=== PATIENT | male | born 1950 | race Caucasian/White ===

== ENCOUNTER 2023-03-17 11:18 | Outpatient (RCR) | payer MEDICARE, BC, SELFPAY ==
[2023-03-17] MEDS: TYLENOL 650 MG PO (12:11)
[2023-03-17 12:23] VITALS: BP 121/71
[2023-03-17 12:43] VITALS: BP 105/54
[2023-03-17 14:36] VITALS: BP 124/68
== END 2023-04-08 23:59 | disposition home or self-care (01) ==
LOC: OID 11:18
PROVIDERS: ATTENDING PHYSICIAN Internal Medicine Hematology & Oncology; FAMILY PHYSICIAN Family Medicine
DX: D64.9 Anemia, unspecified (principal); D46.9 Myelodysplastic syndrome, unspecified (principal); E83.110 Hereditary hemochromatosis
CPT/HCPCS: 36415; 36430; 86850; 86900; 86901; 86920; P9016

== ENCOUNTER → 2023-04-13 10:36 | Outpatient (REF) | payer MEDICARE, BC, SELFPAY | LOC: OIDL 10:36 | PROVIDERS: ATTENDING PHYSICIAN Internal Medicine Hematology & Oncology | DX: E83.110 Hereditary hemochromatosis (principal); D64.9 Anemia, unspecified; D46.9 Myelodysplastic syndrome, unspecified | CPT/HCPCS: 85025; 86850; 86900; 86901; 86920 ==

== ENCOUNTER 2023-04-14 09:46 | Outpatient (RCR) | payer MEDICARE, BC, SELFPAY ==
[2023-04-13 10:42] LABS: % Basophils 0.6 % (0-2); % Eosinophils 8.1 % (0-6); % Immature Granulocytes 18.3 % (0-0.5); % Lymphocytes 8.7 % (20.5-51.1); % Monocytes 7.3 % (1.7-9.3); Absolute Basophils 0.1 10^3/uL (0-0.2); Absolute Eosinophils 1.3 10^3/uL (0-0.7); Absolute Lymphocytes 1.4 10^3/uL (1.2-3.4); Absolute Monocytes 1.2 10^3/uL (0.1-0.6); Absolute Neutrophils 9.2 10^3/uL (1.4-6.5); Hematocrit 23.7 % (39.0-52.0); Hemoglobin 8.2 g/dL (13.0-18.0); Mean Corp Hgb Conc. 34.6 g/dL (33.0-37.0); Mean Corpuscular Hgb 36.9 pg (27.0-31.0); Mean Corpuscular Volume 106.8 fL (80.0-94.0); Mean Platelet Volume 9.5 fL (7.4-10.4); Nucleated Red Blood Cells % 0.4 % (-); Platelet Count 403 10^3/uL (130-400); Red Blood Cell Count 2.22 10^6/uL (4.70-6.10); Red Cell Dist. Width 23.5 % (11.5-14.5); White Blood Cell Count 16.1 10^3/uL (4.8-10.8)
[2023-04-14 09:55] VITALS: BP 134/75
[2023-04-14 10:26] VITALS: BP 134/75
[2023-04-14 10:43] VITALS: BP 102/63
[2023-04-14 12:26] VITALS: BP 135/66
== END 2023-05-07 23:59 | disposition home or self-care (01) ==
LOC: OID 09:46
PROVIDERS: ATTENDING PHYSICIAN Internal Medicine Hematology & Oncology; FAMILY PHYSICIAN Family Medicine
DX: D46.9 Myelodysplastic syndrome, unspecified (principal); D64.9 Anemia, unspecified (principal); E83.110 Hereditary hemochromatosis
CPT/HCPCS: 36430; 85025; 86850; 86900; 86901; 86920; P9016

== ENCOUNTER 2023-06-04 07:39 | Outpatient (RCR) | payer MEDICARE, BC, SELFPAY ==
[2023-05-12 11:23] LABS: Hematocrit 28.4 % (39.0-52.0); Hemoglobin 9.7 g/dL (13.0-18.0); Mean Corp Hgb Conc. 34.2 g/dL (33.0-37.0); Mean Corpuscular Hgb 37.3 pg (27.0-31.0); Mean Corpuscular Volume 109.2 fL (80.0-94.0); Mean Platelet Volume 9.1 fL (7.4-10.4); Platelet Count 358 10^3/uL (130-400); Red Cell Dist. Width 22.7 % (11.5-14.5)
[2023-05-12 11:28] LABS: % Basophils 0.3 % (0-2); % Eosinophils 8.2 % (0-6); % Immature Granulocytes 22.4 % (0-0.5); % Lymphocytes 12.4 % (20.5-51.1); % Monocytes 13.3 % (1.7-9.3); % Neutrophils 43.4 % (42.2-75.2); Absolute Basophils 0.1 10^3/uL (0-0.2); Absolute Eosinophils 1.6 10^3/uL (0-0.7); Absolute Immature Granulocytes 4.3 10^3/uL (0-0.05); Absolute Lymphocytes 2.4 10^3/uL (1.2-3.4); Absolute Monocytes 2.5 10^3/uL (0.1-0.6); Absolute Neutrophils 8.3 10^3/uL (1.4-6.5)
[2023-06-03 11:11] LABS: % Basophils 0.1 % (0-2); % Eosinophils 5.4 % (0-6); % Immature Granulocytes 2.2 % (0-0.5); % Lymphocytes 17.8 % (20.5-51.1); % Monocytes 19.7 % (1.7-9.3); % Neutrophils 54.8 % (42.2-75.2); Absolute Eosinophils 0.4 10^3/uL (0-0.7); Absolute Immature Granulocytes 0.2 10^3/uL (0-0.05); Absolute Lymphocytes 1.5 10^3/uL (1.2-3.4); Absolute Monocytes 1.6 10^3/uL (0.1-0.6); Absolute Neutrophils 4.5 10^3/uL (1.4-6.5); Hematocrit 25.1 % (39.0-52.0); Hemoglobin 8.4 g/dL (13.0-18.0); Mean Corp Hgb Conc. 33.5 g/dL (33.0-37.0); Mean Corpuscular Hgb 38.2 pg (27.0-31.0); Mean Corpuscular Volume 114.1 fL (80.0-94.0); Mean Platelet Volume 9.2 fL (7.4-10.4); Platelet Count 234 10^3/uL (130-400); Red Cell Dist. Width 20.8 % (11.5-14.5); White Blood Cell Count 8.2 10^3/uL (4.8-10.8)
[2023-06-04 07:50] VITALS: BP 120/75
[2023-06-04] MEDS: TYLENOL 650 MG PO (07:59)
[2023-06-04 08:17] VITALS: BP 120/75
[2023-06-04 08:34] VITALS: BP 124/72
[2023-06-04 10:09] VITALS: BP 122/87
== END 2023-06-05 12:12 | disposition home or self-care (01) ==
LOC: OID 07:39
PROVIDERS: ATTENDING PHYSICIAN Internal Medicine Hematology & Oncology; FAMILY PHYSICIAN Family Medicine
DX: D46.9 Myelodysplastic syndrome, unspecified (principal); E83.110 Hereditary hemochromatosis; D64.9 Anemia, unspecified
CPT/HCPCS: 36430; 85025; 86850; 86900; 86901; 86920; P9016

== ENCOUNTER 2023-06-19 10:39 | Outpatient (RCR) | payer MEDICARE, BC, SELFPAY ==
[2023-06-19 10:50] VITALS: BP 105/68
[2023-06-19 11:10] VITALS: BP 105/68
[2023-06-19 11:27] VITALS: BP 104/70
[2023-06-19 13:11] VITALS: BP 111/72
[2023-06-24 10:24] LABS: % Basophils 0.3 % (0-2); % Eosinophils 3.7 % (0-6); % Immature Granulocytes 18.3 % (0-0.5); % Lymphocytes 21.6 % (20.5-51.1); % Monocytes 15.4 % (1.7-9.3); % Neutrophils 40.7 % (42.2-75.2); Absolute Eosinophils 0.3 10^3/uL (0-0.7); Absolute Immature Granulocytes 1.3 10^3/uL (0-0.05); Absolute Lymphocytes 1.5 10^3/uL (1.2-3.4); Absolute Monocytes 1.1 10^3/uL (0.1-0.6); Absolute Neutrophils 2.8 10^3/uL (1.4-6.5); Hematocrit 28.7 % (39.0-52.0); Hemoglobin 9.5 g/dL (13.0-18.0); Mean Corp Hgb Conc. 33.1 g/dL (33.0-37.0); Mean Corpuscular Volume 111.7 fL (80.0-94.0); Mean Platelet Volume 8.7 fL (7.4-10.4); Platelet Count 483 10^3/uL (130-400); Red Blood Cell Count 2.57 10^6/uL (4.70-6.10); Red Cell Dist. Width 20.4 % (11.5-14.5); White Blood Cell Count 6.8 10^3/uL (4.8-10.8)
== END 2023-07-07 23:59 | disposition home or self-care (01) ==
LOC: OID 10:39
PROVIDERS: ATTENDING PHYSICIAN Internal Medicine Hematology & Oncology
DX: D46.9 Myelodysplastic syndrome, unspecified (principal); E83.110 Hereditary hemochromatosis; D64.9 Anemia, unspecified
CPT/HCPCS: 36415; 36430; 85025; 86850; 86900; 86901; 86920; P9016

== ENCOUNTER 2023-07-09 21:54 | Inpatient (IN) | payer MEDICARE, BC, SELFPAY ==
[2023-07-09] VITALS (8 sets, daily range): BP systolic 105–148; BP diastolic 67–82; BMI 29.5; BMI 28.6
[2023-07-09 18:07] LABS: Hematocrit 25.2 % (39.0-52.0); Hemoglobin 8.6 g/dL (13.0-18.0); Mean Corp Hgb Conc. 34.1 g/dL (33.0-37.0); Mean Corpuscular Hgb 37.7 pg (27.0-31.0); Mean Corpuscular Volume 110.5 fL (80.0-94.0); Platelet Count 554 10^3/uL (130-400); Red Blood Cell Count 2.28 10^6/uL (4.70-6.10); Red Cell Dist. Width 20.3 % (11.5-14.5); White Blood Cell Count 14.9 10^3/uL (4.8-10.8)
[2023-07-09 18:18] LABS: Lactic Acid 2.4 mmol/L (0.7-2.0)
[2023-07-09 18:23] LABS: ALT (SGPT) 21 U/L (0-50); AST (SGOT) 20 U/L (17-59); Albumin 2.8 g/dl (3.5-5.0); Alkaline Phosphatase 122 U/L (38-126); Blood Urea Nitrogen 15 mg/dl (9-20); Calcium 7.8 mg/dl (8.4-10.2); Carbon Dioxide 21 mmol/L (22-30); Chloride 98 mmol/L (98-107); Estimated Creatinine Clearance 122 ml/min; Glucose 120 mg/dl (70-99); Potassium 4.7 mmol/L (3.5-5.1); Sodium 126 mmol/L (135-145); Total Bilirubin 0.7 mg/dl (0.2-1.3); Total Protein 5.9 g/dl (6.3-8.2); eGFR > 60.00
[2023-07-09 18:30] LABS: Troponin I < 0.012 ng/ml
[2023-07-09 18:42] LABS: Urine Albumin Negative (Neg - Trace); Urine Bilirubin Negative (Negative); Urine Character Clear (Clear); Urine Color Yellow; Urine Glucose Negative (Negative); Urine Ketone Negative (Negative); Urine Leukocyte Negative (Negative); Urine Nitrite Negative (Negative); Urine Occult Blood Negative (Negative); Urine Specific Gravity 1.015 (<1.030); Urine Urobilinogen Negative (Neg - 1+)
[2023-07-09 19:00] LABS: Absolute Neutrophils -Man Diff 9.8 10^3/uL (1.4-6.5); Band Neutrophils 0 % (0-3); Lymphocytes 8 % (20-51); Pathologist Reviewed No; Segmented Neutrophils 66 % (42-75)
[2023-07-09 19:01] LABS: Eosinophils 9 % (0-6); Metamyelocytes 4 % (-); Monocytes 7 % (2-9); Myelocytes 6 % (-); Normal RBC Morphology Yes; Nucleated Red Blood Cells 1 (-); Platelets Checked Yes; Total Cells Counted 100
[2023-07-09 19:19] LABS: COVID-19 Antigen Negative (Negative)
--- NOTE | 2023-07-09 20:12 | ED.GENMED ---
History of Present Illness
General
Chief Complaint: Change Level of Consciousness
Source: patient, spouse and ambulance crew
Exam Limitations: none
Time Seen by Provider: 07/09/23 18:12
Nursing documentation reviewed up to this point in time: agreed with
Travel History
Have you had any contact with someone who has COVID-19?: No
Do you have any symptoms of coronavirus? Fever > 100 degrees, chills, cough, shortness of breath, sore throat, loss of taste or smell, muscle aches, or headache?: No
History of Present Illness
History of Present Illness:
Patient presents to ED secondary to worsening generalized weakness over the past 3 days, along with decreased appetite. Today, generalized weakness worsened with mental status change. In fact, as patient was being walked to the car to come to ED
for an evaluation, patient had brief episode of syncope. Patient is found to be febrile upon arrival, which patient and family was not aware of. Per spouse at bedside, patient has been working indoors, and has not been outside at all. Denies
coughing. Denies sore throat. Denies headache. Denies nausea, vomiting, or diarrhea. Denies sick contact. Denies recent travel. Patient does have history of MDS, for which she does receive frequent blood transfusion.
Past History
Past History
ED Past Medical History: Other (Hemochromatosis, rheumatoid arthritis, mild intermittent asthma)
ED Past Surgical History: Appendectomy
Social History
Tobacco: Non-smoker
Alcohol: None
Personal:
Living: with family
Employment: Employed ([employer])
Family History
Family History: Other (Noncontributory)
Review of Systems
Review of Systems
Allergies reviewed?: Yes
All Other Systems: ROS reviewed and negative except as documented in HPI and ROS
Constitutional: Reports no symptoms
EENT: Reports no symptoms
Respiratory: Reports no symptoms
Cardiac: Reports no symptoms
ABD/GI: Reports no symptoms
: Reports no symptoms
Musculoskeletal: Reports no symptoms
Skin: Reports no symptoms
Neurological: Reports no symptoms
Phy Exam
Physical Exam
Physical Exam:
Physical Exam
General: mild distress, not acutely ill. febrile.
Head: nc/at. eomi
Neck: supple. no meningeal signs.
Heart: s1/s2 regular rate and rhythm, no murmur. equal radial pulses.
Lungs: no acute respiratory distress. clear bilaterally
Abdomen: normal bowel sounds. not tender.
Neuro: somnolent but easily arousable. no focal neurological deficits
Skin: no rash
Psychiatric: well kept. interactive and cooperative
Extremities: no edema. no calf tenderness.
Course
Orders/Labs/Results
Orders:
Orders
07/09/23 Dinner
Regular
At Your Request: Full Participation
07/09/23 17:46
Electrocardiogram (*1) Urgent
Reason for Study: Abdominal Pain
EKG- Treatment ONCE
IV Insert/Care/Rem.- Treatment PRN
07/09/23 17:57
Complete Blood Count/With Diff Urgent
Comprehensive Metabolic Panel Urgent
Manual Differential Urgent
07/09/23 17:58
CT Head W/o Iv Contrast Urgent
Comment:
Reason For Exam: unresponsive, confusion
07/09/23 18:01
Lactic Acid Urgent
Troponin I Urgent
07/09/23 18:31
UA Reflex to Culture [Urinalysis Reflex To Culture] Urgent
Date Specimen was Collected: 07/09/23
Time Specimen was Collected: 18:29
CR Chest Single View Urgent
Reason For Exam: chest pain
07/09/23 18:47
COVID-19 Antigen Urgent
Source: Nasal Swab
Blood Culture Q30M
SAMEERA Source: Blood/Venous
Specimen Description:
Blood Culture Q30M
SAMEERA Source: Blood/Venous
Specimen Description:
Influenza A+B Rapid Molecular Urgent
SAMEERA Source: Nasal Swab
Specimen Description:
07/09/23 20:07
0.9% Sodium Chloride 1000 ml [Nss] 1,000 ml IV BOLUS
07/09/23 20:49
Piperacillin/Tazo 3.375 Gram [Zosyn] 3.375 gram in 50 ml IV NOW
07/09/23 21:19
Admit/Transfer Patient As Directed
Co-Sign Provider:
Level of Care: Inpatient admission
Assign to:: Medical/Surgical
Physician / Group: hannah
Diagnosis: SIRS/ myeldysplastic syndrome
Reason for Hospitalization: SIRS/ myeldysplastic syndrome
Expected length of stay greater than two midnights?: Yes
ELOS- Estimated Length of Stay in days: 2
I certify the patient meets the requirements for IP care: Yes
07/09/23 21:20
Code Status As Directed
Resuscitation Status: Do not resuscitate
Reached after discussion with pt or family/Healthcare POA: Yes
DNR Bracelet Application ONCE
07/09/23 21:32
ONCOLOGY CONSULT Routine
Consulting Provider: Laverne Carballo
Was physician already notified: Yes
07/09/23 22:04
Lactic Acid Urgent
07/09/23 23:09
0.9% Sodium Chloride 1000 ml [Nss] 1,000 ml IV 100 mls/hr
Acetaminophen [Tylenol] 1,000 mg PO BID PRN
Acetaminophen [Tylenol] 650 mg PO Q4HPRN PRN
07/09/23 23:09
Activity As Directed
Activity Level: As Tolerated
Vital Signs As Directed
Frequency: Per unit guidelines
DX Deep Vein Thrombosis Video Routine
07/10/23 04:00
Cefepime HCl [Maxipime] 2,000 mg IV Q8H
07/10/23 07:50
Complete Blood Count/With Diff IN AM
Comprehensive Metabolic Panel IN AM
07/10/23 08:00
Ascorbic Acid [Vitamin C] 500 mg PO DAILY
Cyanocobalamin [Vitamin B-12] 1,000 mcg PO DAILY
FOLic ACID [Folvite] 1 mg PO DAILY
Heparin 5,000 units SC Q12
Magnesium l-Lactate [Mag-Tab Sr] 84 mg PO DAILY
Thiamine HCl [Vitamin B1] 100 mg PO DAILY
Abnormal Lab Results
07/09/23 07/09/23
17:57 18:01
WBC 14.9 H 10^3/uL
(4.8-10.8)
RBC 2.28 L 10^6/uL
(4.70-6.10)
Hgb 8.6 L g/dL
(13.0-18.0)
Hct 25.2 L %
(39.0-52.0)
MCV 110.5 H fL
(80.0-94.0)
MCH 37.7 H pg
(27.0-31.0)
RDW 20.3 H %
(11.5-14.5)
Plt Count 554 H 10^3/uL
(130-400)
Abs Neuts (Manual) 9.8 H 10^3/uL
(1.4-6.5)
Lymphocytes (Manual) 8 L %
(20-51)
Eosinophils (Manual) 9 H %
(0-6)
Sodium 126 L mmol/L
(135-145)
Carbon Dioxide 21 L mmol/L
(22-30)
Creatinine 0.6 L mg/dL
(0.7-1.3)
Glucose 120 H mg/dl
(70-99)
Lactic Acid 2.4 H mmol/L
(0.7-2.0)
Calcium 7.8 L mg/dl
(8.4-10.2)
Total Protein 5.9 L g/dl
(6.3-8.2)
Albumin 2.8 L g/dl
(3.5-5.0)
07/09/23 17:57
07/09/23 17:57
Vital Signs
Initial and Last Documented VS:
Initial Vital Signs
Pulse Resp BP Pulse Ox
110 21 148/81 93
07/09/23 17:52 07/09/23 17:52 07/09/23 17:52 07/09/23 17:52
Last Documented Vital Signs
Temp Pulse Resp BP Pulse Ox
98.7 F 85 22 121/69 97
07/10/23 07:30 07/10/23 07:30 07/10/23 07:30 07/10/23 07:30 07/10/23 07:30
MDM/Problems Addressed
MDM/Problems Addressed:
CT head: no acute findings.
Pt with continual generalized weakness, without focal deficit. No focal source of infection noted. Flu/covid negative.
Blood cx pending.
Discussed with (heme/onc) - less likely related to MDS, but more infectious etiology.
Will admit for further evaluation and treatment.
*Critical Care Note
Total Time (30-74mins, 75-104mins- exclusive of procedures): Not Applicable
ED Attending Note
-
Portions of this chart may have been created with voice recognition software.� Occasional wrong word or��sound alike� substitutions may have occurred due to the inherent limitations of voice recognition software.
Discharge Plan
Departure
Patient Disposition: Admit
Date of Disposition: 07/09/23
Time of Disposition: 20:53
Admit to: Med/Surg
Presentation/result/management discussed w/ accepting MD/DO: Hospitalist
Discharge Problem:
Fever
Interventions
Interventions:
*Risk Screen - Suicide Last Done: 07/10/23 00:29
*General Assessment Last Done: 07/09/23 17:53
*Neglect/Abuse Screening Last Done: 07/09/23 17:53
ED- Fall Risk Assessment Last Done: 07/09/23 23:16
*ED COVID-19 Vaccine History Last Done: 07/09/23 17:53
*Nursing Disposition Last Done: 07/09/23 23:16
ED- Cardiac Assessment Last Done: 07/09/23 17:53
ED- Neurological Assessment Last Done: 07/09/23 18:28
ED-Psychological Assessment Last Done: 07/09/23 17:53
ED- Pulmonary Assessment Last Done: 07/09/23 17:53
Discharge Date and Time
Discharge Date/Time: 07/09/23 23:17
[2023-07-09] MEDS: NSS 1000 IV (20:18)
[2023-07-09] MEDS: ZOSYN 50 IV (21:21)
--- NOTE | 2023-07-09 21:27 | HPS.HSE ---
Family Physician
-
Family Physician: Jean Paul Sidhu
Chief Complaint
-
weakness, fever
History of Present Illness
72-year-old male past medical history of myelodysplastic syndrome on chemotherapy, anemia, hemochromatosis, BPH, chronic hyponatremia, chronic knee pain, presenting with generalized weakness for the past several weeks particularly over the past few
days with decreased appetite. Today weakness was worse associated with change in mental status. While patient was being walked to the car to come to the emergency room he had a brief episode of syncope. He was found to have fever on arrival.
Patient denies any cough, sore throat, headache, nausea vomiting or diarrhea. No sick contacts. No recent travel.
He last received chemotherapy a month ago. He last received blood transfusion 3 weeks ago.
Medical History
Past Medical History
Past Medical History: Reports Other (myelodysplastic syndrome on chemotherapy, anemia, hemochromatosis, BPH, chronic hyponatremia, chronic knee pain,)
Past Surgical History: Reports None
Social History
Tobacco: Non-smoker
Alcohol: None
Drug: None
Family History
Family History: Not pertinent
Allergies / Home Medications
Allergies reflects when Allergies were last updated in [employer].
Home Medications with original date entered in [employer]
Allergy/Medication List:
Allergies
Allergy/AdvReac Type Severity Reaction Status Date / Time
Penicillins Allergy Rash; Verified 06/19/23 11:01
tolerates
cephalosporins
Sulfa (Sulfonamide Allergy Rash Verified 06/19/23 11:01
Antibiotics)
Home Medications
ascorbic acid (vitamin C) 500 mg tablet (Vitamin C) 500 mg PO DAILY Supplement 12/31/22
cyanocobalamin (vitamin B-12) 1,000 mcg tablet 1,000 mcg PO DAILY Supplement 12/31/22
thiamine HCl (vitamin B1) 100 mg tablet 100 mg PO DAILY Supplement 12/31/22
folic acid 1 mg tablet 1 mg PO DAILY Supplement 02/11/23
Reblozyl 1 unit SC .Q23 DAYS 06/19/23
acetaminophen 500 mg tablet 1,000 mg PO BID PRN mild pain 07/09/23
magnesium 200 mg tablet 200 mg PO DAILY 07/09/23
Review of Systems
-
History Source: Patient
A 12 point ROS was completed and negative except as noted: Yes
Constitutional: Reports No Symptoms
EENT: Reports No Symptoms
Respiratory: Reports No Symptoms
Cardiac: Reports No Symptoms
Abdomen/GI: Reports No Symptoms
: Reports No Symptoms
Musculoskeletal: Reports No Symptoms
Skin: Reports No Symptoms
Neurological: Reports No Symptoms
Endocrine: Reports No Symptoms
Hematologic/Lymphatic: Reports No Symptoms
Psych: Reports No Symptoms
Physical Exam
Vital Signs
Vital Signs
Temp Pulse Resp BP Pulse Ox
101.6 F H 104 22 121/67 94
07/09/23 19:40 07/09/23 20:30 07/09/23 20:30 07/09/23 20:00 07/09/23 20:30
Physical Exam
General: Well Developed, Well Nourished and No Apparent Distress
HEENT: NormoCephalic, Moist mucous membranes and Atraumatic
Respiratory: Clear
Cardiac: S1/S2 and Regular Rhythm; No Murmur or Rub
GI: Soft, Non Tender, Non Distended and Normal Bowel Sounds; No Organomegaly
Rectal: Deferred by Provider
Musculoskeletal: No Clubbing, No Cyanosis and No Edema
Skin: No Rash
Neuro: Nonfocal/grossly intact
Laboratory Results
-
07/09/23 17:57
07/09/23 17:57
Laboratory Results
Lactic Acid 2.4 mmol/L (0.7-2.0) H 07/09/23 18:01
Total Bilirubin 0.7 mg/dl (0.2-1.3) 07/09/23 17:57
AST 20 U/L (17-59) 07/09/23 17:57
ALT 21 U/L (0-50) 07/09/23 17:57
Alkaline Phosphatase 122 U/L (38-126) 07/09/23 17:57
Troponin I < 0.012 ng/ml 07/09/23 18:01
Data Reviewed
-
Lab Data: Labs Reviewed by me
Old Records: Reviewed
Impression/Plan
-
IMPRESSION:
PLAN:
# SIRS (fever, tachycardia, leukocytosis) in the setting of myelodysplastic syndrome on chemotherapy
-No clear source
-Elevated eosinophil percentage however absolute eos not reportable
-UA negative
-Chest x-ray unremarkable
-COVID and influenza negative
-CT head no acute abnormality
-Check blood cultures
-IV fluids
-Vancomycin/cefepime
-ID consulted
Myelodysplastic syndrome
-On chemotherapy
-Oncology consulted
Transfusion dependent anemia
-Patient due for blood transfusion
-Hemoglobin 8.6 which is close to baseline
-Oncology consulted regarding need for blood transfusion
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
BPH
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
-Sodium of 126 from baseline of 127-1 30
-Monitor with IV fluids
-Fluid restriction
Chronic knee pain
DNR/DNI
DVT prophylaxis�heparin
Regular diet
[2023-07-09] MEDS: VANCOCIN 540 MG IV (22:27)
--- NOTE | 2023-07-09 22:27 | PHA.VAN.IN ---
Assessment
- Assessment
Renal Function: Appears similar to baseline
Concomitant Antimicrobials: CEFEPIME
- Previous Dosing Experience
Previous Regimen: 1500MG IV Q12H
Date of Regimen: 02/12/23
Provided Trough of: 14.2 PREDICTED
Provided AUC of: 565 PREDICTED
Patient's SCR is: Similar to previous dosing experience (02/12/23 SCR = 0.7)
Patient's weight is: Decreased compared to previous dosing experience (02/12/23 WT = 107.9 KG)
AUC Dosing Plan
- Dosing Variables
Dosing Weight (kg): 98.7
Dosing CrCl (ml/min): 100
Vd coefficient (L/kg): 0.7
- Empiric Dosing
Initial / Loading Dose: 2GM
Maintenance Regimen: 1500MG IV Q12H
Estimated AUC (mcg*h/mL): 529
Estimated Peak (mcg*h/mL): 33.4
Estimated Trough (mcg/ml): 13.3
Estimated Half Life (H): 7.9
Pharmacokinetics Vancomycin I
- -
Patient Age: 72
Patient Sex: Male
Vancomycin Day #: 1
Indication: Bacteremia
Requesting Provider: DEREJE
Pertinent Antimicrobial Allergies:
Allergies
Penicillins Allergy (Verified 06/19/23 11:01)
Rash; tolerates cephalosporins
Cephalexin (ED - Apr 2021); Cefotetan (carlos enrique-op, July 2017)
Sulfa (Sulfonamide Antibiotics) Allergy (Verified 06/19/23 11:01)
Rash
Height / Weight:
Height 6 ft
Actual Weight 98.7 kg
Pertinent Past Medical History: MYELDYPLASTIC SYNDROME W/CHEMO
- Vital Signs / Lab Results
Temp Pulse Resp BP Pulse Ox
101.6 F H 104 22 121/67 94
07/09/23 19:40 07/09/23 20:30 07/09/23 20:30 07/09/23 20:00 07/09/23 20:30
Lab Results - Hematology
07/09/23
17:57
WBC 14.9 H
Band Neutrophils 0
Lab Results - Chemistry
07/09/23
17:57
BUN 15
Creatinine 0.6 L
Estimated Creat Clear 122
Albumin 2.8 L
07/09/23 07/09/23
18:01 22:04
Lactic Acid 2.4 H 1.0
Lab Results - Urine
07/09/23
18:31
Urine Nitrite (Reflex) Negative
Leukocyte Esterase Rfl Negative
Microbiology Results
07/09/23 18:47 Influenza Types A & B (BREN) - Final
Nasal Swab Negative for Influenza A & B, NAAT
Negative results must be combined with clinical observations
and patient history.
Nucleic Acid Amplification test (NAAT)performed on the
[employer] NOW platform.
[2023-07-10] MEDS: NSS 1000 IV ×2 (00:12→13:38)
[2023-07-10] MEDS: TYLENOL 650 MG PO ×3 (00:12→13:49)
[2023-07-10] MEDS: MAGNESIUM OXIDE 500 MG PO (01:30)
[2023-07-10] MEDS: STERILE WATER FOR INJECTION 10 ML IV ×3 (03:38→20:51)
[2023-07-10] MEDS: MAXIPIME 2000 MG IV ×3 (03:38→20:50)
[2023-07-10] MEDS: VANCOCIN 300 MG IV ×2 (06:12→18:19)
[2023-07-10] MEDS: VANCOCIN 300 ML IV ×2 (06:12→18:19)
[2023-07-10 07:30] VITALS: BP 121/69
--- NOTE | 2023-07-10 08:14 | CON.ONC ---
Addendum entered and electronically signed by Laverne Carballo DO 07/10/23 18:28:
I saw and examined the patient.
The SQL APPLICATION DEVELOPER or PA's note was reviewed and I agree with the note.
Comment:
- jerel is a 72 yo M with hx of MDS on AZA, luspatercept.
- pt presented with suspected symptomatic anemia with episode of syncope. Pt states he knew his hgb was dropping because started feeling weak earlier this week. Pt states he gets weak when hgb is < 9.0 g/dl and usually get transfused for < 8.5 g/dl.
He is receiving 1 unit pRBCs at this time for hgb 7.8 g/dl.
- pt with temp of 104.1 rectally in ER. Pt denies fevers at home or focal infectious symptoms. BCx pending. CXR, UA unremarkable. WBC and neutrophil count normal.
- if BCX negative and symptoms improve after transfusion on for D/c tomorrow with hematology follow up as scheduled.
Original Note:
Impression
Impression
Myelodysplastic syndrome (Vidaza)
SIRS, fevers, leukocytosis
Hx hereditary hemochromatosis w/ iron overload
Acute on chronic macrocytic anemia
Thrombocytosis
Change in mental status
Syncope
Leg cramping, muscle pain
Generalized weakness
Chronic hyponatremia (baseline 130)
Plan
Plan
5/2 WBC 10.5 Hgb 7.8, Hct 23.4, MCV 112.5, PLT 534
Follow CBC w/ diff daily
Transfuse as needed to maintain Hgb >8.5
1unit PRBCs recommended for Hgb 7.8
Attempt to limit transfusions if possible to avoid iron accumulation
CBC w/ diff daily
Additional labs ordered and pending
Infectious workup in progress; ID consult
Supportive care, pain management
Last Vidaza received: 06/18; Reblodominicyl last received: 06/23
Patient is due for cycle#7 Vidaza on Mon 07/12 with arrangements for repeat BMbx after cycle 7.
Consultation with Dr. Rui Bauer at [facility] was recommended outpatient.
We will follow.
Patient History
History of Present Illness
Jerel Whitmore is a 72 year old male known to Dr. Torres with [facility] for history of MDS on Vidaza/Reblozyl. He has additional history of hereditary hemochromatosis. He has required blood transfusions multiple times since March 2023 for Hgb <8.5.
He formerly donated blood via [facility], however, he became less compliant over time because they refused him for low Hct. He was last seen in the office 07/06 with complaints of weakness/fatigue, leg cramping and arthralgias. He presented to the
ER last evening, 07/08, with similar complaints of generalized weakness, poor appetite with change in mental status. He experienced a brief episode of syncope while ambulating from the car to the ED. He was found to be febrile in the ER with temp of
104.1. Spouse and family accompanied patient to the ER. They deny sick contacts or recent travel. He has been admitted for further workup and evaluation.
Past-Medical/Surgical History
Myelodysplastic syndrome
Trisomy 8 myelodysplasia
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
Acute on chronic macrocytic anemia
Homozygous hereditary hemochromatosis
hx phlebotomy via [facility]
Chronic hyponatremia (baseline Na ~130)
Chronic knee pain
Appendectomy 2017
Colonoscopy 2018
BPH
Asthma
RA
Patient Medication
�Medication �Instructions �Recorded �Confirmed �Last Taken �Type
ascorbic acid (vitamin C) 500 mg 500 mg PO DAILY Supplement 12/31/22 07/09/23 06/19/23 History
tablet (Vitamin C)
cyanocobalamin (vitamin B-12) 1,000 mcg PO DAILY Supplement 12/31/22 07/09/23 06/19/23 History
1,000 mcg tablet
thiamine HCl (vitamin B1) 100 mg 100 mg PO DAILY Supplement 12/31/22 07/09/23 06/19/23 History
tablet
folic acid 1 mg tablet 1 mg PO DAILY Supplement 02/11/23 07/09/23 06/19/23 History
Reblozyl 1 unit SC .Q23 DAYS 06/19/23 07/09/23 06/12/23 History
acetaminophen 500 mg tablet 1,000 mg PO BID PRN mild pain 07/09/23 07/09/23 07/09/23 07:00 History
magnesium 200 mg tablet 200 mg PO DAILY 07/09/23 07/09/23 Unknown History
Active Medications
Generic Name Dose Route Start Last Admin
Trade Name Freq PRN Reason Stop Dose Admin
Acetaminophen 650 mg 07/09/23 23:09 07/10/23 00:12
Acetaminophen 325 Mg Tablet PO 08/06/23 23:08 650 mg
Q4HPRN PRN Administration
mild pain/DE LEON/temp> 100.4F
Ascorbic Acid 500 mg 07/10/23 08:00
Ascorbic Acid 500 Mg Tablet PO 08/07/23 07:59
DAILY JOE
Cefepime HCl 2,000 mg 07/10/23 04:00 07/10/23 03:38
Cefepime Hcl 2,000 Mg/12.5 Ml Vial IV 2,000 mg
Q8H JOE Administration
Cyanocobalamin 1,000 mcg 07/10/23 08:00
Cyanocobalamin 1,000 Mcg Tablet PO 08/07/23 07:59
DAILY JOE
Folic Acid 1 mg 07/10/23 08:00
Folic Acid 1 Mg Tablet PO 08/07/23 07:59
DAILY JOE
Heparin Sodium 5,000 units 07/10/23 08:00
Heparin 5,000 Units/Ml 1 Ml Vial SC 08/07/23 07:59
Q12 JOE
Vancomycin HCl 1,500 mg/ 300 mls @ 200 mls/hr 07/10/23 06:00 07/10/23 06:12
Sodium Chloride 20 ml/ Sodium IV 300 mls
Chloride Q12H JOE Administration
Protocol
Sodium Chloride 1,000 mls @ 100 mls/hr 07/09/23 23:09 07/10/23 00:12
Nss IV 1,000 mls
.Q10H JOE Administration
Magnesium 84 mg 07/10/23 08:00
Magnesium Lactate 84 Mg Tablet PO 08/07/23 07:59
DAILY JOE
Sodium Chloride 0 flush 07/09/23 23:00
Sodium Chloride 0.9% (Flush) Syringe IV 08/06/23 22:59
PER PROTOCOL JOE
Sterile Water 10 ml 07/10/23 04:00 07/10/23 03:38
Sterile Water For Injection 10 Ml Vial IV 08/07/23 03:59 10 ml
Q8H JOE Administration
Thiamine HCl 100 mg 07/10/23 08:00
Thiamine 100 Mg Tablet PO 08/07/23 07:59
DAILY JOE
Review of Systems
-
History Source: Patient, Coordinated Provider and Records
Constitutional: Reports Fatigue and Weakness
EENT: Reports No Symptoms
Respiratory: Reports No Symptoms
Cardiac: Reports No Symptoms
GI: Reports No Symptoms
Breast: Reports N/A
: Reports No Symptoms
Musculoskeletal: Reports Muscle Pain, Arthralgias, Myalgias and Muscle Weakness
Skin: Reports No Symptoms
Neuro: Reports No Symptoms
Endocrine: Reports No Symptoms
Hematologic/Lymphatic: Reports No Symptoms
Allergy / Immunology: Reports No Symptoms
Psych: Reports No Symptoms
Physical Exam
-
Patient complains of severe leg cramping worse with movement. He is requesting blood due to hgb.
General: Well Developed, Well Nourished, No Apparent Distress, Pain, Conversant and Appears Chronically Ill
HEENT: Other (pallor); Negative Jaundice
Cardiology: S1 and S2
Pulmonary: Other (diminished, poor effort/shallow, room air)
GI: Soft
Genito-Urinary: Deferred by me
Musculoskeletal: No Edema
Extremities: Pulses Present
Neurology: Non Focal
Skin: Warm, Dry and Other (pallor)
Psych: Calm and Anxious
Labs
Lab Results
WBC 14.9 10^3/uL (4.8-10.8) H 07/09/23 17:57
RBC 2.28 10^6/uL (4.70-6.10) L 07/09/23 17:57
Hgb 8.6 g/dL (13.0-18.0) L 07/09/23 17:57
Hct 25.2 % (39.0-52.0) L 07/09/23 17:57
MCV 110.5 fL (80.0-94.0) H 07/09/23 17:57
MCH 37.7 pg (27.0-31.0) H 07/09/23 17:57
MCHC 34.1 g/dL (33.0-37.0) 07/09/23 17:57
RDW 20.3 % (11.5-14.5) H 07/09/23 17:57
Plt Count 554 10^3/uL (130-400) H 07/09/23 17:57
MPV 9.0 fL (7.4-10.4) 07/09/23 17:57
Abs Immat Gran (auto) Not Reportable 07/09/23 17:57
Absolute Neuts (auto) Not Reportable 07/09/23 17:57
Absolute Lymphs (auto) Not Reportable 07/09/23 17:57
Absolute Monos (auto) Not Reportable 07/09/23 17:57
Absolute Eos (auto) Not Reportable 07/09/23 17:57
Absolute Basos (auto) Not Reportable 07/09/23 17:57
Immature Gran % Not Reportable 07/09/23 17:57
Neutrophils % Not Reportable 07/09/23 17:57
Lymphocytes % Not Reportable 07/09/23 17:57
Monocytes % Not Reportable 07/09/23 17:57
Eosinophils % Not Reportable 07/09/23 17:57
Basophils % Not Reportable 07/09/23 17:57
Creatinine 0.6 mg/dL (0.7-1.3) L 07/09/23 17:57
Vital Signs
Vital Signs
Temp Pulse Resp BP Pulse Ox
100.2 F 94 18 121/69 97
07/09/23 23:04 07/09/23 23:04 07/09/23 23:04 07/09/23 23:04 07/09/23 23:04
07/09/23 CXR: No acute cardiopulmonary process.
07/09/[address]: No acute intracranial abnormality noted.
[2023-07-10] MEDS: FOLVITE 1 MG PO (08:25)
[2023-07-10] MEDS: VITAMIN B1 100 MG PO (08:25)
[2023-07-10] MEDS: VITAMIN B-12 1000 MCG PO (08:25)
[2023-07-10] MEDS: MAG-TAB SR 84 MG PO (08:25)
[2023-07-10] MEDS: HEPARIN 5000 UNITS SC ×2 (08:25→20:51)
[2023-07-10 08:31] LABS: Hematocrit 23.4 % (39.0-52.0); Hemoglobin 7.8 g/dL (13.0-18.0); Mean Corp Hgb Conc. 33.3 g/dL (33.0-37.0); Mean Corpuscular Hgb 37.5 pg (27.0-31.0); Mean Corpuscular Volume 112.5 fL (80.0-94.0); Mean Platelet Volume 9.1 fL (7.4-10.4); Nucleated Red Blood Cells % 0.3 % (-); Platelet Count 534 10^3/uL (130-400); Red Blood Cell Count 2.08 10^6/uL (4.70-6.10); Red Cell Dist. Width 20.4 % (11.5-14.5); White Blood Cell Count 10.5 10^3/uL (4.8-10.8)
[2023-07-10] MEDS: VITAMIN C 500 MG PO (08:40)
[2023-07-10 08:51] LABS: Reticulocyte Count 3.2 % (0.4-2.8)
[2023-07-10 09:10] LABS: ALT (SGPT) 20 U/L (0-50); AST (SGOT) 15 U/L (17-59); Albumin 2.7 g/dl (3.5-5.0); Alkaline Phosphatase 118 U/L (38-126); Blood Urea Nitrogen 12 mg/dl (9-20); Calcium 8.2 mg/dl (8.4-10.2); Carbon Dioxide 26 mmol/L (22-30); Chloride 97 mmol/L (98-107); Estimated Creatinine Clearance 122 ml/min; Glucose 209 mg/dl (70-99); Iron 60 ug/dl (49-181); Potassium 4.8 mmol/L (3.5-5.1); Sodium 126 mmol/L (135-145); Total Bilirubin 0.4 mg/dl (0.2-1.3); Total Protein 5.7 g/dl (6.3-8.2); eGFR > 60.00
[2023-07-10 09:19] LABS: Percent Saturation 39 % (20-50); Total Iron Binding Capacity 152 ug/dl (261-462)
[2023-07-10 09:30] LABS: LDH 255 U/L (120-246)
[2023-07-10 09:41] LABS: Erythrocyte Sed Rate 121 mm/hour (0-20)
--- NOTE | 2023-07-10 09:54 | PHA.VAN.FU ---
Vancomycin Assessment / Plan
- Assessment
Renal Function: Stable
WBC's are: WNL
In the past 24 hrs, patient has been: Febrile (tmax - 07/09/23 17:53 - 104.1)
Concomitant Antimicrobials: cefepime
- Dosing Plan
Continue: vancomycin 1500 mg q12h - started 07/09 0600 after 2 gm LD
- Monitoring Plan
No level(s) ordered at this time: consider levels after Sat afny dose ( 4th maintenance)
- Follow Up
Pharmacy will continue to follow.
Vancomycin Follow UP
- -
Patient Age: 72
Patient Sex: Male
Vancomycin Day #: 2
Indication: Bacteremia
Requesting Provider: DEREJE
Pertinent Antimicrobial Allergies:
Allergies
Penicillins Allergy (Verified 06/19/23 11:01)
Rash; tolerates cephalosporins
Cephalexin (ED - Apr 2021); Cefotetan (carlos enrique-op, July 2017)
Sulfa (Sulfonamide Antibiotics) Allergy (Verified 06/19/23 11:01)
Rash
Height / Weight:
Height 6 ft
Actual Weight 95.663 kg
Pertinent Past Medical History: MYELDYPLASTIC SYNDROME W/CHEMO
- Vital Signs / Lab Results
Temp Pulse Resp BP Pulse Ox
98.7 F 85 22 121/69 97
07/10/23 07:30 07/10/23 07:30 07/10/23 07:30 07/10/23 07:30 07/10/23 07:30
Lab Results - Hematology
07/09/23 07/10/23
17:57 07:50
WBC 14.9 H 10.5
Band Neutrophils 0
Lab Results - Chemistry
07/09/23 07/10/23
17:57 07:50
BUN 15 12
Creatinine 0.6 L 0.6 L
Estimated Creat Clear 122 122
Albumin 2.8 L 2.7 L
07/09/23 07/09/23
18:01 22:04
Lactic Acid 2.4 H 1.0
Lab Results - Urine
07/09/23
18:31
Urine Nitrite (Reflex) Negative
Leukocyte Esterase Rfl Negative
Microbiology Results
07/09/23 18:47 Influenza Types A & B (BREN) - Final
Nasal Swab Negative for Influenza A & B, NAAT
Negative results must be combined with clinical observations
and patient history.
Nucleic Acid Amplification test (NAAT)performed on the
[employer] platform.
[2023-07-10 10:04] LABS: Absolute Neutrophils -Man Diff 4.8 10^3/uL (1.4-6.5); Band Neutrophils 0 % (0-3); Eosinophils 13 % (0-6); Lymphocytes 14 % (20-51); Metamyelocytes 6 % (-); Monocytes 7 % (2-9); Myelocytes 13 % (-); Segmented Neutrophils 46 % (42-75)
[2023-07-10 10:05] LABS: Normal RBC Morphology No; Platelets Checked YES
[2023-07-10 10:06] LABS: Polychromasia FEW; Target Cells FEW
[2023-07-10 10:08] LABS: Total Cells Counted 100
[2023-07-10 10:34] LABS: Folate 12.9 ng/ml (2.76-20); Vitamin B12 955 pg/ml (239-931)
--- NOTE | 2023-07-10 12:52 | CON.ID ---
Consultation
-
Date/Time Consultation Requested: 07/09/2023 2214
Date/Time Consultation Performed: 07/10/2023 1230
Requesting Provider: Dr. Schneider
Performing Provider: Dr. Gonzalez
Reason for Consultation: Fever; SIRS
Chief Complaint / Past History
History of Present Illness
Alberto Whitmore is a 72-year-old man with a significant past medical history of myelodysplastic syndrome (on chemotherapy), along with a history of hemochromatosis being evaluated at the request of Dr. Schneider in regards to fever and weakness.
History is obtained from chart review, along with patient interview.
The patient reports that he has had general weakness times several weeks, but it is increased over the past several days. He reports that yesterday he was going to the car with the assistance of his when he became presyncopal. He reports he
has had intermittent low-grade rigors over the past several days. He also reports intermittent throbbing pain in his bilateral legs which lasts only for several seconds at a time. He denies any headache. He denies any cough or congestion. He
denies any abdominal pain, nausea or vomiting. He admits to occasional shortness of breath. He denies any abdominal discomfort, nausea, vomiting or diarrhea. He notes no history of dysuria.
Past History
Additional Past Medical History:
Myelodysplastic syndrome (on chemotherapy)
Hemochromatosis
Rheumatoid arthritis
Asthma
BPH
Hx hyponatremia
Additional Past Surgical History:
Appendectomy
Allergy History:
Penicillins Allergy (Verified 06/19/23 11:01)
Rash; tolerates cephalosporins
Sulfa (Sulfonamide Antibiotics) Allergy (Verified 06/19/23 11:01)
Rash
Medications Reviewed: Yes
Current Antibiotics:
Vancomycin (dosed per pharmacy)
Cefepime
Social History
Tobacco: Non-Smoker
Alcohol: None
Drug: None
Personal:
Living: With Family
Employment: Employed
Family History
Family History: Not Pertinent
Review of Systems
Vital Signs
Temp Pulse Resp BP Pulse Ox
98.7 F 85 22 121/69 97
07/10/23 07:30 07/10/23 07:30 07/10/23 07:30 07/10/23 07:30 07/10/23 07:30
Physical Exam
Physical Exam
Constitutional: No Acute Distress, Comfortable and Non-toxic
Eyes: Pupils Equal, Pupils Round, No Conjunctival Hemorrhage and Sclera Anicteric
Oral: No Thrush and No Ulcers
Cardiovascular: Regular Rate and S1/S2; Negative S3/S4 or Murmur
Pulmonary: Clear; Negative Wheezes, Rales or Rhonchi
Gastrointestinal: Soft, Non Tender, Non Distended, Normal Bowel Sounds, No Rebound and No Guarding
Genito-Urinary: Negative [place] or CVA Tenderness
Extremities: Negative Edema, Cyanosis, Erythema, Splinter Hemorrhage or [place]ay Lesions
Musculoskeletal: Negative Joint Swelling or Joint Effusion
Skin: Warm and Dry; Negative Rash or Jaundice
Neurological: Awake, Alert and Oriented
Psychological: Calm
.
Lab / Diagnostic Study Results
07/10/23 07:50
07/10/23 07:50
Abs Immat Gran (auto) Not Reportable 07/10/23 07:50
Absolute Neuts (auto) Not Reportable 07/10/23 07:50
Absolute Lymphs (auto) Not Reportable 07/10/23 07:50
Absolute Monos (auto) Not Reportable 07/10/23 07:50
Absolute Basos (auto) Not Reportable 07/10/23 07:50
Total Counted 100 07/10/23 07:50
Immature Gran % Not Reportable 07/10/23 07:50
Neutrophils % Not Reportable 07/10/23 07:50
Lymphocytes % Not Reportable 07/10/23 07:50
Monocytes % Not Reportable 07/10/23 07:50
Eosinophils % Not Reportable 07/10/23 07:50
Basophils % Not Reportable 07/10/23 07:50
Abs Neuts (Manual) 4.8 10^3/uL (1.4-6.5) 07/10/23 07:50
Segmented Neutrophils 46 % (42-75) 07/10/23 07:50
Band Neutrophils 0 % (0-3) 07/10/23 07:50
Lymphocytes (Manual) 14 % (20-51) L 07/10/23 07:50
Eosinophils (Manual) 13 % (0-6) H 07/10/23 07:50
Basophils (Manual) 1 % 07/10/23 07:50
ESR Cancelled 07/10/23 08:26
Lactic Acid 1.0 mmol/L (0.7-2.0) 07/09/23 22:04
Microbiology Results
Micro:
07/09/23 18:47 Blood Culture - Preliminary
Blood/Venous Positive culture in progress
Gram Stain - Preliminary
07/09/23 18:47 Influenza Types A & B (BREN) - Final
Nasal Swab Negative for Influenza A & B, NAAT
Negative results must be combined with clinical observations
and patient history.
Nucleic Acid Amplification test (NAAT)performed on the
[employer] platform.
07/09/23 18:47 Blood Culture - Pending
Blood/Venous
Imaging:
07/09/2023 CXR (single view: Heart is top normal in size. No vascular congestion. No evidence for pneumonia or pneumothorax. Please see full dictation for additional detail.
Assessment / Plan
Generalized weakness
Fever
Myelodysplastic syndrome (on chemotherapy)
Hemochromatosis
Rheumatoid arthritis
Asthma
BPH
Hx hyponatremia
Recommendations:
Continue with empiric antibiotics.
Follow pending blood cultures.
Follow white count and temperature curve.
Further recommendations as additional data is returned.
--- NOTE | 2023-07-10 13:02 | W.PN.HOSP.TC ---
Today's Communication/Plan
-
transfuse 1 unit now
Assessment / Plan
Assessment / Plan
# SIRS (fever, tachycardia, leukocytosis) in the setting of myelodysplastic syndrome on chemotherapy
-No clear source
-Elevated eosinophil percentage
-UA negative
-Chest x-ray unremarkable, repeat CXR in AM
-COVID and influenza negative
-CT head no acute abnormality
-Check blood cultures
-IV fluids
-Vancomycin/cefepime
-ID consulted
ESR 121
Blood Cx + with Gm Pos Cocci in clusters
concern for bacteremia, await cx results
Myelodysplastic syndrome
-On chemotherapy
-Oncology consulted
Transfusion dependent anemia
-Patient due for blood transfusion
-Hemoglobin 8.6-->7.8 discussed with onc, will transfuse
-Oncology consulted
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
BPH
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
-Sodium of 126 from baseline of 127-1 30
-Monitor with IV fluids
-Fluid restriction
Chronic knee pain
DNR/DNI
DVT prophylaxis�heparin
Regular diet
Anticipated Discharge: > 48 hours
Subjective/Interval History
-
Date of Service: July 10, 2023
Generally feels weak
Objective Data
-
Labs:
Laboratory Results
07/10/23
07:50
WBC 10.5
Hgb 7.8 L
Hct 23.4 L
Plt Count 534 H
Sodium 126 L
Potassium 4.8
Chloride 97 L
Carbon Dioxide 26
BUN 12
Creatinine 0.6 L
Glucose 209 H
Calcium 8.2 L
Total Bilirubin 0.4
AST 15 L
ALT 20
Alkaline Phosphatase 118
Vital Signs:
Vital Signs
Temp Pulse Resp BP Pulse Ox
98.7 F 85 22 121/69 97
07/10/23 07:30 07/10/23 07:30 07/10/23 07:30 07/10/23 07:30 07/10/23 07:30
I&O
07/09/23 07/10/23 07/11/23
06:59 06:59 06:59
Intake Total 480 / 480
Output Total 1000 / 1000
Balance -520 / -520
Review of Systems
-
History Source: Patient and Coordinated Provider
Constitutional: Reports Fever (104.1)
EENT: Reports No Symptoms Reported
Respiratory: Reports No Symptoms
Cardiac: Reports No Symptoms
Abdomen/GI: Reports No Symptoms
Physical Exam
-
General: Well Developed, Well Nourished and No Apparent Distress
HEENT: Normocephalic, Atraumatic and Moist Mucous Membranes
Respiratory: Rales (interstitial rales rt mid lung)
Cardiac: Regular Rhythm and S1/S2
GI: Soft, Nontender and Nondistended
Musculoskeletal: No Clubbing, No Cyanosis and No Edema
Psych: Calm and Intact Judgement/Insight
[2023-07-10 15:20] VITALS: BP 107/68
[2023-07-10 15:40] VITALS: BP 116/71
[2023-07-10 15:56] VITALS: BP 114/74
--- NOTE | 2023-07-10 16:08 | CM ---
Patient seen bedside.
IA completed.
Patient lives with spouse in a 2 story home.
Patient stays on 1st floor, has bedroom and 1/2 bath.
Ambulates with a RW in the house and wheelchair for long distances.
Patient no no longer drives.
Patient has not had VN or skilled rehab in the past.
PCP: Dr Sidhu
Pharmacy: [facility]
Plan: home no needs anticipated
Patient would like to find out if a mobility chair with large wheels is covered under insurance.
CM will try and research.
[2023-07-10 18:01] VITALS: BP 123/82
[2023-07-10 22:38] VITALS: BP 118/76
[2023-07-11] MEDS: MAXIPIME 2000 MG IV ×3 (03:45→20:20)
[2023-07-11] MEDS: NSS 1000 IV (03:46)
[2023-07-11] MEDS: STERILE WATER FOR INJECTION 10 ML IV ×3 (03:46→20:20)
[2023-07-11] MEDS: VANCOCIN 300 ML IV ×2 (05:45→17:04)
[2023-07-11] MEDS: VANCOCIN 300 MG IV ×2 (05:45→17:04)
[2023-07-11 07:00] VITALS: BP 134/75
[2023-07-11 07:40] LABS: Hematocrit 23.9 % (39.0-52.0); Hemoglobin 8.1 g/dL (13.0-18.0); Mean Corp Hgb Conc. 33.9 g/dL (33.0-37.0); Mean Corpuscular Hgb 36.2 pg (27.0-31.0); Mean Corpuscular Volume 106.7 fL (80.0-94.0); Mean Platelet Volume 9.1 fL (7.4-10.4); Platelet Count 527 10^3/uL (130-400); Red Blood Cell Count 2.24 10^6/uL (4.70-6.10); Red Cell Dist. Width 22.8 % (11.5-14.5)
[2023-07-11 08:17] LABS: Blood Urea Nitrogen 12 mg/dl (9-20); Carbon Dioxide 24 mmol/L (22-30); Chloride 97 mmol/L (98-107); Estimated Creatinine Clearance 122 ml/min; Glucose 111 mg/dl (70-99); Sodium 125 mmol/L (135-145); eGFR > 60.00
[2023-07-11 08:24] LABS: Potassium 4.9 mmol/L (3.5-5.1)
[2023-07-11] MEDS: VITAMIN C 500 MG PO (08:33)
[2023-07-11] MEDS: VITAMIN B-12 1000 MCG PO (08:33)
[2023-07-11] MEDS: MAG-TAB SR 84 MG PO (08:33)
[2023-07-11] MEDS: TYLENOL 650 MG PO (08:33)
[2023-07-11] MEDS: FOLVITE 1 MG PO (08:33)
[2023-07-11] MEDS: HEPARIN 5000 UNITS SC ×2 (08:33→20:19)
[2023-07-11] MEDS: VITAMIN B1 100 MG PO (08:33)
[2023-07-11 08:40] LABS: Segmented Neutrophils 36 % (42-75)
[2023-07-11 08:41] LABS: Absolute Neutrophils -Man Diff 4.6 10^3/uL (1.4-6.5); Band Neutrophils 6 % (0-3); Eosinophils 15 % (0-6); Lymphocytes 17 % (20-51); Metamyelocytes 12 % (-); Monocytes 7 % (2-9); Myelocytes 7 % (-)
[2023-07-11 08:42] LABS: Anisocytosis 1+; Basophilic Stippling 1+; Hypochromasia 1+; Normal RBC Morphology No; Platelets Checked Yes; Polychromasia 1+
[2023-07-11 08:43] LABS: Total Cells Counted 100
--- NOTE | 2023-07-11 11:43 | PHA.VAN.FU ---
Vancomycin Assessment / Plan
- Assessment
Renal Function: Stable
WBC's are: Stable
In the past 24 hrs, patient has been: Afebrile
Concomitant Antimicrobials: cefepime
- Dosing Plan
Continue: vancomycin 1500 mg q12h
- Monitoring Plan
Peak Level: 07/11/23 2100 - after 4th maintenance dose
Trough Level: 07/12/23 0530
- Follow Up
Pharmacy will continue to follow.
Vancomycin Follow UP
- -
Patient Age: 72
Patient Sex: Male
Vancomycin Day #: 3
Indication: Bacteremia
Requesting Provider: DEREJE
Pertinent Antimicrobial Allergies:
Allergies
Penicillins Allergy (Verified 06/19/23 11:01)
Rash; tolerates cephalosporins
Cephalexin (ED - Apr 2021); Cefotetan (carlos enrique-op, July 2017)
Sulfa (Sulfonamide Antibiotics) Allergy (Verified 06/19/23 11:01)
Rash
Height / Weight:
Height 6 ft
Actual Weight 95.663 kg
Pertinent Past Medical History: MYELDYPLASTIC SYNDROME W/CHEMO
- Vital Signs / Lab Results
Temp Pulse Resp BP Pulse Ox
99.1 F 81 18 134/75 98
07/11/23 07:00 07/11/23 07:00 07/11/23 07:00 07/11/23 07:00 07/11/23 07:00
Lab Results - Hematology
07/09/23 07/10/23 07/11/23
17:57 07:50 06:18
WBC 14.9 H 10.5 11.0 H
Band Neutrophils 0 0 6 H D
Lab Results - Chemistry
07/09/23 07/10/23 07/11/23
17:57 07:50 06:18
BUN 15 12 12
Creatinine 0.6 L 0.6 L 0.6 L
Estimated Creat Clear 122 122 122
Albumin 2.8 L 2.7 L
07/09/23 07/09/23
18:01 22:04
Lactic Acid 2.4 H 1.0
Microbiology Results
07/09/23 18:47 Blood Culture - Preliminary
Blood/Venous Coagulase neg. staphylococcus
Additional testing on request
Gram Stain - Preliminary
07/09/23 18:47 Blood Culture - Preliminary
Blood/Venous No Growth in 24 hours- Final report to follow
07/09/23 18:47 Influenza Types A & B (BREN) - Final
Nasal Swab Negative for Influenza A & B, NAAT
Negative results must be combined with clinical observations
and patient history.
Nucleic Acid Amplification test (NAAT)performed on the
[employer] platform.
[2023-07-11 15:00] VITALS: BP 109/66
--- NOTE | 2023-07-11 15:17 | W.PN.HOSP.TC ---
Today's Communication/Plan
-
follow temp
dc IVF
Assessment / Plan
Assessment / Plan
# SIRS (fever, tachycardia, leukocytosis) in the setting of myelodysplastic syndrome on chemotherapy
-No clear source. Blood Cx were + with Coag neg staph
-Elevated eosinophil percentage
-UA negative
-Chest x-ray unremarkable, repeat CXR 07/10 remains negative
-COVID and influenza negative
-CT head no acute abnormality
-dc IV fluids
-Vancomycin/cefepime
-ID consulted
ESR 121
Blood Cx + with Gm Pos Cocci in clusters
Coag neg Staph. Discussed with ID, blood cx repeated
Myelodysplastic syndrome
-On chemotherapy
-Oncology consulted
Transfusion dependent anemia
-Patient due for blood transfusion
-Hemoglobin 8.6-->7.8 transfused 1 unit-->8.1
-Oncology consulted
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
BPH
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
-Fluid restriction
Chronic knee pain
DNR/DNI
DVT prophylaxis�heparin
Regular diet
Anticipated Discharge: 24 - 48 hours
Subjective/Interval History
-
Date of Service: July 11, 2023
Awake, alert, generally feels better
Objective Data
-
Labs:
Laboratory Results
07/11/23
06:18
WBC 11.0 H
Hgb 8.1 L
Hct 23.9 L
Plt Count 527 H
Sodium 125 L
Potassium 4.9
Chloride 97 L
Carbon Dioxide 24
BUN 12
Creatinine 0.6 L
Glucose 111 H
Calcium 8.0 L
Vital Signs:
Vital Signs
Temp Pulse Resp BP Pulse Ox
99.1 F 81 18 134/75 98
07/11/23 07:00 07/11/23 07:00 07/11/23 07:00 07/11/23 07:00 07/11/23 08:35
I&O
07/10/23 07/11/23 07/12/23
06:59 06:59 06:59
Intake Total 480 / 480 3650 / 3650
Output Total 1000 / 1000 2775 / 2775
Balance -520 / -520 875 / 875
Review of Systems
-
History Source: Patient and Coordinated Provider
Constitutional: Reports Fever (104.1 on admission, afebrile >24 hrs)
EENT: Reports No Symptoms Reported
Respiratory: Reports No Symptoms
Cardiac: Reports No Symptoms
Abdomen/GI: Reports No Symptoms
Physical Exam
-
General: Well Developed, Well Nourished and No Apparent Distress
HEENT: Normocephalic, Atraumatic and Moist Mucous Membranes
Respiratory: Rales (interstitial rales rt mid lung)
Cardiac: Regular Rhythm and S1/S2
GI: Soft, Nontender and Nondistended
Musculoskeletal: No Clubbing, No Cyanosis and No Edema
Psych: Calm and Intact Judgement/Insight
[2023-07-11] MEDS: NSS IV ×2 (16:00)
[2023-07-11 21:40] LABS: Vancomycin Peak 20.7 ug/ml (18-26)
[2023-07-11 22:53] VITALS: BP 129/74
[2023-07-12] MEDS: MAXIPIME 2000 MG IV (03:30)
[2023-07-12] MEDS: STERILE WATER FOR INJECTION 10 ML IV (03:30)
[2023-07-12 07:00] LABS: Hematocrit 25.1 % (39.0-52.0); Hemoglobin 8.7 g/dL (13.0-18.0); Mean Corp Hgb Conc. 34.7 g/dL (33.0-37.0); Mean Corpuscular Hgb 36.1 pg (27.0-31.0); Mean Corpuscular Volume 104.1 fL (80.0-94.0); Mean Platelet Volume 8.9 fL (7.4-10.4); Platelet Count 597 10^3/uL (130-400); Red Blood Cell Count 2.41 10^6/uL (4.70-6.10); Red Cell Dist. Width 22.2 % (11.5-14.5); White Blood Cell Count 11.7 10^3/uL (4.8-10.8)
[2023-07-12 07:13] LABS: Vancomycin Trough 11.6 ug/ml (5-20)
[2023-07-12 07:49] LABS: Blood Urea Nitrogen 11 mg/dl (9-20); Calcium 8.3 mg/dl (8.4-10.2); Carbon Dioxide 27 mmol/L (22-30); Chloride 92 mmol/L (98-107); Estimated Creatinine Clearance 122 ml/min; Glucose 121 mg/dl (70-99); Potassium 4.9 mmol/L (3.5-5.1); Sodium 123 mmol/L (135-145); eGFR > 60.00
[2023-07-12 07:58] VITALS: BP 122/80
--- NOTE | 2023-07-12 08:24 | W.PN.UPDATE ---
Update Note
Progress Note Update
tiger text from hospitalist requesting dc recs; dr willis felt patint was stable yesterday per our conversation then
I have recommended 5 more days of levaquin and follow up with hematology
[2023-07-12] MEDS: VITAMIN B-12 1000 MCG PO (08:31)
[2023-07-12] MEDS: VITAMIN B1 100 MG PO (08:31)
[2023-07-12] MEDS: FOLVITE 1 MG PO (08:31)
[2023-07-12] MEDS: VITAMIN C 500 MG PO (08:31)
[2023-07-12] MEDS: MAG-TAB SR 84 MG PO (08:31)
[2023-07-12] MEDS: HEPARIN 5000 UNITS SC (08:31)
--- NOTE | 2023-07-12 08:52 | W.PN.HOSP.TC ---
Today's Communication/Plan
-
dc to home
Assessment / Plan
Assessment / Plan
# SIRS (fever, tachycardia, leukocytosis) in the setting of myelodysplastic syndrome on chemotherapy
-No clear source. Blood Cx were + with Coag neg staph, most likely contaminant
-Elevated eosinophil percentage
-UA negative
-Chest x-ray unremarkable, repeat CXR 07/10 remains negative
-COVID and influenza negative
-CT head no acute abnormality
-dc IV fluids
-Vancomycin/cefepime, will be stopped
-ID consulted and discussed
ESR 121
Blood Cx + with Gm Pos Cocci in clusters
Coag neg Staph. Discussed with ID, blood cx repeated
Myelodysplastic syndrome
-On chemotherapy
-Oncology consulted
Transfusion dependent anemia
-Patient due for blood transfusion
-Hemoglobin 8.6-->7.8 transfused 1 unit-->8.1-->8.7
-Oncology consulted
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
BPH
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
-Fluid restriction
Chronic knee pain
DNR/DNI
DVT prophylaxis�heparin
Regular diet
dc now reviewed with in room
see dictated note
More than 30 minutes spent in discharge including
Final examination of the patient
Summarizing hospital stay
Instructions for continuing care to all relevant caregivers
Preparation of discharge records, prescriptions, and referral forms
Total time spent (in minutes): 45
Anticipated Discharge: Today
Subjective/Interval History
-
Date of Service: July 12, 2023
Feels better, would like to go home, in room and is agreeable for discharge. Text sent to Dr. Kline, also agreeable with short term Levaquin
Objective Data
-
Labs:
Laboratory Results
07/12/23
06:36
WBC 11.7 H
Hgb 8.7 L
Hct 25.1 L
Plt Count 597 H
Sodium 123 L
Potassium 4.9
Chloride 92 L
Carbon Dioxide 27
BUN 11
Creatinine 0.6 L
Glucose 121 H
Calcium 8.3 L
Vital Signs:
Vital Signs
Temp Pulse Resp BP Pulse Ox
97.6 F 83 16 122/80 93
07/12/23 07:58 07/12/23 07:58 07/12/23 07:58 07/12/23 07:58 07/12/23 07:58
I&O
07/11/23 07/12/23 07/13/23
06:59 06:59 06:59
Intake Total 3650 / 3650 1560 / 1560
Output Total 2775 / 2775 3385 / 3385
Balance 875 / 875 -1825 / -1825
Review of Systems
-
History Source: Patient and Coordinated Provider
Constitutional: Reports Fever (104.1 on admission, remains afebrile )
EENT: Reports No Symptoms Reported
Respiratory: Reports No Symptoms
Cardiac: Reports No Symptoms
Abdomen/GI: Reports No Symptoms
Physical Exam
-
General: Well Developed, Well Nourished and No Apparent Distress
HEENT: Normocephalic, Atraumatic and Moist Mucous Membranes
Respiratory: Rales (resolved, pt taking deeper breaths)
Cardiac: Regular Rhythm and S1/S2
GI: Soft, Nontender and Nondistended
Musculoskeletal: No Clubbing, No Cyanosis and No Edema
Psych: Calm and Intact Judgement/Insight
[2023-07-12] MEDS: VANCOCIN IV ×2 (08:55)
[2023-07-12] MEDS: LEVAQUIN 750 MG PO (08:59)
--- NOTE | 2023-07-12 09:32 | W.DS.TRANS ---
DC Summary - Tool Trouble Shooter
-
Discharge Instructions:
Discharge Diagnosis/Procedures Fever, Myelodysplastic Syndrome
Diet Regular
Activity As tolerated
Driving Restrictions No driving
Bathing Restrictions None
Blood Work regular scheduled
Instructions:
Stand-Alone Forms:
Changes to Home Medications: Yes
Discharge Medications:
DC Medications w/original date entered in [email or web address]
ascorbic acid (vitamin C) 500 mg tablet (Vitamin C) 500 mg PO DAILY Supplement 12/31/22
cyanocobalamin (vitamin B-12) 1,000 mcg tablet 1,000 mcg PO DAILY Supplement 12/31/22
thiamine HCl (vitamin B1) 100 mg tablet 100 mg PO DAILY Supplement 12/31/22
folic acid 1 mg tablet 1 mg PO DAILY Supplement 02/11/23
Reblozyl 1 unit SC .Q23 DAYS anemia 06/19/23
acetaminophen 500 mg tablet 1,000 mg PO BID PRN mild pain 07/09/23
magnesium 200 mg tablet 200 mg PO DAILY Supplement 07/09/23
levofloxacin 750 mg tablet 750 mg PO DAILY #5 tabs 07/12/23
Home Medication Changes
Levaquin added for 5 days
Pending Results: No
[2023-07-12 09:40] LABS: Absolute Neutrophils -Man Diff 5.2 10^3/uL (1.4-6.5); Band Neutrophils 9 % (0-3); Eosinophils 13 % (0-6); Lymphocytes 15 % (20-51); Metamyelocytes 13 % (-); Monocytes 8 % (2-9); Myelocytes 6 % (-); Platelets Checked Yes; Segmented Neutrophils 36 % (42-75)
[2023-07-12 09:41] LABS: Anisocytosis 1+; Hypochromasia 1+; Normal RBC Morphology No; Polychromasia 1+; Total Cells Counted 100
--- NOTE | 2023-07-12 09:47 | CM ---
CM reviewed chart, patient discharge home no needs.
Plan; home no needs.
[2023-07-12 13:47] LABS: Haptoglobin 435 mg/dL (30-200)
== END 2023-07-12 09:22 | disposition home or self-care (01) | DRG 206 ==
LOC: 4 WEST ACU 21:54
PROVIDERS: Nurse Practitioner Family; Student in an Organized Health Care Education/Training Program; ADMITTING PHYSICIAN Hospitalist; ATTENDING PHYSICIAN Internal Medicine; CONSULT PHYSICIAN Internal Medicine Hematology & Oncology; EMERGENCY PHYSICIAN Emergency Medicine; FAMILY PHYSICIAN Family Medicine; OTHER PHYSICIAN Internal Medicine Infectious Disease
PROC: 30233N1 Transfusion of Nonautologous Red Blood Cells into Peripheral Vein, Percutaneous Approach (ICD-10-PCS; 2023-07-10)
DX: J98.11 Atelectasis (principal); R65.10 Systemic inflammatory response syndrome (SIRS) of non-infectious origin without acute organ dysfunction; C91.10 Chronic lymphocytic leukemia of B-cell type not having achieved remission; E22.2 Syndrome of inappropriate secretion of antidiuretic hormone; R41.82 Altered mental status, unspecified; M06.9 Rheumatoid arthritis, unspecified; J45.20 Mild intermittent asthma, uncomplicated; D53.9 Nutritional anemia, unspecified; N40.0 Benign prostatic hyperplasia without lower urinary tract symptoms; D75.839 Thrombocytosis, unspecified; E83.110 Hereditary hemochromatosis; E83.111 Hemochromatosis due to repeated red blood cell transfusions; G89.29 Other chronic pain; R55 Syncope and collapse; Z66 Do not resuscitate; Z92.21 Personal history of antineoplastic chemotherapy; Z11.52 Encounter for screening for COVID-19; Z88.0 Allergy status to penicillin; Z88.2 Allergy status to sulfonamides; Q92.8 Other specified trisomies and partial trisomies of autosomes
CPT/HCPCS: 70450; 71045; 71046; 80048; 80053; 80202; 81003; 82607; 82728; 82746; 83010; 83540; 83550; 83605; 83615; 84484; 85025; 85045; 85652; 86850; 86900; 86901; 86920; 87040; 87149; 87205; 87502; 87811; 93005; 96360; 99285; P9016

== ENCOUNTER 2023-07-22 08:57 | Outpatient (RCR) | payer MEDICARE, BC, SELFPAY ==
[2023-07-22 09:16] VITALS: BP 112/72
[2023-07-22 09:34] VITALS: BP 112/72
[2023-07-22 09:53] VITALS: BP 89/63
[2023-07-22 11:36] VITALS: BP 124/71
--- NOTE | 2023-07-28 13:04 | OIDSOC ---
Tried calling pt in response to a referral from [facility]. VM full. Will try again. Flip
[2023-08-05 11:19] LABS: % Basophils 0.3 % (0-2); % Eosinophils 7.1 % (0-6); % Immature Granulocytes 22.1 % (0-0.5); % Lymphocytes 13.8 % (20.5-51.1); % Monocytes 12.2 % (1.7-9.3); % Neutrophils 44.5 % (42.2-75.2); Absolute Eosinophils 0.7 10^3/uL (0-0.7); Absolute Immature Granulocytes 2.2 10^3/uL (0-0.05); Absolute Lymphocytes 1.3 10^3/uL (1.2-3.4); Absolute Monocytes 1.2 10^3/uL (0.1-0.6); Absolute Neutrophils 4.3 10^3/uL (1.4-6.5); Hematocrit 28.8 % (39.0-52.0); Hemoglobin 9.4 g/dL (13.0-18.0); Mean Corp Hgb Conc. 32.6 g/dL (33.0-37.0); Mean Corpuscular Hgb 35.1 pg (27.0-31.0); Mean Corpuscular Volume 107.5 fL (80.0-94.0); Mean Platelet Volume 8.9 fL (7.4-10.4); Platelet Count 571 10^3/uL (130-400); Red Blood Cell Count 2.68 10^6/uL (4.70-6.10); Red Cell Dist. Width 25.8 % (11.5-14.5); White Blood Cell Count 9.7 10^3/uL (4.8-10.8)
[2023-08-05 11:56] LABS: ALT (SGPT) 52 U/L (0-50); AST (SGOT) 27 U/L (17-59); Albumin 3.3 g/dl (3.5-5.0); Alkaline Phosphatase 124 U/L (38-126); Blood Urea Nitrogen 17 mg/dl (9-20); Calcium 8.6 mg/dl (8.4-10.2); Carbon Dioxide 28 mmol/L (22-30); Chloride 92 mmol/L (98-107); Glucose 146 mg/dl (70-99); Iron 78 ug/dl (49-181); Magnesium 2.2 mg/dl (1.6-2.3); Potassium 5.5 mmol/L (3.5-5.1); Sodium 128 mmol/L (135-145); Total Bilirubin 0.5 mg/dl (0.2-1.3); Total Protein 6.8 g/dl (6.3-8.2); eGFR > 60.00
[2023-08-05 12:05] LABS: Percent Saturation 44 % (20-50); Total Iron Binding Capacity 174 ug/dl (261-462)
== END 2023-08-07 23:59 | disposition home or self-care (01) ==
LOC: OID 08:57
PROVIDERS: ATTENDING PHYSICIAN Internal Medicine Hematology & Oncology; FAMILY PHYSICIAN Family Medicine
DX: D46.9 Myelodysplastic syndrome, unspecified (principal); E83.110 Hereditary hemochromatosis; D64.9 Anemia, unspecified
CPT/HCPCS: 36415; 36430; 80053; 82728; 83540; 83550; 83735; 85025; 86850; 86900; 86901; 86920; P9016

== ENCOUNTER → 2023-08-14 09:07 | Outpatient (REF) | payer MEDICARE, BC, SELFPAY ==
[2023-08-14 09:30] LABS: Hematocrit 28.1 % (39.0-52.0); Hemoglobin 9.4 g/dL (13.0-18.0); Mean Corp Hgb Conc. 33.5 g/dL (33.0-37.0); Mean Corpuscular Hgb 35.6 pg (27.0-31.0); Mean Corpuscular Volume 106.4 fL (80.0-94.0); Mean Platelet Volume 8.7 fL (7.4-10.4); Nucleated Red Blood Cells % 0.5 % (-); Platelet Count 690 10^3/uL (130-400); Red Blood Cell Count 2.64 10^6/uL (4.70-6.10); Red Cell Dist. Width 25.7 % (11.5-14.5); White Blood Cell Count 6.2 10^3/uL (4.8-10.8)
[2023-08-14 09:45] VITALS: BP 107/68; BP_SYST 67
[2023-08-14 09:50] LABS: INR 1.21; PT 15.1 Sec (11.4-14.6)
[2023-08-14] MEDS: ATIVAN 0.5 MG IV (10:25)
[2023-08-14] MEDS: NSS (PRESERVATIVE FREE) 0.25 ML IV (10:25)
[2023-08-14 10:29] LABS: Absolute Neutrophils -Man Diff 3.3 10^3/uL (1.4-6.5); Anisocytosis 1+; Band Neutrophils 10 % (0-3); Eosinophils 11 % (0-6); Hypochromasia 1+; Lymphocytes 22 % (20-51); Metamyelocytes 3 % (-); Monocytes 6 % (2-9); Myelocytes 4 % (-); Normal RBC Morphology No; Platelets Checked Yes; Polychromasia Slight; Segmented Neutrophils 44 % (42-75); Total Cells Counted 100
[2023-08-14 11:05] VITALS: BP 92/66
[2023-08-14 11:10] VITALS: BP 87/56
[2023-08-14 11:15] VITALS: BP 97/66
== END ==
LOC: RADI 09:07
PROVIDERS: ATTENDING PHYSICIAN Internal Medicine Hematology & Oncology; FAMILY PHYSICIAN Family Medicine
DX: D46.9 Myelodysplastic syndrome, unspecified (principal)
CPT/HCPCS: 88305; 88311; 88312; 36415; 38222; 77012; 85025; 85610; 88313

== ENCOUNTER → 2023-08-24 15:13 | Outpatient (REF) | payer MEDICARE, BC, SELFPAY ==
[2023-08-24 16:20] LABS: Hematocrit 23.9 % (39.0-52.0); Hemoglobin 7.9 g/dL (13.0-18.0); Mean Corp Hgb Conc. 33.1 g/dL (33.0-37.0); Mean Corpuscular Hgb 35.6 pg (27.0-31.0); Mean Corpuscular Volume 107.7 fL (80.0-94.0); Platelet Count 366 10^3/uL (130-400); Red Blood Cell Count 2.22 10^6/uL (4.70-6.10); Red Cell Dist. Width 25.2 % (11.5-14.5); White Blood Cell Count 7.3 10^3/uL (4.8-10.8)
[2023-08-24 17:20] LABS: Absolute Neutrophils -Man Diff 2.5 10^3/uL (1.4-6.5); Band Neutrophils 1 % (0-3); Eosinophils 9 % (0-6); Lymphocytes 33 % (20-51); Metamyelocytes 3 % (-); Monocytes 20 % (2-9); Platelets Checked Yes; Segmented Neutrophils 34 % (42-75)
[2023-08-24 17:21] LABS: Anisocytosis 1+; Hypochromasia 1+
[2023-08-24 17:22] LABS: Poikilocytosis 1+; Polychromasia 1+; Total Cells Counted 100
[2023-08-24 17:23] LABS: Normal RBC Morphology No
== END ==
LOC: REG 15:13
PROVIDERS: ATTENDING PHYSICIAN Internal Medicine Hematology & Oncology; FAMILY PHYSICIAN Family Medicine
DX: E83.110 Hereditary hemochromatosis (principal); D64.9 Anemia, unspecified; D46.9 Myelodysplastic syndrome, unspecified
CPT/HCPCS: 36415; 85025

== ENCOUNTER 2023-08-28 10:27 | Inpatient (IN) | payer MEDICARE, BC, SELFPAY ==
[2023-08-28] VITALS (8 sets, daily range): BP systolic 97–136; BP diastolic 59–75; BMI 28.7
--- NOTE | 2023-08-28 08:13 | ED.GENMED ---
History of Present Illness
General
Chief Complaint: Fatigue
Source: patient and records
Exam Limitations: none
Time Seen by Provider: 08/28/23 08:10
Nursing documentation reviewed up to this point in time: agreed with
History of Present Illness
History of Present Illness:
72-year-old male presents emergency room complaining of feeling fatigued, difficulty standing. He notes a fever of 101 at 1 AM. He took 650 of Tylenol at 1 AM. He received a blood transfusion on Thursday for MDS. His 4-month-old grandson had a
fever and cough recently.
Past History
Past History
ED Past Medical History: Cancer (MDS) and Other (Hemochromatosis, rheumatoid arthritis, mild intermittent asthma)
ED Past Surgical History: Appendectomy
Social History
Tobacco: Non-smoker
Alcohol: None
Personal:
Living: with family
Employment: Employed ([employer])
Family History
Family History: Other (Noncontributory)
Review of Systems
Review of Systems
Allergies reviewed?: Yes
All Other Systems: Not applicable
Constitutional: Reports fever and fatigue
EENT: Reports no symptoms
Respiratory: Reports cough
Cardiac: Reports no symptoms
ABD/GI: Reports no symptoms
: Reports no symptoms
Musculoskeletal: Reports muscle pain
Skin: Reports no symptoms
Neurological: Reports weakness
Endocrine: Reports no symptoms
Hematologic/Lymphatic: Reports no symptoms
Psychiatric: Reports no symptoms
Phy Exam
Physical Exam
Physical Exam:
Physical Exam
General: Afebrile
Neck: supple. no meningeal signs. normal posterior pharynx
Heart: s1/s2 tachycardia, no murmur. equal radial
pulses.
HEENT: Pupils equal round reactive to light, EOMI
Lungs: no acute respiratory distress. clear bilaterally, cough
Abdomen: normal bowel sounds. not tender. no CVAT
Neuro: alert and oriented. no focal neurological deficits cranial nerves II through XII intact
Skin: no rash
Psychiatric: well kept. interactive and cooperative
Extremities: no edema. no calf tenderness. negative homans. good distal pulses
Course
Orders/Labs/Results
Orders:
Orders
08/28/23 08:11
Cardiac Monitoring- Treatment ONCE
IV Insert/Care/Rem.- Treatment PRN
08/28/23 08:23
CR Chest Portable - 1 View Urgent
Comment:
Reason For Exam: fever, cough, fatigue
Reason Study Needs to be Portable: Unable to Transport
08/28/23 08:48
Type+Screen Urgent
COVID-19 Antigen Urgent
Source: Nasal Swab
Complete Blood Count/With Diff Urgent
Lactic Acid Q4H
Comment: CANCEL 2nd LACTIC ACID IF 1st LACTIC ACID IS LESS THAN 2
Blood Culture Q30M
SAMEERA Source: Blood/Venous
Specimen Description:
Blood Culture Q30M
SAMEERA Source: Blood/Venous
Specimen Description:
Influenza A+B Rapid Molecular Urgent
SAMEERA Source: Nasal Swab
Specimen Description:
08/28/23 08:49
Comprehensive Metabolic Panel Urgent
PTT Urgent
Prothrombin Time Urgent
08/28/23 08:54
Acetaminophen [Tylenol] 650 mg PO NOW STA
08/28/23 09:22
0.9% Sodium Chloride 1000 ml [Nss] 1,000 ml IV BOLUS
08/28/23 09:36
Urinalysis Reflex To Culture Urgent
Date Specimen was Collected: 08/28/23
Time Specimen was Collected: 09:36
Urine Microscopic Reflex Cult Urgent
08/28/23 Lunch
Regular
At Your Request: Full Participation
08/28/23 10:08
Admit/Transfer Patient As Directed
Co-Sign Provider:
Level of Care: Inpatient admission
Assign to:: Telemetry
Physician / Group: robin clifton
Diagnosis: Sever sepsis
Reason for Telemetry: Other
Other Reason for Telemetry: sepsis
Date to Stop Telemetry: 08/30/23
Time to Stop Telemetry: 11:00
Reason for Hospitalization: Sever Sepsis
Expected length of stay greater than two midnights?: Yes
ELOS- Estimated Length of Stay in days: 2
I certify the patient meets the requirements for IP care: Yes
08/28/23 10:12
Code Status As Directed
Resuscitation Status: Full Code
08/28/23 10:14
CT Chest W/o Iv Contrast Routine
Comment:
Reason For Exam: r/O pneumonia
08/28/23 10:17
DNR Bracelet Application ONCE
08/28/23 10:17
Code Status As Directed
Resuscitation Status: Do not resuscitate
Reached after discussion with pt or family/Healthcare POA: Yes
08/28/23 10:20
INFECTIOUS DISEASE CONSULT Routine
Consulting Provider: Odesas Kline
Was physician already notified: Yes
Reason for consult: Sepsis, history of MDs
08/28/23 10:21
ONCOLOGY CONSULT Routine
Consulting Provider: Jaskaran Freed
Was physician already notified: Yes
Reason for consult: History of MDs, here with sepsis
08/28/23 11:49
0.9% Sodium Chloride 1000 ml [Nss] 1,000 ml IV 80 mls/hr
Bisacodyl [Dulcolax] 10 mg RECTAL [id number] PRN
Docusate W/Senna [Senokot-S] 1 tablet PO BIDPRN PRN
Ipratropium/Albuterol Sulfate [Duoneb] 3 ml INH R Q4HPRN PRN
Ondansetron Injectable [Zofran] 4 mg IV Q6HPRN PRN
Polyethylene Glycol Powder [Miralax] 17 grams PO DAILYPRN PRN
08/28/23 11:49
Activity As Directed
Activity Level: With Assistance
Vital Signs As Directed
Frequency: Per unit guidelines
O2 Therapy [RESP] Routine
Titrate/Wean O2 to maintain O2 sat greater than (%): 92
Pt Eval And Treat Routine
Activity Level: With Assistance
DX Deep Vein Thrombosis Video Routine
08/28/23 12:06
Acetaminophen [Tylenol] 650 mg PO Q6HPRN PRN
08/28/23 12:19
Lactic Acid Q4H
Comment: CANCEL 2nd LACTIC ACID IF 1st LACTIC ACID IS LESS THAN 2
08/28/23 14:00
Cefepime HCl [Maxipime] 2,000 mg IV Q8H
08/28/23 18:00
Enoxaparin Sodium [Lovenox] 40 mg SC QPM
08/28/23 22:00
Calcium Polycarbophil [Fibercon] 625 mg PO HS
Cyanocobalamin [Vitamin B-12] 1,000 mcg PO HS
FOLic ACID [Folvite] 1 mg PO HS
Gabapentin [Neurontin] 300 mg PO HS
Magnesium 1 tablet PO HS
Vitamin D3 1 tablet PO HS
08/29/23 06:00
Basic Metabolic Panel IN AM
Complete Blood Count/With Diff IN AM
Magnesium IN AM
08/30/23 11:00
DC Protocol for Telemetry ONCE
Abnormal Lab Results
08/28/23 08/28/23 08/28/23
08:48 08:49 09:36
WBC 13.5 H 10^3/uL
(4.8-10.8)
RBC 2.78 L 10^6/uL
(4.70-6.10)
Hgb 9.6 L D g/dL
(13.0-18.0)
Hct 30.0 L %
(39.0-52.0)
MCV 107.9 H fL
(80.0-94.0)
MCH 34.5 H pg
(27.0-31.0)
MCHC 32.0 L g/dL
(33.0-37.0)
RDW 25.8 H %
(11.5-14.5)
Abs Immat Gran (auto) 0.7 H 10^3/uL
(0-0.05)
Absolute Neuts (auto) 10.3 H 10^3/uL
(1.4-6.5)
Absolute Lymphs (auto) 0.7 L 10^3/uL
(1.2-3.4)
Absolute Monos (auto) 1.1 H 10^3/uL
(0.1-0.6)
Immature Gran % 5.4 H %
(0-0.5)
Neutrophils % 76.4 H %
(42.2-75.2)
Lymphocytes % 5.2 L %
(20.5-51.1)
PT 15.4 H Sec
(11.4-14.6)
APTT 41.0 H Sec
(23.4-35.0)
Sodium 131 L mmol/L
(135-145)
Chloride 95 L mmol/L
(98-107)
Glucose 224 H mg/dl
(70-99)
Lactic Acid 3.3 H mmol/L
(0.7-2.0)
Albumin 3.4 L g/dl
(3.5-5.0)
Ur Occult Blood Reflex Trace A
(Negative)
Urine RBC 3-6 A /HPF
(0-2)
08/28/23 08:48
08/28/23 08:49
Vital Signs
Initial and Last Documented VS:
Initial Vital Signs
Temp Pulse Resp BP Pulse Ox
98.5 F 118 18 109/75 96
08/28/23 08:06 08/28/23 08:06 08/28/23 08:06 08/28/23 08:06 08/28/23 08:06
Last Documented Vital Signs
Temp Pulse Resp BP Pulse Ox
99.2 F 90 18 97/59 96
08/28/23 11:00 08/28/23 11:00 08/28/23 11:00 08/28/23 11:00 08/28/23 11:00
MDM/Problems Addressed
Differential Diagnosis Includes:
Pneumonia, sepsis
MDM/Problems Addressed:
72-year-old male with fever, lactic acidosis, MDS. Admit to hospitalist for further evaluation.
Chronic conditions affecting care: Cancer (MDS)
Acute Exacerbation and/or Progression of Chronic Illness: Cancer (MDS)
*Radiology
Radiology exam reviewed: radiology read reviewed (Chest x-ray nad)
*Pulse Oximetry
Patient hypoxic: no
*EKG
Interpreted by ED Provider?: NA
*Pipe Straightener Interpretation
Rate: Pipe Straightener- N/A
*Critical Care Note
Total Time (30-74mins, 75-104mins- exclusive of procedures): Not Applicable
Data Reviewed
Review of Other/Old Records Reveals: Labs (Prior hemoglobin 7.9 on 08/24/2023)
Source: records
Patient Management
Social determinants of health affecting care: Living situation
Discussion with other providers: Hospitalist
Escalation/DeEscalation of care consider admission/obs:
Admit indicated
ED Attending Note
-
Portions of this chart may have been created with voice recognition software.� Occasional wrong word or��sound alike� substitutions may have occurred due to the inherent limitations of voice recognition software.
Discharge Plan
Departure
Patient Disposition: Admit
Date of Disposition: 08/28/23
Time of Disposition: 09:37
Admit to: Telemetry
Presentation/result/management discussed w/ accepting MD/DO: Hospitalist
Patient with high blood pressure during this ER visit?: Yes
Condition: Fair
Discharge Problem:
Fever, Hyponatremia, Acidosis, lactic
Interventions
Interventions:
*Risk Screen - Suicide Last Done: 08/28/23 08:45
*General Assessment Last Done: 08/28/23 08:06
*Neglect/Abuse Screening Last Done: 08/28/23 08:45
ED- Fall Risk Assessment Last Done: 08/28/23 08:45
*ED COVID-19 Vaccine History Last Done: 08/28/23 08:06
*Nursing Disposition Last Done: 08/28/23 11:08
Discharge Date and Time
Discharge Date/Time: 08/28/23 11:08
[2023-08-28] MEDS: TYLENOL 650 MG PO ×2 (08:56→20:18)
[2023-08-28 09:03] LABS: % Basophils 0.5 % (0-2); % Eosinophils 4.4 % (0-6); % Immature Granulocytes 5.4 % (0-0.5); % Lymphocytes 5.2 % (20.5-51.1); % Monocytes 8.1 % (1.7-9.3); % Neutrophils 76.4 % (42.2-75.2); Absolute Basophils 0.1 10^3/uL (0-0.2); Absolute Eosinophils 0.6 10^3/uL (0-0.7); Absolute Immature Granulocytes 0.7 10^3/uL (0-0.05); Absolute Lymphocytes 0.7 10^3/uL (1.2-3.4); Absolute Monocytes 1.1 10^3/uL (0.1-0.6); Absolute Neutrophils 10.3 10^3/uL (1.4-6.5); Mean Corpuscular Hgb 34.5 pg (27.0-31.0); Mean Corpuscular Volume 107.9 fL (80.0-94.0); Mean Platelet Volume 9.4 fL (7.4-10.4); Nucleated Red Blood Cells % 0.2 % (-); Platelet Count 324 10^3/uL (130-400); Red Blood Cell Count 2.78 10^6/uL (4.70-6.10); Red Cell Dist. Width 25.8 % (11.5-14.5); White Blood Cell Count 13.5 10^3/uL (4.8-10.8)
[2023-08-28 09:13] LABS: INR 1.24; PT 15.4 Sec (11.4-14.6)
[2023-08-28 09:17] LABS: Hemoglobin 9.6 g/dL (13.0-18.0); Lactic Acid 3.3 mmol/L (0.7-2.0)
[2023-08-28 09:19] LABS: ALT (SGPT) 32 U/L (0-50); AST (SGOT) 25 U/L (17-59); Albumin 3.4 g/dl (3.5-5.0); Alkaline Phosphatase 125 U/L (38-126); Blood Urea Nitrogen 18 mg/dl (9-20); Calcium 8.6 mg/dl (8.4-10.2); Carbon Dioxide 25 mmol/L (22-30); Chloride 95 mmol/L (98-107); Estimated Creatinine Clearance 108 ml/min; Glucose 224 mg/dl (70-99); Potassium 4.9 mmol/L (3.5-5.1); Sodium 131 mmol/L (135-145); Total Bilirubin 1.1 mg/dl (0.2-1.3); Total Protein 6.8 g/dl (6.3-8.2); eGFR > 60.00
[2023-08-28] MEDS: NSS 1000 IV ×2 (09:35→12:47)
[2023-08-28 09:44] LABS: COVID-19 Antigen Negative (Negative)
[2023-08-28 09:53] LABS: Urine Albumin Trace (Neg - Trace); Urine Bilirubin Negative (Negative); Urine Character Clear (Clear); Urine Color Yellow; Urine Glucose Negative (Negative); Urine Ketone Negative (Negative); Urine Leukocyte Negative (Negative); Urine Nitrite Negative (Negative); Urine Occult Blood Trace (Negative); Urine Urobilinogen Negative (Neg - 1+)
--- NOTE | 2023-08-28 10:24 | HPS.HSE ---
Family Physician
-
Family Physician: Michael Desir
Chief Complaint
-
Generalized weakness, fever, cough
History of Present Illness
Patient is a pleasant 72 years old with history of MDS, rheumatoid arthritis, came to the ER with generalized weakness, fever, coughing, at bedside stated that their grandson was sick with fever and coughing 4 days ago and has direct known
contact with the patient.
Patient seen and examined at bedside, denies any chest pain currently, still with coughing and shortness of breath, nausea but no vomiting, no abdominal pain, patient admitted having diarrhea.
Discussed CODE STATUS with the patient, he is DNI/DNR.
Chest x-ray done in the ER shows no acute finding.
Patient will be admitted under hospital service, will order CT chest and oncology/infectious disease consult.
Medical History
Past Medical History
Past Medical History: Reports Other (myelodysplastic syndrome on chemotherapy, anemia, hemochromatosis, BPH, chronic hyponatremia, chronic knee pain,)
Past Surgical History: Reports None
Social History
Tobacco: Non-smoker
Alcohol: None
Drug: None
Family History
Family History: Not pertinent
Allergies / Home Medications
Allergies reflects when Allergies were last updated in [employer]
Home Medications with original date entered in [employer]
Allergy/Medication List:
Allergies
Allergy/AdvReac Type Severity Reaction Status Date / Time
Penicillins Allergy Rash; Verified 06/19/23 11:01
tolerates
cephalosporins
Sulfa (Sulfonamide Allergy Rash Verified 06/19/23 11:01
Antibiotics)
Home Medications
ascorbic acid (vitamin C) 500 mg tablet (Vitamin C) 500 mg PO DAILY Supplement 12/31/22
cyanocobalamin (vitamin B-12) 1,000 mcg tablet 1,000 mcg PO DAILY Supplement 12/31/22
thiamine HCl (vitamin B1) 100 mg tablet 100 mg PO DAILY Supplement 12/31/22
folic acid 1 mg tablet 1 mg PO DAILY Supplement 02/11/23
Reblozyl 1 unit SC .Q23 DAYS 06/19/23
acetaminophen 500 mg tablet 1,000 mg PO BID PRN mild pain 07/09/23
magnesium 200 mg tablet 200 mg PO DAILY 07/09/23
Review of Systems
-
A 12 point ROS was completed and negative except as noted: Yes
Constitutional: Reports Fever and Fatigue; Denies Weight Gain, Weight Loss or Sleep Disturbance
EENT: Denies Tearing, Sore Throat, Mouth Pain, Mouth Swelling or Runny Nose
Respiratory: Reports Cough and Trouble Breathing; Denies Hemoptysis
Cardiac: Denies Chest Pain, Diaphoresis, Palpitations or Syncope
Abdomen/GI: Denies Abdominal Pain, Nausea, Vomiting, Diarrhea, Constipated, Bloody Stools or Black Stools
: Denies Dysuria, Frequency, Flank Pain, Incontinence, Difficulty Voiding, Urgency, Bleeding or Dark Urine
Musculoskeletal: Reports Edema; Denies Joint Pain, Joint Swelling, Muscle Pain or Muscle Stiffness
Skin: Denies Itching or Rash
Neurological: Denies Dizzy, Headache, Weakness or Numbness
Endocrine: Denies Polyuria, Polydipsia or Temp Intolerance
Hematologic/Lymphatic: Denies Bleeding, Swollen Glands or Bruising
Psych: Reports Calm; Denies Depression, Anxiety or Panic Disorder
Physical Exam
Vital Signs
Vital Signs
Temp Pulse Resp BP Pulse Ox
102.0 F H 104 23 114/69 95
08/28/23 08:52 08/28/23 10:00 08/28/23 10:00 08/28/23 10:00 08/28/23 10:00
Physical Exam
General: Well Developed, Well Nourished, No Apparent Distress, Comfortable and Good Appetite; No Pain, Chills or Sweats
HEENT: NormoCephalic, Moist mucous membranes, Atraumatic, Good Dentition, PERRLA, Nose Appears Normal and Ears Appear Normal
Respiratory: Rales, Rhonchi and Crackles
Cardiac: S1/S2, Regular Rhythm, Tachycardia and Peripheral Edema
Breast: Deferred by me
GI: Soft, Non Tender, Non Distended and Normal Bowel Sounds
Genito-urinary: Deferred by me
Musculoskeletal: No Clubbing, No Cyanosis and No Edema
Skin: Warm; No Rash, Jaundice, Ulcers, Lesions or Decubitus Ulcers
Neuro: Awake, Alert, Oriented, AO x 3, No Motor Deficits, Nonfocal/grossly intact and Cranial Nerves Intact
Hematologic/Lymphatic: No Lymphadenopathy
Psych: Calm
Laboratory Results
-
08/28/23 08:48
08/28/23 08:49
Laboratory Results
PT 15.4 Sec (11.4-14.6) H 08/28/23 08:49
INR 1.24 08/28/23 08:49
APTT 41.0 Sec (23.4-35.0) H 08/28/23 08:49
Lactic Acid 3.3 mmol/L (0.7-2.0) H 08/28/23 08:48
Total Bilirubin 1.1 mg/dl (0.2-1.3) 08/28/23 08:49
AST 25 U/L (17-59) 08/28/23 08:49
ALT 32 U/L (0-50) 08/28/23 08:49
Alkaline Phosphatase 125 U/L (38-126) 08/28/23 08:49
Data Reviewed
-
Diagnostic Radiology: Report Reviewed by me
CT Scan: Report Reviewed by me
Medical Tests (Nuc Med, Echo, EKG etc): Report Reviewed by me
Lab Data: Labs Reviewed by me
Old Records: Reviewed
Impression/Plan
-
IMPRESSION:
72 years old male with history of MDS who came to the ER with sepsis secondary to respiratory infection, x-ray came back negative, ordered CT chest and started cefepime/vancomycin
PLAN:
Severe sepsis with acute organ dysfunction
Patient meets sepsis criteria on admission
Patient is immunocompromised secondary to MDS
Heart rate max 112
WBCs 13.5
Respiratory rate max 28
Temperature max 102
Source of infection is respiratory with recent exposure to grandson with respiratory illness
Despite negative chest x-ray will start antibiotic in form of vancomycin and cefepime
Ordered CT chest without IV contrast
IV fluid
Blood culture pending
Influenza A&B negative
Consult infectious disease
MDs
Patient received Vidaza for 5 days every 28 days---> last was August 13
Oncology consult.
Macrocytic anemia
-Follows oncology for blood transfusion
-Hemoglobin 9.6, was 7.9 on August 23
-Oncology consulted
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
- monitor BMP
CODE STATUS: DNI/DNR
DVT prophylaxis: Lovenox
Diet: Regular diet
--- NOTE | 2023-08-28 10:45 | CON.ONC ---
Impression
Impression
MDS
sepsis secondary to respiratory infection
Macrocytic anemia
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
DNR/DNI
Plan
Plan
Await blood cultures.
Broad spectrum antibiotics. Agree w vancomycin and cefepime
Influenza A&B negative
Patient received Vidaza for 5 days every 28 days, last cycle ended 08/13. Gets REBLOZYL� (luspatercept-aamt) Q 3 weeks
HgB adequate = 9.6. Monitor CBC and transfuse PRN HgB < 8.5 based on his outpatient parameters.
CODE STATUS: DNI/DNR
Patient History
History of Present Illness
CC: fever, sepsis, MDS
HPI: 72 year old male known to Dr. Torres with [facility] for history of MDS on Vidaza/Reblozyl. He has additional history of hereditary hemochromatosis. He has required blood transfusions multiple times since March 2023 for Hgb <8.5. He formerly
donated blood via [facility], however, he became less compliant over time because they refused him for low Hct.
Patient presents with generalized weakness, poor appetite, fever, cough. Some SOB with cough. Some nausea but no vomiting, no abdominal pain, patient admitted having diarrhea. Grandson sick w fever and cough as well. He experienced a brief episode
of syncope while ambulating from the car to the ED. He was found to be febrile in the ER with temp of 104.1. Being admitted for Abx therapy. Consulted for MDS and sepsis.
Past-Medical/Surgical History
Past-Medical/Surgical History:
Myelodysplastic syndrome
Trisomy 8 myelodysplasia
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
Acute on chronic macrocytic anemia
Homozygous hereditary hemochromatosis
hx phlebotomy via [facility]
Chronic hyponatremia (baseline Na ~130)
Chronic knee pain
Appendectomy 2017
Colonoscopy 2017
BPH
Asthma
RA
Patient Medication
�Medication �Instructions �Recorded �Confirmed �Last Taken �Type
folic acid 1 mg tablet 1 mg PO HS Supplement 02/11/23 08/28/23 08/27/23 History
acetaminophen 500 mg tablet 1,000 mg PO DAILYPRN PRN fever 07/09/23 08/28/23 08/27/23 History
calcium polycarbophil 625 mg 625 mg PO HS Gastrointestinal Issue 08/13/23 08/28/23 08/27/23 History
tablet (FiberCon)
Magnesium 1 tab PO HS Supplement 08/28/23 08/28/23 08/27/23 History
Vitamin D3 1 tab PO HS Supplement 08/28/23 08/28/23 08/27/23 History
azacitidine 100 mg solution for 69.4 mg IV UD 08/28/23 08/28/23 08/14/23 History
injection (Vidaza)
cyanocobalamin (vitamin B-12) 1 tab PO HS Supplement 08/28/23 08/28/23 08/27/23 History
gabapentin 100 mg capsule 300 mg PO HS Pain 08/28/23 08/28/23 08/27/23 History
potassium 99 mg tablet 99 mg PO HS Supplement 08/28/23 08/28/23 08/27/23 History
Active Medications
Generic Name Dose Route Start Last Admin
Trade Name Freq PRN Reason Stop Dose Admin
Cefepime HCl 2,000 mg 08/28/23 12:00
Cefepime Hcl 1,000 Mg/11.3 Ml Vial IV
Q8H JOE
Vancomycin HCl 1 each/ Device 0 mls @ 0 mls/hr 08/28/23 12:00
IV
PER PROTOCOL JOE
As Directed
Physical Exam
-
General: No Apparent Distress and Comfortable; Negative Respiratory Distress
HEENT: Negative Jaundice
Cardiology: S1 and S2
Pulmonary: Rales and Rhonchi
GI: Soft
Extremities: No C/C/E
Labs
Lab Results
WBC 13.5 10^3/uL (4.8-10.8) H 08/28/23 08:48
RBC 2.78 10^6/uL (4.70-6.10) L 08/28/23 08:48
Hgb 9.6 g/dL (13.0-18.0) L D 08/28/23 08:48
Hct 30.0 % (39.0-52.0) L 08/28/23 08:48
MCV 107.9 fL (80.0-94.0) H 08/28/23 08:48
MCH 34.5 pg (27.0-31.0) H 08/28/23 08:48
MCHC 32.0 g/dL (33.0-37.0) L 08/28/23 08:48
RDW 25.8 % (11.5-14.5) H 08/28/23 08:48
Plt Count 324 10^3/uL (130-400) 08/28/23 08:48
MPV 9.4 fL (7.4-10.4) 08/28/23 08:48
Abs Immat Gran (auto) 0.7 10^3/uL (0-0.05) H 08/28/23 08:48
Absolute Neuts (auto) 10.3 10^3/uL (1.4-6.5) H 08/28/23 08:48
Absolute Lymphs (auto) 0.7 10^3/uL (1.2-3.4) L 08/28/23 08:48
Absolute Monos (auto) 1.1 10^3/uL (0.1-0.6) H 08/28/23 08:48
Absolute Eos (auto) 0.6 10^3/uL (0-0.7) 08/28/23 08:48
Absolute Basos (auto) 0.1 10^3/uL (0-0.2) 08/28/23 08:48
Immature Gran % 5.4 % (0-0.5) H 08/28/23 08:48
Neutrophils % 76.4 % (42.2-75.2) H 08/28/23 08:48
Lymphocytes % 5.2 % (20.5-51.1) L 08/28/23 08:48
Monocytes % 8.1 % (1.7-9.3) 08/28/23 08:48
Eosinophils % 4.4 % (0-6) 08/28/23 08:48
Basophils % 0.5 % (0-2) 08/28/23 08:48
Creatinine 0.7 mg/dL (0.7-1.3) 08/28/23 08:49
Vital Signs
Vital Signs
Temp Pulse Resp BP Pulse Ox
99.0 F 98 25 114/69 96
08/28/23 10:40 08/28/23 10:30 08/28/23 10:30 08/28/23 10:00 08/28/23 10:30
--- NOTE | 2023-08-28 10:56 | PHA.VAN.IN ---
Assessment
- Assessment
Renal Function: Appears similar to baseline
Maximum Temperature: 102.5 F - 08/28/23 - ORAL
Concomitant Antimicrobials: cefepime
- Previous Dosing Experience
Previous Regimen: Vanc 1500mg Q12H
Date of Regimen: July 2023
Provided Trough of: 11.6
Provided AUC of: 432
Patient's SCR is: Similar to previous dosing experience
Patient's weight is: Similar to previous dosing experience
Regimen provided the following additional patient-specific PK:
Extrapolated Cmax = 24.3 mcg/ml (peak drawn appropriately, ~2.6H after end of prior infusion)
Extrapolated Cmin = 12.7 (drawn appropriately before next dose)
Vd = 113 (~1.15 L/kg)
Vanc Cl = 116 ml/min
levels were drawn after 4th maintenance dose
AUC Dosing Plan
- Empiric Dosing
Initial / Loading Dose: 2000mg - administration pending
Maintenance Regimen: Vanc 1500mg Q12H based on prior experience above
- Monitoring
No levels ordered at this time: consider levels in next few days
MRSA Screen: Ordered per protocol
Pharmacokinetics Vancomycin I
- -
Patient Age: 72
Patient Sex: Male
Vancomycin Day #: 1
Indication: Pulmonary/Respiratory
Requesting Provider: Dr. Jara
Pertinent Antimicrobial Allergies:
penicillins - rash; tolerates cephalosporins
sulfonamide antibiotics - rash
Height / Weight:
Height 6 ft 1 in
Actual Weight 98.8 kg
Pertinent Past Medical History: MDS
- Vital Signs / Lab Results
Temp Pulse Resp BP Pulse Ox
99.0 F 98 25 114/69 96
08/28/23 10:40 08/28/23 10:30 08/28/23 10:30 08/28/23 10:00 08/28/23 10:30
Lab Results - Hematology
08/28/23
08:48
WBC 13.5 H
Lab Results - Chemistry
08/28/23
08:49
BUN 18
Creatinine 0.7
Estimated Creat Clear 108
Albumin 3.4 L
08/28/23
08:48
Lactic Acid 3.3 H
Lab Results - Urine
08/28/23
09:36
Urine Nitrite (Reflex) Negative
Leukocyte Esterase Rfl Negative
Urine WBC (Reflex) 3-5
Ur Squamous Epith Cells 3-5
Microbiology Results
08/28/23 08:48 Influenza Types A & B (BREN) - Final
Nasal Swab Negative for Influenza A & B, NAAT
Negative results must be combined with clinical observations
and patient history.
Nucleic Acid Amplification test (NAAT)performed on the
[employer] platform.
[2023-08-28 12:56] LABS: Lactic Acid 1.7 mmol/L (0.7-2.0)
[2023-08-28] MEDS: VANCOCIN 540 MG IV (13:12)
[2023-08-28] MEDS: MAXIPIME 2000 MG IV ×2 (13:13→21:51)
[2023-08-28] MEDS: STERILE WATER FOR INJECTION 10 ML IV ×2 (13:13→21:51)
--- NOTE | 2023-08-28 14:55 | CON.ID ---
Consultation
-
Date/Time Consultation Requested: 08/28/23 10:20
Date/Time Consultation Performed: 08/28/23 14:55
Requesting Provider: Dr Jara
Performing Provider: Dr Kline
Reason for Consultation: MDS - pneumonia?
Chief Complaint / Past History
Chief Complaint
Generalized weakness, fever, cough
History of Present Illness
Mr Soni is a 72 year old with history of MDS on vidaza and luspatercept, RA, hereditary hemochromatosis who presented here for fever, weakness, cough, diarrhea. Of note patient with contact sick contact (grandson) 4 days ago. Denies vomiting,
abdominal pain. + Nausea. Had brief syncope while ambulating from car to ER.
Since arrival here tmax 102.0 orally, bp overall stable, saturating 96% on room air, mild hypotension x1 noted this afternoon, wbc 13.5, hgb 9.6, plt 324, there is a L shfit, eos are present, cr 0.7, lactic acid initially 3.3 now 1.7, na 131, t bili
1.1, ast 25, alt 32, alk phos 125, ua no pyuria, covid ag neg, CT chest: possible multifocal pneumonia vs scarring, CXR: no infiltrates, he is currently on vancomycin and cefepime, has not produced a sputum thus far, influenza pcr neg, blood
cultures x2 no growth to date, covid ag neg, ekg 438, currently on vancomycin and cefepime
Past History
Additional Past Medical History:
Myelodysplastic syndrome
Trisomy 8 myelodysplasia
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
Acute on chronic macrocytic anemia
Homozygous hereditary hemochromatosis
hx phlebotomy via [facility]
Chronic hyponatremia (baseline Na ~130)
Chronic knee pain
BPH
Asthma
RA
Additional Past Surgical History:
Appendectomy 2018
Colonoscopy 2018
Allergy History:
Penicillins Allergy (Verified 08/28/23 08:09)
Rash; tolerates cephalosporins
Sulfa (Sulfonamide Antibiotics) Allergy (Verified 08/28/23 08:09)
Rash
Medications Reviewed: Yes
Social History
Tobacco: Non-Smoker
Alcohol: None
Drug: None
Family History
Family History: Not Pertinent
Review of Systems
Review of Systems
General: Fever and Chills
All systems: All other systems were reviewed and were negative
Vital Signs
Temp Pulse Resp BP Pulse Ox
99.2 F 90 18 97/59 96
08/28/23 11:00 08/28/23 11:00 08/28/23 11:00 08/28/23 11:00 08/28/23 11:00
Physical Exam
Physical Exam
Constitutional: No Acute Distress and Chronically Ill
Cardiovascular: Regular Rate and S1/S2; Negative Murmur or Rub
Pulmonary: Clear and Symmetric; Negative Wheezes, Rales or Rhonchi
Gastrointestinal: Soft, Non Tender, Non Distended and Normal Bowel Sounds
Skin: Warm and Dry; Negative Rash or Jaundice
Lab / Diagnostic Study Results
08/28/23 08:48
08/28/23 08:49
Abs Immat Gran (auto) 0.7 10^3/uL (0-0.05) H 08/28/23 08:48
Absolute Neuts (auto) 10.3 10^3/uL (1.4-6.5) H 08/28/23 08:48
Absolute Lymphs (auto) 0.7 10^3/uL (1.2-3.4) L 08/28/23 08:48
Absolute Monos (auto) 1.1 10^3/uL (0.1-0.6) H 08/28/23 08:48
Absolute Basos (auto) 0.1 10^3/uL (0-0.2) 08/28/23 08:48
Immature Gran % 5.4 % (0-0.5) H 08/28/23 08:48
Neutrophils % 76.4 % (42.2-75.2) H 08/28/23 08:48
Lymphocytes % 5.2 % (20.5-51.1) L 08/28/23 08:48
Monocytes % 8.1 % (1.7-9.3) 08/28/23 08:48
Eosinophils % 4.4 % (0-6) 08/28/23 08:48
Basophils % 0.5 % (0-2) 08/28/23 08:48
PT 15.4 Sec (11.4-14.6) H 08/28/23 08:49
INR 1.24 08/28/23 08:49
Lactic Acid 1.7 mmol/L (0.7-2.0) 08/28/23 12:19
Ur Squamous Epith Cells 3-5 /LPF (Few) 08/28/23 09:36
Microbiology Results
Micro:
08/28/23 08:48 Influenza Types A & B (BREN) - Final
Nasal Swab Negative for Influenza A & B, NAAT
Negative results must be combined with clinical observations
and patient history.
Nucleic Acid Amplification test (NAAT)performed on the
[employer] platform.
08/28/23 08:48 Blood Culture - Pending
Blood/Venous
08/28/23 08:48 Blood Culture - Pending
Blood/Venous
Assessment / Plan
Sepsis
Possible Pneumonia
MDS
Immunosuppression
- blood cultures x2
- sputum culture if able to produce
- covid and influenza testing negative
- mild inflammatory changes RUL, RLL and LLB - possible pneumonia vs chronic scarring
- MRSA PCR on nose ordered - if negative can stop vancomycin
- qtc acceptable
- continue cefepime for now
- add levofloxacin
- follow clinically
[2023-08-28] MEDS: LEVAQUIN 750 MG PO (17:56)
[2023-08-28] MEDS: LOVENOX 40 MG SC (17:56)
[2023-08-28] MEDS: LIORESAL 5 MG PO (18:47)
[2023-08-28] MEDS: FOLVITE 1 MG PO (21:50)
[2023-08-28] MEDS: FIBERCON 625 MG PO (21:50)
[2023-08-28] MEDS: NEURONTIN 300 MG PO (21:50)
[2023-08-28] MEDS: VITAMIN B-12 1000 MCG PO (21:50)
[2023-08-28] MEDS: MELATONIN 5 MG PO (23:21)
[2023-08-29] VITALS (9 sets, daily range): BP systolic 113–129; BP diastolic 63–81
[2023-08-29] MEDS: VANCOCIN 300 MG IV (05:11)
[2023-08-29] MEDS: VANCOCIN 300 ML IV (05:11)
[2023-08-29] MEDS: NSS 1000 IV (05:12)
--- NOTE | 2023-08-29 05:28 | PTCARENOTE ---
Patient has been refusing to assist in turning/repositioning throughout the night. Patient also making multiple requests for RN and PCT to 'move my pillow,' 'fix my legs,' and 'can you scratch my back, I would have my do it if she were here.'
Assist of two person required to turn and reposition as patient not assisting at all during the process. This morning, patient requesting to get OOB and walk either to bathroom or Bedside commode as he felt he may need to have a BM. Explained to
patient that we would not be attempting to stand and walk if he is unable to assist in bed turns. Currently patient is unable to move his arms/legs unassisted as well while in bed. Attempted use of bedpan without success. Patient has been attempting
to use urinal, still mostly incontinent in attends. Patient stating 'I will just have my and son come in to get me there.' Will follow up with PT/OT and inform oncoming dayshift RN of requests made by patient. Call deal within reach, will
continue to monitor.
[2023-08-29] MEDS: MAXIPIME 2000 MG IV ×2 (05:42→13:16)
[2023-08-29] MEDS: STERILE WATER FOR INJECTION 10 ML IV ×2 (05:42→13:16)
[2023-08-29 06:46] LABS: % Basophils 0.9 % (0-2); % Eosinophils 12.4 % (0-6); % Immature Granulocytes 7.4 % (0-0.5); % Lymphocytes 11.4 % (20.5-51.1); % Monocytes 19.5 % (1.7-9.3); % Neutrophils 48.4 % (42.2-75.2); Absolute Basophils 0.1 10^3/uL (0-0.2); Absolute Eosinophils 0.9 10^3/uL (0-0.7); Absolute Immature Granulocytes 0.6 10^3/uL (0-0.05); Absolute Lymphocytes 0.9 10^3/uL (1.2-3.4); Absolute Monocytes 1.5 10^3/uL (0.1-0.6); Absolute Neutrophils 3.6 10^3/uL (1.4-6.5); Hematocrit 24.8 % (39.0-52.0); Hemoglobin 8.3 g/dL (13.0-18.0); Mean Corp Hgb Conc. 33.5 g/dL (33.0-37.0); Mean Corpuscular Hgb 34.9 pg (27.0-31.0); Mean Corpuscular Volume 104.2 fL (80.0-94.0); Mean Platelet Volume 9.2 fL (7.4-10.4); Nucleated Red Blood Cells % 0.3 % (-); Platelet Count 251 10^3/uL (130-400); Red Blood Cell Count 2.38 10^6/uL (4.70-6.10); Red Cell Dist. Width 25.4 % (11.5-14.5); White Blood Cell Count 7.4 10^3/uL (4.8-10.8)
[2023-08-29 07:12] LABS: Blood Urea Nitrogen 19 mg/dl (9-20); Carbon Dioxide 23 mmol/L (22-30); Chloride 101 mmol/L (98-107); Estimated Creatinine Clearance > 125 ml/min; Glucose 123 mg/dl (70-99); Magnesium 1.8 mg/dl (1.6-2.3); Potassium 4.7 mmol/L (3.5-5.1); Sodium 130 mmol/L (135-145); eGFR > 60.00
[2023-08-29] MEDS: LEVAQUIN 750 MG PO (08:51)
--- NOTE | 2023-08-29 10:14 | PHA.VAN.FU ---
Vancomycin Assessment / Plan
- Assessment
Renal Function: Stable
WBC's are: Trending Down
In the past 24 hrs, patient has been: Febrile (Tmax = 101.2)
Concomitant Antimicrobials: Cefepime
- Dosing Plan
Continue: Vanc 1500mg IV q12H
- Monitoring Plan
No level(s) ordered at this time: Consider levels after 08/30 1800 dose (6th dose)
- Follow Up
Pharmacy will continue to follow.
Vancomycin Follow UP
- -
Patient Age: 72
Patient Sex: Male
Vancomycin Day #: 2
Indication: Pulmonary/Respiratory
Requesting Provider: Dr. Jara
Pertinent Antimicrobial Allergies:
penicillins - rash; tolerates cephalosporins
sulfonamide antibiotics - rash
Height / Weight:
Height 6 ft 1 in
Actual Weight 98.8 kg
Pertinent Past Medical History: MDS
- Vital Signs / Lab Results
Temp Pulse Resp BP Pulse Ox
98.9 F 81 18 128/76 98
08/29/23 07:16 08/29/23 07:16 08/29/23 07:16 08/29/23 07:16 08/29/23 07:16
Lab Results - Hematology
08/28/23 08/29/23
08:48 06:38
WBC 13.5 H 7.4
Lab Results - Chemistry
08/28/23 08/29/23
08:49 06:38
BUN 18 19
Creatinine 0.7 0.6 L
Estimated Creat Clear 108 > 125
Albumin 3.4 L
08/28/23 08/28/23
08:48 12:19
Lactic Acid 3.3 H 1.7
Lab Results - Urine
08/28/23
09:36
Ur Squamous Epith Cells 3-5
Microbiology Results
08/28/23 08:48 Blood Culture - Preliminary
Blood/Venous No Growth in 24 hours- Final report to follow
08/28/23 08:48 Blood Culture - Preliminary
Blood/Venous No Growth in 24 hours- Final report to follow
08/28/23 19:00 Gram Stain - Preliminary
Sputum
08/28/23 16:05 Nasal Screen MRSA (PCR) - Final
Nose Staph aureus MRSA
08/28/23 08:48 Influenza Types A & B (BREN) - Final
Nasal Swab Negative for Influenza A & B, NAAT
Negative results must be combined with clinical observations
and patient history.
Nucleic Acid Amplification test (NAAT)performed on the
[employer] platform.
[2023-08-29 11:13] LABS: Hemoglobin 8.1 g/dL (13.0-18.0)
--- NOTE | 2023-08-29 12:04 | W.PN.HOSP.TC ---
Today's Communication/Plan
-
Monitor vital signs see plan
awaiting hematology response for type of blood that needs to be ordered
1 unit PRBC
cw abx
sputum cx
Assessment / Plan
Assessment / Plan
General: Well Developed, Well Nourished, No Apparent Distress, Comfortable and Good Appetite; No Pain, Chills or Sweats
HEENT: NormoCephalic, Moist mucous membranes, Atraumatic, Good Dentition, PERRLA, Nose Appears Normal and Ears Appear Normal
Respiratory: Rales, Rhonchi and Crackles
Cardiac: S1/S2, Regular Rhythm, Tachycardia and Peripheral Edema
GI: Soft, Non Tender, Non Distended and Normal Bowel Sounds
Musculoskeletal: No Edema
Neuro: Awake, Alert, Oriented, AO x 3, No Motor Deficits, Nonfocal/grossly intact and Cranial Nerves Intact
Hematologic/Lymphatic: No Lymphadenopathy
Psych: Calm
Sepsis suspect 2/2 pneumonia
Patient is immunocompromised secondary to MDS
Respiratory rate max 28
Temperature max 102
Source of infection is respiratory with recent exposure to grandson with respiratory illness
cw abx per ID
CT chest with possible multifocal pneumonia or chronic inflammatory scarring
Blood culture NGTD; sputum cx pending
Influenza A&B negative
MDS
Patient received Vidaza for 5 days every 28 days---> last was August 13
Oncology following
Macrocytic anemia
-Follows oncology for blood transfusion
goal hgb>8.5 per oncology
hgb 8.3; recheck and if below 8.5 then transfuse; oncology to comment on if ok to give leuko red prbc
-Hemoglobin 9.6, was 7.9 on August 23
-Oncology following
blood consented
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
- monitor BMP
CODE STATUS: DNI/DNR
DVT prophylaxis: Lovenox
Anticipated Discharge: 24 - 48 hours
Subjective/Interval History
-
Date of Service: August 29, 2023
Denies pain
Objective Data
-
Labs:
Laboratory Results
08/29/23 08/29/23
06:38 11:00
WBC 7.4
Hgb 8.3 L 8.1 L
Hct 24.8 L 24.0 L
Plt Count 251 D
Sodium 130 L
Potassium 4.7
Chloride 101
Carbon Dioxide 23
BUN 19
Creatinine 0.6 L
Glucose 123 H
Calcium 8.0 L
Vital Signs:
Vital Signs
Temp Pulse Resp BP Pulse Ox
98.5 F 78 17 114/71 96
08/29/23 11:21 08/29/23 11:21 08/29/23 11:21 08/29/23 11:21 08/29/23 11:21
I&O
08/28/23 08/29/23 08/30/23
06:59 06:59 06:59
Intake Total 2310 / 2310
Output Total 300 / 300
Balance 2009
[2023-08-29] MEDS: LIORESAL 5 MG PO (13:16)
--- NOTE | 2023-08-29 15:18 | W.PN.ID1 ---
Date of Service
Date of Service: August 29, 2023
Today's Communication
- sputum culture usual resp bereket
- covid and influenza testing negative
- procalcitonin negative
- stopped antibiotics - likely a viral infection
- follow up with PCP
Assessment / Plan
Sepsis
Possible Pneumonia
MDS
Immunosuppression
- blood cultures x2
- sputum culture usual resp bereket
- covid and influenza testing negative
- procalcitonin negative
- stopped antibiotics - likely a viral infection
- follow up with PCP
Chief Complaint
-: Pneumonia
Subjective / Review of Systems
afebrile
bp stable
procalcitonin negative
sputum culture usual resp bereket
blood cultures no growth to date
Vital Signs / Physical Exam
Vital Signs
Vital Signs
Temp Pulse Resp BP Pulse Ox
98.5 F 78 17 114/71 96
08/29/23 11:21 08/29/23 11:21 08/29/23 11:21 08/29/23 11:21 08/29/23 11:21
Physical Exam
Constitutional: No Acute Distress
Cardiovascular: Regular Rate and S1/S2; Negative Murmur or Rub
Pulmonary: Clear and Symmetric; Negative Wheezes or Rales
Gastrointestinal: Soft, Non Tender, Non Distended and Normal Bowel Sounds
Skin: Warm and Dry; Negative Rash or Jaundice
Objective Data
Lab Data
Lab Results
08/29/23 11:00
08/29/23 06:38
PT 15.4 Sec (11.4-14.6) H 08/28/23 08:49
INR 1.24 08/28/23 08:49
APTT 41.0 Sec (23.4-35.0) H 08/28/23 08:49
Estimated Creat Clear > 125 ml/min 08/29/23 06:38
Lactic Acid 1.7 mmol/L (0.7-2.0) 08/28/23 12:19
Total Bilirubin 1.1 mg/dl (0.2-1.3) 08/28/23 08:49
AST 25 U/L (17-59) 08/28/23 08:49
ALT 32 U/L (0-50) 08/28/23 08:49
Alkaline Phosphatase 125 U/L (38-126) 08/28/23 08:49
Most recent labs reviewed.
Micro Results:
08/28/23 19:00 Respiratory Culture - Preliminary
Sputum Usual Respiratory Bereket
Gram Stain - Preliminary
08/28/23 08:48 Blood Culture - Preliminary
Blood/Venous No Growth in 24 hours- Final report to follow
08/28/23 08:48 Blood Culture - Preliminary
Blood/Venous No Growth in 24 hours- Final report to follow
08/28/23 16:05 Nasal Screen MRSA (PCR) - Final
Nose Staph aureus MRSA
08/28/23 08:48 Influenza Types A & B (BREN) - Final
Nasal Swab Negative for Influenza A & B, NAAT
Negative results must be combined with clinical observations
and patient history.
Nucleic Acid Amplification test (NAAT)performed on the
[employer] platform.
[2023-08-29] MEDS: LOVENOX 40 MG SC (17:51)
[2023-08-29] MEDS: NSS IV (20:23)
[2023-08-29] MEDS: NEURONTIN 300 MG PO (21:51)
[2023-08-29] MEDS: FOLVITE 1 MG PO (21:51)
[2023-08-29] MEDS: VITAMIN B-12 1000 MCG PO (21:51)
[2023-08-29] MEDS: FIBERCON 625 MG PO (21:51)
[2023-08-29] MEDS: BACTROBAN 2% OINTMENT 1 APPLIC NASAL (21:51)
[2023-08-29] MEDS: STERILE WATER FOR INJECTION IV (21:52)
[2023-08-30 03:06] VITALS: BP 131/77
[2023-08-30 07:00] VITALS: BP 124/76
[2023-08-30 07:06] LABS: Blood Urea Nitrogen 15 mg/dl (9-20); Calcium 8.4 mg/dl (8.4-10.2); Carbon Dioxide 22 mmol/L (22-30); Chloride 99 mmol/L (98-107); Estimated Creatinine Clearance > 125 ml/min; Glucose 127 mg/dl (70-99); Potassium 4.5 mmol/L (3.5-5.1); Sodium 128 mmol/L (135-145); eGFR > 60.00
[2023-08-30 07:19] LABS: Hematocrit 26.8 % (39.0-52.0); Hemoglobin 9.4 g/dL (13.0-18.0); Mean Corp Hgb Conc. 35.1 g/dL (33.0-37.0); Mean Corpuscular Hgb 34.9 pg (27.0-31.0); Mean Corpuscular Volume 99.6 fL (80.0-94.0); Mean Platelet Volume 9.1 fL (7.4-10.4); Nucleated Red Blood Cells % 0.3 % (-); Platelet Count 282 10^3/uL (130-400); Red Blood Cell Count 2.69 10^6/uL (4.70-6.10); Red Cell Dist. Width 25.6 % (11.5-14.5); White Blood Cell Count 6.1 10^3/uL (4.8-10.8)
[2023-08-30] MEDS: BACTROBAN 2% OINTMENT 1 APPLIC NASAL (09:50)
[2023-08-30 09:52] LABS: Anisocytosis 1+; Band Neutrophils 2 % (0-3); Eosinophils 15 % (0-6); Lymphocytes 15 % (20-51); Microcytosis 1+; Monocytes 20 % (2-9); Normal RBC Morphology No; Platelets Checked Yes; Segmented Neutrophils 48 % (42-75)
[2023-08-30 09:53] LABS: Total Cells Counted 100
--- NOTE | 2023-08-30 10:45 | CM ---
Addendum entered by Radha Sarah 08/30/23 12:01:
Patient stable for discharge today per Attending
PT recommended home health PT services; discussed recommendation with patient; he declined
Plan: discharge to home; no services
Original Note:
Met with patient at bedside; initial assessment completed
History of MDS, rheumatoid arthritis
Pharmacy verified: [facility], [facility]
Patient and live [place] [employer]; 1 step to enter; lives on the first floor of the home; bathes at his son's home (has a walk-in shower w/ bench)
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
SNF/Home Health utilization services: none; does not want home health services if recommended
Transportation: will transport home
Plan: discharge to home when medically stable; no needs
--- NOTE | 2023-08-30 10:49 | W.PN.HOSP.TC ---
Addendum entered and electronically signed by Sha Hutson MD 08/30/23 10:55:
Patient not interested in working with PT
Original Note:
Today's Communication/Plan
-
Monitor vital signs and see plan
DC off antibiotics
Monitor sodium
Time of discharge 37-minutes
Assessment / Plan
Assessment / Plan
General: Well Developed, Well Nourished, No Apparent Distress, Comfortable and Good Appetite; No Pain, Chills or Sweats
HEENT: NormoCephalic, Moist mucous membranes, Atraumatic, Good Dentition, PERRLA, Nose Appears Normal and Ears Appear Normal
Respiratory: Rales, Rhonchi and Crackles
Cardiac: S1/S2, Regular Rhythm, Tachycardia and Peripheral Edema
GI: Soft, Non Tender, Non Distended and Normal Bowel Sounds
Musculoskeletal: No Edema
Neuro: Awake, Alert, Oriented, AO x 3, No Motor Deficits, Nonfocal/grossly intact and Cranial Nerves Intact
Hematologic/Lymphatic: No Lymphadenopathy
Psych: Calm
Sepsis suspect 2/2 pneumonia
Patient is immunocompromised secondary to MDS
Respiratory rate max 28
No further fever, appears viral in nature. Pro-Pablo negative. Spoke with infectious disease and they are okay with patient being discharged off antibiotics.
Source of infection is respiratory with recent exposure to grandson with respiratory illness
CT chest with possible multifocal pneumonia or chronic inflammatory scarring
Blood culture NGTD; sputum cx usual respiratory bereket
Influenza A&B negative
MDS
Patient received Vidaza for 5 days every 28 days---> last was August 13
Oncology following
Macrocytic anemia
-Follows oncology for blood transfusion
goal hgb>8.5 per oncology
hgb 8.3; status post 1 unit PRBC 08/28. Hemoglobin now 9.4
-Hemoglobin 9.6, was 7.9 on August 23
-Oncology following
blood consented
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
- monitor BMP
CODE STATUS: DNI/DNR
DVT prophylaxis: Lovenox
Anticipated Discharge: Today
Subjective/Interval History
-
Date of Service: August 30, 2023
denies pain
Objective Data
-
Labs:
Laboratory Results
08/30/23
06:38
WBC 6.1
Hgb 9.4 L
Hct 26.8 L
Plt Count 282
Sodium 128 L
Potassium 4.5
Chloride 99
Carbon Dioxide 22
BUN 15
Creatinine 0.5 L
Glucose 127 H
Calcium 8.4
Vital Signs:
Vital Signs
Temp Pulse Resp BP Pulse Ox
98.8 F 73 18 124/76 97
08/30/23 07:00 08/30/23 07:59 08/30/23 07:59 08/30/23 07:00 08/30/23 07:59
I&O
08/29/23 08/30/23 08/31/23
06:59 06:59 06:59
Intake Total 2310 / 2310 1330 / 1330
Output Total 300 / 300 1690 / 1690
Balance 2009 -360 / -360
--- NOTE | 2023-08-30 10:55 | W.DCSUMMARY ---
Discharge Summary
Discharge Data
Date of Admission: 08/28/23
Date of Discharge: 08/30/23
-
Pending Results: No
Hospital Course
72-year-old male with past medical history of myelodysplastic syndrome, macrocytic anemia, chronic hyponatremia came to the hospital with sepsis which is likely thought was secondary to pneumonia. Patient initially was started on antibiotics
however patient procalcitonin came back negative for infectious disease recommended to monitor patient off antibiotics. CT chest was done which showed possible multifocal pneumonia or chronic inflammatory scarring. It appears that patient symptoms
could likely be secondary to viral pneumonia. For his anemia, per hematology recommendation he was transfused 1 unit of blood for hemoglobin of 8.3 since his goal is to keep hemoglobin greater than 8.5. Once patient symptoms continue to improve,
he was then discharged home with instructions to follow-up with all his physicians outpatient.
Discharge Plan
-
Patient Disposition: Home (Routine Discharge)
Discharge Diagnosis/Procedures: Sepsis suspect secondary to viral pneumonia
Myelodysplastic syndrome with microcytic anemia
Diet: As tolerated
Activity: As tolerated
Driving Restrictions: As prior to admission
Bathing Restrictions: None
Blood Work: CBC and BMP next week with primary care provider
Referrals:
Reggie Torres, [Active] -
Michael Desir DO [Family Provider] - in less than 1 week
Prescriptions:
New
mupirocin 2 % Ointment
1 applic intranasal BID Qty: 22 0RF
Continued
folic acid 1 mg tablet
1 mg PO HS
acetaminophen 500 mg Tablet
1,000 mg PO DAILYPRN PRN (Reason: fever)
calcium polycarbophil [FiberCon] 625 mg Tablet
625 mg PO HS
potassium 99 mg Tablet
99 mg PO HS
gabapentin 100 mg Capsule
300 mg PO HS
Magnesium tablet
1 tab PO HS
Vitamin D3 tablet
1 tab PO HS
cyanocobalamin (vitamin B-12) tablet
1 tab PO HS
azacitidine [Vidaza] 100 mg Recon Soln
69.4 mg IV UD
Patient Comments:
08/28/23: contacted [facility], last dose was taken on 08/14/23, next dose is scheduled to be taken 09/07/23-09/11/23.
Rx Instructions:
take once a day 5 days in a row every 28 days
Discharge Orders:
Discharge Patient (As Directed); Ordered 08/30/23
Ordered By: Sha Hutson
Discharge Date and Time
Discharge Date/Time: 08/30/23 13:14
Print Language: POLISH
[2023-08-30 11:00] VITALS: BP 122/71
[2023-08-30 11:31] VITALS: BP 112/73; BP 113/75; BP 120/72; PULSE 84; PULSE 98
== END 2023-08-30 13:14 | disposition home or self-care (01) | DRG 871 ==
LOC: 3 WEST ACU 10:27
PROVIDERS: ADMITTING PHYSICIAN General Practice; ATTENDING PHYSICIAN Internal Medicine; CONSULT PHYSICIAN Internal Medicine Hematology & Oncology; CONSULT PHYSICIAN Student in an Organized Health Care Education/Training Program; EMERGENCY PHYSICIAN Emergency Medicine; FAMILY PHYSICIAN Family Medicine
PROC: 30233N1 Transfusion of Nonautologous Red Blood Cells into Peripheral Vein, Percutaneous Approach (ICD-10-PCS; 2023-08-29)
DX: A41.9 Sepsis, unspecified organism (principal); J18.9 Pneumonia, unspecified organism; E87.1 Hypo-osmolality and hyponatremia; R53.1 Weakness; D53.9 Nutritional anemia, unspecified; D46.9 Myelodysplastic syndrome, unspecified; D50.9 Iron deficiency anemia, unspecified; Z11.52 Encounter for screening for COVID-19
CPT/HCPCS: 36415; 36430; 71045; 71250; 80048; 80053; 81003; 81015; 83605; 83735; 84145; 85014; 85018; 85025; 85610; 85730; 86850; 86900; 86901; 86920; 87040; 87070; 87205; 87502; 87641; 87811; 96360; 96361; 97116; 97162; 99284; P9016

== ENCOUNTER 2023-09-05 07:15 | Emergency (ER) | payer MEDICARE, BC, SELFPAY ==
[2023-09-05 07:17] VITALS: BP 100/62
--- NOTE | 2023-09-05 07:50 | ED.GENMED ---
History of Present Illness
General
Chief Complaint: Weakness
Source: patient
Exam Limitations: none
Time Seen by Provider: 09/05/23 07:35
History of Present Illness
History of Present Illness:
See MDM
Past History
Past History
ED Past Medical History: Cancer (MDS) and Other (Hemochromatosis, rheumatoid arthritis, mild intermittent asthma)
ED Past Surgical History: Appendectomy
Social History
Tobacco: Non-smoker
Alcohol: None
Personal:
Living: with family
Employment: Employed ([employer])
Family History
Family History: Other (Noncontributory)
Phy Exam
Physical Exam
Physical Exam:
See MDM
Course
Orders/Labs/Results
Orders:
Orders
09/05/23 07:49
Gabapentin [Neurontin] 100 mg PO NOW STA
09/05/23 08:05
Complete Blood Count/With Diff Urgent
Manual Differential Urgent
09/05/23 09:59
Type+Screen Urgent
BBK Wristband Number:
Comprehensive Metabolic Panel Urgent
Abnormal Lab Results
09/05/23 09/05/23
08:05 09:59
WBC 16.3 H 10^3/uL
(4.8-10.8)
RBC 2.98 L 10^6/uL
(4.70-6.10)
Hgb 10.5 L g/dL
(13.0-18.0)
Hct 29.9 L %
(39.0-52.0)
MCV 100.3 H fL
(80.0-94.0)
MCH 35.2 H pg
(27.0-31.0)
RDW 24.8 H %
(11.5-14.5)
Plt Count 678 H D 10^3/uL
(130-400)
Abs Neuts (Manual) 9.9 H 10^3/uL
(1.4-6.5)
Band Neutrophils 5 H %
(0-3)
Lymphocytes (Manual) 11 L %
(20-51)
Eosinophils (Manual) 8 H %
(0-6)
Sodium 127 L mmol/L
(135-145)
Creatinine 0.5 L mg/dL
(0.7-1.3)
Glucose 118 H mg/dl
(70-99)
Calcium 7.5 L mg/dl
(8.4-10.2)
Alkaline Phosphatase 146 H U/L
(38-126)
Total Protein 5.5 L g/dl
(6.3-8.2)
Albumin 2.7 L g/dl
(3.5-5.0)
09/05/23 08:05
09/05/23 09:59
Vital Signs
Initial and Last Documented VS:
Initial Vital Signs
Temp Pulse Resp BP Pulse Ox
100.3 F 115 16 100/62 97
09/05/23 07:17 09/05/23 07:17 09/05/23 07:17 09/05/23 07:17 09/05/23 07:17
Last Documented Vital Signs
Temp Pulse Resp BP Pulse Ox
100.3 F 95 16 113/75 98
09/05/23 07:17 09/05/23 09:45 09/05/23 07:17 09/05/23 09:00 09/05/23 09:45
MDM/Problems Addressed
Differential Diagnosis Includes:
HPI and MDM Narrative:
72-year-old male presenting with generalized weakness. Patient has a history of MDS and believes that he needs another blood transfusion. He also complains of intermittent leg pain. Patient was recently admitted for sepsis secondary to pneumonia
which seem to be viral in origin. He was recently discharged. Patient states he wants to be discharged back home and believes he just needs a blood transfusion. In regards to his legs, he states he received a medicine during his hospital stay
that helped with his leg spasm. He believes it was gabapentin.
Will give gabapentin and check his hemoglobin
Patient had a temperature of 100.3. I questioned whether or not he has a fever. Patient states it is normal for his temperature to go up and down. When I rechecked the temperature at bedside, it is 98.5
I discussed with patient that I am happy to have physical therapy and case management involved if he is concerned about fall risk and weakness. Patient acknowledges my concerns but states he has plenty of help at home and does not want to be
readmitted or go to rehab
Physical exam
General: Well appearing and non-toxic
HEENT: protecting airway. Mild dry mucous membranes
Neck: appears supple
CV: No evidence of cyanosis
Resp: No accessory muscle use
Abd: Non-distended
Extremities: No deformities. Patellar reflexes intact
Neuro: alert
Psych: Normal affect
Skin: Pale
Problems Addressed including Acute and Chronic Conditions affecting care:
1. Generalized weakness
Acuity: acute
Prognosis: stable
Details: Likely in setting of symptomatic anemia. Will obtain hemoglobin
2. Neuropathic pain
Acuity: acute
Prognosis: stable
Details: Will start gabapentin
Updates
Hemoglobin stable. He does not require transfusion. I discussed other lab abnormalities. I offered repletion of calcium but patient declined. He states he will take his calcium pills at home. He states he is feeling much better in regards to
his leg pain. Will prescribe gabapentin. I again offered admission therapy evaluation but patient declined
Differential Diagnosis (but not limited to): Symptomatic anemia, neuropathic pain, dehydration
Testing considered: Chest x-ray
Drug therapy (if applicable): OTC meds, please see d/c instruction regarding Rx drugs
Amount and/or Complexity of Data Reviewed
Clinical info obtained from: Patient
External data reviewed: Recent admission for sepsis secondary to pneumonia. Patient currently denying any shortness of breath or fevers
Labs I independently reviewed (but not limited to): Hyponatremia at baseline, hypocalcemia, anemia
Radiology: N/A
Pulse Ox: not hypoxic
EKG independently reviewed: N/A
Plastic Process Technician: N/A
Critical Care: N/A
Risk of Complication:
Social Determinants of health: Good social support
Discussed with other providers: N/A
Escalation of Care includes Admit/Obs: After being observed in the Emergency Department, pt stable for discharge.
Occasional wrong word or 'sound a like' substitutions may have occurred due to the inherent limitations of voice recognition software. Read the chart carefully and recognize, using context, where substitutions have occurred.
*Critical Care Note
Total Time (30-74mins, 75-104mins- exclusive of procedures): Not Applicable
ED Attending Note
-
Portions of this chart may have been created with voice recognition software.� Occasional wrong word or��sound alike� substitutions may have occurred due to the inherent limitations of voice recognition software.
Discharge Plan
Departure
Patient Disposition: Home (Routine Discharge)
Date of Disposition: 09/05/23
Time of Disposition: 10:50
Patient with high blood pressure during this ER visit?: No
Discharge Problem:
Weakness
Prescriptions:
New
gabapentin 100 mg capsule
100 mg PO BID PRN (Reason: Leg pain) Qty: 30 0RF
No Action
folic acid 1 mg tablet
1 mg PO HS
acetaminophen 500 mg Tablet
1,000 mg PO DAILYPRN PRN (Reason: fever)
calcium polycarbophil [FiberCon] 625 mg Tablet
625 mg PO HS
potassium 99 mg Tablet
99 mg PO HS
gabapentin 100 mg Capsule
300 mg PO HS
Magnesium tablet
1 tab PO HS
Vitamin D3 tablet
1 tab PO HS
cyanocobalamin (vitamin B-12) tablet
1 tab PO HS
azacitidine [Vidaza] 100 mg Recon Soln
69.4 mg IV UD
Patient Comments:
08/28/23: contacted [place], last dose was taken on 08/14/23, next dose is scheduled to be taken 09/07/23-09/11/23.
Rx Instructions:
take once a day 5 days in a row every 28 days
mupirocin 2 % Ointment
1 applic intranasal BID Qty: 22 0RF
Referrals:
Michael Desir DO [Family Provider] -
Activity Restrictions/Additional Instructions:
Please return for any worsening symptoms.
You may return at any time if you have further concerns.
Please follow up with your doctor at the first available appointment, preferably this week.
Thank you for choosing [facility].
Interventions
Interventions:
*Risk Screen - Suicide Last Done: 09/05/23 07:17
*General Assessment Last Done: 09/05/23 07:17
*Neglect/Abuse Screening Last Done: 09/05/23 07:17
ED- Fall Risk Assessment Last Done: 09/05/23 08:42
*ED COVID-19 Vaccine History Last Done: 09/05/23 08:40
ED- Cardiac Assessment Last Done: 09/05/23 08:42
ED- Neurological Assessment Last Done: 09/05/23 08:42
ED- Pulmonary Assessment Last Done: 09/05/23 08:42
Discharge Date and Time
Print Language: GREEK
[2023-09-05 07:55] VITALS: BP 122/73
[2023-09-05 08:00] VITALS: BP 119/72
[2023-09-05 08:12] LABS: Hematocrit 29.9 % (39.0-52.0); Hemoglobin 10.5 g/dL (13.0-18.0); Mean Corp Hgb Conc. 35.1 g/dL (33.0-37.0); Mean Corpuscular Hgb 35.2 pg (27.0-31.0); Mean Corpuscular Volume 100.3 fL (80.0-94.0); Nucleated Red Blood Cells % 0.3 % (-); Red Blood Cell Count 2.98 10^6/uL (4.70-6.10); Red Cell Dist. Width 24.8 % (11.5-14.5); White Blood Cell Count 16.3 10^3/uL (4.8-10.8)
[2023-09-05] MEDS: NEURONTIN 100 MG PO (08:26)
[2023-09-05 08:34] VITALS: BMI 28.4
[2023-09-05 09:00] VITALS: BP 113/75
[2023-09-05 09:20] LABS: Platelet Count 678 10^3/uL (130-400)
[2023-09-05 09:21] LABS: Absolute Neutrophils -Man Diff 9.9 10^3/uL (1.4-6.5); Band Neutrophils 5 % (0-3); Mean Platelet Volume 8.8 fL (7.4-10.4); Segmented Neutrophils 56 % (42-75)
[2023-09-05 09:22] LABS: Eosinophils 8 % (0-6); Lymphocytes 11 % (20-51); Metamyelocytes 5 % (-); Monocytes 5 % (2-9); Myelocytes 10 % (-)
[2023-09-05 09:23] LABS: Normal RBC Morphology No; Nucleated Red Blood Cells 1 (-); Platelets Checked YES
[2023-09-05 09:24] LABS: Polychromasia Slight
[2023-09-05 09:27] LABS: Total Cells Counted 100
[2023-09-05 10:25] LABS: ALT (SGPT) 31 U/L (0-50); AST (SGOT) 24 U/L (17-59); Albumin 2.7 g/dl (3.5-5.0); Alkaline Phosphatase 146 U/L (38-126); Blood Urea Nitrogen 13 mg/dl (9-20); Calcium 7.5 mg/dl (8.4-10.2); Carbon Dioxide 24 mmol/L (22-30); Chloride 98 mmol/L (98-107); Estimated Creatinine Clearance 122 ml/min; Glucose 118 mg/dl (70-99); Potassium 4.7 mmol/L (3.5-5.1); Sodium 127 mmol/L (135-145); Total Bilirubin 0.7 mg/dl (0.2-1.3); Total Protein 5.5 g/dl (6.3-8.2); eGFR > 60.00
[2023-09-05 11:00] VITALS: BP 106/70
[2023-09-05 12:00] VITALS: BP 109/70
== END 2023-09-05 12:01 | disposition home or self-care (01) ==
LOC: EMR 07:15
PROVIDERS: EMERGENCY PHYSICIAN Student in an Organized Health Care Education/Training Program; FAMILY PHYSICIAN Family Medicine
DX: R53.1 Weakness (principal); D46.9 Myelodysplastic syndrome, unspecified; E83.119 Hemochromatosis, unspecified; M06.9 Rheumatoid arthritis, unspecified; J45.909 Unspecified asthma, uncomplicated
CPT/HCPCS: 99283; 80053; 85025; 86850; 86900; 86901

== ENCOUNTER 2023-09-14 12:30 | Inpatient (IN) | payer MEDICARE, BC, SELFPAY ==
[2023-09-14] VITALS (22 sets, daily range): BP systolic 99–121; BP diastolic 62–80
[2023-09-14 07:43] LABS: Hematocrit 29.9 % (39.0-52.0); Hemoglobin 10.1 g/dL (13.0-18.0); Mean Corp Hgb Conc. 33.8 g/dL (33.0-37.0); Mean Corpuscular Hgb 34.8 pg (27.0-31.0); Mean Corpuscular Volume 103.1 fL (80.0-94.0); Mean Platelet Volume 8.7 fL (7.4-10.4); Platelet Count 602 10^3/uL (130-400); Red Cell Dist. Width 23.6 % (11.5-14.5)
[2023-09-14 07:52] LABS: Lactic Acid 2.2 mmol/L (0.7-2.0)
[2023-09-14 07:53] LABS: ALT (SGPT) 23 U/L (0-50); AST (SGOT) 23 U/L (17-59); Albumin 3.1 g/dl (3.5-5.0); Alkaline Phosphatase 126 U/L (38-126); Blood Urea Nitrogen 16 mg/dl (9-20); Calcium 8.3 mg/dl (8.4-10.2); Carbon Dioxide 25 mmol/L (22-30); Chloride 93 mmol/L (98-107); Glucose 175 mg/dl (70-99); Potassium 4.7 mmol/L (3.5-5.1); Sodium 126 mmol/L (135-145); Total Bilirubin 0.9 mg/dl (0.2-1.3); Total Protein 6.2 g/dl (6.3-8.2); eGFR > 60.00
--- NOTE | 2023-09-14 08:05 | ED.GENMED ---
History of Present Illness
General
Chief Complaint: Fainting Sensation
Source: patient and records
Time Seen by Provider: 09/14/23 07:52
History of Present Illness
History of Present Illness:
This patient is a 72-year-old male with a history of MDS, hemochromatosis, etc. who presents emergency department with complaints of feeling 'miserable' described as generalized weakness beginning during the day yesterday but particularly worse last
night the point that he could 'hardly stand' this morning secondary to weakness. Medics were called. Patient was noted to be hypotensive although his blood pressure has improved with IV fluid administration. Patient states that he feels cold and
is requesting a blanket. He denies fever sweats at home, and has intermittent nausea which he attributes to the gabapentin that he is taking for leg cramps. He states that up until today has been eating and drinking as usual, with normal BMs
without blood or black stool, normal urination without dysuria urgency frequency or hematuria. He denies headache, photophobia, rash, neck stiffness, back pain. When asked about chest pain he says he gets 'slight pressure' unpredictably from time
to time for the last few weeks, none present now. He states that he gets 'stomachaches' only just prior to needing to have a bowel movement, no abdominal pain recently or at this time. Patient denies other complaints with the exception of global
weakness. He is certain that he is increasingly anemic today and needs a blood transfusion.
Past History
Past History
ED Past Medical History: Cancer (MDS) and Other (Hemochromatosis, rheumatoid arthritis, mild intermittent asthma)
ED Past Surgical History: Appendectomy
Social History
Tobacco: Non-smoker
Alcohol: None
Drug: None
Personal:
Living: with family
Employment: Employed ([employer])
Family History
Family History: Other (Noncontributory)
Phy Exam
Physical Exam
Physical Exam:
GENERAL: Alert but tired appearing, in no apparent distress
EYE: pupils equal and reactive, conjunctive slightly pale, no photophobia
NECK: Supple, no significant adenopathy.
ENT: o/p clr, mm dry, no trismus, no drool, voice clear
CARDIAC: Regular rate and rhythm .
LUNGS: Clear breath sounds bilaterally, no acute respiratory distress, no wheezes/rales/rhonchi
ABDOMEN: Soft, without focal tenderness, no r/g
NEURO: leg weakness bilat (baseline), oriented, cranial nerves intact, grossly nonfocal except baseline le weakness
SKIN: Warm and dry, skin intact.
MUSCULOSKELETAL: No edema, well perfused.
PSYCH: Normal and appropriate interaction.
BACK: pt defers exam at this time
Course
Orders/Labs/Results
Orders:
Orders
09/14/23 07:13
Electrocardiogram (*1) Urgent
Reason for Study: Syncope
09/14/23 07:14
EKG- Treatment ONCE
09/14/23 07:28
Type+Screen Urgent
Complete Blood Count/With Diff Urgent
Comprehensive Metabolic Panel Urgent
Lactate Level [Lactic Acid] Urgent
Manual Differential Urgent
09/14/23 08:03
Cardiac Monitoring- Treatment ONCE
09/14/23 08:05
CR Chest - 2 Views Urgent
Comment:
Reason For Exam: near syncope
09/14/23 08:07
0.9% Sodium Chloride 1000 ml [Nss] 2,900 ml IV NOW STA
09/14/23 08:18
COVID-19 Antigen Stat
Source: Nasal Swab
Troponin I Urgent
Blood Culture Urgent
SAMEERA Source: Blood/Venous
Specimen Description:
Influenza A+B Rapid Molecular Urgent
SAMEERA Source: Nasal Swab
Specimen Description:
09/14/23 08:20
Piperacillin/Tazo 4.5 Gram [Zosyn] 4.5 gram in 100 ml IV NOW
09/14/23 08:42
Vancomycin [Vancocin] 2,000 mg 0.9% Sodium Chloride 500 ml [Nss] 500 ml IV NOW
09/14/23 09:04
Urinalysis Reflex To Culture Urgent
Date Specimen was Collected: 09/14/23
Time Specimen was Collected: 08:54
Urine Microscopic Reflex Cult Urgent
Blood Culture Routine
SAMEERA Source: Blood/Venous
Specimen Description:
Urine Culture Urgent
SAMEERA Source: U
Specimen Description:
Date Specimen was Collected: 09/14/23
Time Specimen was Collected: 08:54
09/14/23 Lunch
Regular
At Your Request: Limited Participation
09/14/23 10:13
Gabapentin [Neurontin] 100 mg PO NOW STA
09/14/23 10:27
Procalcitonin Routine
PCT Algorithmm Indication: Sepsis
09/14/23 11:19
Lactate Level [Lactic Acid] Urgent
09/14/23 12:01
CBC/With Diff [Complete Blood Count/With Diff] Routine
Manual Differential Routine
09/14/23 12:12
Oxygen Therapy [O2 Therapy] [RESP] Routine
Titrate/Wean O2 to maintain O2 sat greater than (%): 92
09/14/23 12:13
Admit/Transfer Patient As Directed
Co-Sign Provider:
Level of Care: Inpatient admission
Assign to:: Telemetry
Physician / Group: Hardik Valente
Diagnosis: Suspected severe sepsis vs progression MDS
Reason for Telemetry: Arrhythmia
Date to Stop Telemetry: 09/17/23
Time to Stop Telemetry: 11:00
Reason for Hospitalization: Suspected severe sepsis vs progression MDS
Expected length of stay greater than two midnights?: Yes
ELOS- Estimated Length of Stay in days: 2
I certify the patient meets the requirements for IP care: Yes
09/14/23 12:16
Code Status As Directed
Resuscitation Status: Do not resuscitate
Reached after discussion with pt or family/Healthcare POA: Yes
DNR Bracelet Application ONCE
09/14/23 12:30
INFECTIOUS DISEASE CONSULT Routine
Consulting Provider: Charlotte Romero
Was physician already notified: Yes
Reason for consult: possible severe sepsis unclear etiology
09/14/23 14:06
Ibuprofen [Motrin] 200 mg PO DAILYPRN PRN
09/14/23 14:06
CT Lumbar Spine W/o Iv Contras Routine
Comment:
Reason For Exam: Lower ext leg cramps shooting pain R>L
Activity As Directed
Activity Level: With Assistance
Intake/ Output As Directed
Frequency: Per unit guidelines
Vital Signs As Directed
Frequency: Per unit guidelines
DX Deep Vein Thrombosis Video Routine
09/14/23 16:00
Cefepime HCl [Maxipime] 2,000 mg IV Q8H
09/14/23 18:00
Enoxaparin Sodium [Lovenox] 40 mg SC QPM
09/14/23 20:00
Gabapentin [Neurontin] 100 mg PO BID
09/14/23 22:00
Calcium Polycarbophil [Fibercon] 625 mg PO HS
Cyanocobalamin [Vitamin B-12] 1,000 mcg PO HS
FOLic ACID [Folvite] 1 mg PO HS
Magnesium 1 tablet PO HS
Vitamin D3 1 tablet PO HS
09/15/23 06:00
Complete Blood Count/With Diff IN AM
09/15/23 08:00
Pantoprazole [Protonix] 40 mg PO DAILY
09/16/23 06:00
Complete Blood Count/With Diff IN AM
09/17/23 06:00
Complete Blood Count/With Diff IN AM
09/17/23 11:00
DC Protocol for Telemetry ONCE
09/18/23 06:00
Complete Blood Count/With Diff IN AM
09/19/23 06:00
Complete Blood Count/With Diff IN AM
09/20/23 06:00
Complete Blood Count/With Diff IN AM
09/21/23 06:00
Complete Blood Count/With Diff IN AM
Abnormal Lab Results
09/14/23 09/14/23 09/14/23
07: 09:04 12:01
WBC 19.0 H 10^3/uL 16.6 H 10^3/uL
(4.8-10.8) (4.8-10.8)
RBC 2.90 L 10^6/uL 2.28 L 10^6/uL
(4.70-6.10) (4.70-6.10)
Hgb 10.1 L g/dL 7.9 L D g/dL
(13.0-18.0) (13.0-18.0)
Hct 29.9 L % 23.8 L %
(39.0-52.0) (39.0-52.0)
MCV 103.1 H fL 104.4 H fL
(80.0-94.0) (80.0-94.0)
MCH 34.8 H pg 34.6 H pg
(27.0-31.0) (27.0-31.0)
RDW 23.6 H % 23.6 H %
(11.5-14.5) (11.5-14.5)
Plt Count 602 H 10^3/uL 509 H 10^3/uL
(130-400) (130-400)
Abs Neuts (Manual) 10.8 H 10^3/uL 11.6 H 10^3/uL
(1.4-6.5) (1.4-6.5)
Band Neutrophils 6 H %
(0-3)
Lymphocytes (Manual) 14 L % 19 L %
(20-51) (20-51)
Monocytes (Manual) 10 H %
(2-9)
Sodium 126 L mmol/L
(135-145)
Chloride 93 L mmol/L
(98-107)
Glucose 175 H mg/dl
(70-99)
Lactic Acid 2.2 H mmol/L
(0.7-2.0)
Calcium 8.3 L mg/dl
(8.4-10.2)
Total Protein 6.2 L g/dl
(6.3-8.2)
Albumin 3.1 L g/dl
(3.5-5.0)
Ur Occult Blood Reflex 1+ A
(Negative)
Urine Urobilinogen 2+ A
(Neg - 1+)
Leukocyte Esterase Rfl Trace A
(Negative)
Urine WBC (Reflex) 30-40 A /HPF
(0-5)
Urine Bacteria (Reflex) Many A
(Negative)
09/14/23 12:01
09/14/23 07:28
Vital Signs
Initial and Last Documented VS:
Initial Vital Signs
Temp Pulse Resp BP Pulse Ox
97.9 F 108 20 104/64 94
09/14/23 07:03 09/14/23 07:03 09/14/23 07:03 09/14/23 07:03 09/14/23 07:03
Last Documented Vital Signs
Temp Pulse Resp BP Pulse Ox
99 F 86 21 101/68 98
09/14/23 15:12 09/14/23 15:12 09/14/23 15:12 09/14/23 15:12 09/14/23 15:12
*Critical Care Note
Total Time (30-74mins, 75-104mins- exclusive of procedures): 30
Update Note
Update Note:
Patient presents to the Emergency Department with ___weakness
Number and Complexity of Problems Addressed at the Encounter
� Chronic conditions affecting care:
� Acute Exacerbation and/or Progression of Chronic Illness:
� Differential Diagnosis includes: But not limited to anemia, dehydration, sepsis, electrolyte disturbance, etc.
Amount and/or Complexity of Data to be Reviewed and Analyzed
� I performed an independent evaluation of and my interpretation is:
EKG:sinus tachycardia, no acute ishcemia
CT:
Xrays:nad compared to prior
Laboratory Studies:hgb baseline 10.1, leukocytosis more pronounced compared to earlier August, thrombocytosis noted. Lactic acid elevation.baseline hypoNa. HypoCa remains.
Other:
� Review of other/old records reveals: Patient was recently admitted for sepsis, noted to have pneumonia at that time. Then recently seen in the emergency department with weakness.
� Clinical information was obtained by an independent historian:
� Prescriptions/Medications Considered but not given:
� Further testing considered but not performed:
Risk of Complications and/or Morbidity or Mortality of Patient Management
� Social determinants of health affecting care:
� Discussion with other providers (PCP, Hospitalists, Consultants, etc):
� Escalation of care including admission/observation vs risk of discharge considered:bp remains stable here, rescuc started with IVf, will continue to monitor re:need for pressors. Pt awake and lucid but tired apperaing, overall
suspect sepsis, unclear source at this time, urine pending. Back exam unremkarable, no decub, no midline ttp spine, no cvat. Abx begun, will tt hospitalist for admission.
ED Attending Note
-
Portions of this chart may have been created with voice recognition software.� Occasional wrong word or��sound alike� substitutions may have occurred due to the inherent limitations of voice recognition software.
Discharge Plan
Departure
Patient Disposition: Admit
Date of Disposition: 09/14/23
Time of Disposition: 08:56
Presentation/result/management discussed w/ accepting MD/DO: Hospitalist
Condition: Fair
Discharge Problem:
Sepsis
Interventions
Interventions:
*Risk Screen - Suicide Last Done: 09/14/23 14:12
*General Assessment Last Done: 09/14/23 07:37
*Neglect/Abuse Screening Last Done: 09/14/23 07:37
ED- Fall Risk Assessment Last Done: 09/14/23 07:37
*ED COVID-19 Vaccine History Last Done: 09/14/23 14:12
*Nursing Disposition Last Done: 09/14/23 13:59
ED- Cardiac Assessment Last Done: 09/14/23 07:37
ED- Neurological Assessment Last Done: 09/14/23 07:37
Discharge Date and Time
Discharge Date/Time: 09/14/23 14:00
[2023-09-14] MEDS: NSS 2900 ML IV (08:20)
--- NOTE | 2023-09-14 08:29 | PHANOTE ---
med rec owen(09/14/23)-Patient did not know medications, attempted to call spouse to obtain home med list information at 0830. Call went unanswered, will wait until spouse arrives around 0900 to confirm with her.
[2023-09-14 08:31] LABS: Absolute Neutrophils -Man Diff 10.8 10^3/uL (1.4-6.5); Band Neutrophils 6 % (0-3); Lymphocytes 14 % (20-51); Metamyelocytes 16 % (-); Monocytes 10 % (2-9); Myelocytes 3 % (-); Normal RBC Morphology No; Nucleated Red Blood Cells 1 (-); Platelets Checked Yes; Segmented Neutrophils 51 % (42-75)
[2023-09-14 08:32] LABS: Anisocytosis 1+; Hypochromasia 1+; Polychromasia 1+; Total Cells Counted 100
[2023-09-14 08:57] LABS: Troponin I < 0.012 ng/ml
--- NOTE | 2023-09-14 09:00 | HPS.HSE ---
Family Physician
-
Family Physician: Jean Paul Sidhu
Chief Complaint
-
Weakness
History of Present Illness
72M MDS, hemochromatosis, Neuropathy p/w generalized malaise/weakness progressive last 24h to the point where patient could no longer stand, ambulates with walker at baseline. Patient was noted to be hypotensive systolic 40s by EMS services (not
noted here) bp improved since IV fluid administration. Received 30 cc/kg bolus in ED, systolic pressure consistently low 100s during ED evaluation. Patient reports chills denies fever (though patient's at bedside noted fever 101 at home day
prior to presentation (afebrile here). Reports intermittent nausea which he attributes to the gabapentin that he is taking for leg cramps. Denies dysuria cough sneezing constipation. Reports diarrhea few days ago since resolved. ED eval notable
for elevated white count 19, initially tachycardic low 100s since resolved with IVF bolus. Stable respiratory status on 2L. saturating high 90s (baseline room air). Mild lactic acidosis 2.2 repeat post-bolus resolved. Procalcitonin wnl. CXR no
acute abn's
Medical History
Past Medical History
Past Medical History: Reports Other (as above)
Past Surgical History: Reports Other (as above)
Social History
Tobacco: Non-smoker
Alcohol: None
Drug: None
Personal:
Living: With Family
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
Family History
Family History: Not pertinent (reviewed)
Allergies / Home Medications
Allergies reflects when Allergies were last updated in [facility].
Home Medications with original date entered in [facility]
Allergy/Medication List:
Allergies
Allergy/AdvReac Type Severity Reaction Status Date / Time
Penicillins Allergy Rash; Verified 09/14/23 07:13
tolerates
cephalosporins
Sulfa (Sulfonamide Allergy Rash Verified 09/14/23 07:13
Antibiotics)
Home Medications
folic acid 1 mg tablet 1 mg PO HS Supplement 02/11/23
acetaminophen 500 mg tablet 500 mg PO DAILYPRN PRN fever 07/09/23
calcium polycarbophil 625 mg tablet (FiberCon) 625 mg PO HS Gastrointestinal Issue 08/13/23
Magnesium 1 tab PO HS Supplement 08/28/23
Vitamin D3 1 tab PO HS Supplement 08/28/23
cyanocobalamin (vitamin B-12) 1 tab PO HS Supplement 08/28/23
gabapentin 100 mg capsule 100 mg PO BID Leg pain 09/14/23
ibuprofen 200 mg tablet 200 mg PO DAILYPRN PRN mild pain 09/14/23
Review of Systems
-
A 12 point ROS was completed and negative except as noted: Yes
Constitutional: Reports Other (as below)
Physical Exam
Vital Signs
Vital Signs
Temp Pulse Resp BP Pulse Ox
97.9 F 102 20 111/65 94
09/14/23 07:03 09/14/23 08:00 09/14/23 08:00 09/14/23 08:00 09/14/23 08:03
Physical Exam
General: Other (as below)
Laboratory Results
-
09/14/23 07:28
09/14/23 07:28
Laboratory Results
Lactic Acid 2.2 mmol/L (0.7-2.0) H 09/14/23 07:28
Total Bilirubin 0.9 mg/dl (0.2-1.3) 09/14/23 07:28
AST 23 U/L (17-59) 09/14/23 07:28
ALT 23 U/L (0-50) 09/14/23 07:28
Alkaline Phosphatase 126 U/L (38-126) 09/14/23 07:28
Troponin I < 0.012 ng/ml 09/14/23 08:18
Impression/Plan
-
ROS
General: Reports chills previous fever since resolved weight loss over the last year unintentional
Neuro: Denies seizure shaking loss of consciousness dizziness vertigo
Psych: denies depression hallucinations confusion manic episodes
Endocrine: Denies polyuria polydipsia polyphagia heat/cold intolerance
HEENT: Denies blindness visual disturbances epistaxis
Pulmonary: denies coughing hemoptysis sneezing sob dyspnea on exertion
Cardiovascular: denies chest pain palpitations leg swelling
Hematology: denies signs symptoms of anemia easy bruising/bleeding
Gastrointestinal: denies nausea vomiting diarrhea constipation hematemesis hematochezia melena
Genito-Urinary: denies retention incontinence dysuria
Musculoskeletal: Reports lower extremity leg cramps
Dermatology: denies rash laceration bruising
Physical Exam
General: Mild pallor no cyanosis or jaundice.
HEENT: Throat clear. PERRLA Normocephalic atraumatic
NECK: Supple. No JVD Carotid Bruits
RESPIRATORY: Lungs clear to auscultation. No crackles wheezes stridor on nasal cannula 2 L nonlabored respiration
CVS: S1, S2 normal. RRR. No murmur, rub or gallop.
ABDOMEN: Soft, non-tender. No distension. BS+/normal.
EXTREMITIES: Restricted range of motion right lower extremity due to pain able to wiggle toes bilateral without issues. Lower extremity weakness restricted range of motion right greater than left
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
IMPRESSION:
72M MDS, hemochromatosis p/w generalized malaise/weakness progressive last 24h to the point where patient could no longer stand, ambulates with walker at baseline. Patient was noted to be hypotensive systolic 40s by EMS services (not noted here) bp
improved since IV fluid administration. Received 30 cc/kg bolus in ED, systolic pressure consistently low 100s during ED evaluation. Patient reports chills denies fever (though patient's at bedside noted fever 101 at home day prior to
presentation (afebrile here). Reports intermittent nausea which he attributes to the gabapentin that he is taking for leg cramps. Denies dysuria cough sneezing constipation. Reports diarrhea few days ago since resolved. ED eval notable for
elevated white count 19, initially tachycardic low 100s since resolved with IVF bolus. Stable respiratory status on 2L. saturating high 90s (baseline room air). Mild lactic acidosis 2.2 repeat post-bolus resolved. Procalcitonin wnl. CXR no acute
abn's
PLAN:
#Possible Severe Sepsis Unclear Source (Leukocytosis Tachycardia)
#Possible UTI, no dysuria but pyuria present
#Recent Hospitalization Sepsis Viral PNA, possible Hospital acquired PNA
No acute abn's note on CXR
Procalcitonin wnl
severe hypotension noted in EMS documentation resolved at this time
mild lactic acidosis resolved post bolus
will continue Empiric Vanc Zosyn for now
follow cx's
ID eval requested
Stable respiratory status on 2L
wean off as tolerated
#Hx MDS question possible progressive to leukemia
#Hx Anemia typically receives transfusion for hgb <8.5 outpt
trend wbc
follow up repeat CBC post IVF bolus
Hematology eval requested
#Lower ext leg cramps
#restricted range of motion d/t pain weakness RLE > LLE
ambulates with walker at baseline
cont home gabapentin
check CT Lumbar spine
PT/OT
dvt ppx Lovenox
gi ppx Protonix
DNR/DNI per patient and POA
I spent a total of 80 minutes with the patient or on the floor. More than 50% of this time involved counseling and coordination of care.
[2023-09-14 09:05] LABS: COVID-19 Antigen Negative (Negative)
[2023-09-14] MEDS: ZOSYN 100 IV (09:05)
[2023-09-14] MEDS: VANCOCIN 540 MG IV (09:41)
[2023-09-14 10:04] LABS: Urine Albumin Negative (Neg - Trace); Urine Bilirubin Negative (Negative); Urine Character Very Cloudy (Clear); Urine Color Yellow; Urine Glucose Negative (Negative); Urine Ketone Negative (Negative); Urine Leukocyte Trace (Negative); Urine Nitrite Negative (Negative); Urine Occult Blood 1+ (Negative); Urine Specific Gravity 1.015 (<1.030); Urine Urobilinogen 2+ (Neg - 1+); Urine pH 6.5 (5.0-9.0)
[2023-09-14] MEDS: NEURONTIN 100 MG PO ×2 (10:23→19:42)
[2023-09-14 10:58] LABS: Urine Mucus Few
[2023-09-14 11:02] LABS: Urine Red Blood Cell 0-2 /HPF (0-2)
[2023-09-14 11:03] LABS: Urine Bacteria Many (Negative); Urine White Cell 30-40 /HPF (0-5)
[2023-09-14 11:17] LABS: Procalcitonin 0.21 ng/ml (0.0-0.25)
[2023-09-14 11:51] LABS: Lactic Acid 1.5 mmol/L (0.7-2.0)
[2023-09-14 12:18] LABS: Hematocrit 23.8 % (39.0-52.0); Mean Corp Hgb Conc. 33.2 g/dL (33.0-37.0); Mean Corpuscular Hgb 34.6 pg (27.0-31.0); Mean Corpuscular Volume 104.4 fL (80.0-94.0); Mean Platelet Volume 8.8 fL (7.4-10.4); Platelet Count 509 10^3/uL (130-400); Red Blood Cell Count 2.28 10^6/uL (4.70-6.10); Red Cell Dist. Width 23.6 % (11.5-14.5); White Blood Cell Count 16.6 10^3/uL (4.8-10.8)
[2023-09-14 12:25] LABS: Hemoglobin 7.9 g/dL (13.0-18.0)
--- NOTE | 2023-09-14 12:39 | CON.ID ---
Consultation
-
Date/Time Consultation Requested: September 14, 2023 1235
Date/Time Consultation Performed: September 14, 2023 1240
Requesting Provider: Dr. Hardik Valente
Performing Provider: Dr. Charlotte Romero
Reason for Consultation: Concern for possible hopsital-acquired infection
Chief Complaint / Past History
Chief Complaint
Weakness
History of Present Illness
History obtained from the patient, his and from review of medical records. Mr Whitmore is a 72 year old with history of MDS, transfusion dependent anemia was on vidaza/luspatercept discontinued 3 weeks ago due to no response, RA, hereditary
hemochromatosis who presented to the ER today for profound weakness. This is his third hospitalization in 3 months for fever and weakness. Previous infectious disease workup negative. He was last hospitalized in August 27 to August 29 with fever.
Chest x-ray negative. CAT scan chest showed mild PNA versus chronic inflammatory opacities. His procalcitonin was negative. Antibiotics were discontinued. He presented to ER on September 04 complaining of weakness. H&H was stable and therefore no
transfusion necessary. White count was 16.3. He c/o leg spasm and he was discharged with Rx for gabapentin. While at home, patient continues to have progressive weakness. Per he had fever up to 101 two days ago. He had chills. He has
been staying indoors due to the hot weather outside. His tried to get him to drink more fluids. However he remained dehydrated. This morning he was too weak to get up from bed. His blood pressure was low upon standing, improved when he
laid flat. The ambulance brought him to the ER. No fever. White count of 16.6. Hemoglobin 7.9. He received vancomycin and Zosyn in the ER. He is currently on vancomycin and cefepime. Patient denies headache, rhinorrhea, sinus congestion, or
sore throat. No cough or shortness of breath. No nausea or vomiting, abdominal pain or diarrhea. No dysuria or flank pain. He always has weak urinary stream from BPH. + joint pains. No rash. 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 + chickens, cows, goats on the property but his (not him) manages the animals. No known tick exposure that he is aware of. He does not use insect repellent. No travel out of state or country. No ill contacts. He is currently
off MDS therapy. He has to cancel today's appt with [facility] due to current admission.
Past History
Additional Past Medical History:
Myelodysplastic syndrome failed Vidaza/luspatercept
Trisomy 8 myelodysplasia
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
Acute on chronic macrocytic anemia
Homozygous hereditary hemochromatosis
hx phlebotomy via [facility]
Chronic hyponatremia (baseline Na ~130)
Chronic knee pain
BPH
Asthma
RA
MRSA screen positive
Additional Past Surgical History:
Appendectomy 2018
Colonoscopy 2018
Allergy History:
Penicillins Allergy (Verified 09/14/23 07:13)
Rash; tolerates cephalosporins
Sulfa (Sulfonamide Antibiotics) Allergy (Verified 09/14/23 07:13)
Rash
Medications Reviewed: Yes
Current Antibiotics:
Vancomycin
cefepime
Social History
Tobacco: Non-Smoker
Alcohol: None
Drug: None
Personal:
Living: With Family
Family History
Family History: Not Pertinent
Review of Systems
Review of Systems
General: Chills and Change in Appetite
HEENT: Negative Stiff Neck, Sinus Problems, Headache or Pharyngitis
Cardiovascular: Negative Chest Pain
Respiratory: Negative Dyspnea or Cough
Gasteroenterology: Other (no diarrhea); Negative Nausea
Genital / Urological: Negative Dysuria or Flank Pain
Endocrine: Weakness and Fatigue
Musculoskeletal: Arthralgias
Skin / Hair / Nails: Negative Rash
Neurological: Dizziness
All systems: All other systems were reviewed and were negative
Vital Signs
Temp Pulse Resp BP Pulse Ox
97.9 F 87 18 102/69 97
09/14/23 07:03 09/14/23 12:24 09/14/23 12:00 09/14/23 12:00 09/14/23 11:15
Physical Exam
Physical Exam
Constitutional: No Acute Distress
Head: Other (No frontal or maxillary sinus tenderness)
Eyes: No Conjunctival Hemorrhage and Sclera Anicteric
Cardiovascular: Regular Rate and S1/S2
Pulmonary: Clear
Gastrointestinal: Soft, Non Tender, Non Distended and Normal Bowel Sounds
Genito-Urinary: Negative CVA Tenderness
Extremities: Negative Edema
Musculoskeletal: Negative Joint Swelling or Joint Effusion
Neurological: AO x 3; Negative Meningeal Signs
Lab / Diagnostic Study Results
09/14/23 12:01
09/14/23 07:28
Total Counted 100 09/14/23 07:28
Abs Neuts (Manual) 10.8 10^3/uL (1.4-6.5) H 09/14/23 07:28
Segmented Neutrophils 51 % (42-75) 09/14/23 07:28
Band Neutrophils 6 % (0-3) H 09/14/23 07:28
Lymphocytes (Manual) 14 % (20-51) L 09/14/23 07:28
Lactic Acid 1.5 mmol/L (0.7-2.0) 09/14/23 11:19
Procalcitonin 0.21 ng/ml (0.0-0.25) 09/14/23 10:27
Microbiology Results
Micro:
09/14/23 09:04 Urine Culture - Pending
Urine
09/14/23 09:04 Blood Culture - Pending
Blood/Venous
09/14/23 08:18 Influenza Types A & B (BREN) - Final
Nasal Swab Negative for Influenza A & B, NAAT
Negative results must be combined with clinical observations
and patient history.
Nucleic Acid Amplification test (NAAT)performed on the
[employer] platform.
09/14/23 08:18 Blood Culture - Pending
Blood/Venous
09/14/23 CXR: There is no parenchymal opacification or vascular congestion.
Assessment / Plan
# Profound weakness
# Leukocytosis
# Reported fever at home
# MDS, transfusion-dependent anemia without response to Vidaza/luspatercept, recently discontinued
- Suspect underlying MDS, refractory anemia and dehydration contributing to weakness.
-CXR neg. Procalcitonin 0.21 (normal).
-Follow blood cx's
- check babesia smear, Lyme/Anaplasma/Ehrlichia serologies (pt owns a farm)
- DC Vancomycin
- Continue empiric cefepime pending cx data.
- Follow wbc, temps.
[2023-09-14 13:18] LABS: Absolute Neutrophils -Man Diff 11.6 10^3/uL (1.4-6.5); Anisocytosis 1+; Band Neutrophils 0 % (0-3); Eosinophils 1 % (0-6); Lymphocytes 19 % (20-51); Metamyelocytes 3 % (-); Monocytes 3 % (2-9); Myelocytes 4 % (-); Normal RBC Morphology No; Platelets Checked Yes; Polychromasia Slight; Segmented Neutrophils 70 % (42-75); Total Cells Counted 100
[2023-09-14] MEDS: STERILE WATER FOR INJECTION 10 ML IV ×2 (15:50→23:07)
[2023-09-14] MEDS: MAXIPIME 2000 MG IV ×2 (15:50→23:07)
[2023-09-14] MEDS: LOVENOX 40 MG SC (17:08)
[2023-09-14] MEDS: DESENEX/MITRAZOL/ZEASORB 1 APPLIC TOPICAL (19:42)
[2023-09-14] MEDS: VITAMIN B-12 1000 MCG PO (21:43)
[2023-09-14] MEDS: FOLVITE 1 MG PO (21:43)
[2023-09-14] MEDS: FIBERCON 625 MG PO (21:43)
[2023-09-14 22:20] LABS: Hematocrit 24.4 % (39.0-52.0); Hemoglobin 8.5 g/dL (13.0-18.0)
[2023-09-14] MEDS: MOTRIN 200 MG PO (23:24)
[2023-09-15 03:33] VITALS: BP 121/72
[2023-09-15 07:31] VITALS: BP 136/78
--- NOTE | 2023-09-15 07:34 | W.PN.HOSP.TC ---
Today's Communication/Plan
-
cont abx as per ID
monitor H&H
neursx eval requested
pain control
Assessment / Plan
Assessment / Plan
Physical Exam
General: Mild pallor no cyanosis or jaundice.
HEENT: Throat clear. PERRLA Normocephalic atraumatic
NECK: Supple. No JVD Carotid Bruits
RESPIRATORY: Lungs clear to auscultation. No crackles wheezes stridor. Stable respiratory status on room air.
CVS: S1, S2 normal. RRR. No murmur, rub or gallop.
ABDOMEN: Soft, non-tender. No distension. BS+/normal.
EXTREMITIES: Restricted range of motion right lower extremity due to pain able to wiggle toes bilateral without issues. Lower extremity weakness restricted range of motion right greater than left
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
IMPRESSION:
72M MDS, hemochromatosis p/w generalized malaise/weakness progressive last 24h to the point where patient could no longer stand, ambulates with walker at baseline. Patient was noted to be hypotensive systolic 40s by EMS services (not noted here) bp
improved since IV fluid administration. Received 30 cc/kg bolus in ED, systolic pressure consistently low 100s during ED evaluation. Patient reports chills denies fever (though patient's at bedside noted fever 101 at home day prior to
presentation (afebrile here). Reports intermittent nausea which he attributes to the gabapentin that he is taking for leg cramps. Denies dysuria cough sneezing constipation. Reports diarrhea few days ago since resolved. ED eval notable for
elevated white count 19, initially tachycardic low 100s since resolved with IVF bolus. Stable respiratory status on 2L. saturating high 90s (baseline room air). Mild lactic acidosis 2.2 repeat post-bolus resolved. Procalcitonin wnl. CXR no acute
abn's
PLAN:
#Possible Severe Sepsis Unclear Source (Leukocytosis Tachycardia)
#Possible UTI, no dysuria but pyuria present
#Recent Hospitalization Sepsis Viral PNA, possible Hospital acquired PNA
No acute abn's note on CXR
Procalcitonin wnl
severe hypotension noted in EMS documentation resolved at this time
mild lactic acidosis resolved post bolus
ID eval appreciated cont cefipime
urine cx pos for gram neg bacili identity and sensitivity pending
Stable respiratory status on 2L
weaned off
#Hx MDS question possible progressive to leukemia
#Hx Anemia typically receives transfusion for hgb <8.5 outpt
trend wbc
follow up repeat CBC post IVF bolus noted Hgb <8.5 (likely dilutional effect from bolus vs hemoconcentrated dehydrated on initial CBC) received 1PRBC w/ subsequent improvement
Hematology eval appreciated
#Lumbar Spinal Stenosis
#Lower ext leg cramps
#restricted range of motion d/t pain weakness RLE > LLE
ambulates with walker at baseline
cont home gabapentin
CT Lumbar spine appreciated mod to severe Lumbar Spinal Canal Stenosis
Neurosx eval requested
PT/OT
dvt ppx Lovenox
gi ppx Protonix
DNR/DNI
I spent a total of 55 minutes with the patient or on the floor. More than 50% of this time involved counseling and coordination of care.
Anticipated Discharge: 24 - 48 hours
Subjective/Interval History
-
Date of Service: September 15, 2023
Seen and examined at bedside in no acute distress sitting up comfortably in bed. Reports significant improvement in overall symptoms. Overall reports feeling well.
Objective Data
-
Labs:
Laboratory Results
09/14/23 09/15/23
22:08 06:00
WBC Pending
Hgb 8.5 L Pending
Hct 24.4 L Pending
Plt Count Pending
Sodium Pending
Potassium Pending
Chloride Pending
Carbon Dioxide Pending
BUN Pending
Creatinine Pending
Glucose Pending
Calcium Pending
Vital Signs:
Vital Signs
Temp Pulse Resp BP Pulse Ox
98.6 F 78 21 136/78 99
09/15/23 07:31 09/15/23 07:31 09/15/23 07:31 09/15/23 07:31 09/15/23 07:31
I&O
09/14/23 09/15/23 09/16/23
06:59 06:59 06:59
Intake Total 250 / 250
Output Total 400 / 400
Balance -150 / -150
[2023-09-15] MEDS: NEURONTIN 100 MG PO ×2 (07:40→19:33)
[2023-09-15] MEDS: PROTONIX 40 MG PO (07:40)
[2023-09-15] MEDS: STERILE WATER FOR INJECTION 10 ML IV ×3 (07:40→23:44)
[2023-09-15] MEDS: MAXIPIME 2000 MG IV ×3 (07:40→23:44)
[2023-09-15] MEDS: DESENEX/MITRAZOL/ZEASORB 1 APPLIC TOPICAL ×2 (07:40→20:47)
[2023-09-15 09:24] LABS: Hematocrit 31.1 % (39.0-52.0); Mean Corp Hgb Conc. 34.1 g/dL (33.0-37.0); Mean Corpuscular Hgb 35.1 pg (27.0-31.0); Mean Platelet Volume 8.8 fL (7.4-10.4); Nucleated Red Blood Cells % 0.1 % (-); Platelet Count 537 10^3/uL (130-400); Red Blood Cell Count 3.02 10^6/uL (4.70-6.10); Red Cell Dist. Width 24.9 % (11.5-14.5); White Blood Cell Count 15.5 10^3/uL (4.8-10.8)
[2023-09-15 09:32] LABS: Hemoglobin 10.6 g/dL (13.0-18.0)
[2023-09-15 10:01] LABS: Absolute Neutrophils -Man Diff 8.8 10^3/uL (1.4-6.5); Anisocytosis 1+; Band Neutrophils 7 % (0-3); Eosinophils 3 % (0-6); Hypochromasia 1+; Lymphocytes 20 % (20-51); Metamyelocytes 4 % (-); Monocytes 10 % (2-9); Myelocytes 6 % (-); Normal RBC Morphology No; Platelets Checked Yes; Polychromasia 1+; Segmented Neutrophils 50 % (42-75); Total Cells Counted 100
[2023-09-15] MEDS: MOTRIN 200 MG PO ×2 (10:16→19:32)
[2023-09-15 10:29] LABS: Blood Urea Nitrogen 13 mg/dl (9-20); Calcium 8.5 mg/dl (8.4-10.2); Carbon Dioxide 22 mmol/L (22-30); Chloride 98 mmol/L (98-107); Estimated Creatinine Clearance 122 ml/min; Glucose 138 mg/dl (70-99); Magnesium 1.9 mg/dl (1.6-2.3); Potassium 4.7 mmol/L (3.5-5.1); Sodium 130 mmol/L (135-145); eGFR > 60.00
--- NOTE | 2023-09-15 10:59 | CM ---
Patient seen bedside.
IA completed.
Patient lives with spouse in 2 story home with 1 step to enter.
Patient with 1st floor set up, goes to [facility] home to shower (1st floor)
patient ambulates with RW and has a WC for distances.
Patient independent prior to admission.
[place]
PCP: Chad
Pharmacy: [address]
Plan: home no needs anticipated.
[2023-09-15 11:26] VITALS: BP 123/72
--- NOTE | 2023-09-15 13:42 | W.PN.ID1 ---
Date of Service
Date of Service: September 15, 2023
Today's Communication
Continue cefepime then transition to po abx when final Ucx available.
Assessment / Plan
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
# Leukocytosis with bandemia
# Reported fever at home
# Probable GNR UTI
- no urinary sxs. However with leukocytosis/bandemia, will treat.
- Continue cefepime then transition to po abx when final cx available.
- Follow wbc
# Profound weakness
- Suspect underlying MDS, refractory anemia and dehydration contributing to weakness.
- Babesia smear negative
- Weakness improved after pRBC transfusion
#Additional Past Medical History:
Myelodysplastic syndrome failed Vidaza/luspatercept
Trisomy 8 myelodysplasia
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
Acute on chronic macrocytic anemia
Homozygous hereditary hemochromatosis
hx phlebotomy via [facility]
Chronic hyponatremia (baseline Na ~130)
Chronic knee pain
BPH
Asthma
RA
MRSA screen positive
Additional Past Surgical History:
Appendectomy 2018
Colonoscopy 2018
Chief Complaint
-: Other (Weakness)
Subjective / Review of Systems
Feels much improved after pRBC transfusion.
Vital Signs / Physical Exam
Vital Signs
Vital Signs
Temp Pulse Resp BP Pulse Ox
98.7 F 86 20 123/72 98
09/15/23 11:26 09/15/23 11:26 09/15/23 11:26 09/15/23 11:26 09/15/23 11:26
Physical Exam
Constitutional: No Acute Distress
Eyes: No Conjunctival Hemorrhage and Sclera Anicteric
Cardiovascular: Regular Rate
Pulmonary: Clear
Gastrointestinal: Soft, Non Tender, Non Distended and Normal Bowel Sounds
Genito-Urinary: Negative CVA Tenderness
Extremities: Negative Edema
Neurological: AO x 3
Objective Data
Lab Data
Lab Results
09/15/23 08:36
09/15/23 08:36
Estimated Creat Clear 122 ml/min 09/15/23 08:36
Lactic Acid 1.5 mmol/L (0.7-2.0) 09/14/23 11:19
Total Bilirubin 0.9 mg/dl (0.2-1.3) 09/14/23 07:28
AST 23 U/L (17-59) 09/14/23 07:28
ALT 23 U/L (0-50) 09/14/23 07:28
Alkaline Phosphatase 126 U/L (38-126) 09/14/23 07:28
Most recent labs reviewed.
Micro Results:
09/14/23 09:04 Blood Culture - Preliminary
Blood/Venous No Growth in 24 hours- Final report to follow
09/14/23 09:04 Urine Culture - Preliminary
Urine Gram negative bacilli
09/14/23 08:18 Blood Culture - Preliminary
Blood/Venous No Growth in 24 hours- Final report to follow
09/14/23 14:20 Blood Parasites Smear - Final
Blood/Venous No blood parasites seen.
09/14/23 08:18 Influenza Types A & B (BREN) - Final
Nasal Swab Negative for Influenza A & B, NAAT
Negative results must be combined with clinical observations
and patient history.
Nucleic Acid Amplification test (NAAT)performed on the
[employer] platform.
09/14/23 CXR: There is no parenchymal opacification or vascular congestion.
--- NOTE | 2023-09-15 15:08 | CON.ONC ---
Impression
Impression
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
Hereditary hemochromatosis
Weakness and hypotension
Urinary tract infection
Plan
Plan
Antibiotics as per infectious disease and primary services. His current hemoglobin seems acceptable, he seems quite fixated on it being as high as possible. Will await tomorrow's results. No other hematologic intervention necessary at this time.
We will continue to follow.
Patient History
History of Present Illness
Consult from Dr. Valente regarding myelodysplasia
This 72-year-old man was admitted with weakness and hypotension. He says he was feeling in his usual state of health until Thursday morning when he collapsed and was unable to get up. According to him, his blood pressure in the squad was 40/20, but
I cannot find any documentation of this. He has been admitted here and undergone hydration as well as having been transfused with 1 unit of packed cells. He does have an apparent urinary infection which is being treated, identification and
sensitivities are pending. He is feeling much better. His hemoglobin today is 10.3.
He is well-known to us with myelodysplasia and has failed hypomethylating therapy. He was due to be seen at the [facility] on Thursday regarding a second opinion.
Past-Medical/Surgical History
As per problem list below.
Social history: He does not smoke. He is retired.
Family history is noncontributory.
Patient Medication
�Medication �Instructions �Recorded �Confirmed �Last Taken �Type
folic acid 1 mg tablet 1 mg PO HS Supplement 02/11/23 09/14/23 09/12/23 History
acetaminophen 500 mg tablet 500 mg PO DAILYPRN PRN fever 07/09/23 09/14/23 09/13/23 History
calcium polycarbophil 625 mg 625 mg PO HS Gastrointestinal Issue 08/13/23 09/14/23 09/12/23 History
tablet (FiberCon)
Magnesium 1 tab PO HS Supplement 08/28/23 09/14/23 09/12/23 History
Vitamin D3 1 tab PO HS Supplement 08/28/23 09/14/23 09/12/23 History
cyanocobalamin (vitamin B-12) 1 tab PO HS Supplement 08/28/23 09/14/23 09/12/23 History
gabapentin 100 mg capsule 100 mg PO BID Leg pain 09/14/23 09/14/23 09/14/23 History
ibuprofen 200 mg tablet 200 mg PO DAILYPRN PRN mild pain 09/14/23 09/14/23 09/11/23 History
Active Medications
Generic Name Dose Route Start Last Admin
Trade Name Freq PRN Reason Stop Dose Admin
Calcium Polycarbophil 625 mg 09/14/23 22:00 09/14/23 21:43
Calcium Polycarbophil 625 Mg Tablet PO 10/12/23 21:59 625 mg
HS JOE Administration
Cefepime HCl 2,000 mg 09/14/23 16:00 09/15/23 07:40
Cefepime Hcl 2,000 Mg/12.5 Ml Vial IV 2,000 mg
Q8H JOE Administration
Cholecalciferol 50 mcg 09/15/23 22:00
Cholecalciferol (Vitamin D3) 50 Mcg Tablet (2,000 Units) PO 10/13/23 21:59
HS JOE
Cyanocobalamin 1,000 mcg 09/14/23 22:00 09/14/23 21:43
Cyanocobalamin 1,000 Mcg Tablet PO 10/12/23 21:59 1,000 mcg
HS JOE Administration
Enoxaparin Sodium 40 mg 09/14/23 18:00 09/14/23 17:08
Enoxaparin Sodium 40 Mg/0.4 Ml Syringe SC 10/12/23 17:59 40 mg
QPM JOE Administration
Folic Acid 1 mg 09/14/23 22:00 09/14/23 21:43
Folic Acid 1 Mg Tablet PO 10/12/23 21:59 1 mg
HS JOE Administration
Gabapentin 100 mg 09/14/23 20:00 09/15/23 07:40
Gabapentin 100 Mg Capsule PO 10/12/23 19:59 100 mg
BID JOE Administration
Ibuprofen 200 mg 09/15/23 10:03 09/15/23 10:16
Ibuprofen 200 Mg Tablet PO 10/13/23 10:01 200 mg
Q4HPRN PRN Administration
moderate severe pain
Magnesium 84 mg 09/15/23 22:00
Magnesium Lactate 84 Mg Tablet PO 10/13/23 21:59
HS JOE
Miconazole Nitrate 0 applic 09/14/23 20:00 09/15/23 07:40
Miconazole Powder Bottle TOPICAL 10/12/23 19:59 1 applic
BID JOE Administration
Oxycodone HCl 2.5 mg 09/15/23 10:05
Oxycodone 5 Mg Regular Release Tablet PO 09/29/23 10:04
Q4HPRN PRN
severe breakthrough pain
Pantoprazole Sodium 40 mg 09/15/23 08:00 09/15/23 07:40
Pantoprazole 40 Mg Delayed Release Tablet PO 10/13/23 07:59 40 mg
DAILY JOE Administration
Sterile Water 10 ml 09/14/23 16:00 09/15/23 07:40
Sterile Water For Injection 10 Ml Vial IV 10/12/23 15:59 10 ml
Q8H JOE Administration
Review of Systems
-
All Other Systems: Reviewed and Negative
Physical Exam
-
Physical examination shows the patient to be in no acute distress.
HEENT exam is unremarkable.
There are no palpable nodes.
Chest is clear.
The heart is regular with no murmur or gallop.
The abdomen is soft and nontender with no organomegaly or masses.
Extremities are unremarkable.
Neurologic is grossly intact.
Labs
Lab Results
WBC 15.5 10^3/uL (4.8-10.8) H 09/15/23 08:36
RBC 3.02 10^6/uL (4.70-6.10) L 09/15/23 08:36
Hgb 10.6 g/dL (13.0-18.0) L D 09/15/23 08:36
Hct 31.1 % (39.0-52.0) L 09/15/23 08:36
MCV 103.0 fL (80.0-94.0) H 09/15/23 08:36
MCH 35.1 pg (27.0-31.0) H 09/15/23 08:36
MCHC 34.1 g/dL (33.0-37.0) 09/15/23 08:36
RDW 24.9 % (11.5-14.5) H 09/15/23 08:36
Plt Count 537 10^3/uL (130-400) H 09/15/23 08:36
MPV 8.8 fL (7.4-10.4) 09/15/23 08:36
Creatinine 0.5 mg/dL (0.7-1.3) L 09/15/23 08:36
Vital Signs
Vital Signs
Temp Pulse Resp BP Pulse Ox
98.7 F 86 20 123/72 98
09/15/23 11:26 09/15/23 11:26 09/15/23 11:26 09/15/23 11:26 09/15/23 11:26
[2023-09-15 15:43] VITALS: BP 97/68
[2023-09-15] MEDS: LOVENOX 40 MG SC (17:26)
[2023-09-15 19:14] VITALS: BP 139/76
[2023-09-15] MEDS: VITAMIN D3 (cholecalciferol) 50 MCG PO (20:47)
[2023-09-15] MEDS: FLOMAX 0.4 MG PO (20:47)
[2023-09-15] MEDS: VITAMIN B-12 1000 MCG PO (20:47)
[2023-09-15] MEDS: FIBERCON 625 MG PO (20:47)
[2023-09-15] MEDS: FOLVITE 1 MG PO (20:48)
[2023-09-15] MEDS: MAG-TAB SR 84 MG PO (20:48)
[2023-09-15] MEDS: TYLENOL 650 MG PO (22:22)
[2023-09-15 22:46] VITALS: BP 95/61
[2023-09-16] VITALS (8 sets, daily range): BP systolic 84–129; BP diastolic 58–83; PULSE 97; O2SAT 98
[2023-09-16] MEDS: MOTRIN 200 MG PO (03:32)
[2023-09-16] MEDS: ROXICODONE 2.5 MG PO ×3 (04:21→19:57)
--- NOTE | 2023-09-16 07:18 | W.PN.HOSP.TC ---
Today's Communication/Plan
-
abx as per ID
pain control
PT/OT
Monitor for signs worsening infection
Assessment / Plan
Assessment / Plan
Physical Exam
General: Mild pallor no cyanosis or jaundice.
HEENT: Throat clear. PERRLA Normocephalic atraumatic
NECK: Supple. No JVD Carotid Bruits
RESPIRATORY: Lungs clear to auscultation. No crackles wheezes stridor. Stable respiratory status on room air.
CVS: S1, S2 normal. RRR. No murmur, rub or gallop.
ABDOMEN: Soft, non-tender. No distension. BS+/normal.
EXTREMITIES: Restricted range of motion right lower extremity due to pain able to wiggle toes bilateral without issues. Lower extremity weakness restricted range of motion right greater than left
FIXED [employer]TE [employer]ATOR: AOx3
IMPRESSION:
72M MDS, hemochromatosis p/w generalized malaise/weakness progressive last 24h to the point where patient could no longer stand, ambulates with walker at baseline. Patient was noted to be hypotensive systolic 40s by EMS services (not noted here) bp
improved since IV fluid administration. Received 30 cc/kg bolus in ED, systolic pressure consistently low 100s during ED evaluation. Patient reports chills denies fever (though patient's at bedside noted fever 101 at home day prior to
presentation (afebrile here). Reports intermittent nausea which he attributes to the gabapentin that he is taking for leg cramps. Denies dysuria cough sneezing constipation. Reports diarrhea few days ago since resolved. ED eval notable for
elevated white count 19, initially tachycardic low 100s since resolved with IVF bolus. Stable respiratory status on 2L. saturating high 90s (baseline room air). Mild lactic acidosis 2.2 repeat post-bolus resolved. Procalcitonin wnl. CXR no acute
abn's
PLAN:
#Possible Severe Sepsis Unclear Source (Leukocytosis Tachycardia)
#Possible UTI, no dysuria but pyuria present
#Recent Hospitalization Sepsis Viral PNA, possible Hospital acquired PNA
No acute abn's note on CXR
Procalcitonin wnl
severe hypotension noted in EMS documentation resolved at this time
mild lactic acidosis resolved post bolus
urine cx pos for Klebsiella sensitivities appreciated
ID eval appreciated cefipime transitioned to cipro, repeat EKG in AM 09/16 to monitor for QT prolongation
#Hx MDS question possible progressive to leukemia
#Hx Anemia typically receives transfusion for hgb <8.5 outpt
trend wbc
follow up repeat CBC post IVF bolus noted Hgb <8.5 (likely dilutional effect from bolus vs hemoconcentrated dehydrated on initial CBC) received 1PRBC w/ subsequent improvement
Hematology eval appreciated
#Lumbar Spinal Stenosis
#Lower ext leg cramps
#restricted range of motion d/t pain weakness RLE > LLE
ambulates with walker at baseline
cont home gabapentin
CT Lumbar spine appreciated mod to severe Lumbar Spinal Canal Stenosis
Neurosx eval appreciated no intervention necessary at this time, current pain unlikely to be related to current stenosis.
PT/OT appreciated home health patient however declining
dvt ppx Lovenox
gi ppx Protonix
DNR/DNI
I spent a total of 55 minutes with the patient or on the floor. More than 50% of this time involved counseling and coordination of care.
Anticipated Discharge: 24 - 48 hours
Subjective/Interval History
-
Date of Service: September 16, 2023
Objective Data
-
Labs:
Laboratory Results
09/16/23
07:06
WBC Pending
Hgb Pending
Hct Pending
Plt Count Pending
Sodium Pending
Potassium Pending
Chloride Pending
Carbon Dioxide Pending
BUN Pending
Creatinine Pending
Glucose Pending
Calcium Pending
Vital Signs:
Vital Signs
Temp Pulse Resp BP Pulse Ox
98.2 F 77 18 112/71 99
09/16/23 03:12 09/16/23 03:12 09/16/23 03:12 09/16/23 03:12 09/16/23 03:12
I&O
09/15/23 09/16/23 09/17/23
06:59 06:59 06:59
Intake Total 250 / 250 720 / 720
Output Total 400 / 400 1350 / 1350
Balance -150 / -150 -630 / -630
[2023-09-16 07:54] LABS: Hematocrit 26.1 % (39.0-52.0); Mean Corp Hgb Conc. 34.5 g/dL (33.0-37.0); Mean Corpuscular Volume 101.6 fL (80.0-94.0); Mean Platelet Volume 8.8 fL (7.4-10.4); Platelet Count 498 10^3/uL (130-400); Red Blood Cell Count 2.57 10^6/uL (4.70-6.10); Red Cell Dist. Width 24.2 % (11.5-14.5); White Blood Cell Count 16.3 10^3/uL (4.8-10.8)
[2023-09-16] MEDS: NEURONTIN 100 MG PO ×2 (07:58→19:57)
[2023-09-16] MEDS: PROTONIX 40 MG PO (07:58)
[2023-09-16] MEDS: STERILE WATER FOR INJECTION 10 ML IV (07:59)
[2023-09-16] MEDS: MAXIPIME 2000 MG IV (07:59)
[2023-09-16] MEDS: DESENEX/MITRAZOL/ZEASORB 1 APPLIC TOPICAL ×2 (08:00→19:54)
[2023-09-16 09:11] LABS: Absolute Neutrophils -Man Diff 12.3 10^3/uL (1.4-6.5); Band Neutrophils 10 % (0-3); Eosinophils 2 % (0-6); Lymphocytes 5 % (20-51); Metamyelocytes 9 % (-); Monocytes 7 % (2-9); Myelocytes 1 % (-); Platelets Checked Yes; Segmented Neutrophils 66 % (42-75)
[2023-09-16 09:12] LABS: Anisocytosis 1+; Hypochromasia 1+; Normal RBC Morphology No; Polychromasia 1+; Total Cells Counted 100
[2023-09-16 09:39] LABS: Blood Urea Nitrogen 15 mg/dl (9-20); Calcium 8.2 mg/dl (8.4-10.2); Carbon Dioxide 22 mmol/L (22-30); Chloride 97 mmol/L (98-107); Estimated Creatinine Clearance 122 ml/min; Glucose 116 mg/dl (70-99); Magnesium 1.8 mg/dl (1.6-2.3); Phosphorus 3.2 mg/dl (2.5-4.5); Potassium 4.5 mmol/L (3.5-5.1); Sodium 125 mmol/L (135-145); eGFR > 60.00
--- NOTE | 2023-09-16 10:05 | CON.NS ---
Chief Complaint
-
knee and leg pain
History of Present Illness
72 year old male with PMH MDS, hemochromatosis, BPH, UTI, hyponatremia, presented to after a fall/syncopal event at home. He states his hgb is chronically low and he often feels dizzy. He was getting up after going to the bathroom when he started
to fall and was lowered into a chair. He denies any back pain. He has right greater than left knee pain that radiates into the upper thighs. The pain is worse with rest and feels muscular. The pain is improved when he walks. He ambulates with a
walker due to dizziness with his anemia. He denies any claudicatory symptoms. He denies any numbness or tingling. A CT lumbar spine was completed and we have been consulted.
Review of Systems
-
10 point review of systems was completed and negative unless otherwise documented in HPI.
Medication and Allergies
Home Medications
Home Medications
�Medication �Instructions �Recorded
folic acid 1 mg tablet 1 mg PO HS Supplement 02/11/23
acetaminophen 500 mg tablet 500 mg PO DAILYPRN PRN fever 07/09/23
calcium polycarbophil 625 mg 625 mg PO HS Gastrointestinal Issue 08/13/23
tablet (FiberCon)
Magnesium 1 tab PO HS Supplement 08/28/23
Vitamin D3 1 tab PO HS Supplement 08/28/23
cyanocobalamin (vitamin B-12) 1 tab PO HS Supplement 08/28/23
gabapentin 100 mg capsule 100 mg PO BID Leg pain 09/14/23
ibuprofen 200 mg tablet 200 mg PO DAILYPRN PRN mild pain 09/14/23
Allergies
Allergies
Allergy/AdvReac Type Severity Reaction Status Date / Time
Penicillins Allergy Rash; Verified 09/14/23 07:13
tolerates
cephalosporins
Sulfa (Sulfonamide Allergy Rash Verified 09/14/23 07:13
Antibiotics)
Physical Exam
-
Exam:
AAOx3
speech clear and conversant
hearing GI
motor 5/5 throughout
sensation intact to LT throughout
no clonus
breathing nonlabored
lumbar CT:
Findings:
No acute fracture. There is good alignment of the vertebral segments. Mild multilevel degenerative disc and facet disease. Congenitally narrowed spinal canal due to short pedicles.
L1-L2: Mild disc desiccation and bulge; mild facet arthropathy; mild spinal canal stenosis.
L2-L3: Disc desiccation with mild bulge; mild facet arthropathy; moderate spinal canal stenosis
L3-L4: Disc desiccation with circumferential bulge; moderate facet arthropathy; moderate to severe spinal canal and [id number] bilateral neural foraminal stenosis
L4-L5: Diffuse disc bulge with superimposed left central extrusion likely abutting the traversing left L5 nerve root in the lateral recess; mild to moderate facet arthropathy; moderate to severe spinal canal stenosis; mild left and moderate
right-sided neural foraminal stenosis
L5-S1: Disc desiccation with diffuse bulge abutting the exiting right L5 nerve root; mild facet arthropathy; moderate bilateral neural foraminal stenosis
The visualized sacrum appears intact. 6 mm nonobstructing mid pole right renal calculus. No hydronephrosis. There is no retroperitoneal adenopathy observed.
IMPRESSION: Multilevel degenerative changes of the lumbar spine as detailed, worst at L3-4 and L4-5 where disc and facet disease in conjunction with congenitally narrowed spinal canal contribute to moderate to severe spinal canal and moderate
neural foraminal stenosis at these levels.
Assessment / Plan
-
right greater than left knee pain and thigh pain
-CT lumbar reviewed, does not explain his symptoms
-no neurosurgical interventions indicated
-would recommend further metabolic workup for cause of his muscle spasms
-physiatry at discharge to evaluate his knee pain
-discussed case with Dr. Huddleston
-will sign off
--- NOTE | 2023-09-16 10:59 | W.PN.ONC2 ---
Addendum entered and electronically signed by Pamela Guaman MD 09/16/23 12:06:
agree w/ A&P as outlined below
Will reschedule missed Reblozyl dose (09/15) after discharge
Original Note:
Today's Communication / Plan
-
follow CBC
Impression
Impression
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
Hereditary hemochromatosis
Weakness and hypotension
Urinary tract infection
Plan
Plan
Abx per ID
transfuse Hgb <7 or as needed for sxs anemia
Apt at [facility] Thursday for second opinion
Subjective/Objective
Chief Complaint
no new complaints
Subjective
feeling better
Vital Signs:
Vital Signs
Temp Pulse Resp BP Pulse Ox
98.6 F 89 20 92/58 94
09/16/23 07:28 09/16/23 07:28 09/16/23 07:28 09/16/23 07:28 09/16/23 08:00
Lab Results:
Laboratory Data
WBC 16.3 10^3/uL (4.8-10.8) H 09/16/23 07:06
Hgb 9.0 g/dL (13.0-18.0) L 09/16/23 07:06
Plt Count 498 10^3/uL (130-400) H 09/16/23 07:06
eGFR > 60.00 09/16/23 07:06
Physical Exam
Gen no acute distress.
HEENT exam is unremarkable.
There are no palpable nodes.
Chest is clear.
The heart is regular
The abdomen is soft and nontender with no organomegaly or masses.
Extremities no edema
Neurologic is grossly intact.
Review of Systems
Review of Systems
review of systems is notable for subjective otherwise negative
--- NOTE | 2023-09-16 13:43 | W.PN.ID1 ---
Date of Service
Date of Service: September 16, 2023
Today's Communication
- switch to ciprofloxacin x 2 weeks total 09/13-09/26
- Follow up with oncology
Assessment / Plan
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
# Fever
# Leukocytosis with bandemia
# UTI due to K pneumoniae
- no urinary sxs. However with fever/leukocytosis/bandemia, will treat.
- recheck qtc in the AM
- switch to ciprofloxacin x 2 weeks total 09/13-09/26
- Follow up with oncology
# Profound weakness
- Suspect underlying MDS, refractory anemia and dehydration contributing to weakness.
- Babesia smear negative
- Weakness improved after pRBC transfusion
#Additional Past Medical History:
Myelodysplastic syndrome failed Vidaza/luspatercept
Trisomy 8 myelodysplasia
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
Acute on chronic macrocytic anemia
Homozygous hereditary hemochromatosis
hx phlebotomy via [facility]
Chronic hyponatremia (baseline Na ~130)
Chronic knee pain
BPH
Asthma
RA
MRSA screen positive
Additional Past Surgical History:
Appendectomy 2018
Colonoscopy 2018
Chief Complaint
-: UTI and Other (Weakness)
Subjective / Review of Systems
fever improving
bp stable
wbc 16, mild increase
hgb 9
plt 498
urine culture 100 K Kleb pneuo
Vital Signs / Physical Exam
Vital Signs
Vital Signs
Temp Pulse Resp BP Pulse Ox
99.3 F 103 20 129/83 96
09/16/23 11:39 09/16/23 11:39 09/16/23 11:39 09/16/23 11:39 09/16/23 11:39
Physical Exam
Constitutional: No Acute Distress and Chronically Ill
Cardiovascular: Regular Rate and S1/S2; Negative Murmur or Rub
Pulmonary: Clear and Symmetric; Negative Wheezes or Rales
Gastrointestinal: Soft, Non Tender, Non Distended and Normal Bowel Sounds
Genito-Urinary: Negative Suprapubic Tenderness
Skin: Warm and Dry; Negative Rash or Jaundice
Objective Data
Lab Data
Lab Results
09/16/23 07:06
09/16/23 07:06
Estimated Creat Clear 122 ml/min 09/16/23 07:06
Lactic Acid 1.5 mmol/L (0.7-2.0) 09/14/23 11:19
Total Bilirubin 0.9 mg/dl (0.2-1.3) 09/14/23 07:28
AST 23 U/L (17-59) 09/14/23 07:28
ALT 23 U/L (0-50) 09/14/23 07:28
Alkaline Phosphatase 126 U/L (38-126) 09/14/23 07:28
Most recent labs reviewed.
Micro Results:
09/14/23 09:04 Blood Culture - Preliminary
Blood/Venous No Growth in 48 hours- Final report to follow
09/14/23 08:18 Blood Culture - Preliminary
Blood/Venous No Growth in 48 hours- Final report to follow
09/14/23 09:04 Urine Culture - Final
Urine Klebsiella pneumoniae
09/14/23 14:20 Blood Parasites Smear - Final
Blood/Venous No blood parasites seen.
09/14/23 08:18 Influenza Types A & B (BREN) - Final
Nasal Swab Negative for Influenza A & B, NAAT
Negative results must be combined with clinical observations
and patient history.
Nucleic Acid Amplification test (NAAT)performed on the
[employer] platform.
Urine Culture Final 09/16/23-812
CC: Greater than 100,000 CFU/ML Klebsiella pneumoniae
Organism 1 Klebsiella pneumoniae
1. Klebsiella pneumoniae
M.I.C. RX
--------- ---
Amoxicillin/Potas. Clavulanate <=8/4 S
Ampicillin >16 R
Ampicillin/Sulbactam >16/8 R
Cefazolin 8 R
Cefepime <=2 S
Ceftazidime <=1 S
Ceftriaxone <=1 S
Ertapenem <=0.5 S
Ciprofloxacin <=0.25 S
Gentamicin <=4 S
Levofloxacin <=0.5 S
Meropenem <=1 S
Nitrofurantoin-Urine Only 64 I
Piperacillin/Tazobactam <=16 S
Tobramycin <=4 S
Trimethoprim/Sulfamethoxazole <=2/38 S
09/14/23 CXR: There is no parenchymal opacification or vascular congestion.
--- NOTE | 2023-09-16 15:39 | CM ---
Patient seen bedside.
Patient more tired today, sleepy.
PT/OT recommending home care.
patient declined home care, stated family would assist at home.
Plan: home no needs anticipated.
[2023-09-16] MEDS: TYLENOL 650 MG PO ×2 (15:43→23:12)
[2023-09-16] MEDS: LOVENOX 40 MG SC (17:03)
[2023-09-16] MEDS: CIPRO 500 MG PO (20:00)
[2023-09-16] MEDS: FIBERCON 625 MG PO (21:29)
[2023-09-16] MEDS: VITAMIN D3 (cholecalciferol) 50 MCG PO (21:29)
[2023-09-16] MEDS: MAG-TAB SR 84 MG PO (21:29)
[2023-09-16] MEDS: FLOMAX 0.4 MG PO (21:30)
[2023-09-16] MEDS: FOLVITE 1 MG PO (21:30)
[2023-09-16] MEDS: VITAMIN B-12 1000 MCG PO (21:30)
[2023-09-17] MEDS: ROXICODONE 2.5 MG PO ×2 (02:24→09:21)
[2023-09-17 03:00] VITALS: BP 110/70
--- NOTE | 2023-09-17 06:50 | W.PN.HOSP.TC ---
Addendum entered and electronically signed by Hardik Valente MD 09/17/23 16:28:
Patient reporting symptoms of urinary retention
-flomax started, tolerating well
Addendum entered and electronically signed by Hardik Valente MD 09/17/23 16:24:
Hyponatremia improving
cont fluid restriction
Original Note:
Today's Communication/Plan
-
discharge
Assessment / Plan
Assessment / Plan
Physical Exam
General: Mild pallor no cyanosis or jaundice.
HEENT: Throat clear. PERRLA Normocephalic atraumatic
NECK: Supple. No JVD Carotid Bruits
RESPIRATORY: Lungs clear to auscultation. No crackles wheezes stridor. Stable respiratory status on room air.
CVS: S1, S2 normal. RRR. No murmur, rub or gallop.
ABDOMEN: Soft, non-tender. No distension. BS+/normal.
EXTREMITIES: Restricted range of motion lower extremities due to pain/weakness able to wiggle toes bilateral without issues (RLE worse than L). Pain/weakness since improved though not resolved
[employer]: AOx3
IMPRESSION:
72M MDS, hemochromatosis p/w generalized malaise/weakness progressive last 24h to the point where patient could no longer stand, ambulates with walker at baseline. Patient was noted to be hypotensive systolic 40s by EMS services (not noted here) bp
improved since IV fluid administration. Received 30 cc/kg bolus in ED, systolic pressure consistently low 100s during ED evaluation. Patient reports chills denies fever (though patient's at bedside noted fever 101 at home day prior to
presentation (afebrile here). Reports intermittent nausea which he attributes to the gabapentin that he is taking for leg cramps. Denies dysuria cough sneezing constipation. Reports diarrhea few days ago since resolved. ED eval notable for
elevated white count 19, initially tachycardic low 100s since resolved with IVF bolus. Stable respiratory status on 2L. saturating high 90s (baseline room air). Mild lactic acidosis 2.2 repeat post-bolus resolved. Procalcitonin wnl. CXR no acute
abn's
PLAN:
#Possible Severe Sepsis Unclear Source (Leukocytosis Tachycardia)
#Possible UTI, no dysuria but pyuria present
#Recent Hospitalization Sepsis Viral PNA, possible Hospital acquired PNA
No acute abn's note on CXR
Procalcitonin wnl
severe hypotension noted in EMS documentation resolved at this time
mild lactic acidosis resolved post bolus
urine cx pos for Klebsiella sensitivities appreciated
ID eval appreciated cefipime transitioned to cipro, repeat EKG in AM 09/16 notes no significant QT prolongation. Tolerating medication well. Planned for total 2 wks tx 09/13-09/26
#Hx MDS question possible progressive to leukemia
#Hx Anemia typically receives transfusion for hgb <8.5 outpt
trend wbc
follow up repeat CBC post IVF bolus noted Hgb <8.5 (likely dilutional effect from bolus vs hemoconcentrated dehydrated on initial CBC) received 1PRBC w/ subsequent improvement
Hematology eval appreciated
#Lumbar Spinal Stenosis
#Lower ext leg cramps
#restricted range of motion d/t pain weakness RLE > LLE
ambulates with walker at baseline
cont home gabapentin
CT Lumbar spine appreciated mod to severe Lumbar Spinal Canal Stenosis
Neurosx eval appreciated no intervention necessary at this time, current pain unlikely to be related to current stenosis.
PT/OT appreciated home health patient however declining
dvt ppx Lovenox
gi ppx Protonix
DNR/DNI
Medically stable for discharge home with outpatient follow up recommendations.
Total Time Preparing Discharge ___50____ minutes including examination of the patient, summary of the hospital stay, instructions for continuing care to all relevant caregivers; and preparation of discharge records, prescriptions, and referral
forms if necessary.
Anticipated Discharge: Today
Subjective/Interval History
-
Date of Service: September 17, 2023
Seen and examined at bedside in no acute distress resting comfortably in bed. Denies knee pain. Reports chronic periodic shooting muscle cramps manageable with home gabapentin. Denies new acute issues. Eager to go home.
Objective Data
-
Labs:
Laboratory Results
09/17/23
06:00
WBC Pending
Hgb Pending
Hct Pending
Plt Count Pending
Sodium Pending
Potassium Pending
Chloride Pending
Carbon Dioxide Pending
BUN Pending
Creatinine Pending
Glucose Pending
Calcium Pending
Vital Signs:
Vital Signs
Temp Pulse Resp BP Pulse Ox
98.5 F 93 20 110/70 94
09/17/23 03:00 09/17/23 03:00 09/17/23 03:00 09/17/23 03:00 09/17/23 03:00
I&O
09/15/23 09/16/23 09/17/23
06:59 06:59 06:59
Intake Total 250 / 250 720 / 720 1560 / 1560
Output Total 400 / 400 1350 / 1350 1275 / 1275
Balance -150 / -150 -630 / -630 285 / 285
[2023-09-17 07:30] VITALS: BP 98/55
[2023-09-17] MEDS: CIPRO 500 MG PO (08:01)
[2023-09-17] MEDS: DESENEX/MITRAZOL/ZEASORB 1 APPLIC TOPICAL (08:02)
[2023-09-17] MEDS: PROTONIX 40 MG PO (08:02)
[2023-09-17] MEDS: NEURONTIN 100 MG PO (08:02)
[2023-09-17 09:13] LABS: Hematocrit 27.6 % (39.0-52.0); Hemoglobin 9.2 g/dL (13.0-18.0); Mean Corp Hgb Conc. 33.3 g/dL (33.0-37.0); Mean Corpuscular Hgb 33.9 pg (27.0-31.0); Mean Corpuscular Volume 101.8 fL (80.0-94.0); Mean Platelet Volume 8.6 fL (7.4-10.4); Nucleated Red Blood Cells % 0.3 % (-); Platelet Count 499 10^3/uL (130-400); Red Blood Cell Count 2.71 10^6/uL (4.70-6.10); Red Cell Dist. Width 24.6 % (11.5-14.5); White Blood Cell Count 16.3 10^3/uL (4.8-10.8)
[2023-09-17 10:04] LABS: Absolute Neutrophils -Man Diff 9.1 10^3/uL (1.4-6.5); Anisocytosis 1+; Band Neutrophils 11 % (0-3); Eosinophils 5 % (0-6); Hypochromasia 1+; Lymphocytes 18 % (20-51); Metamyelocytes 3 % (-); Monocytes 11 % (2-9); Myelocytes 7 % (-); Normal RBC Morphology No; Platelets Checked Yes; Polychromasia 1+; Segmented Neutrophils 45 % (42-75); Total Cells Counted 100
[2023-09-17 10:29] LABS: Blood Urea Nitrogen 14 mg/dl (9-20); Calcium 8.2 mg/dl (8.4-10.2); Carbon Dioxide 27 mmol/L (22-30); Chloride 93 mmol/L (98-107); Estimated Creatinine Clearance 122 ml/min; Glucose 125 mg/dl (70-99); Phosphorus 3.6 mg/dl (2.5-4.5); Sodium 128 mmol/L (135-145); eGFR > 60.00
[2023-09-17 11:00] VITALS: BP 100/62
--- NOTE | 2023-09-17 11:57 | W.PN.ID1 ---
Addendum entered and electronically signed by Odessa Kline MD 09/17/23 13:36:
Ehrlichia serologies results
IgM negative, IgG 1:256
he has had leukocytosis, elevated platelets, normal transaminases
[place], reports numerous courses of doxycycline over the years - 'I see the doctor for a course of it whenever I get a tick bite,' innumerable tick bites over the years, no known cases of ehrlichia he can recall
clinically has responded to treatment for the klebsiella
discussed with patient, if relapse of symptoms he will notify our office for further treatment; most likely this serology reflects a remote, resolved infection
lab will additional get sensitivities to tetracycline for the klebsiella - turn around 2 days
stable for dc from ID perspective
Original Note:
Date of Service
Date of Service: September 17, 2023
Today's Communication
- switch to ciprofloxacin x 2 weeks total 09/13-09/26
- Follow up with oncology
Assessment / Plan
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
Has a clonal B cell population
# Fever
# Leukocytosis with bandemia
# UTI due to K pneumoniae
- no urinary sxs. However with fever/leukocytosis/bandemia, will treat.
- QTc remains normal
- switch to ciprofloxacin x 2 weeks total 09/13-09/26
- Follow up with oncology
# Profound weakness
- Suspect underlying MDS, refractory anemia and dehydration contributing to weakness.
- Babesia smear negative
- Weakness improved after pRBC transfusion
#Additional Past Medical History:
Myelodysplastic syndrome failed Vidaza/luspatercept
Trisomy 8 myelodysplasia
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
Acute on chronic macrocytic anemia
Homozygous hereditary hemochromatosis
hx phlebotomy via [facility]
Chronic hyponatremia (baseline Na ~130)
Chronic knee pain
BPH
Asthma
RA
MRSA screen positive
Additional Past Surgical History:
Appendectomy 2018
Colonoscopy 2018
Chief Complaint
-: Fever, UTI and Other (Weakness)
Subjective / Review of Systems
fevers ongoing
bp stable
leukocytosis improved from arrival, does not have chronic leukocytosis
cr 0.6
lyme ehrlichia, anaplasma were sent 09/13 - in progress
discussed immune status with Dr Carballo - expect him to be able to mount effective immune response
'I feel a lot better'
Vital Signs / Physical Exam
Vital Signs
Vital Signs
Temp Pulse Resp BP Pulse Ox
97.6 F 92 16 100/62 97
09/17/23 11:00 09/17/23 11:00 09/17/23 11:00 09/17/23 11:00 09/17/23 11:00
Physical Exam
Constitutional: No Acute Distress
Cardiovascular: Regular Rate and S1/S2; Negative Murmur or Rub
Pulmonary: Clear and Symmetric; Negative Wheezes or Rales
Gastrointestinal: Soft, Non Tender, Non Distended and Normal Bowel Sounds
Skin: Warm and Dry; Negative Rash or Jaundice
Objective Data
Lab Data
Lab Results
09/17/23 08:12
09/17/23 08:13
Estimated Creat Clear 122 ml/min 09/17/23 08:13
Lactic Acid 1.5 mmol/L (0.7-2.0) 09/14/23 11:19
Total Bilirubin 0.9 mg/dl (0.2-1.3) 09/14/23 07:28
AST 23 U/L (17-59) 09/14/23 07:28
ALT 23 U/L (0-50) 09/14/23 07:28
Alkaline Phosphatase 126 U/L (38-126) 09/14/23 07:28
Most recent labs reviewed.
Micro Results:
09/14/23 09:04 Blood Culture - Preliminary
Blood/Venous No Growth in 72 hours- Final report to follow
09/14/23 08:18 Blood Culture - Preliminary
Blood/Venous No Growth in 72 hours- Final report to follow
09/14/23 09:04 Urine Culture - Final
Urine Klebsiella pneumoniae
09/14/23 14:20 Blood Parasites Smear - Final
Blood/Venous No blood parasites seen.
09/14/23 08:18 Influenza Types A & B (BREN) - Final
Nasal Swab Negative for Influenza A & B, NAAT
Negative results must be combined with clinical observations
and patient history.
Nucleic Acid Amplification test (NAAT)performed on the
[employer] NOW platform.
09/14/23 CXR: There is no parenchymal opacification or vascular congestion.
Care Review
Plan reviewed with: Physician (Dr Carballo - immune response; Dr Valente - dispo)
--- NOTE | 2023-09-17 12:07 | W.PN.ONC2 ---
Today's Communication / Plan
-
follow CBC and fever curve
Impression
Impression
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
Hereditary hemochromatosis
Weakness and hypotension
Kleb -Urinary tract infection
Plan
Plan
Abx per ID, follow cultures
transfuse Hgb <7 or as needed for sxs anemia
Apt at [facility] Thursday for second opinion
Subjective/Objective
Chief Complaint
continues with fevers to 102.9F overnight
Subjective
denies cough, sinus congestion, sob, dysuria, or diarrhea
Vital Signs:
Vital Signs
Temp Pulse Resp BP Pulse Ox
97.6 F 92 16 100/62 97
09/17/23 11:00 09/17/23 11:00 09/17/23 11:00 09/17/23 11:00 09/17/23 11:00
Lab Results:
Laboratory Data
WBC 16.3 10^3/uL (4.8-10.8) H 09/17/23 08:12
Hgb 9.2 g/dL (13.0-18.0) L 09/17/23 08:12
Plt Count 499 10^3/uL (130-400) H 09/17/23 08:12
eGFR > 60.00 09/17/23 08:13
Physical Exam
HEENT: Moist Mucous Membranes; No Jaundice
Cardiology: Normal Sinus Rhythm
Pulmonary: Clear
GI: Soft
Extremities: No Edema
Neuro: Non Focal
Review of Systems
Review of Systems
notable for subjective, otherwise negative
[2023-09-17] MEDS: MOTRIN 200 MG PO (12:33)
[2023-09-17 13:03] LABS: Ehrlichia chaffeensis IgM Ab < 1:16 (< 1:16)
[2023-09-17 15:00] VITALS: BP 104/59
[2023-09-17 15:58] LABS: Lyme Antibody Screen, EIA Negative (Negative)
--- NOTE | 2023-09-17 16:40 | W.DCSUMMARY ---
Discharge Summary
Discharge Data
Date of Admission: 09/14/23
Date of Discharge: 09/17/23
-
Pending Results: Yes
Additional Pending Results:
official culture results serologies
Discharge Plan
-
Patient Disposition: Home (Routine Discharge)
Discharge Diagnosis/Procedures: Possible Sepsis secondary to urinary tract infection
Dehydration resolved
Hyponatremia
Symptomatic Anemia
Moderate Severe Lumbar Spinal Canal Stenosis
Ambulatory Dysfunction
Neuropathy/Muscle Spasm/pain lower extremities
MDS
Hereditary Hemochromatosis
Urinary Retention
Condition: Fair
Diet: Regular and Restrict fluids to 64 oz
Activity: As tolerated and With Walker
Driving Restrictions: Not until seen by your Dr
Bathing Restrictions: None
Blood Work: Please repeat CBC and BMP with primary care provider or other healthcare provider involved in your care.
Activity Restrictions/Additional Instructions:
Please follow up with primary care provider in 1 week of discharge and cont with your Hematology appointments.
Ciprofloxacin has been prescribed to treat urinary tract infection. 09/27/23 is last day of antibiotics as per Infectious disease recommendations.
Flomax has been prescribed for urinary retention. Urinary retention increases your risk for developing urinary tract infections.
Home ibuprofen has been changed to as needed every 6 hours for pain (original home medication was daily as needed)
Oxycodone has also been prescribed as needed for moderate severe pain, 5 day supply.
Please take medications as prescribed/recommended and follow up with primary care provider and/or other healthcare provider involved in your care for refills and/or further adjustment to your medication regimen as necessary.
Referrals:
Jean Paul Sidhu MD [Family Provider] - in one week
Prescriptions:
New
tamsulosin 0.4 mg Capsule
0.4 mg PO HS 30 Days Qty: 30 0RF
ciprofloxacin HCl 500 mg Tablet
500 mg PO BID Qty: 21 0RF
Rx Instructions:
Last day of antibiotics 09/26 then stop
oxycodone 5 mg Tablet
2.5 mg PO BIDPRN PRN (Reason: severe breakthrough pain) Qty: 5 0RF
Continued
folic acid 1 mg tablet
1 mg PO HS
acetaminophen 500 mg Tablet
500 mg PO DAILYPRN PRN (Reason: fever)
calcium polycarbophil [FiberCon] 625 mg Tablet
625 mg PO HS
Magnesium tablet
1 tab PO HS
Vitamin D3 tablet
1 tab PO HS
cyanocobalamin (vitamin B-12) tablet
1 tab PO HS
gabapentin 100 mg capsule
100 mg PO BID
Changed
ibuprofen 200 mg Tablet
200 mg PO Q6HPRN PRN (Reason: mild pain) Qty: 0 0RF
Discharge Orders:
Discharge Patient (As Directed); Ordered 09/17/23
Ordered By: Hardik Valente
Discharge Date and Time
Print Language: SENEGALESE
[2023-09-17] MEDS: LOVENOX SC (17:08)
[2023-09-18 12:21] LABS: Anaplasma phagocytophilum IgG <1:80 (<1:80); Anaplasma phagocytophilum IgM < 1:16 (< 1:16)
== END 2023-09-17 17:34 | disposition home or self-care (01) | DRG 872 ==
LOC: 4 WEST ACU 12:30
PROVIDERS: Emergency Medicine; ADMITTING PHYSICIAN Internal Medicine; CONSULT PHYSICIAN Internal Medicine Infectious Disease; EMERGENCY PHYSICIAN Emergency Medicine; FAMILY PHYSICIAN Family Medicine; OTHER PHYSICIAN Internal Medicine Hematology & Oncology; OTHER PHYSICIAN Nurse Practitioner Family
PROC: 30233N1 Transfusion of Nonautologous Red Blood Cells into Peripheral Vein, Percutaneous Approach (ICD-10-PCS; 2023-09-14)
DX: A41.9 Sepsis, unspecified organism (principal); N39.0 Urinary tract infection, site not specified; E87.20 Acidosis, unspecified; E87.1 Hypo-osmolality and hyponatremia; D64.9 Anemia, unspecified; D46.9 Myelodysplastic syndrome, unspecified; M48.061 Spinal stenosis, lumbar region without neurogenic claudication; Z11.52 Encounter for screening for COVID-19
CPT/HCPCS: 71046; 72131; 80048; 80053; 81003; 81015; 83605; 83735; 84100; 84145; 84484; 85014; 85018; 85025; 86618; 86666; 86850; 86900; 86901; 86920; 87015; 87040; 87077; 87086; 87186; 87207; 87502; 87811; 93005; 96365; 96366; 96375; 97163; 97166; 99291; P9016

== ENCOUNTER 2023-09-20 15:56 | Inpatient (IN) | payer MEDICARE, BC, SELFPAY ==
[2023-09-20] VITALS (12 sets, daily range): BP systolic 84–122; BP diastolic 58–87; BMI 28.2
--- NOTE | 2023-09-20 11:16 | ED.GENMED ---
History of Present Illness
<Manfred Ibarra PA-C - Last Filed: 09/20/23 13:20>
General
Chief Complaint: Weakness
Source: patient
Time Seen by Provider: 09/20/23 10:40
History of Present Illness
History of Present Illness:
72-year-old male with past medical history of suspected myelodysplastic disorder, hemochromatosis, chronic anemia presenting to the emergency department for evaluation of generalized weakness and near syncope for which she has been in this hospital
3 previous times over the last month or so. Patient was supposed to be at [facility] last Thursday for further evaluation and treatment of this however due to being admitted here he was unable to make that appointment. He notes that
he has gotten a transfusion almost weekly due to his hemoglobin dropping patient states he feels similar today as to when he has needed transfusions in the past. He is currently being treated for urinary tract infection as well with ciprofloxacin
and is scheduled to be taking this until 26 September. He denies any fevers, chills, rigors, nausea, vomiting, bowel changes or any other concerns.
Past History
<Manfred Ibarra PA-C - Last Filed: 09/20/23 13:20>
Past History
ED Past Medical History: Cancer (MDS) and Other (Hemochromatosis, rheumatoid arthritis, mild intermittent asthma)
ED Past Surgical History: Appendectomy
Social History
Tobacco: Non-smoker
Alcohol: None
Drug: None
Personal:
Living: with family
Employment: Employed ([employer])
Family History
Family History: Other (Noncontributory)
Review of Systems
<Manfred Ibarra PA-C - Last Filed: 09/20/23 13:20>
Review of Systems
All Other Systems: ROS reviewed and negative except as documented in HPI and ROS
Phy Exam
<Manfred Ibarra PA-C - Last Filed: 09/20/23 13:20>
Physical Exam
Physical Exam:
GENERAL: Alert , in no apparent distress, appears fatigued
Head: Normocephalic atraumatic
EYE: conjunctiva clear
NECK: Supple
ENT: o/p clr, mmm.
CARDIAC: Regular rate and rhythm, on court monitor patient will have an occasional PAC and go into a sinus bradycardia
LUNGS: Clear breath sounds bilaterally, no acute respiratory distress, no wheezes/rales/rhonchi
Abdomen: Soft, nontender, nondistended
NEUROLOGICAL: Alert and oriented
SKIN: Warm and dry, pale, skin intact.
MUSCULOSKELETAL: well perfused.
PSYCH: Normal and appropriate interaction.
Scores
<Manfred Ibarra PA-C - Last Filed: 09/20/23 13:20>
Heart Failure Risk
Heart Failure Risk Score: Not Applicable
Heart Score for Chest Pain Patients
STEMI patient?: Not applicable
Withdrawal Assessment of Alcohol
Withdrawal Assessment Completed?: Not applicable
Course
<Manfred Ibarra PA-C - Last Filed: 09/20/23 13:20>
Orders/Labs/Results
Orders:
Orders
09/20/23 Lunch
Regular
At Your Request: Limited Participation
Does patient need a safe tray?: No
Oral Supplement (If unsure of flavor order apple or vanilla): Ensure Enlive Chocolate
Supplement Frequency: Daily
09/20/23 10:54
0.9% Sodium Chloride 1000 ml [Nss] 1,000 ml IV BOLUS
09/20/23 10:55
Electrocardiogram (*1) Urgent
Reason for Study: Shortness of Breath
EKG- Treatment ONCE
09/20/23 11:14
Type+Screen Urgent
Complete Blood Count/With Diff Urgent
Comprehensive Metabolic Panel Urgent
Lactic Acid Q4H
Comment: CANCEL 2nd LACTIC ACID IF 1st LACTIC ACID IS LESS THAN 2
Magnesium Urgent
Manual Differential Urgent
NT-proBNP Urgent
Comment: ADDON
09/20/23 11:54
Vital Signs- Treatment ONCE
Frequency: Once
09/20/23 14:40
Add On- LAB Routine
Tests Added?: BNP
09/20/23 14:51
Lactic Acid Q4H
Comment: CANCEL 2nd LACTIC ACID IF 1st LACTIC ACID IS LESS THAN 2
Urinalysis Reflex To Culture Urgent
Date Specimen was Collected: 09/20/23
Time Specimen was Collected: 12:49
09/20/23 15:00
Admit/Transfer Patient As Directed
Co-Sign Provider:
Level of Care: Inpatient admission
Assign to:: Telemetry
Physician / Group: Hardik Valente
Diagnosis: Possible symptomatic Hyponatremia vs syncope arrythmia
Reason for Telemetry: Arrhythmia
Date to Stop Telemetry: 09/23/23
Time to Stop Telemetry: 11:00
Reason for Hospitalization: Possible symptomatic Hyponatremia vs syncope arrythmia
Expected length of stay greater than two midnights?: Yes
ELOS- Estimated Length of Stay in days: 2
I certify the patient meets the requirements for IP care: Yes
09/20/23 15:03
Code Status As Directed
Resuscitation Status: Do not resuscitate
Reached after discussion with pt or family/Healthcare POA: Yes
09/20/23 15:04
DNR Bracelet Application ONCE
09/20/23 15:28
Oxycodone [Roxicodone] 5 mg PO NOW STA
09/20/23 15:45
NEPHROLOGY CONSULT Routine
Consulting Provider: Leonard Hannah
Was physician already notified: Yes
Reason for consult: possible symptomatic hyponatremia
09/20/23 16:20
Basic Metabolic Panel Routine
Complete Blood Count/No Diff Routine
09/20/23 17:20
Bisacodyl [Dulcolax] 10 mg RECTAL [id number] PRN
Docusate W/Senna [Senokot-S] 1 tablet PO BIDPRN PRN
Gabapentin [Neurontin] 100 mg PO BIDPRN PRN
Polyethylene Glycol Powder [Miralax] 17 grams PO DAILYPRN PRN
09/20/23 17:20
Echo 2D MMode Color/Doppler Routine
Reason for Study: near syncope
Activity As Directed
Activity Level: With Assistance
Intake/ Output As Directed
Frequency: Per unit guidelines
Orthostatic Vital Signs As Directed
Orthostatic VS Frequency: Daily
Precautions As Directed
Type of Precautions: Other
Comment: fall precautions
Vital Signs As Directed
Frequency: Per unit guidelines
Weight As Directed
Frequency: Daily
Ot Eval And Treat Routine
Pt Eval And Treat Routine
Activity Level: With Assistance
DX Deep Vein Thrombosis Video Routine
09/20/23 17:32
Lactic Acid Routine
09/20/23 18:00
Enoxaparin Sodium [Lovenox] 40 mg SC QPM
09/20/23 20:00
Ciprofloxacin HCl [Cipro] 500 mg PO BID
09/20/23 22:00
Acetaminophen [Tylenol] 500 mg PO HS
Calcium Polycarbophil [Fibercon] 625 mg PO HS
FOLic ACID [Folvite] 1 mg PO HS
Tamsulosin [Flomax] 0.4 mg PO HS
09/21/23 06:00
EKG [Electrocardiogram (*1)] IN AM
Reason for Study: QTc Monitoring
Basic Metabolic Panel IN AM
Complete Blood Count/No Diff IN AM
Lactic Acid IN AM
09/21/23 08:00
Cholecalciferol (Vitamin D3) [VITAMIN D3 (cholecalciferol)] 25 mcg PO DAILY
Cyanocobalamin [Vitamin B-12] 1,000 mcg PO DAILY
Magnesium Oxide 500 mg PO DAILY
09/22/23 06:00
Basic Metabolic Panel IN AM
Complete Blood Count/No Diff IN AM
09/23/23 06:00
Basic Metabolic Panel IN AM
Complete Blood Count/No Diff IN AM
09/23/23 11:00
DC Protocol for Telemetry ONCE
09/24/23 06:00
Basic Metabolic Panel IN AM
Complete Blood Count/No Diff IN AM
09/25/23 06:00
Basic Metabolic Panel IN AM
Complete Blood Count/No Diff IN AM
09/26/23 06:00
Basic Metabolic Panel IN AM
Complete Blood Count/No Diff IN AM
09/27/23 06:00
Basic Metabolic Panel IN AM
Complete Blood Count/No Diff IN AM
Abnormal Lab Results
09/20/23 09/20/23
11:14 14:51
WBC 11.3 H 10^3/uL
(4.8-10.8)
RBC 2.69 L 10^6/uL
(4.70-6.10)
Hgb 9.1 L g/dL
(13.0-18.0)
Hct 27.0 L %
(39.0-52.0)
MCV 100.4 H fL
(80.0-94.0)
MCH 33.8 H pg
(27.0-31.0)
RDW 23.7 H %
(11.5-14.5)
Plt Count 458 H 10^3/uL
(130-400)
Band Neutrophils 12 H %
(0-3)
Lymphocytes (Manual) 11 L %
(20-51)
Monocytes (Manual) 17 H %
(2-9)
Eosinophils (Manual) 8 H %
(0-6)
Sodium 127 L mmol/L
(135-145)
Chloride 94 L mmol/L
(98-107)
Creatinine 0.5 L mg/dL
(0.7-1.3)
Glucose 213 H mg/dl
(70-99)
Lactic Acid 2.6 H mmol/L 3.1 H mmol/L
(0.7-2.0) (0.7-2.0)
Total Protein 6.0 L g/dl
(6.3-8.2)
Albumin 2.9 L g/dl
(3.5-5.0)
09/20/23 11:14
09/20/23 11:14
Vital Signs
Initial and Last Documented VS:
Initial Vital Signs
Pulse Ox
97
09/20/23 10:02
Last Documented Vital Signs
Temp Pulse Resp BP Pulse Ox
97 F 82 16 120/78 97
09/20/23 17:44 09/20/23 17:44 09/20/23 17:44 09/20/23 17:44 09/20/23 17:44
<Fracisco Orlando, DO - Last Filed: 09/20/23 18:00>
Orders/Labs/Results
Orders:
Orders
09/20/23 Lunch
Regular
At Your Request: Limited Participation
Does patient need a safe tray?: No
Oral Supplement (If unsure of flavor order apple or vanilla): Ensure Enlive Chocolate
Supplement Frequency: Daily
09/20/23 10:54
0.9% Sodium Chloride 1000 ml [Nss] 1,000 ml IV BOLUS
09/20/23 10:55
Electrocardiogram (*1) Urgent
Reason for Study: Shortness of Breath
EKG- Treatment ONCE
09/20/23 11:14
Type+Screen Urgent
Complete Blood Count/With Diff Urgent
Comprehensive Metabolic Panel Urgent
Lactic Acid Q4H
Comment: CANCEL 2nd LACTIC ACID IF 1st LACTIC ACID IS LESS THAN 2
Magnesium Urgent
Manual Differential Urgent
NT-proBNP Urgent
Comment: ADDON
09/20/23 11:54
Vital Signs- Treatment ONCE
Frequency: Once
09/20/23 14:40
Add On- LAB Routine
Tests Added?: BNP
09/20/23 14:51
Lactic Acid Q4H
Comment: CANCEL 2nd LACTIC ACID IF 1st LACTIC ACID IS LESS THAN 2
Urinalysis Reflex To Culture Urgent
Date Specimen was Collected: 09/20/23
Time Specimen was Collected: 12:49
09/20/23 15:00
Admit/Transfer Patient As Directed
Co-Sign Provider:
Level of Care: Inpatient admission
Assign to:: Telemetry
Physician / Group: Hardik Valente
Diagnosis: Possible symptomatic Hyponatremia vs syncope arrythmia
Reason for Telemetry: Arrhythmia
Date to Stop Telemetry: 09/23/23
Time to Stop Telemetry: 11:00
Reason for Hospitalization: Possible symptomatic Hyponatremia vs syncope arrythmia
Expected length of stay greater than two midnights?: Yes
ELOS- Estimated Length of Stay in days: 2
I certify the patient meets the requirements for IP care: Yes
09/20/23 15:03
Code Status As Directed
Resuscitation Status: Do not resuscitate
Reached after discussion with pt or family/Healthcare POA: Yes
09/20/23 15:04
DNR Bracelet Application ONCE
09/20/23 15:28
Oxycodone [Roxicodone] 5 mg PO NOW STA
09/20/23 15:45
NEPHROLOGY CONSULT Routine
Consulting Provider: Leonard Hannah
Was physician already notified: Yes
Reason for consult: possible symptomatic hyponatremia
09/20/23 16:20
Basic Metabolic Panel Routine
Complete Blood Count/No Diff Routine
09/20/23 17:20
Bisacodyl [Dulcolax] 10 mg RECTAL [id number] PRN
Docusate W/Senna [Senokot-S] 1 tablet PO BIDPRN PRN
Gabapentin [Neurontin] 100 mg PO BIDPRN PRN
Polyethylene Glycol Powder [Miralax] 17 grams PO DAILYPRN PRN
09/20/23 17:20
Echo 2D MMode Color/Doppler Routine
Reason for Study: near syncope
Activity As Directed
Activity Level: With Assistance
Intake/ Output As Directed
Frequency: Per unit guidelines
Orthostatic Vital Signs As Directed
Orthostatic VS Frequency: Daily
Precautions As Directed
Type of Precautions: Other
Comment: fall precautions
Vital Signs As Directed
Frequency: Per unit guidelines
Weight As Directed
Frequency: Daily
Ot Eval And Treat Routine
Pt Eval And Treat Routine
Activity Level: With Assistance
DX Deep Vein Thrombosis Video Routine
09/20/23 17:32
Lactic Acid Routine
09/20/23 18:00
Enoxaparin Sodium [Lovenox] 40 mg SC QPM
09/20/23 20:00
Ciprofloxacin HCl [Cipro] 500 mg PO BID
09/20/23 22:00
Acetaminophen [Tylenol] 500 mg PO HS
Calcium Polycarbophil [Fibercon] 625 mg PO HS
FOLic ACID [Folvite] 1 mg PO HS
Tamsulosin [Flomax] 0.4 mg PO HS
09/21/23 06:00
EKG [Electrocardiogram (*1)] IN AM
Reason for Study: QTc Monitoring
Basic Metabolic Panel IN AM
Complete Blood Count/No Diff IN AM
Lactic Acid IN AM
09/21/23 08:00
Cholecalciferol (Vitamin D3) [VITAMIN D3 (cholecalciferol)] 25 mcg PO DAILY
Cyanocobalamin [Vitamin B-12] 1,000 mcg PO DAILY
Magnesium Oxide 500 mg PO DAILY
09/22/23 06:00
Basic Metabolic Panel IN AM
Complete Blood Count/No Diff IN AM
09/23/23 06:00
Basic Metabolic Panel IN AM
Complete Blood Count/No Diff IN AM
09/23/23 11:00
DC Protocol for Telemetry ONCE
09/24/23 06:00
Basic Metabolic Panel IN AM
Complete Blood Count/No Diff IN AM
09/25/23 06:00
Basic Metabolic Panel IN AM
Complete Blood Count/No Diff IN AM
09/26/23 06:00
Basic Metabolic Panel IN AM
Complete Blood Count/No Diff IN AM
09/27/23 06:00
Basic Metabolic Panel IN AM
Complete Blood Count/No Diff IN AM
Abnormal Lab Results
09/20/23 09/20/23
11:14 14:51
WBC 11.3 H 10^3/uL
(4.8-10.8)
RBC 2.69 L 10^6/uL
(4.70-6.10)
Hgb 9.1 L g/dL
(13.0-18.0)
Hct 27.0 L %
(39.0-52.0)
MCV 100.4 H fL
(80.0-94.0)
MCH 33.8 H pg
(27.0-31.0)
RDW 23.7 H %
(11.5-14.5)
Plt Count 458 H 10^3/uL
(130-400)
Band Neutrophils 12 H %
(0-3)
Lymphocytes (Manual) 11 L %
(20-51)
Monocytes (Manual) 17 H %
(2-9)
Eosinophils (Manual) 8 H %
(0-6)
Sodium 127 L mmol/L
(135-145)
Chloride 94 L mmol/L
(98-107)
Creatinine 0.5 L mg/dL
(0.7-1.3)
Glucose 213 H mg/dl
(70-99)
Lactic Acid 2.6 H mmol/L 3.1 H mmol/L
(0.7-2.0) (0.7-2.0)
Total Protein 6.0 L g/dl
(6.3-8.2)
Albumin 2.9 L g/dl
(3.5-5.0)
09/20/23 11:14
09/20/23 11:14
Vital Signs
Initial and Last Documented VS:
Initial Vital Signs
Pulse Ox
97
09/20/23 10:02
Last Documented Vital Signs
Temp Pulse Resp BP Pulse Ox
97 F 82 16 120/78 97
09/20/23 17:44 09/20/23 17:44 09/20/23 17:44 09/20/23 17:44 09/20/23 17:44
<Manfred Ibarra PA-C - Last Filed: 09/20/23 13:20>
MDM/Problems Addressed
Differential Diagnosis Includes:
Anemia, thrombocytopenia, electrolyte disturbance, less concern for infectious etiology although UTI bacteremia is considered
MDM/Problems Addressed:
72-year-old male presenting emergency department for evaluation of generalized fatigue and near syncope. Admitted here over the last few weeks for similar. Patient was noted to be quite hypotensive on arrival and I repeated this during my exam and
it was 99/67. I do suspect there is a large component of patient's myelodysplastic syndrome causing his current symptoms however cannot fully rule out infectious causes he is currently being treated for UTI. There is also possible there could be a
monitor cardiac dysrhythmia given patient is having episodes of sinus bradycardia with PACs. Anticipate readmission
<Manfred Ibarra PA-C - Last Filed: 09/20/23 13:20>
*Pulse Oximetry
Patient hypoxic: no
*EKG
Interpreted by ED Provider?: Yes
Comparison EKG: no changes
Heart Rate: 89
Rate: normal
Rhythm: sinus
Tracy: left axis deviation
Interval: long QT
Ischemia: no ischemia
*Online Communications Manager Interpretation
Rate: normal
Rhythm: sinus
*Critical Care Note
Total Time (30-74mins, 75-104mins- exclusive of procedures): Not Applicable
Data Reviewed
Review of Other/Old Records Reveals: Labs, Records and Discharge Summary
Source: patient, records and spouse
<Manfred Ibarra PA-C - Last Filed: 09/20/23 13:20>
Patient Management
Discussion with other providers: Hospitalist
Escalation/DeEscalation of care consider admission/obs:
Patients hemoglobin reassuring at 9.1. Platelets >450. He does have a bandemia and lactic acid >2.6 so certainly possible infectious etiology contributing. Patient remains hypotensive at 103/73. He will likely need ID and hematology consult.
Hospitalist team notified and accepts for continued evaluation and treatment. Decision to obtain blood cultures left to hospitalist team.
ED Attending Note
<Manfred Ibarra PA-C - Last Filed: 09/20/23 13:20>
-
Portions of this chart may have been created with voice recognition software.� Occasional wrong word or��sound alike� substitutions may have occurred due to the inherent limitations of voice recognition software.
<Fracisco Orlando DO - Last Filed: 09/20/23 18:00>
ED Attending Note
I performed the substantive portion of visit, reviewed & personally made and approve the management plan that is documented in note by myself or CECY.: Yes
Discharge Plan
Departure
Patient Disposition: Admit
Date of Disposition: 09/20/23
Time of Disposition: 11:47
Presentation/result/management discussed w/ accepting MD/DO: Hospitalist
Discharge Problem:
Generalized weakness, Hypotension
Interventions
Interventions:
*Risk Screen - Suicide Last Done: 09/20/23 10:02
*General Assessment Last Done: 09/20/23 10:02
*Neglect/Abuse Screening Last Done: 09/20/23 10:02
ED- Fall Risk Assessment Last Done: 09/20/23 10:02
*ED COVID-19 Vaccine History Last Done: 09/20/23 10:02
ED- Cardiac Assessment Last Done: 09/20/23 10:02
ED- Neurological Assessment Last Done: 09/20/23 10:02
ED- Pulmonary Assessment Last Done: 09/20/23 10:02
Discharge Date and Time
Discharge Date/Time: 09/20/23 17:26
[2023-09-20 11:24] LABS: Hemoglobin 9.1 g/dL (13.0-18.0); Mean Corp Hgb Conc. 33.7 g/dL (33.0-37.0); Mean Corpuscular Hgb 33.8 pg (27.0-31.0); Mean Corpuscular Volume 100.4 fL (80.0-94.0); Mean Platelet Volume 8.5 fL (7.4-10.4); Platelet Count 458 10^3/uL (130-400); Red Blood Cell Count 2.69 10^6/uL (4.70-6.10); Red Cell Dist. Width 23.7 % (11.5-14.5); White Blood Cell Count 11.3 10^3/uL (4.8-10.8)
[2023-09-20] MEDS: NSS 1000 IV (11:37)
[2023-09-20 11:40] LABS: Lactic Acid 2.6 mmol/L (0.7-2.0)
[2023-09-20 11:42] LABS: ALT (SGPT) 16 U/L (0-50); AST (SGOT) 17 U/L (17-59); Albumin 2.9 g/dl (3.5-5.0); Alkaline Phosphatase 89 U/L (38-126); Blood Urea Nitrogen 14 mg/dl (9-20); Calcium 8.6 mg/dl (8.4-10.2); Carbon Dioxide 24 mmol/L (22-30); Chloride 94 mmol/L (98-107); Glucose 213 mg/dl (70-99); Magnesium 2.1 mg/dl (1.6-2.3); Potassium 5.1 mmol/L (3.5-5.1); Sodium 127 mmol/L (135-145); Total Bilirubin 0.6 mg/dl (0.2-1.3); eGFR > 60.00
--- NOTE | 2023-09-20 11:59 | HPS.HSE ---
Addendum entered and electronically signed by Hardik Valente MD 09/20/23 15:41:
Klebsiella UTI
Mild QT prolongation
-continue prior prescribed cipro as per ID planned to continue through 09/26
-monitor on telemetry and follow up AM EKG (hold cipro if QT increases >500 and consult ID)
-Avoid other QT prolonging agents as possible
Original Note:
Family Physician
-
Family Physician: Jean Paul Sihdu
Chief Complaint
-
weakness
History of Present Illness
72M MDS, hemochromatosis, lumbar spine stenosis, neuropathy, chronic anemia, chronic hyponatremia p/w weakness near syncope. Multiple hospitalizations past few months. Patient was recently hospitalized for sepsis UTI symptomatic anemia improved
with abx and transfusion. Since discharge, patient reports feeling well but progressively feeling weak day by day w/ associate exercise intolerance exertional dyspnea. By the 3rd day if felt like he was going to pass out, having difficulty just
ambulating to bathroom. Ambulates with walker at baseline, patient was noted to be hypotensive high 80s since resolved with 1L IVF bolus. Mild lactic acidosis 2.6 was noted, post-bolus repeat pending. Hgb 9.1 similar to prior value on discharge.
WBC trending down on Cipro through September 26 as per infectious disease for Klebsiella UTI. Na 127, patient reports feeling better after 1L bolus.
Medical History
Past Medical History
Past Medical History: Reports Other
Past Surgical History: Reports Other (as above)
Social History
Tobacco: Non-smoker
Alcohol: None
Drug: None
Personal:
Living: With Family
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
Family History
Family History: Not pertinent
Allergies / Home Medications
Allergies reflects when Allergies were last updated in [facility]
Home Medications with original date entered in [employer]
Allergy/Medication List:
Allergies
Allergy/AdvReac Type Severity Reaction Status Date / Time
Penicillins Allergy Rash; Verified 09/20/23 10:02
tolerates
cephalosporins
Sulfa (Sulfonamide Allergy Rash Verified 09/20/23 10:02
Antibiotics)
Home Medications
folic acid 1 mg tablet 1 mg PO HS Supplement 02/11/23
acetaminophen 500 mg tablet 500 mg PO HS 07/09/23
calcium polycarbophil 625 mg tablet (FiberCon) 625 mg PO HS Gastrointestinal Issue 08/13/23
cholecalciferol (vitamin D3) 25 mcg (1,000 unit) tablet (Vitamin D3) 25 mcg PO DAILY Supplement ##0 08/28/23
cyanocobalamin (vitamin B-12) 1,000 mcg tablet 1,000 mcg PO DAILY Supplement ##0 08/28/23
magnesium oxide 400 mg PO DAILY Supplement ##0 08/28/23
gabapentin 100 mg capsule 100 mg PO BIDPRN PRN nerve pains 09/14/23
ciprofloxacin HCl 500 mg tablet 500 mg PO BID #21 tabs 09/17/23
tamsulosin 0.4 mg capsule 0.4 mg PO HS 30 days #30 caps 09/17/23
ibuprofen 200 mg tablet 200 mg PO DAILY 09/20/23
oxycodone 5 mg tablet 5 mg PO HSPRN PRN severe breakthrough pain 09/20/23
Review of Systems
-
A 12 point ROS was completed and negative except as noted: Yes
Constitutional: Reports Other (as below)
Physical Exam
Vital Signs
Vital Signs
Temp Pulse Resp BP Pulse Ox
98.1 F 103 18 88/58 97
09/20/23 10:04 09/20/23 10:04 09/20/23 10:04 09/20/23 10:04 09/20/23 10:04
Physical Exam
General: Other (as below)
Laboratory Results
-
09/20/23 11:14
09/20/23 11:14
Laboratory Results
Lactic Acid 2.6 mmol/L (0.7-2.0) H 09/20/23 11:14
Total Bilirubin 0.6 mg/dl (0.2-1.3) 09/20/23 11:14
AST 17 U/L (17-59) 09/20/23 11:14
ALT 16 U/L (0-50) 09/20/23 11:14
Alkaline Phosphatase 89 U/L (38-126) 09/20/23 11:14
Impression/Plan
-
ROS
General: Reports Generalized weakness
Neuro: Denies seizure shaking loss of consciousness dizziness vertigo
Psych: denies depression hallucinations confusion manic episodes
Endocrine: Denies polyuria polydipsia polyphagia heat/cold intolerance
HEENT: Denies blindness visual disturbances epistaxis
Pulmonary: denies coughing hemoptysis sneezing sob dyspnea on exertion
Cardiovascular: denies chest pain palpitations leg swelling
Hematology: denies signs symptoms of anemia easy bruising/bleeding
Gastrointestinal: denies nausea vomiting diarrhea constipation hematemesis hematochezia melena
Genito-Urinary: denies retention incontinence dysuria
Musculoskeletal: denies joint pain weakness
Dermatology: denies rash laceration bruising
Physical Exam
General: No pallor, cyanosis, or jaundice.
HEENT: Throat clear. PERRLA Normocephalic atraumatic
NECK: Supple. No JVD Carotid Bruits
RESPIRATORY: Lungs clear to auscultation. No crackles wheezes stridor, stable respiratory status on room air
CVS: S1, S2 normal. RRR. No murmur, rub or gallop.
ABDOMEN: Soft, non-tender. No distension. BS+/normal.
EXTREMITIES: No peripheral cyanosis or edema.
[employer] PULP: AOx3
IMPRESSION:
72M MDS, hemochromatosis, lumbar spine stenosis, neuropathy, bph, chronic anemia, chronic hyponatremia p/w weakness near syncope. Multiple hospitalizations past few months. Patient was recently hospitalized for sepsis UTI symptomatic anemia
improved with abx and transfusion. Since discharge, patient reports feeling well but progressively feeling weak day by day w/ associate exercise intolerance exertional dyspnea. By the 3rd day if felt like he was going to pass out, having
difficulty just ambulating to bathroom. Ambulates with walker at baseline, patient was noted to be hypotensive high 80s since resolved with 1L IVF bolus. Mild lactic acidosis 2.6 was noted, post-bolus repeat pending. Hgb 9.1 similar to prior
value on discharge. WBC trending down on Cipro through September 26 as per infectious disease for Klebsiella UTI. Na 127, patient reports feeling better after 1L bolus.
PLAN:
#Generalized weakness near Syncope
#Possible Symptomatic Hyponatremia vs Dehydration
Tele admit
Check ECHO
monitor orthostatic vitals
PT/OT
fall precautions
Nephro Eval
follow up repeat BMP post IVF bolus
#Persistent Lactic acidosis
possibly due to dehydration low volume
no significant fever or SIRs criteria
initial 2.6 trended up to 3.1 despite 1 L bolus
cont IVF NS 100 cc/h, monitor for signs fluid overload
#Hx MDS periodically requiring transfusion goal hgb >8.5 outpt
#hx hemochromatosis
Initial appears stable in lower 9 range similar to values prior to discharge
follow up repeat cbc post-bolus
transfuse for goal hgb >8.5
#Lumbar spine stenosis
#neuropathy/lower ext muscle cramps
Declines muscle relaxant
cont home prn gabapentin, ibuprofen, oxycodone, tylenol
DVT ppx Lovenox
DNR per discussion with patient, patient's Carlyn present and in agreement with patient's decision
I spent a total of 80 minutes with the patient or on the floor. More than 50% of this time involved counseling and coordination of care.
[2023-09-20 12:22] LABS: Absolute Neutrophils -Man Diff 6.2 10^3/uL (1.4-6.5); Atypical Lymphocytes 1 %; Band Neutrophils 12 % (0-3); Eosinophils 8 % (0-6); Lymphocytes 11 % (20-51); Metamyelocytes 4 % (-); Monocytes 17 % (2-9); Myelocytes 3 % (-); Normal RBC Morphology No; Nucleated Red Blood Cells 2 (-); Segmented Neutrophils 43 % (42-75)
[2023-09-20 12:23] LABS: Anisocytosis Slight; Platelets Checked Yes
[2023-09-20 12:24] LABS: Basophilic Stippling Slight; Hypochromasia Slight; Macrocytosis 2+; Polychromasia Slight; Total Cells Counted 100
[2023-09-20 15:27] LABS: Lactic Acid 3.1 mmol/L (0.7-2.0)
[2023-09-20] MEDS: ROXICODONE 5 MG PO ×2 (15:42→21:51)
[2023-09-20 15:51] LABS: Urine Albumin Negative (Neg - Trace); Urine Bilirubin Negative (Negative); Urine Character Clear (Clear); Urine Color Yellow; Urine Glucose Negative (Negative); Urine Ketone Negative (Negative); Urine Leukocyte Negative (Negative); Urine Nitrite Negative (Negative); Urine Occult Blood Negative (Negative); Urine Urobilinogen Negative (Neg - 1+)
[2023-09-20 16:12] LABS: NT-proBNP 839 pg/ml
--- NOTE | 2023-09-20 16:18 | W.CON.NEPH ---
Consultation
-
Date/Time Consultation Requested: September 20, 2023 4 PM
Date/Time Consultation Performed: September 20, 2023 4 PM
Requesting Provider: Dr. Valente
Performing Provider: Dr. Hannah
Reason for Consultation: Hyponatremia
Medical History
-
Chief Complaint: Weakness
History of Present Illness:
This is a 72-year-old gentleman who has hemochromatosis and MDS now with significant anemia treated by hematology as outpatient. They said his regimen has changed recently from his usual treatments because of inefficacy. Unfortunately since change
of treatment his Joey has worsened. He states that recently he has begun feeling far weaker than usual with dyspnea and now with orthostasis. Because of this he came to the emergency room was noted to be hypotensive. This did improve somewhat
with IV fluid bolus. However several laboratory abnormalities were noted including lactic acidosis as well as a sodium of 127. He has had prior hospitalizations recently as well which have also shown hyponatremia. These were date back as far as
fall 2022. He is not do anything specific for these levels. He also has neuropathic pain affecting his knees bilaterally for which he takes ibuprofen and Tylenol as well as gabapentin.
Past Medical History
Hemochromatosis, lumbar spinal stenosis, neuropathy, anemia, hyponatremia, BPH
Appendectomy, trisomy 8 myelodysplasia, MDS
Social History
Tobacco: Non-Smoker
Alcohol: None
Family History
Family History: Not Pertinent
Allergies / Home Medications
Allergy/AdvReac Type Severity Reaction Status Date / Time
Penicillins Allergy Rash; Verified 09/20/23 10:02
tolerates
cephalosporins
Sulfa (Sulfonamide Allergy Rash Verified 09/20/23 10:02
Antibiotics)
�Medication �Instructions �Recorded �Confirmed �Type
folic acid 1 mg tablet 1 mg PO HS Supplement 02/11/23 09/20/23 History
acetaminophen 500 mg tablet 500 mg PO HS 07/09/23 09/20/23 History
calcium polycarbophil 625 mg 625 mg PO HS Gastrointestinal Issue 08/13/23 09/20/23 History
tablet (FiberCon)
cholecalciferol (vitamin D3) 25 25 mcg PO DAILY Supplement ##0 08/28/23 09/20/23 History
mcg (1,000 unit) tablet (Vitamin
D3)
cyanocobalamin (vitamin B-12) 1,000 mcg PO DAILY Supplement ##0 08/28/23 09/20/23 History
1,000 mcg tablet
magnesium oxide 400 mg PO DAILY Supplement ##0 08/28/23 09/20/23 History
gabapentin 100 mg capsule 100 mg PO BIDPRN PRN nerve pains 09/14/23 09/20/23 History
ciprofloxacin HCl 500 mg tablet 500 mg PO BID #21 tabs 09/17/23 09/20/23 Rx
tamsulosin 0.4 mg capsule 0.4 mg PO HS 30 days #30 caps 09/17/23 09/20/23 Rx
ibuprofen 200 mg tablet 200 mg PO DAILY 09/20/23 09/20/23 History
oxycodone 5 mg tablet 5 mg PO HSPRN PRN severe 09/20/23 09/20/23 History
breakthrough pain
Review of Systems
-
Shortness of breath, fatigue, orthostasis, decreased appetite
He drinks approximately 36 ounces or less of fluid per day
All other systems: Negative unless noted
Physical Exam
Vital Signs
Vital Signs
Temp Pulse Resp BP Pulse Ox
98.1 F 64 19 114/87 97
09/20/23 10:04 09/20/23 14:45 09/20/23 14:45 09/20/23 14:00 09/20/23 12:00
Lab Results
eGFR > 60.00 09/20/23 11:14
Cki-B-Vsefuaeawni Pept 839 pg/ml 09/20/23 11:14
Albumin 2.9 g/dl (3.5-5.0) L 09/20/23 11:14
Physical Exam
Patient is awake alert oriented and in no distress. Mood and affect were pleasant, insight and judgment were good. Pupils are equal round and reactive to light, extraocular movements are intact, sclera were anicteric. Hearing was normal, ears and
nose are intact. Oropharynx was clear. Neck was supple with trachea midline and no thyromegaly. Heart was regular rate and rhythm without rubs. Lower extremities without edema. Lungs were clear to auscultation bilaterally and with normal
excursion. Abdomen was soft, nontender, with normal active bowel sounds, and no hepatosplenomegaly. Skin was without rash and with normal turgor.
Data Reviewed
-
Radiology: Image Personally Visualized and interpreted (Chest x-ray on September 24, 2023 by my reading shows no acute disease)
Medical Tests (Nuc Med, Echo etc): Image Personally Visualized and interpreted (EKG on September 20, 2023 by read shows normal sinus rhythm left axis deviation prolonged QT)
Labs: Labs Reviewed by me (Sodium 127, potassium 5.1, creatinine 0.5, albumin 2.9, AST 17, ALT 16, hemoglobin 9.1)
Old Records: Reviewed (On September 17, 2023 sodium 128, potassium 4.0, creatinine 0.6)
Assessment/Plan
-
Assessment
Orthostasis
Lactic acidosis
Hyponatremia acute on chronic
Hemochromatosis
MDS
Lumbar spinal stenosis
Plan
Check urine studies
hypertonic saline
Serial BMP
May likely benefit from salt tablets +/- Lasix
Follow lactate level, he has no obvious metabolic acidosis, and with a normal bicarbonate level question of a mixed disorder is possible
[2023-09-20 16:43] LABS: Hemoglobin 8.9 g/dL (13.0-18.0); Mean Corpuscular Hgb 34.5 pg (27.0-31.0); Mean Corpuscular Volume 104.7 fL (80.0-94.0); Platelet Count 442 10^3/uL (130-400); Red Blood Cell Count 2.58 10^6/uL (4.70-6.10); Red Cell Dist. Width 23.6 % (11.5-14.5); White Blood Cell Count 10.9 10^3/uL (4.8-10.8)
[2023-09-20 16:57] LABS: Blood Urea Nitrogen 12 mg/dl (9-20); Calcium 8.2 mg/dl (8.4-10.2); Carbon Dioxide 24 mmol/L (22-30); Chloride 96 mmol/L (98-107); Glucose 150 mg/dl (70-99); Sodium 128 mmol/L (135-145); eGFR > 60.00
--- NOTE | 2023-09-20 17:15 | PTCARENOTE ---
09/19- Patient transferred and oriented to unit without issue. Pt is AAOX3; Teley #37, currently NSR with PQT. Skin is pale with +1 pitting pedal edema. Multiple scattered fully granulated scabs on BL LE, and on R-forearm. 97% on RA. Patient
currently denies any needs or requests.
[2023-09-20] MEDS: LOVENOX SC (17:40)
[2023-09-20 17:51] LABS: Lactic Acid 1.7 mmol/L (0.7-2.0)
[2023-09-20] MEDS: SODIUM CHLORIDE 3% 250 IV (18:02)
[2023-09-20 18:04] LABS: Blood Urea Nitrogen 12 mg/dl (9-20); Calcium 8.4 mg/dl (8.4-10.2); Carbon Dioxide 28 mmol/L (22-30); Chloride 95 mmol/L (98-107); Estimated Creatinine Clearance 122 ml/min; Glucose 135 mg/dl (70-99); Sodium 128 mmol/L (135-145); eGFR > 60.00
[2023-09-20] MEDS: NEURONTIN 100 MG PO (20:03)
[2023-09-20] MEDS: CIPRO 500 MG PO (20:03)
[2023-09-20] MEDS: MOTRIN 200 MG PO (20:06)
[2023-09-20] MEDS: FLOMAX 0.4 MG PO (21:51)
[2023-09-20] MEDS: TYLENOL 500 MG PO (21:51)
[2023-09-20] MEDS: FOLVITE 1 MG PO (21:51)
[2023-09-20] MEDS: FIBERCON 625 MG PO (22:05)
[2023-09-20 22:17] LABS: Blood Urea Nitrogen 12 mg/dl (9-20); Calcium 8.2 mg/dl (8.4-10.2); Carbon Dioxide 26 mmol/L (22-30); Chloride 96 mmol/L (98-107); Estimated Creatinine Clearance 122 ml/min; Glucose 124 mg/dl (70-99); Potassium 4.9 mmol/L (3.5-5.1); Sodium 127 mmol/L (135-145); eGFR > 60.00
[2023-09-21 03:29] VITALS: BP 95/63
[2023-09-21] MEDS: DESENEX/MITRAZOL/ZEASORB 1 APPLIC TOPICAL ×3 (04:23→21:08)
[2023-09-21] MEDS: MAGNESIUM OXIDE 500 MG PO (07:34)
[2023-09-21] MEDS: CIPRO 500 MG PO ×2 (07:34→21:06)
[2023-09-21] MEDS: VITAMIN D3 (cholecalciferol) 25 MCG PO (07:35)
[2023-09-21] MEDS: VITAMIN B-12 1000 MCG PO (07:35)
[2023-09-21 07:40] VITALS: BP 99/81
--- NOTE | 2023-09-21 10:00 | WOUNDNOTE ---
SANTINO RN NOTE: Spoke to nurse Santiago regarding patient's wound, states looks like and excoriation on L buttock not a pressure injury, can cancel consult.
[2023-09-21 10:20] LABS: Blood Urea Nitrogen 11 mg/dl (9-20); Calcium 8.2 mg/dl (8.4-10.2); Carbon Dioxide 27 mmol/L (22-30); Chloride 94 mmol/L (98-107); Estimated Creatinine Clearance 122 ml/min; Glucose 196 mg/dl (70-99); Magnesium 1.9 mg/dl (1.6-2.3); Potassium 4.6 mmol/L (3.5-5.1); Sodium 127 mmol/L (135-145); eGFR > 60.00
[2023-09-21 10:34] VITALS: BP 99/63
[2023-09-21 10:45] VITALS: PULSE 90
[2023-09-21] MEDS: ROXICODONE 5 MG PO ×2 (11:49→23:58)
[2023-09-21] MEDS: NEURONTIN 100 MG PO ×2 (11:49→23:58)
[2023-09-21 12:29] LABS: Hematocrit 26.3 % (39.0-52.0); Hemoglobin 8.6 g/dL (13.0-18.0); Mean Corp Hgb Conc. 32.7 g/dL (33.0-37.0); Mean Corpuscular Hgb 33.9 pg (27.0-31.0); Mean Corpuscular Volume 103.5 fL (80.0-94.0); Platelet Count 469 10^3/uL (130-400); Red Blood Cell Count 2.54 10^6/uL (4.70-6.10); Red Cell Dist. Width 23.9 % (11.5-14.5); White Blood Cell Count 10.9 10^3/uL (4.8-10.8)
--- NOTE | 2023-09-21 12:39 | W.PN.NEPH.PH ---
Today's Communication / Plan
-
- hold HTS
Assessment/Plan
-
Assessment
Orthostasis
Lactic acidosis
Hyponatremia acute on chronic
Hemochromatosis
MDS
Lumbar spinal stenosis
Plan
urine studies still not completed and now likely wont be accurate after HTS
Sodium has been low since 2022 -- this is chronic and likely not contributing to the patient's current sxs
Will monitor sodium off fluids at this time
Serial BMP
lactate elevated to 3.1 yesterday, now now normalized after fluids
-
-
Date of Service: September 21, 2023
CC / HPI / ROS
-
Chief Complaint:
hyponatremia
History of Present Illness:
Na 127 (appears to be close to baseline sodium)
given fluids yesterday with some improvement in sxs
Review of Systems:
feeling okay this morning
no complaints
Labs
-
Labs:
WBC 10.9 10^3/uL (4.8-10.8) H 09/21/23 08:46
RBC 2.54 10^6/uL (4.70-6.10) L 09/21/23 08:46
Hgb 8.6 g/dL (13.0-18.0) L 09/21/23 08:46
Hct 26.3 % (39.0-52.0) L 09/21/23 08:46
Plt Count 469 10^3/uL (130-400) H 09/21/23 08:46
Sodium 127 mmol/L (135-145) L 09/21/23 08:46
Potassium 4.6 mmol/L (3.5-5.1) 09/21/23 08:46
Chloride 94 mmol/L (98-107) L 09/21/23 08:46
Carbon Dioxide 27 mmol/L (22-30) 09/21/23 08:46
BUN 11 mg/dl (9-20) 09/21/23 08:46
Creatinine 0.6 mg/dL (0.7-1.3) L 09/21/23 08:46
eGFR > 60.00 09/21/23 08:46
Glucose 196 mg/dl (70-99) H 09/21/23 08:46
Calcium 8.2 mg/dl (8.4-10.2) L 09/21/23 08:46
Any-O-Sgcicllcxde Pept 839 pg/ml 09/20/23 11:14
Albumin 2.9 g/dl (3.5-5.0) L 09/20/23 11:14
Physical Exam
-
Vital Signs:
Vital Signs
Temp Pulse Resp BP Pulse Ox
98.8 F 98 19 99/63 97
09/21/23 10:34 09/21/23 10:34 09/21/23 10:34 09/21/23 10:34 09/21/23 10:34
Cardiovascular:: Regular rate and rhythm
Respiratory:: Bilateral: CTA
Lung Excursion:: Normal
Abdomen:: Nontender and Soft
Bowel Sounds:: Normal
Extremity Edema:: +1: Bilateral:
Aldridge Catheter: No
--- NOTE | 2023-09-21 13:11 | CM ---
Addendum entered by Erika Oconnor 09/21/23 15:57:
Patient continues to decline home care or skilled rehab.
Patient aware of CM availability should needs arise.
Original Note:
Patient seen bedside.
S/p d/c from [facility] 09/17/23, now with incr weakness.
IA completed.
Patient lives with spouse in 2 story home with 1 step to enter.
Patient with 1st floor set up, goes to [facility] to shower (1st floor)
patient ambulates with RW and has a WC for distances.
Patient independent prior to admission.
[place]
Patient declined VN last admission, await PT/OT evals.
PCP: Dr Sidhu
Pharmacy: [address]
Plan: skilled vs VN
--- NOTE | 2023-09-21 13:37 | W.PN.HOSP.TC ---
Today's Communication/Plan
-
trend bmp
monitor off ivf
nephro recs
pt/ot
Assessment / Plan
Assessment / Plan
Physical Exam
General: No pallor, cyanosis, or jaundice.
HEENT: Throat clear. Normocephalic atraumatic
NECK: Supple. No JVD Carotid Bruits
RESPIRATORY: Lungs clear to auscultation. No crackles wheezes stridor, stable respiratory status on room air
CVS: S1, S2 normal. RRR. No murmur, rub or gallop.
ABDOMEN: Soft, non-tender. No distension. BS+/normal.
EXTREMITIES: No peripheral cyanosis or edema.
CASE INVESTIGATOR: AOx3
IMPRESSION:
72M MDS, hemochromatosis, lumbar spine stenosis, neuropathy, bph, chronic anemia, chronic hyponatremia p/w weakness near syncope. Multiple hospitalizations past few months. Patient was recently hospitalized for sepsis UTI symptomatic anemia
improved with abx and transfusion. Since discharge, patient reports feeling well but progressively feeling weak day by day w/ associate exercise intolerance exertional dyspnea. By the 3rd day if felt like he was going to pass out, having
difficulty just ambulating to bathroom. Ambulates with walker at baseline, patient was noted to be hypotensive high 80s since resolved with 1L IVF bolus. Mild lactic acidosis 2.6 was noted, post-bolus repeat pending. Hgb 9.1 similar to prior
value on discharge. WBC trending down on Cipro through September 26 as per infectious disease for Klebsiella UTI. Na 127, patient reports feeling better after 1L bolus.
PLAN:
#Generalized weakness near Syncope likely 2/2 dehydration
#Mild acute on chronic hyponatremia
Check ECHO
monitor orthostatic vitals
PT/OT
fall precautions
s/p hypertonic saline
Na improved but still low at 127
#Persistent Lactic acidosis
possibly due to dehydration low volume
no significant fever or SIRs criteria
initial 2.6 trended up to 3.1 despite 1 L bolus
Lactate downtrended to 1.7 and wnl. no need to further trend.
#Hx MDS periodically requiring transfusion intermittently.
#hx hemochromatosis
Initial appears stable in lower 9 range similar to values prior to discharge
follow up repeat cbc post-bolus
Hgb at 8.6.
#Lumbar spine stenosis
#neuropathy/lower ext muscle cramps
Declines muscle relaxant
cont home prn gabapentin, ibuprofen, oxycodone, tylenol
DVT ppx Lovenox
DNR
pt/ot
Anticipated Discharge: Within 24 hours
Subjective/Interval History
-
Date of Service: September 21, 2023
states feeling alot better now
Objective Data
-
Labs:
Laboratory Results
09/21/23
08:46
WBC 10.9 H
Hgb 8.6 L
Hct 26.3 L
Plt Count 469 H
Sodium 127 L
Potassium 4.6
Chloride 94 L
Carbon Dioxide 27
BUN 11
Creatinine 0.6 L
Glucose 196 H
Calcium 8.2 L
Vital Signs:
Vital Signs
Temp Pulse Resp BP Pulse Ox
98.8 F 98 19 99/63 97
09/21/23 10:34 09/21/23 10:34 09/21/23 10:34 09/21/23 10:34 09/21/23 10:34
I&O
09/20/23 09/21/23 09/22/23
06:59 06:59 06:59
Intake Total 2099 / 2099
Output Total 1090 / 1090
Balance 1010 / 1010
--- NOTE | 2023-09-21 14:30 | CARDSERVLU ---
Echocardiogram with Lumason completed after protocol screening completed. Allergies verified.
Patent IV site: _R hand____
IV site flushed with 0.9% NaCl pre and post administration.
Diluted bolus method utilized to enhance visualization of ventricular clayton.
Total volume given: __2.5__ mL
Patient tolerated all procedures well without complications.
[2023-09-21] MEDS: FLEXERIL 5 MG PO (16:45)
[2023-09-21] MEDS: HYDROCORTISONE 1% CREAM 1 APPLIC TOPICAL ×2 (16:46→21:08)
[2023-09-21] MEDS: LOVENOX 40 MG SC (16:46)
[2023-09-21 19:15] VITALS: BP 104/65
[2023-09-21] MEDS: FOLVITE 1 MG PO (21:06)
[2023-09-21] MEDS: FLOMAX 0.4 MG PO (21:06)
[2023-09-21] MEDS: FIBERCON 625 MG PO (21:06)
[2023-09-21] MEDS: TYLENOL 500 MG PO (21:06)
[2023-09-21 23:04] VITALS: BP 96/64
[2023-09-22] VITALS (8 sets, daily range): BP systolic 88–138; BP diastolic 52–80; BMI 28.1
[2023-09-22] MEDS: CIPRO 500 MG PO ×2 (08:05→20:00)
[2023-09-22] MEDS: MAGNESIUM OXIDE 500 MG PO (08:05)
[2023-09-22] MEDS: VITAMIN B-12 1000 MCG PO (08:06)
[2023-09-22] MEDS: MOTRIN 200 MG PO (08:06)
[2023-09-22] MEDS: VITAMIN D3 (cholecalciferol) 25 MCG PO (08:07)
[2023-09-22] MEDS: HYDROCORTISONE 1% CREAM 1 APPLIC TOPICAL ×2 (08:08→20:01)
[2023-09-22] MEDS: DESENEX/MITRAZOL/ZEASORB 1 APPLIC TOPICAL ×2 (08:09→20:00)
[2023-09-22 08:54] LABS: Blood Urea Nitrogen 14 mg/dl (9-20); Calcium 8.3 mg/dl (8.4-10.2); Carbon Dioxide 28 mmol/L (22-30); Chloride 94 mmol/L (98-107); Estimated Creatinine Clearance 122 ml/min; Glucose 118 mg/dl (70-99); Potassium 4.8 mmol/L (3.5-5.1); Sodium 127 mmol/L (135-145); eGFR > 60.00
--- NOTE | 2023-09-22 10:43 | W.PN.HOSP.TC ---
Addendum entered and electronically signed by Mike Bravo MD 09/22/23 13:38:
Repeat blood pressure improved. Patient asymptomatic. Agree for discharge home. Discussed with nephrology Dr. Pena no further workup required as patient at his baseline hyponatremia and no further intervention will be performed.
More than 30 minutes spent in discharge including
Final examination of the patient
Summarizing hospital stay
Instructions for continuing care to all relevant caregivers
Preparation of discharge records, prescriptions, and referral forms
Total time spent (in minutes): 52
Original Note:
Today's Communication/Plan
-
start midodrine
monitor BP
Na remains low
Nephro recs
Assessment / Plan
Assessment / Plan
Physical Exam
General: No pallor, cyanosis, or jaundice.
HEENT: Throat clear. Normocephalic atraumatic
NECK: Supple. No JVD Carotid Bruits
RESPIRATORY: Lungs clear to auscultation. No crackles wheezes stridor, stable respiratory status on room air
CVS: S1, S2 normal. RRR. No murmur, rub or gallop.
ABDOMEN: Soft, non-tender. No distension. BS+/normal.
EXTREMITIES: No peripheral cyanosis or edema.
DIRECTOR OF CAMPUS RECREATION: AOx3
IMPRESSION:
72M MDS, hemochromatosis, lumbar spine stenosis, neuropathy, bph, chronic anemia, chronic hyponatremia p/w weakness near syncope. Multiple hospitalizations past few months. Patient was recently hospitalized for sepsis UTI symptomatic anemia
improved with abx and transfusion. Since discharge, patient reports feeling well but progressively feeling weak day by day w/ associate exercise intolerance exertional dyspnea. By the 3rd day if felt like he was going to pass out, having
difficulty just ambulating to bathroom. Ambulates with walker at baseline, patient was noted to be hypotensive high 80s since resolved with 1L IVF bolus. Mild lactic acidosis 2.6 was noted, post-bolus repeat pending. Hgb 9.1 similar to prior
value on discharge. WBC trending down on Cipro through September 26 as per infectious disease for Klebsiella UTI. Na 127, patient reports feeling better after 1L bolus.
PLAN:
#Generalized weakness near Syncope likely 2/2 dehydration
#Mild acute on chronic hyponatremia
monitor orthostatic vitals
PT/OT
fall precautions
s/p hypertonic saline
Na improved but still low at 127
await nephro recs
#Persistent Lactic acidosis
possibly due to dehydration low volume
no significant fever or SIRs criteria
initial 2.6 trended up to 3.1 despite 1 L bolus
Lactate downtrended to 1.7 and wnl. no need to further trend.
Mild hypotension this am 90/60-start midodrine
#Hx MDS periodically requiring transfusion intermittently.
#hx hemochromatosis
Initial appears stable in lower 9 range similar to values prior to discharge
follow up repeat cbc post-bolus
Hgb at 8.6.
#Lumbar spine stenosis
#neuropathy/lower ext muscle cramps
Declines muscle relaxant
cont home prn gabapentin, ibuprofen, oxycodone, tylenol
DVT ppx Lovenox
DNR
pt/[id number] rehab.
Anticipated Discharge: > 48 hours
Subjective/Interval History
-
Date of Service: September 22, 2023
tolerating diet
no LE spasms now
Objective Data
-
Labs:
Laboratory Results
09/22/23
07:03
Sodium 127 L
Potassium 4.8
Chloride 94 L
Carbon Dioxide 28
BUN 14
Creatinine 0.6 L
Glucose 118 H
Calcium 8.3 L
Vital Signs:
Vital Signs
Temp Pulse Resp BP Pulse Ox
98.0 F 66 18 88/57 92
09/22/23 07:40 09/22/23 07:40 09/22/23 07:40 09/22/23 07:40 09/22/23 07:40
I&O
09/21/23 09/22/23 09/23/23
06:59 06:59 06:59
Intake Total 2099 / 2099 480 / 480
Output Total 1090 / 1090 1700 / 1700
Balance 1010 / 1010 -1220 / -1220
[2023-09-22] MEDS: ROXICODONE 5 MG PO (10:56)
[2023-09-22] MEDS: NEURONTIN 100 MG PO ×2 (10:56→22:28)
--- NOTE | 2023-09-22 11:31 | CM ---
Patient seen by Bridge Game Director today.
Discussed services post discharge with home health or rehab.
Patient declined home health and rehab.
Plan: To return home with family support.
[2023-09-22] MEDS: ProAmatine 10 MG PO (11:45)
--- NOTE | 2023-09-22 11:53 | W.PN.NEPH.PH ---
Today's Communication / Plan
-
- sign off and likely discharge later today
Assessment/Plan
-
Assessment
Orthostasis
Lactic acidosis
Hyponatremia acute on chronic
Hemochromatosis
MDS
Lumbar spinal stenosis
Plan
urine studies still not completed and now likely wont be accurate after HTS
Sodium has been low since 2022 -- this is chronic and likely not contributing to the patient's current sxs
sodium stayed stable off of fluids
lactate now normalized
some hypotension noted today, placed on midodrine
nephrology will sign off. please have the patient complete labs in a week to ensure stability of sodium to be followed by primary.
-
-
Date of Service: September 22, 2023
CC / HPI / ROS
-
Chief Complaint:
hyponatremia
History of Present Illness:
Na 127 (appears to be close to baseline sodium)
given fluids yesterday with some improvement in sxs
Review of Systems:
feeling okay this morning
no complaints
Labs
-
Labs:
WBC 10.9 10^3/uL (4.8-10.8) H 09/21/23 08:46
RBC 2.54 10^6/uL (4.70-6.10) L 09/21/23 08:46
Hgb 8.6 g/dL (13.0-18.0) L 09/21/23 08:46
Hct 26.3 % (39.0-52.0) L 09/21/23 08:46
Plt Count 469 10^3/uL (130-400) H 09/21/23 08:46
Sodium 127 mmol/L (135-145) L 09/22/23 07:03
Potassium 4.8 mmol/L (3.5-5.1) 09/22/23 07:03
Chloride 94 mmol/L (98-107) L 09/22/23 07:03
Carbon Dioxide 28 mmol/L (22-30) 09/22/23 07:03
BUN 14 mg/dl (9-20) 09/22/23 07:03
Creatinine 0.6 mg/dL (0.7-1.3) L 09/22/23 07:03
eGFR > 60.00 09/22/23 07:03
Glucose 118 mg/dl (70-99) H 09/22/23 07:03
Calcium 8.3 mg/dl (8.4-10.2) L 09/22/23 07:03
Rlx-Q-Fyokgxoberx Pept 839 pg/ml 09/20/23 11:14
Albumin 2.9 g/dl (3.5-5.0) L 09/20/23 11:14
Physical Exam
-
Vital Signs:
Vital Signs
Temp Pulse Resp BP Pulse Ox
97.8 F 78 18 90/60 96
09/22/23 10:51 09/22/23 11:45 09/22/23 10:51 09/22/23 11:45 09/22/23 10:51
Cardiovascular:: Regular rate and rhythm
Respiratory:: Bilateral: CTA
Lung Excursion:: Normal
Abdomen:: Nontender and Soft
Bowel Sounds:: Normal
Extremity Edema:: None: Bilateral:
Aldridge Catheter: No
--- NOTE | 2023-09-22 14:10 | CM ---
Patient's spouse called and expressed concerns regarding plan of care for patient and medical diagnosis and future goals of care. manager garden contacted patient's physician to make him aware that patient's spouse would like update.
--- NOTE | 2023-09-22 14:52 | CM ---
Addendum entered by Zelda Shipley 09/22/23 15:56:
Physician cancelled discharge.
Per Odalis [facility] after speaking with she does not feel comfortable taking him home.
web operations manager discussed options with patient regarding possibility of skilled rehab.
Patient declined rehab and states would like to go home.
Original Note:
web operations manager spoke with Carlyn & options given for visiting nurse.
Odalis from [facility] notified.
web operations manager revisited patient and IMM signed/dated.
Explained visiting nurse to see him at home.
PCP: Jean Paul Sidhu
Pharmacy: [facility]
Plan: Discharge today at home with [facility]
--- NOTE | 2023-09-22 15:06 | VNURNOTE ---
Received request for [facility] referral. Met with patient at bedside. Attempted to explain [facility] services. Patient lethargic, yellow pallor. He requested I speak to his . Called patient's Carlyn. She is very concerned about his weakness and
states not comfortable caring for him at home because feels he's so weak. Communicated these updates to attending and leather case finisher. Per Dr Rollins DC to be cancelled. Care Port Referral placed in saved mode
[2023-09-22] MEDS: LOVENOX 40 MG SC (17:13)
[2023-09-22] MEDS: ProAmatine 5 MG PO (17:14)
[2023-09-22] MEDS: FLOMAX 0.4 MG PO (21:41)
[2023-09-22] MEDS: FIBERCON 625 MG PO (21:41)
[2023-09-22] MEDS: FOLVITE 1 MG PO (21:41)
[2023-09-22] MEDS: TYLENOL 500 MG PO (21:41)
[2023-09-23] MEDS: ROXICODONE 5 MG PO (02:38)
[2023-09-23 03:03] VITALS: BP 101/62
--- NOTE | 2023-09-23 03:19 | DOWNTIME ---
There was a [employer] Client Pilot Supervisor Downtime on 09/23/2023 from 0100 to 09/23/2023 at 0255. Downtime documentation of patient's care, including medication administrations, has been reconciled in the electronic record per guidelines. Refer to the
patient's paper chart under the miscellaneous tab to see printed paper medication records and downtime forms.
[2023-09-23] MEDS: MOTRIN 200 MG PO (04:33)
[2023-09-23 06:00] VITALS: BMI 26.5
[2023-09-23 07:04] VITALS: BP 95/57
[2023-09-23] MEDS: HYDROCORTISONE 1% CREAM 1 APPLIC TOPICAL (07:37)
[2023-09-23] MEDS: MAGNESIUM OXIDE 500 MG PO (07:38)
[2023-09-23] MEDS: ProAmatine 5 MG PO ×2 (07:39→13:08)
[2023-09-23] MEDS: CIPRO 500 MG PO (07:41)
[2023-09-23] MEDS: VITAMIN B-12 1000 MCG PO (07:41)
[2023-09-23] MEDS: VITAMIN D3 (cholecalciferol) 25 MCG PO (07:41)
[2023-09-23] MEDS: DESENEX/MITRAZOL/ZEASORB 1 APPLIC TOPICAL (07:42)
[2023-09-23 07:55] LABS: Blood Urea Nitrogen 16 mg/dl (9-20); Calcium 8.4 mg/dl (8.4-10.2); Carbon Dioxide 30 mmol/L (22-30); Chloride 93 mmol/L (98-107); Estimated Creatinine Clearance 103 ml/min; Glucose 107 mg/dl (70-99); Potassium 4.7 mmol/L (3.5-5.1); Sodium 126 mmol/L (135-145); eGFR > 60.00
--- NOTE | 2023-09-23 08:21 | PTCARENOTE ---
Assumed care of pt from previous nurse. Pt denies pain. Pt is on tele running nsr, pvc. Pt call deal is within reach, pt rings linh. will cont to monitor
[2023-09-23 08:56] VITALS: BP 75/52; BP 81/54; BP 90/58; PULSE 125; PULSE 96
[2023-09-23 10:10] VITALS: BP 93/61; BP 97/63; PULSE 80; O2SAT 95
[2023-09-23 11:40] VITALS: BP 89/62
[2023-09-23 12:10] LABS: Hematocrit 26.9 % (39.0-52.0); Mean Corp Hgb Conc. 33.5 g/dL (33.0-37.0); Mean Corpuscular Hgb 33.5 pg (27.0-31.0); Mean Platelet Volume 8.6 fL (7.4-10.4); Platelet Count 449 10^3/uL (130-400); Red Blood Cell Count 2.69 10^6/uL (4.70-6.10); Red Cell Dist. Width 23.2 % (11.5-14.5); White Blood Cell Count 13.1 10^3/uL (4.8-10.8)
--- NOTE | 2023-09-23 12:35 | PN.CDI ---
CDI
- -
CDI:
Physician Documentation Request
Admit Date: 09/20/23 15:56
Dear Doctor Lawrence,
Patient presented to ED with weakness and near syncope. ED chart includes 'generalized weakness and hypotension' as discharge problems.
Hospitalist progress notes states 'Generalized weakness near Syncope likely 2/2 dehydration'
09/19 patient received 1000 ml bolus of NS and another 250 ml @ 30 mls/hr.
09/21 Midodrine has been added to patients medications as patient has remained hypotensive
What is the etiology of the hypotension?
Use of terms such as suspected, likely, concern for, or probable (associated with a specific diagnosis that is being evaluated, monitored, or treated as if it exists) are acceptable and can be coded in the inpatient setting, when documented at the
time of discharge.
Thank you,
Geni Nickerson RN, BSN
CDI Specialist
tiger text
Please use your independent medical judgment in providing your response.
--- NOTE | 2023-09-23 12:36 | W.PN.HOSP.TC ---
Addendum entered and electronically signed by Paz Jara MD 09/24/23 10:53:
hypotension secondary to dehydration.
Original Note:
Today's Communication/Plan
-
Discharge home today
Assessment / Plan
Assessment / Plan
IMPRESSION:
72M MDS, hemochromatosis, lumbar spine stenosis, neuropathy, bph, chronic anemia, chronic hyponatremia p/w weakness near syncope. Multiple hospitalizations past few months. Patient was recently hospitalized for sepsis UTI symptomatic anemia
improved with abx and transfusion. Since discharge, patient reports feeling well but progressively feeling weak day by day w/ associate exercise intolerance exertional dyspnea. By the 3rd day if felt like he was going to pass out, having
difficulty just ambulating to bathroom. Ambulates with walker at baseline, patient was noted to be hypotensive high 80s since resolved with 1L IVF bolus. Mild lactic acidosis 2.6 was noted, post-bolus repeat pending. Hgb 9.1 similar to prior
value on discharge. WBC trending down on Cipro through September 26 as per infectious disease for Klebsiella UTI. Na 127, patient reports feeling better after 1L bolus.
PLAN:
#Generalized weakness near Syncope likely 2/2 dehydration
#Mild acute on chronic hyponatremia
monitor orthostatic vitals
PT/OT
fall precautions
s/p hypertonic saline
Na improved but still low at 127
await nephro recs
#Persistent Lactic acidosis
possibly due to dehydration low volume
no significant fever or SIRs criteria
initial 2.6 trended up to 3.1 despite 1 L bolus
Lactate downtrended to 1.7 and wnl. no need to further trend.
Mild hypotension this am 90/60-start midodrine
#Hx MDS periodically requiring transfusion intermittently.
#hx hemochromatosis
Initial appears stable in lower 9 range similar to values prior to discharge
follow up repeat cbc post-bolus
Hgb at 8.6.
#Lumbar spine stenosis
#neuropathy/lower ext muscle cramps
Declines muscle relaxant
cont home prn gabapentin, ibuprofen, oxycodone, tylenol
DVT ppx Lovenox
DNR
pt/[id number] rehab.
Anticipated Discharge: Today
Subjective/Interval History
-
Date of Service: September 23, 2023
patient feeling good , denies chest pain or shortness of breath, patient was concerning of his CBC not checked today, hemoglobin came back at 9.0
Discussed with the patient.
Also discussed hyponatremia and nephrology signed off since patient chronically having hyponatremia, last sodium level 126.
Seen by physical therapy recommended home, patient refused home physical therapy.
Objective Data
-
Labs:
Laboratory Results
09/23/23 09/23/23
06:59 11:21
WBC 13.1 H
Hgb 9.0 L
Hct 26.9 L
Plt Count 449 H
Sodium 126 L
Potassium 4.7
Chloride 93 L
Carbon Dioxide 30
BUN 16
Creatinine 0.7
Glucose 107 H
Calcium 8.4
Vital Signs:
Vital Signs
Temp Pulse Resp BP Pulse Ox
98.5 F 86 16 89/62 99
09/23/23 11:40 09/23/23 11:40 09/23/23 11:40 09/23/23 11:40 09/23/23 11:40
I&O
09/22/23 09/23/23 09/24/23
06:59 06:59 06:59
Intake Total 480 / 480 1434 / 1434
Output Total 1700 / 1700 2250 / 2250
Balance -1220 / -1220 -816 / -816
Physical Exam
-
General: Well Developed and No Apparent Distress
HEENT: Normocephalic, Atraumatic and Moist Mucous Membranes
Respiratory: Clear to Auscultation
Cardiac: Regular Rhythm and S1/S2; Negative Murmur, Rub or Gallop
GI: Soft, Nontender, Nondistended and Normal Bowel Sounds; Negative Organomegaly
Rectal: Deferred by Provider
Musculoskeletal: No Clubbing, No Cyanosis and No Edema
Skin: Negative Rash
Neuro: Nonfocal/Grossly Intact
--- NOTE | 2023-09-23 12:53 | W.DCSUMMARY ---
Discharge Summary
Discharge Data
Date of Admission: 09/20/23
Date of Discharge: 09/23/23
-
Pending Results: No
Hospital Course
72M MDS, hemochromatosis, lumbar spine stenosis, neuropathy, bph, chronic anemia, chronic hyponatremia p/w weakness near syncope. Multiple hospitalizations past few months. Patient was recently hospitalized for sepsis UTI symptomatic anemia
improved with abx and transfusion. Since discharge, patient reports feeling well but progressively feeling weak day by day w/ associate exercise intolerance exertional dyspnea. By the 3rd day if felt like he was going to pass out, having
difficulty just ambulating to bathroom. Ambulates with walker at baseline, patient was noted to be hypotensive high 80s since resolved with 1L IVF bolus. Mild lactic acidosis 2.6 was noted, post-bolus repeat pending. Hgb 9.1 similar to prior
value on discharge. WBC trending down on Cipro through September 26 as per infectious disease for Klebsiella UTI. Na 127, patient reports feeling better after 1L bolus.
PLAN:
#Generalized weakness near Syncope likely 2/2 dehydration
#Mild acute on chronic hyponatremia
monitor orthostatic vitals
PT/OT
fall precautions
s/p hypertonic saline
Na improved but still low at 127
await nephro recs
#Persistent Lactic acidosis
possibly due to dehydration low volume
no significant fever or SIRs criteria
initial 2.6 trended up to 3.1 despite 1 L bolus
Lactate downtrended to 1.7 and wnl. no need to further trend.
Mild hypotension this am 90/60-start midodrine
#Hx MDS periodically requiring transfusion intermittently.
#hx hemochromatosis
Initial appears stable in lower 9 range similar to values prior to discharge
follow up repeat cbc post-bolus
Hgb at 8.6.
#Lumbar spine stenosis
#neuropathy/lower ext muscle cramps
Declines muscle relaxant
cont home prn gabapentin, ibuprofen, oxycodone, tylenol
DVT ppx Lovenox
DNR
Discharge Plan
-
Patient Disposition: Home with Home Care
Discharge Diagnosis/Procedures: Generalized weakness secondary to dehydration
Mild acute on chronic hyponatremia
Lactic acidosis
Hypotension
Condition: Fair
Diet: Regular
Activity: With assistance and As tolerated
Driving Restrictions: As prior to admission
Blood Work: Repeat BMP in 1 week with primary doctor
Other Services: VN
Activity Restrictions/Additional Instructions:
Continue ciprofloxacin till 09/27/23 as previously mentioned.
Referrals:
Jean Paul Sidhu MD [Family Provider] - in less than 1 week
Prescriptions:
New
midodrine 5 mg Tablet
5 mg PO TID@0800,1300,1800 30 Days Qty: 90 0RF
Continued
folic acid 1 mg tablet
1 mg PO HS
acetaminophen 500 mg Tablet
500 mg PO HS
calcium polycarbophil [FiberCon] 625 mg Tablet
625 mg PO HS
cholecalciferol (vitamin D3) [Vitamin D3] 25 mcg (1,000 unit) Tablet
25 mcg PO DAILY Qty: 0
magnesium oxide 400 mg magnesium Tablet
400 mg PO DAILY Qty: 0
cyanocobalamin (vitamin B-12) 1,000 mcg Tablet
1,000 mcg PO DAILY Qty: 0
gabapentin 100 mg capsule
100 mg PO BIDPRN PRN (Reason: nerve pains)
tamsulosin 0.4 mg Capsule
0.4 mg PO HS 30 Days Qty: 30 0RF
ciprofloxacin HCl 500 mg Tablet
500 mg PO BID Qty: 21 0RF
ibuprofen 200 mg tablet
200 mg PO DAILY
oxycodone 5 mg tablet
5 mg PO HSPRN PRN (Reason: severe breakthrough pain)
Discharge Orders:
Discharge Patient (As Directed); Ordered 09/23/23
Ordered By: Paz Jara
Discharge Date and Time
Print Language: THAI
--- NOTE | 2023-09-23 12:54 | CM ---
Patient for d/c home today.
Son will transport.
Spoke with spouse, agreeable to VN.
Plan: home with [facility]
== END 2023-09-23 13:30 | disposition home health service (06) | DRG 641 ==
LOC: 4 WEST ACU 15:56
PROVIDERS: Physician Assistant Medical; ADMITTING PHYSICIAN Internal Medicine; ATTENDING PHYSICIAN General Practice; CONSULT PHYSICIAN Specialist; EMERGENCY PHYSICIAN Emergency Medicine; FAMILY PHYSICIAN Family Medicine
DX: E86.0 Dehydration (principal); N39.0 Urinary tract infection, site not specified; E87.20 Acidosis, unspecified; E87.1 Hypo-osmolality and hyponatremia; R94.31 Abnormal electrocardiogram [ECG] [EKG]; M48.00 Spinal stenosis, site unspecified; Z66 Do not resuscitate; I95.9 Hypotension, unspecified; D46.9 Myelodysplastic syndrome, unspecified; E83.119 Hemochromatosis, unspecified
CPT/HCPCS: 80048; 80053; 81003; 83605; 83735; 83880; 85025; 85027; 86850; 86900; 86901; 87070; 93005; 93306; 96360; 97116; 97163; 97166; 97530; 99285; Q9950

== ENCOUNTER 2023-09-25 13:21 | Inpatient (IN) | payer MEDICARE, BC, SELFPAY ==
[2023-09-25] VITALS (15 sets, daily range): BP systolic 86–138; BP diastolic 45–83; BMI 27.7; BMI 28.2
--- NOTE | 2023-09-25 07:53 | ED.GENMED ---
History of Present Illness
<Nj Tovar DO, Resident - Last Filed: 09/26/23 05:57>
General
Chief Complaint: Fainting/Passed Out
Source: patient
Time Seen by Provider: 09/25/23 07:43
History of Present Illness
History of Present Illness:
Pt is a 73 YO M presenting to the ED with weakness and syncopal episode this morning around 7 AM. He states his was assisting him and he 'went down.' He states she assisted him, he 'blacked out for ~20 seconds,' did not hit his head or develop
new pain. He was recently was admitted to hospital for similar symptoms and UTI, currently managed with Ciprofloxacin.
Past History
<Nj Tovar DO, Resident - Last Filed: 09/26/23 05:57>
Past History
ED Past Medical History: Cancer (MDS) and Other (Hemochromatosis, rheumatoid arthritis, mild intermittent asthma)
ED Past Surgical History: Appendectomy
Social History
Tobacco: Non-smoker
Alcohol: None
Drug: None
Personal:
Living: with family
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
Family History
Family History: Other (Noncontributory)
Review of Systems
<Nj Tovar DO, Resident - Last Filed: 09/26/23 05:57>
Review of Systems
Constitutional: Reports weight loss and fatigue
EENT: Reports no symptoms
Respiratory: Reports no symptoms
Cardiac: Reports syncope
ABD/GI: Reports no symptoms
Phy Exam
<Nj Tovar DO, Resident - Last Filed: 09/26/23 05:57>
General Physical Exam
General Presentation: moderate distress
General age: appears stated age
General Skin: pale
General Habitus: normal and elderly
General Mental: other (slow to respond, fatigued)
General Hydration: other (dehydrated)
Cardiovascular Exam
Cardiovascular Exam: regular rate/rhythm, no edema, no gallop, no JVD, no murmur and normal peripheral pulses
Pulmonary Exam
Pulmonary Exam: lungs clear, no respiratory distress, no rales, chest non tender, no crackles, no rhonchi, no stridor, no wheezing and no cough
Neurological Exam
Neurological Exam: alert, oriented x3, no sensory deficits and speech normal
Skin Exam
Skin Exam: no rash and pallor
Course
<Nj Tovar DO, Resident - Last Filed: 09/26/23 05:57>
Orders/Labs/Results
Orders:
Orders
09/25/23 07:47
Electrocardiogram (*1) Urgent
Reason for Study: Fatigue / Weakness
09/25/23 07:48
EKG- Treatment ONCE
09/25/23 07:54
Type+Screen Urgent
Complete Blood Count/With Diff Urgent
Comprehensive Metabolic Panel Urgent
Lipase Urgent
Comment: ADD ON
Manual Differential Urgent
Serum Osmolality Urgent
TSH Reflex To Free T4 Urgent
Comment: TSH REFLEX ADDED ON BY FLOOR 1:45PM 09-25-23
Troponin I Urgent
09/25/23 07:58
Add On- LAB Urgent
Tests Added?: Lipase
09/25/23 07:59
CT Head W/o Iv Contrast Urgent
Comment:
Reason For Exam: fall
09/25/23 08:01
0.9% Sodium Chloride 500 ml [Nss] 500 ml IV BOLUS
09/25/23 08:06
Lactic Acid Urgent
09/25/23 08:26
Straight cath- Treatment ONCE
09/25/23 08:28
Blood Culture Urgent
SAMEERA Source: Blood/Venous
Specimen Description:
09/25/23 08:35
Osmolality, Random Urine Urgent
Date Specimen was Collected: 09/25/23
Time Specimen was Collected: 08:34
Comment: ADD ON
Urinalysis Reflex To Culture Urgent
Date Specimen was Collected: 09/25/23
Time Specimen was Collected: 08:34
Urine Microscopic Reflex Cult Urgent
Urine Sodium Urgent
Date Specimen was Collected: 09/25/23
Time Specimen was Collected: 08:34
Comment: ADD ON
09/25/23 08:44
Gabapentin [Neurontin] 100 mg PO NOW STA
09/25/23 09:01
Add On- LAB Urgent
Tests Added?: Urine Sodium, Urine Osmolality, Serum Osmolality
09/25/23 12:40
Midodrine [ProAmatine] 5 mg PO NOW STA
09/25/23 13:10
Admit/Transfer Patient As Directed
Co-Sign Provider:
Level of Care: Inpatient admission
Assign to:: Telemetry
Physician / Group: jagdeep cope
Diagnosis: sepsis likely recent kleb uti concern bacteremia, hypoNa, syncope orthostas
Reason for Telemetry: Other
Other Reason for Telemetry: syncope
Date to Stop Telemetry: 09/27/23
Time to Stop Telemetry: 11:00
Reason for Hospitalization: sepsis likely recent kleb uti concern bacteremia, hypoNa, syncope orthostasis ,
symptomatic anemia
Expected length of stay greater than two midnights?: Yes
ELOS- Estimated Length of Stay in days: 4
I certify the patient meets the requirements for IP care: Yes
Code Status As Directed
Resuscitation Status: Do not resuscitate
Reached after discussion with pt or family/Healthcare POA: Yes
Based on pt advanced directive or healthcare POA form: Yes
Decision communicated with: per pt
DNR Bracelet Application ONCE
09/25/23 Dinner
Regular
At Your Request: Full Participation
Does patient need a safe tray?: No
Fluid Restriction: 1200 mL/day (40 oz)
09/25/23 15:10
Bisacodyl [Dulcolax] 10 mg RECTAL [id number] PRN
Docusate W/Senna [Senokot-S] 1 tablet PO BIDPRN PRN
Gabapentin [Neurontin] 100 mg PO BIDPRN PRN
Oxycodone [Roxicodone] 5 mg PO HSPRN PRN
Polyethylene Glycol Powder [Miralax] 17 grams PO DAILYPRN PRN
09/25/23 15:10
Activity As Directed
Activity Level: With Assistance
Intake/ Output As Directed
Frequency: Per unit guidelines
Orthostatic Vital Signs As Directed
Orthostatic VS Frequency: Daily
Vital Signs As Directed
Frequency: Per unit guidelines
Weight As Directed
Frequency: Daily
Ot Eval And Treat Routine
Pt Eval And Treat Routine
Activity Level: With Assistance
DX Deep Vein Thrombosis Video Routine
09/25/23 15:17
Naproxen [Naprosyn] 250 mg PO BIDPRN PRN
09/25/23 18:00
Enoxaparin Sodium [Lovenox] 40 mg SC QPM
Midodrine [ProAmatine] 5 mg PO TID@0800,1300,1800
09/25/23 22:00
Calcium Polycarbophil [Fibercon] 625 mg PO HS
FOLic ACID [Folvite] 1 mg PO HS
09/26/23 06:00
Complete Blood Count/With Diff IN AM
Comprehensive Metabolic Panel IN AM
09/26/23 08:00
Cholecalciferol (Vitamin D3) [VITAMIN D3 (cholecalciferol)] 25 mcg PO DAILY
Cyanocobalamin [Vitamin B-12] 1,000 mcg PO DAILY
Magnesium Oxide 500 mg PO DAILY
09/27/23 06:00
Complete Blood Count/With Diff IN AM
Comprehensive Metabolic Panel IN AM
09/27/23 11:00
DC Protocol for Telemetry ONCE
09/28/23 06:00
Complete Blood Count/With Diff IN AM
Comprehensive Metabolic Panel IN AM
09/29/23 06:00
Complete Blood Count/With Diff IN AM
Comprehensive Metabolic Panel IN AM
Abnormal Lab Results
09/25/23 09/25/23
07:54 08:35
WBC 45.0 H* 10^3/uL
(4.8-10.8)
RBC 2.38 L 10^6/uL
(4.70-6.10)
Hgb 8.3 L g/dL
(13.0-18.0)
Hct 24.6 L %
(39.0-52.0)
MCV 103.4 H fL
(80.0-94.0)
MCH 34.9 H pg
(27.0-31.0)
RDW 23.6 H %
(11.5-14.5)
Plt Count 405 H 10^3/uL
(130-400)
Abs Neuts (Manual) 35.1 H 10^3/uL
(1.4-6.5)
Band Neutrophils 7 H D %
(0-3)
Lymphocytes (Manual) 3 L %
(20-51)
Monocytes (Manual) 12 H %
(2-9)
Sodium 124 L mmol/L
(135-145)
Chloride 94 L mmol/L
(98-107)
Creatinine 0.6 L mg/dL
(0.7-1.3)
Glucose 139 H mg/dl
(70-99)
Serum Osmolality 264 L mOsm/kg
(275-300)
Calcium 8.0 L mg/dl
(8.4-10.2)
Total Protein 5.8 L g/dl
(6.3-8.2)
Albumin 2.7 L g/dl
(3.5-5.0)
Lipase 21 L U/L
(23-300)
Urine Ketones Trace A
(Negative)
Urine Bilirubin 1+ A
(Negative)
Leukocyte Esterase Rfl Trace A
(Negative)
Urine Sodium 102 H mmol/L
(30-90)
Crossmatch IS Only See Detail
09/25/23 07:54
09/25/23 07:54
Vital Signs
Initial and Last Documented VS:
Initial Vital Signs
Temp Pulse Resp BP Pulse Ox
98.2 F 99 16 93/56 95
09/25/23 07:47 09/25/23 07:47 09/25/23 07:47 09/25/23 07:47 09/25/23 07:47
Last Documented Vital Signs
Temp Pulse Resp BP Pulse Ox
97.4 F 63 18 98/57 96
09/26/23 03:29 09/26/23 03:29 09/26/23 03:29 09/26/23 05:25 09/26/23 03:29
<Griffin Gaitan, DO - Last Filed: 09/25/23 14:05>
Orders/Labs/Results
Orders:
Orders
09/25/23 07:47
Electrocardiogram (*1) Urgent
Reason for Study: Fatigue / Weakness
09/25/23 07:48
EKG- Treatment ONCE
09/25/23 07:54
Type+Screen Urgent
Complete Blood Count/With Diff Urgent
Comprehensive Metabolic Panel Urgent
Lipase Urgent
Comment: ADD ON
Manual Differential Urgent
Serum Osmolality Urgent
TSH Reflex To Free T4 Urgent
Comment: TSH REFLEX ADDED ON BY FLOOR 1:45PM 09-25-23
Troponin I Urgent
09/25/23 07:58
Add On- LAB Urgent
Tests Added?: Lipase
09/25/23 07:59
CT Head W/o Iv Contrast Urgent
Comment:
Reason For Exam: fall
09/25/23 08:01
0.9% Sodium Chloride 500 ml [Nss] 500 ml IV BOLUS
09/25/23 08:06
Lactic Acid Urgent
09/25/23 08:26
Straight cath- Treatment ONCE
09/25/23 08:28
Blood Culture Urgent
SAMEERA Source: Blood/Venous
Specimen Description:
09/25/23 08:35
Osmolality, Random Urine Urgent
Date Specimen was Collected: 09/25/23
Time Specimen was Collected: 08:34
Comment: ADD ON
Urinalysis Reflex To Culture Urgent
Date Specimen was Collected: 09/25/23
Time Specimen was Collected: 08:34
Urine Microscopic Reflex Cult Urgent
Urine Sodium Urgent
Date Specimen was Collected: 09/25/23
Time Specimen was Collected: 08:34
Comment: ADD ON
09/25/23 08:44
Gabapentin [Neurontin] 100 mg PO NOW STA
09/25/23 09:01
Add On- LAB Urgent
Tests Added?: Urine Sodium, Urine Osmolality, Serum Osmolality
09/25/23 12:40
Midodrine [ProAmatine] 5 mg PO NOW STA
09/25/23 13:10
Admit/Transfer Patient As Directed
Co-Sign Provider:
Level of Care: Inpatient admission
Assign to:: Telemetry
Physician / Group: jagdeep cope
Diagnosis: sepsis likely recent kleb uti concern bacteremia, hypoNa, syncope orthostas
Reason for Telemetry: Other
Other Reason for Telemetry: syncope
Date to Stop Telemetry: 09/27/23
Time to Stop Telemetry: 11:00
Reason for Hospitalization: sepsis likely recent kleb uti concern bacteremia, hypoNa, syncope orthostasis ,
symptomatic anemia
Expected length of stay greater than two midnights?: Yes
ELOS- Estimated Length of Stay in days: 4
I certify the patient meets the requirements for IP care: Yes
Code Status As Directed
Resuscitation Status: Do not resuscitate
Reached after discussion with pt or family/Healthcare POA: Yes
Based on pt advanced directive or healthcare POA form: Yes
Decision communicated with: per pt
DNR Bracelet Application ONCE
09/25/23 Dinner
Regular
At Your Request: Full Participation
Does patient need a safe tray?: No
Fluid Restriction: 1200 mL/day (40 oz)
09/25/23 15:10
Bisacodyl [Dulcolax] 10 mg RECTAL [id number] PRN
Docusate W/Senna [Senokot-S] 1 tablet PO BIDPRN PRN
Gabapentin [Neurontin] 100 mg PO BIDPRN PRN
Oxycodone [Roxicodone] 5 mg PO HSPRN PRN
Polyethylene Glycol Powder [Miralax] 17 grams PO DAILYPRN PRN
09/25/23 15:10
Activity As Directed
Activity Level: With Assistance
Intake/ Output As Directed
Frequency: Per unit guidelines
Orthostatic Vital Signs As Directed
Orthostatic VS Frequency: Daily
Vital Signs As Directed
Frequency: Per unit guidelines
Weight As Directed
Frequency: Daily
Ot Eval And Treat Routine
Pt Eval And Treat Routine
Activity Level: With Assistance
DX Deep Vein Thrombosis Video Routine
09/25/23 15:17
Naproxen [Naprosyn] 250 mg PO BIDPRN PRN
09/25/23 18:00
Enoxaparin Sodium [Lovenox] 40 mg SC QPM
Midodrine [ProAmatine] 5 mg PO TID@0800,1300,1800
09/25/23 22:00
Calcium Polycarbophil [Fibercon] 625 mg PO HS
FOLic ACID [Folvite] 1 mg PO HS
09/26/23 06:00
Complete Blood Count/With Diff IN AM
Comprehensive Metabolic Panel IN AM
09/26/23 08:00
Cholecalciferol (Vitamin D3) [VITAMIN D3 (cholecalciferol)] 25 mcg PO DAILY
Cyanocobalamin [Vitamin B-12] 1,000 mcg PO DAILY
Magnesium Oxide 500 mg PO DAILY
09/27/23 06:00
Complete Blood Count/With Diff IN AM
Comprehensive Metabolic Panel IN AM
09/27/23 11:00
DC Protocol for Telemetry ONCE
09/28/23 06:00
Complete Blood Count/With Diff IN AM
Comprehensive Metabolic Panel IN AM
09/29/23 06:00
Complete Blood Count/With Diff IN AM
Comprehensive Metabolic Panel IN AM
Abnormal Lab Results
09/25/23 09/25/23
07:54 08:35
WBC 45.0 H* 10^3/uL
(4.8-10.8)
RBC 2.38 L 10^6/uL
(4.70-6.10)
Hgb 8.3 L g/dL
(13.0-18.0)
Hct 24.6 L %
(39.0-52.0)
MCV 103.4 H fL
(80.0-94.0)
MCH 34.9 H pg
(27.0-31.0)
RDW 23.6 H %
(11.5-14.5)
Plt Count 405 H 10^3/uL
(130-400)
Abs Neuts (Manual) 35.1 H 10^3/uL
(1.4-6.5)
Band Neutrophils 7 H D %
(0-3)
Lymphocytes (Manual) 3 L %
(20-51)
Monocytes (Manual) 12 H %
(2-9)
Sodium 124 L mmol/L
(135-145)
Chloride 94 L mmol/L
(98-107)
Creatinine 0.6 L mg/dL
(0.7-1.3)
Glucose 139 H mg/dl
(70-99)
Serum Osmolality 264 L mOsm/kg
(275-300)
Calcium 8.0 L mg/dl
(8.4-10.2)
Total Protein 5.8 L g/dl
(6.3-8.2)
Albumin 2.7 L g/dl
(3.5-5.0)
Lipase 21 L U/L
(23-300)
Urine Ketones Trace A
(Negative)
Urine Bilirubin 1+ A
(Negative)
Leukocyte Esterase Rfl Trace A
(Negative)
Urine Sodium 102 H mmol/L
(30-90)
Crossmatch IS Only See Detail
09/25/23 07:54
09/25/23 07:54
Vital Signs
Initial and Last Documented VS:
Initial Vital Signs
Temp Pulse Resp BP Pulse Ox
98.2 F 99 16 93/56 95
09/25/23 07:47 09/25/23 07:47 09/25/23 07:47 09/25/23 07:47 09/25/23 07:47
Last Documented Vital Signs
Temp Pulse Resp BP Pulse Ox
97.4 F 63 18 98/57 96
09/26/23 03:29 09/26/23 03:29 09/26/23 03:29 09/26/23 05:25 09/26/23 03:29
<Nj Tovar DO, Resident - Last Filed: 09/26/23 05:57>
MDM/Problems Addressed
Differential Diagnosis Includes:
hyponatremia, syncope, MDS
MDM/Problems Addressed:
Pt is a 73 YO M with hyponatremia, syncope and leukocytosis presenting to ED with weakness. He is stable. He was given IVF and Gabapentin and UA, Jessica, Uosm,Serum osm, labs ordered. Labs showed WBC of 45, Na was 124. Patient admitted to hospital for
management.
Chronic conditions affecting care:
MDS
Acute Exacerbation and/or Progression of Chronic Illness:
MDS
<Nj Tovar DO, Resident - Last Filed: 09/26/23 05:57>
*Pulse Oximetry
Patient hypoxic: no
*EKG
Interpreted by ED Provider?: Yes
Interpretation: abnormal
Comparison EKG: changes noted
Rate: normal
Rhythm: sinus
[place]: left axis deviation
Interval: normal interval
QRS Pattern: normal QRS
Ischemia: non-specific ST changes
*Line Director Interpretation
Rate: normal
Heart Rate: 95
*Critical Care Note
Total Time (30-74mins, 75-104mins- exclusive of procedures): Not Applicable
ED Attending Note
<Nj Tovar DO, Resident - Last Filed: 09/26/23 05:57>
-
Portions of this chart may have been created with voice recognition software.� Occasional wrong word or��sound alike� substitutions may have occurred due to the inherent limitations of voice recognition software.
<Griffin Gaitan, DO - Last Filed: 09/25/23 14:05>
ED Attending Note
Patient seen and examined by attending physician: Yes
I performed a history and physical exam of patient and discussed management with resident, I reviewed resident's note and agree with documented findings and plan of care.: Yes
ED Attending Note:
I have reviewed and agree with history and treatment plan by Nj Tovar. My exam revealed 73 yo male with mild hypotension, afebrile. ecg NSR, no dysrhythmia. No infectious source, likely MDS. admit for further treatment of hyponatremia and
MDS.
Discharge Plan
Departure
Patient Disposition: Admit
Date of Disposition: 09/25/23
Time of Disposition: 09:17
Admit to: IMU
Presentation/result/management discussed w/ accepting MD/DO: Hospitalist
Patient with high blood pressure during this ER visit?: No
Condition: Fair
Discharge Problem:
MDS (myelodysplastic syndrome), Hyponatremia
Interventions
Interventions:
*Risk Screen - Suicide Last Done: 09/25/23 15:41
*General Assessment Last Done: 09/25/23 07:44
*Neglect/Abuse Screening Last Done: 09/25/23 07:45
ED- Fall Risk Assessment Last Done: 09/25/23 13:47
*ED COVID-19 Vaccine History Last Done: 09/25/23 15:41
*Nursing Disposition Last Done: 09/25/23 15:14
ED- Cardiac Assessment Last Done: 09/25/23 07:45
ED- Neurological Assessment Last Done: 09/25/23 07:45
Discharge Date and Time
Discharge Date/Time: 09/25/23 15:14
[2023-09-25] MEDS: NSS 500 IV (08:08)
--- NOTE | 2023-09-25 08:20 | EDRN ---
Spoke with patient's who states the patient has been refusing services like VNS or PT when offered and she didn't know about it. She states she can't take care of him at home on her own and would like someone to arrange services for him.
[2023-09-25 08:24] LABS: ALT (SGPT) 17 U/L (0-50); AST (SGOT) 20 U/L (17-59); Albumin 2.7 g/dl (3.5-5.0); Alkaline Phosphatase 125 U/L (38-126); Blood Urea Nitrogen 15 mg/dl (9-20); Carbon Dioxide 23 mmol/L (22-30); Chloride 94 mmol/L (98-107); Estimated Creatinine Clearance 120 ml/min; Glucose 139 mg/dl (70-99); Hematocrit 24.6 % (39.0-52.0); Hemoglobin 8.3 g/dL (13.0-18.0); Mean Corp Hgb Conc. 33.7 g/dL (33.0-37.0); Mean Corpuscular Hgb 34.9 pg (27.0-31.0); Mean Corpuscular Volume 103.4 fL (80.0-94.0); Mean Platelet Volume 8.5 fL (7.4-10.4); Platelet Count 405 10^3/uL (130-400); Potassium 4.5 mmol/L (3.5-5.1); Red Blood Cell Count 2.38 10^6/uL (4.70-6.10); Red Cell Dist. Width 23.6 % (11.5-14.5); Sodium 124 mmol/L (135-145); Total Bilirubin 0.9 mg/dl (0.2-1.3); Total Protein 5.8 g/dl (6.3-8.2); eGFR > 60.00
[2023-09-25 08:29] LABS: Lactic Acid 1.5 mmol/L (0.7-2.0)
[2023-09-25 08:35] LABS: Lipase 21 U/L (23-300); Troponin I < 0.012 ng/ml
[2023-09-25] MEDS: NEURONTIN 100 MG PO ×2 (08:49→15:39)
[2023-09-25 08:54] LABS: Urine Albumin Trace (Neg - Trace); Urine Bilirubin 1+ (Negative); Urine Character Clear (Clear); Urine Color Yellow; Urine Glucose Negative (Negative); Urine Ketone Trace (Negative); Urine Leukocyte Trace (Negative); Urine Nitrite Negative (Negative); Urine Occult Blood Negative (Negative); Urine Urobilinogen 1+ (Neg - 1+)
[2023-09-25 09:37] LABS: Urine Amorphous Seen; Urine Mucus Many
[2023-09-25 09:38] LABS: Urine Red Blood Cell 0-2 /HPF (0-2); Urine White Cell 0-2 /HPF (0-5)
[2023-09-25 10:47] LABS: Osmolality Urine 729 mOsm/kg (300-900)
[2023-09-25 11:13] LABS: Osmolality Serum 264 mOsm/kg (275-300)
[2023-09-25 11:26] LABS: Urine Sodium 102 mmol/L (30-90)
[2023-09-25 11:26] LABS: Segmented Neutrophils 71 % (42-75)
[2023-09-25 11:27] LABS: Absolute Neutrophils -Man Diff 35.1 10^3/uL (1.4-6.5); Band Neutrophils 7 % (0-3); Eosinophils 3 % (0-6); Lymphocytes 3 % (20-51); Metamyelocytes 2 % (-); Monocytes 12 % (2-9); Myelocytes 2 % (-)
[2023-09-25 11:28] LABS: Normal RBC Morphology No; Nucleated Red Blood Cells 1 (-); Platelets Checked YES
[2023-09-25 11:30] LABS: Anisocytosis Slight
[2023-09-25 11:31] LABS: Hypersegmented Neutrophil FEW; Hypochromasia Slight; Polychromasia Slight
[2023-09-25 11:32] LABS: Total Cells Counted 100
--- NOTE | 2023-09-25 12:41 | HPS.HSE ---
Addendum entered and electronically signed by Lewis Carey MD 09/25/23 14:19:
Follow up BP shows systolic >90 and MAP remains >65
Will admit to Tele for now and follow BP q4hr.
Addendum entered and electronically signed by Lewis Carey MD 09/25/23 14:18:
Seen and examined by me independently in collaboration with LISA Rivas.\\
PHX/SHX/Meds and allergies reviewed.
Lab data and imaging data reviewed.
Pt brought back to hospital due to Ooziness and near syncope( per pt he never passed out. He says he felt oozy so went down to avoid a fall). But per he had syncope for 20 sec and she helped him to floor.
Pt is alert and oriented. Denies feeling dizzy while in his bed in ER.
He feels dizzy when standing up and ambulating .
No current N/V or diarrhea. No obvious external bleeding.
Denies CP or SOB.
No fever or chills.
Denies dysuria or frequency of urine. On Flomax ,apparently for 2 weeks ? . Denies prostatism sysmptoms.
He insists on getting a blood transfusion as HH goal is >8.5.
MAP consistently more than 65 since adx.
Alert and oriented.
SR on monitor .ECHO from last week with normal EF and no significant VHD.
Chest clear
Abdo no hepatosplenmegaly
No LE edema
Neurologically grossly stable;CT head neg for acute processes.
Syncope with weakness - Doubt cardiac ;suspect sec to chronic orthostatic hypotension. Check TSH/ Coritsol .CW Midodrine. Seq teds. Hold his flomax. Follow on tele
Recent UTI with K Pneumoniae - currently without urinary symptoms and pyuria - cw home dose of abx and complete the course.
Leukocytosis - significant elevation since discharge noted. Afebrile, no pyuria, no focal infection symptoms from pt. Check blood cx and follow on his home abx for UTI. Consult heme to rule out relation to his myelodysplastic/ Myeloproliferative
disorder.
Severe hyponatremia-acute on chronic. Urine sodium and osmolality suggests excess ADH. Consult nephrology
Admit to IMU due to his hemodynamics/symptomatic orthostatic hypotension.
Original Note:
Family Physician
-
Family Physician: Jean Paul Sidhu
Chief Complaint
-
weakness syncope
History of Present Illness
73 year old male complaining of weakness and syncope x 20 seconds as helped him to the floor. he denied LOC or head injury. he did not have any of his am meds per his Carlyn. He had recent admit 09/19-09/22 for sepsis Klebsiella UTI
treated with Cipro until September 26 per I/d. he was also noted to be mildly hyponatremic at 127. he denies h/a, sorethroat , cough, sob, fever , chills, abd pain , nausea, vomiting , diarrhea or urinary symptoms. he is still taking his cipro 500 mg
bid for his UTI. His would like SNF placement for Rehab. Pt has chronic memory impairment with hx refusing things then forgets. He follows with Dr cook for onc who is going to look at [facility] medication regimens for his MDS
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
arthritis, mild intermittent asthma,lumbar spinal stenosis.
Medical History
Past Medical History
Past Medical History: Reports Other (myelodysplastic syndrome on chemotherapy, anemia, hemochromatosis, BPH, chronic hyponatremia, chronic knee pain,)
Additional Past Medical History:
klebseilla uti on 09/14/23
Myelodysplastic syndrome failed Vidaza/luspatercept requires blood transufusions
Trisomy 8 myelodysplasia
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
Acute on chronic macrocytic anemia
Homozygous hereditary hemochromatosis
hx phlebotomy via [facility]
Chronic hyponatremia (baseline Na ~130)
Chronic knee pain
BPH
Asthma
RA
MRSA screen positive
Past Surgical History: Reports Other
Additional Past Surgical History:
Appendectomy 2018
Colonoscopy 2018
left femur fx rapir as teen
Social History
Tobacco: Non-smoker
Alcohol: None
Drug: None
Personal:
Living: With Family ()
Employment: Retired
Family History
Family History: Not pertinent
Allergies / Home Medications
Allergies reflects when Allergies were last updated in [facility].
Home Medications with original date entered in [facility]
Allergy/Medication List:
Allergies
Allergy/AdvReac Type Severity Reaction Status Date / Time
Penicillins Allergy Rash; Verified 09/20/23 10:02
tolerates
cephalosporins
Sulfa (Sulfonamide Allergy Rash Verified 09/20/23 10:02
Antibiotics)
Home Medications
folic acid 1 mg tablet 1 mg PO HS Supplement 02/11/23
calcium polycarbophil 625 mg tablet (FiberCon) 625 mg PO HS Gastrointestinal Issue 08/13/23
cholecalciferol (vitamin D3) 25 mcg (1,000 unit) tablet (Vitamin D3) 25 mcg PO DAILY Supplement ##0 08/28/23
cyanocobalamin (vitamin B-12) 1,000 mcg tablet 1,000 mcg PO DAILY Supplement ##0 08/28/23
magnesium oxide 400 mg PO DAILY Supplement ##0 08/28/23
gabapentin 100 mg capsule 100 mg PO BIDPRN PRN nerve pains 09/14/23
ciprofloxacin HCl 500 mg tablet 500 mg PO BID #21 tabs 09/17/23
tamsulosin 0.4 mg capsule 0.4 mg PO HS 30 days #30 caps 09/17/23
oxycodone 5 mg tablet 5 mg PO HSPRN PRN severe breakthrough pain 09/20/23
midodrine 5 mg tablet 5 mg PO TID@0800,1300,1800 30 days #90 tabs 09/22/23
naproxen sodium 220 mg tablet (Aleve) 220 mg PO BIDPRN PRN mild pain 09/25/23
Review of Systems
-
History Source: Patient
A 12 point ROS was completed and negative except as noted: Yes
Constitutional: Reports Fatigue and Other (pale in color ); Denies Fever or Chills
EENT: Denies Sore Throat or Runny Nose
Respiratory: Denies Cough or Trouble Breathing
Cardiac: Reports Syncope; Denies Chest Pain, Diaphoresis or Palpitations
Abdomen/GI: Denies Abdominal Pain, Nausea, Vomiting, Diarrhea, Constipated, Bloody Stools or Black Stools
: Denies Dysuria, Frequency, Flank Pain, Incontinence, Difficulty Voiding, Urgency or Dark Urine
Musculoskeletal: Denies Joint Pain or Edema
Skin: Denies Itching or Rash
Neurological: Reports Weakness; Denies Dizzy or Headache
Hematologic/Lymphatic: Reports No Symptoms
Psych: Reports No Symptoms and Calm
Physical Exam
Vital Signs
Vital Signs
Temp Pulse Resp BP Pulse Ox
98.2 F 88 21 88/70 97
09/25/23 07:47 09/25/23 12:00 09/25/23 12:00 09/25/23 12:00 09/25/23 12:00
Physical Exam
General: Comfortable, Conversant and Other (pale in color); No Pain, Fever or Chills
HEENT: NormoCephalic, Moist mucous membranes, PERRLA, [place] Conjunctivae, No Ptosis and Neck Nontender
Respiratory: Clear; No Wheezes, Rales or Rhonchi
Cardiac: S1/S2 and Regular Rhythm; No Murmur, Rub, Gallop or Peripheral Edema
Breast: Deferred by me
GI: Soft, Non Tender, Non Distended and No Hepatosplenomegaly
Rectal: Deferred by Provider
Genito-urinary: No costovertebral tender
Musculoskeletal: No Clubbing, No Cyanosis and No Edema
Skin: Warm and Dry; No Rash
Neuro: AO x 3 (poor historian about his medications), No Motor Deficits, Nonfocal/grossly intact, Cranial Nerves Intact and No Sensory Deficits; No Slurred Speech, Facial Droop, Tremors or Sedated
Psych: Calm
Laboratory Results
-
09/25/23 07:54
09/25/23 07:54
Laboratory Results
Lactic Acid 1.5 mmol/L (0.7-2.0) 09/25/23 08:06
Total Bilirubin 0.9 mg/dl (0.2-1.3) 09/25/23 07:54
AST 20 U/L (17-59) 09/25/23 07:54
ALT 17 U/L (0-50) 09/25/23 07:54
Alkaline Phosphatase 125 U/L (38-126) 09/25/23 07:54
Troponin I < 0.012 ng/ml 09/25/23 07:54
Lipase 21 U/L (23-300) L 09/25/23 07:54
Data Reviewed
-
CT Scan: Report Reviewed by me
Lab Data: Labs Reviewed by me
Impression/Plan
-
Impression/ Plan:
Admit to IMU
#Leukocytosis likely MDS flair
Klebsiella pneumoniae UTI concern for bacteremia
WBC 45 > 13.1 on 09/23/23 , temp 98.2
- was given cipro x2 weeks 09/13-09/26 will cont
he had 1 neg blood culture on 09/14/23, - Babesia smear negative
- recheck blood culture
- follow cbc
PEr Carlyn she would like [facility] eval Thy have never had any follow up with homecare after recent 5 admits
to be called with all decision making
#Recurrent Weakness /syncope 2/2 to hypotension
bp 88/70 will give 1 pm dose midodrin3 5mg and continue 5mg tid
- PT/OT consult
- Orthostatic vitals
-random cortisol tsh with free t4
ct head No acute intracranial abnormality.
#Acute on Chronic Hyponatremia
NA 124 < 127 09/23/23
-was given 1 liter NSS will hold further Iv fluids
- fluid restrict 40 oz
- follow bmp
- nephro
#Polyuria
BPh hx
I/O
Strict urine output documention
- specific gravity is nml
- hold Flomax
#Acute on cHronic Anemia 2/2 to MDS
#Myelodysplastic syndrome failed Vidaza/luspatercept
#Trisomy 8 myelodysplasia hx
#hx hemochromatosis
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
- requires frequent blood transfusions when hgb <8.5 per pt and
Hgb is 8.3 was 8.6 2 days ago with baseline [address] cook
consult onc
- follow cbc
- type and screen
- 1 unit prbc transfuse per rupa
# Chronic memory impairment
- pt short term forgetfull , will refuse things per then forgets
#Lumbar spine stenosis
#RA
#neuropathy/lower ext muscle cramps
-cont home prn gabapentin, ibuprofen, oxycodone, tylenol
dvt proph
-sq lovenox
DNR
[2023-09-25] MEDS: ProAmatine 5 MG PO ×2 (12:50→17:52)
--- NOTE | 2023-09-25 14:09 | W.CON.NEPH ---
Consultation
-
Date/Time Consultation Requested: 09/25/2023 13:44
Date/Time Consultation Performed: 09/25/2023 12:11PM
Requesting Provider: Evelyn Plummer
Performing Provider: Mariia Pena
Reason for Consultation: hyponatremia
Medical History
-
Chief Complaint: Weakness
History of Present Illness:
This is a 73-year-old gentleman who has hemochromatosis and MDS now with significant anemia treated by hematology as outpatient. . He had recent admit 09/19-09/22 for sepsis Klebsiella UTI treated with Cipro until September 26 per I/d. He presents to
the ER today for weakness and syncope, no head injury or LOC. They are hoping for SNF placement. He states that he was not eating well at home and was drinking lots of water. His Na is at 124, prior at 127. He has had longstanding hyponatremia with
Na usually ranging from 126-130. He is not do anything specific for these levels. He also has neuropathic pain affecting his knees bilaterally for which he takes ibuprofen and Tylenol as well as gabapentin.
Past Medical History
Hemochromatosis, lumbar spinal stenosis, neuropathy, anemia, hyponatremia, BPH
Appendectomy, trisomy 8 myelodysplasia, MDS
Past Medical History: Other
Social History
Tobacco: Non-Smoker
Alcohol: None
Family History
Family History: Not Pertinent
Allergies / Home Medications
Allergy/AdvReac Type Severity Reaction Status Date / Time
Penicillins Allergy Rash; Verified 09/20/23 10:02
tolerates
cephalosporins
Sulfa (Sulfonamide Allergy Rash Verified 09/20/23 10:02
Antibiotics)
�Medication �Instructions �Recorded �Confirmed �Type
folic acid 1 mg tablet 1 mg PO HS Supplement 02/11/23 09/25/23 History
calcium polycarbophil 625 mg 625 mg PO HS Gastrointestinal Issue 08/13/23 09/25/23 History
tablet (FiberCon)
cholecalciferol (vitamin D3) 25 25 mcg PO DAILY Supplement ##0 08/28/23 09/25/23 History
mcg (1,000 unit) tablet (Vitamin
D3)
cyanocobalamin (vitamin B-12) 1,000 mcg PO DAILY Supplement ##0 08/28/23 09/25/23 History
1,000 mcg tablet
magnesium oxide 400 mg PO DAILY Supplement ##0 08/28/23 09/25/23 History
gabapentin 100 mg capsule 100 mg PO BIDPRN PRN nerve pains 09/14/23 09/25/23 History
ciprofloxacin HCl 500 mg tablet 500 mg PO BID #21 tabs 09/17/23 09/25/23 Rx
tamsulosin 0.4 mg capsule 0.4 mg PO HS 30 days #30 caps 09/17/23 09/25/23 Rx
oxycodone 5 mg tablet 5 mg PO HSPRN PRN severe 09/20/23 09/25/23 History
breakthrough pain
midodrine 5 mg tablet 5 mg PO TID@0800,1300,1800 30 days 09/22/23 09/25/23 Rx
#90 tabs
naproxen sodium 220 mg tablet 220 mg PO BIDPRN PRN mild pain 09/25/23 09/25/23 History
(Aleve)
Review of Systems
-
History Source: Patient
All other systems: Negative unless noted
Constitutional: Fatigue
Neurological: Dizzy and Weakness
Physical Exam
Vital Signs
Vital Signs
Temp Pulse Resp BP Pulse Ox
98.2 F 77 21 99/71 97
09/25/23 07:47 09/25/23 12:50 09/25/23 12:00 09/25/23 12:50 09/25/23 12:00
Lab Results
WBC 45.0 10^3/uL (4.8-10.8) H* 09/25/23 07:54
RBC 2.38 10^6/uL (4.70-6.10) L 09/25/23 07:54
Hgb 8.3 g/dL (13.0-18.0) L 09/25/23 07:54
Hct 24.6 % (39.0-52.0) L 09/25/23 07:54
Plt Count 405 10^3/uL (130-400) H 09/25/23 07:54
Sodium 124 mmol/L (135-145) L 09/25/23 07:54
Potassium 4.5 mmol/L (3.5-5.1) 09/25/23 07:54
Chloride 94 mmol/L (98-107) L 09/25/23 07:54
Carbon Dioxide 23 mmol/L (22-30) 09/25/23 07:54
BUN 15 mg/dl (9-20) 09/25/23 07:54
Creatinine 0.6 mg/dL (0.7-1.3) L 09/25/23 07:54
eGFR > 60.00 09/25/23 07:54
Glucose 139 mg/dl (70-99) H 09/25/23 07:54
Calcium 8.0 mg/dl (8.4-10.2) L 09/25/23 07:54
Albumin 2.7 g/dl (3.5-5.0) L 09/25/23 07:54
Physical Exam
General: AOx3, No Distress and Nontoxic
HEENT: PERRL
Respiratory: Clear
Cardiac: S1/S2, Regular Rate/Rhythm and No Edema
Breast: N/A
Abdomen: Soft, Nontender, Nondistended, Normal Bowel Sounds and No Hepatosplenomegaly
Rectal: Deferred by Provider
Genito-urinary: No Costovertebral Tender
Musculoskeletal: No Clubbing, No Cyanosis and No Edema
Skin: No Rash, Warm and Dry
Neuro: Nonfocal/Grossly Intact
Hematologic/Lymphatic: No Cervical Lymphadenopathy
Psych: Mood/afflect pleasant, Insight/judgement good and Appropriate
Data Reviewed
-
CT Scan: Report Reviewed by me (no intracranial abnormality )
Labs: Labs Reviewed by me, Discussed with Physician, Discussed with Nurse and Discussed with Patient
Old Records: Reviewed
Assessment/Plan
-
Assessment
Orthostasis
Lactic acidosis
Hyponatremia acute on chronic
Hemochromatosis
MDS
Lumbar spinal stenosis
Plan
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
okay for HTS today at 30cc/hr
please trend sodium q6h
place on FR at 48oz/day
sodium low since 2022 -- okay to tolerate Na from 126+
likely will need salt tabs/lasix/FR for homegoing
we will follow along
[2023-09-25 15:39] LABS: TSH Reflex To Free T4 1.88 uIU/ml (0.47-4.68)
--- NOTE | 2023-09-25 15:48 | CM ---
Reviewed the chart notes. Patient was discharged 09/23/23 to home with [facility]. The patient resides with his spouse in a two story home with one step to enter. The patient has a first floor set-up and goes to his son's home to shower. The
patient has a rolling walker, wheelchair, and shower chair. The patient has not been to a SNF. Pharmacy of choice is [facility]. continues to be available to patient/family and is monitoring medical plan for needs at discharge.
Plan: Discharge plans will depend on the patient's progress.
[2023-09-25] MEDS: ROXICODONE 5 MG PO (16:42)
[2023-09-25 17:37] LABS: Cortisol, Random 24.6 ug/dl
[2023-09-25] MEDS: SODIUM CHLORIDE 3% 250 IV (17:46)
[2023-09-25] MEDS: LOVENOX 40 MG SC (17:50)
[2023-09-25] MEDS: CIPRO 500 MG PO (20:04)
[2023-09-25] MEDS: TYLENOL 1000 MG PO (20:43)
--- NOTE | 2023-09-25 20:49 | PTCARENOTE ---
2020, pt with rectal temp 102.7. HJoão notified via tt, tylenol ordered. see mar for documentation
[2023-09-25] MEDS: FOLVITE 1 MG PO (21:53)
[2023-09-25] MEDS: FIBERCON 625 MG PO (21:53)
[2023-09-26] VITALS (14 sets, daily range): BP systolic 87–119; BP diastolic 52–75; PULSE 61–99; O2SAT 97; BMI 27.8
[2023-09-26 03:19] LABS: Hematocrit 24.2 % (39.0-52.0); Mean Corp Hgb Conc. 33.1 g/dL (33.0-37.0); Mean Corpuscular Hgb 33.6 pg (27.0-31.0); Mean Corpuscular Volume 101.7 fL (80.0-94.0); Mean Platelet Volume 8.6 fL (7.4-10.4); Platelet Count 344 10^3/uL (130-400); Red Blood Cell Count 2.38 10^6/uL (4.70-6.10); Red Cell Dist. Width 25.3 % (11.5-14.5)
[2023-09-26 03:24] LABS: Blood Urea Nitrogen 18 mg/dl (9-20); Calcium 8.2 mg/dl (8.4-10.2); Carbon Dioxide 25 mmol/L (22-30); Chloride 100 mmol/L (98-107); Estimated Creatinine Clearance 103 ml/min; Glucose 109 mg/dl (70-99); Potassium 4.6 mmol/L (3.5-5.1); Sodium 131 mmol/L (135-145); eGFR > 60.00
--- NOTE | 2023-09-26 04:27 | PTCARENOTE ---
0400 Irreg rhythm on tele, tele reading AFIB, EKG done to confirm, EKG showing sinus kendall with marked sinus arrhythmia. patient remains AAOX3 and asymptomatic. B/p remains 80-90's/40-50s. LISA Casillas notified
--- NOTE | 2023-09-26 04:36 | PTCARENOTE ---
0147, patient HR 30's-50's on Tele, asymptomatic b/ps 90's/40-50's. Anup notified, patient placed on 2L O2, CBC and BMP sent.
[2023-09-26 06:33] LABS: Hematocrit 24.3 % (39.0-52.0); Hemoglobin 8.1 g/dL (13.0-18.0); Mean Corp Hgb Conc. 33.3 g/dL (33.0-37.0); Mean Corpuscular Hgb 33.3 pg (27.0-31.0); Mean Platelet Volume 8.4 fL (7.4-10.4); Platelet Count 323 10^3/uL (130-400); Red Blood Cell Count 2.43 10^6/uL (4.70-6.10); Red Cell Dist. Width 25.2 % (11.5-14.5); White Blood Cell Count 21.7 10^3/uL (4.8-10.8)
[2023-09-26 06:58] LABS: ALT (SGPT) 14 U/L (0-50); AST (SGOT) 19 U/L (17-59); Albumin 2.4 g/dl (3.5-5.0); Alkaline Phosphatase 112 U/L (38-126); Blood Urea Nitrogen 18 mg/dl (9-20); Calcium 8.2 mg/dl (8.4-10.2); Carbon Dioxide 25 mmol/L (22-30); Chloride 100 mmol/L (98-107); Estimated Creatinine Clearance 120 ml/min; Glucose 110 mg/dl (70-99); Potassium 4.4 mmol/L (3.5-5.1); Sodium 131 mmol/L (135-145); Total Bilirubin 0.5 mg/dl (0.2-1.3); Total Protein 5.4 g/dl (6.3-8.2); eGFR > 60.00
[2023-09-26 07:50] LABS: Absolute Neutrophils -Man Diff 16.2 10^3/uL (1.4-6.5); Anisocytosis 1+; Band Neutrophils 7 % (0-3); Eosinophils 6 % (0-6); Hypochromasia Slight; Lymphocytes 4 % (20-51); Macrocytosis Slight; Metamyelocytes 3 % (-); Monocytes 10 % (2-9); Myelocytes 2 % (-); Normal RBC Morphology No; Platelets Checked Yes; Polychromasia Slight; Segmented Neutrophils 68 % (42-75)
[2023-09-26 07:51] LABS: Total Cells Counted 100
[2023-09-26] MEDS: VITAMIN D3 (cholecalciferol) 25 MCG PO (08:07)
[2023-09-26] MEDS: ProAmatine 5 MG PO ×3 (08:07→17:09)
[2023-09-26] MEDS: CIPRO 500 MG PO ×2 (08:07→21:04)
[2023-09-26] MEDS: VITAMIN B-12 1000 MCG PO (08:09)
[2023-09-26] MEDS: MAGNESIUM OXIDE 500 MG PO (08:09)
[2023-09-26] MEDS: NEURONTIN 100 MG PO ×3 (09:01→22:46)
--- NOTE | 2023-09-26 10:48 | CON.ONC ---
Impression
Impression
- MDS with refractory anemia
- weakness/syncope
- chronic hyponatremia
- orthostatic hypotension
- urinary tract infection
- leukocytosis
Plan
Plan
- -re-admission with weakness, syncope after discharge 09/22 after admission for UTI. He has several reasons to have weakness/syncope including anemia (per pt, symptoms develop when < 8.5), mild worsening of hyponatremia (124 on this admit),
orthostatic hypotension.
- I also feel new/persistent infection should be ruled out with higher white count on this admission compared to discharge as leukocytosis is not a symptom/lab finding of his MDS. Pt with T spike to 102.7 last night. Pt denies specific infectious
symptoms. BCx NTD, still only on cipro for UTI.
- nephrology following. Na up to 131 today. considering role for salt tabs on discharge.
- s/p 2 units prBCs. repeat CBC now and transfuse for hgb < 8.5 g/dl.
- will continue to follow.
Patient History
History of Present Illness
This 72-year-old man with hx of MDS last receiving luspatercept (failed hypomethylating agent, sub-optimal response to luspatercept) who was re-admitted with weakness and syncopal episode. Alberto was recent admitted with similar symptoms, found to
have UTI and discharged on 09/22 on cipro. he states he felt good when he left but could tell hgb was dropping prior to syncopal episodes because he was feeling weaker. He gets CBC weekly with out office and commonly is transfused outpt for hgb < 8.5
g/dl due to symptoms when in low 8 range. CBC on presentation notable for rise in WBC to 45.0 from 13.1 on discharge (usually in normal range), down to 21.7 today. BCX negative x 24 hours. Denies fevers, chills, dysuria, increased frequency, SOB or
cough, diarrhea. Hgb 8.3 from 9.0 g/dl, plts 405K. Na was low at 124 (however was 126 on discharge 09/22). nephrology consulted. work-up c/w SIADH. Na today up to 131 with hypertonic saline.
Past-Medical/Surgical History
myelodysplastic syndrome
chronic moderate anemia
hemochromatosis
BPH
chronic hyponatremia
Patient Medication
�Medication �Instructions �Recorded �Confirmed �Last Taken �Type
folic acid 1 mg tablet 1 mg PO HS Supplement 02/11/23 09/25/23 09/24/23 History
calcium polycarbophil 625 mg 625 mg PO HS Gastrointestinal Issue 08/13/23 09/25/23 09/24/23 History
tablet (FiberCon)
cholecalciferol (vitamin D3) 25 25 mcg PO DAILY Supplement ##0 08/28/23 09/25/23 09/24/23 History
mcg (1,000 unit) tablet (Vitamin
D3)
cyanocobalamin (vitamin B-12) 1,000 mcg PO DAILY Supplement ##0 08/28/23 09/25/23 09/24/23 History
1,000 mcg tablet
magnesium oxide 400 mg PO DAILY Supplement ##0 08/28/23 09/25/23 09/24/23 History
gabapentin 100 mg capsule 100 mg PO BIDPRN PRN nerve pains 09/14/23 09/25/23 09/24/23 History
ciprofloxacin HCl 500 mg tablet 500 mg PO BID #21 tabs 09/17/23 09/25/23 09/24/23 Rx
tamsulosin 0.4 mg capsule 0.4 mg PO HS 30 days #30 caps 09/17/23 09/25/23 09/24/23 Rx
oxycodone 5 mg tablet 5 mg PO HSPRN PRN severe 09/20/23 09/25/23 Unknown History
breakthrough pain
midodrine 5 mg tablet 5 mg PO TID@0800,1300,1800 30 days 09/22/23 09/25/23 09/24/23 Rx
#90 tabs
naproxen sodium 220 mg tablet 220 mg PO BIDPRN PRN mild pain 09/25/23 09/25/23 09/24/23 History
(Aleve)
Active Medications
Generic Name Dose Route Start Last Admin
Trade Name Freq PRN Reason Stop Dose Admin
Bisacodyl 10 mg 09/25/23 15:10
Bisacodyl 10 Mg Rectal Suppository RECTAL 10/23/23 15:09
[id number] PRN
constipation
Calcium Polycarbophil 625 mg 09/25/23 22:00 09/25/23 21:53
Calcium Polycarbophil 625 Mg Tablet PO 10/23/23 21:59 625 mg
HS JOE Administration
Cholecalciferol 25 mcg 09/26/23 08:00 09/26/23 08:07
Cholecalciferol (Vitamin D3) 25 Mcg Tablet (1,000 Units) PO 10/24/23 07:59 25 mcg
DAILY JOE Administration
Ciprofloxacin 500 mg 09/25/23 20:00 09/26/23 08:07
Ciprofloxacin 500 Mg Tablet PO 09/27/23 21:00 500 mg
BID JOE Administration
Cyanocobalamin 1,000 mcg 09/26/23 08:00 09/26/23 08:09
Cyanocobalamin 1,000 Mcg Tablet PO 10/24/23 07:59 1,000 mcg
DAILY JOE Administration
Enoxaparin Sodium 40 mg 09/25/23 18:00 09/25/23 17:50
Enoxaparin Sodium 40 Mg/0.4 Ml Syringe SC 10/23/23 17:59 40 mg
QPM JOE Administration
Folic Acid 1 mg 09/25/23 22:00 09/25/23 21:53
Folic Acid 1 Mg Tablet PO 10/23/23 21:59 1 mg
HS JOE Administration
Gabapentin 100 mg 09/25/23 15:10 09/26/23 09:01
Gabapentin 100 Mg Capsule PO 10/23/23 15:09 100 mg
BIDPRN PRN Administration
nerve pains
Magnesium Oxide 500 mg 09/26/23 08:00 09/26/23 08:09
Magnesium Oxide 500 Mg Tablet PO 10/24/23 07:59 500 mg
DAILY JOE Administration
Midodrine 5 mg 09/25/23 18:00 09/26/23 08:07
Midodrine 5 Mg Tablet PO 10/23/23 17:59 5 mg
TID@0800,1300,1800 JOE Administration
Naproxen 250 mg 09/25/23 15:17
Naproxen 250 Mg Tablet PO 10/23/23 15:16
BIDPRN PRN
mild pain
Oxycodone HCl 5 mg 09/25/23 15:10 09/25/23 16:42
Oxycodone 5 Mg Regular Release Tablet PO 10/09/23 15:09 5 mg
HSPRN PRN Administration
severe breakthrough pain
Polyethylene Glycol 17 grams 09/25/23 15:10
Polyethylene Glycol Powder 17 Grams Packet PO 10/23/23 15:09
DAILYPRN PRN
constipation
Senna/Docusate Sodium 1 tablet 09/25/23 15:10
Docusate W/Senna (Sepideh-Colace) Tablet PO 10/23/23 15:09
BIDPRN PRN
constipation
Sodium Chloride 0 flush 09/25/23 16:00
Sodium Chloride 0.9% (Flush) Syringe IV 10/23/23 15:59
PER PROTOCOL JOE
Review of Systems
-
History Source: Patient
Constitutional: Reports Fatigue; Denies Fever or Night Sweats
Respiratory: Denies Cough or Trouble Breathing
Cardiac: Denies Chest Pain
GI: Denies Bloody Stools or Black Stools
: Denies Dysuria or Frequency
Neuro: Reports Weakness and Lightheadedness; Denies Ataxia
Hematologic/Lymphatic: Denies Bleeding
Physical Exam
-
General: Well Developed, Well Nourished, No Apparent Distress and Other ([place])
HEENT: Negative Jaundice
Pulmonary: Clear
GI: Soft; Negative Distended
Musculoskeletal: No Edema
Neurology: Non Focal
Labs
Lab Results
WBC 21.7 10^3/uL (4.8-10.8) H 09/26/23 06:07
RBC 2.43 10^6/uL (4.70-6.10) L 09/26/23 06:07
Hgb 8.1 g/dL (13.0-18.0) L 09/26/23 06:07
Hct 24.3 % (39.0-52.0) L 09/26/23 06:07
MCV 100.0 fL (80.0-94.0) H 09/26/23 06:07
MCH 33.3 pg (27.0-31.0) H 09/26/23 06:07
MCHC 33.3 g/dL (33.0-37.0) 09/26/23 06:07
RDW 25.2 % (11.5-14.5) H 09/26/23 06:07
Plt Count 323 10^3/uL (130-400) 09/26/23 06:07
MPV 8.4 fL (7.4-10.4) 09/26/23 06:07
Creatinine 0.6 mg/dL (0.7-1.3) L 09/26/23 06:07
Vital Signs
Vital Signs
Temp Pulse Resp BP Pulse Ox
97.9 F 57 18 104/58 96
09/26/23 09:06 09/26/23 09:06 09/26/23 09:06 09/26/23 09:06 09/26/23 09:06
--- NOTE | 2023-09-26 12:35 | W.PN.NEPH.PH ---
Today's Communication / Plan
-
- s/p HTS with improvement
- no HTS today
- trend Na
Assessment/Plan
-
Assessment
Orthostasis
Lactic acidosis
Hyponatremia acute on chronic
Hemochromatosis
MDS
Lumbar spinal stenosis
Plan
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
s/p HTS on 09/24. Na up from 124 --> 131
monitor sodium off fluids
place on FR at 48oz/day
sodium low since 2022 -- okay to tolerate Na from 126+
likely will need salt tabs/lasix/FR for homegoing
we will follow along
-
-
Date of Service: September 26, 2023
CC / HPI / ROS
-
Chief Complaint:
hyponatremia
History of Present Illness:
Na 124 --> 131
Review of Systems:
feeling much better s/p blood transfusions
Labs
-
Labs:
WBC 21.7 10^3/uL (4.8-10.8) H 09/26/23 06:07
RBC 2.43 10^6/uL (4.70-6.10) L 09/26/23 06:07
Hgb 8.1 g/dL (13.0-18.0) L 09/26/23 06:07
Hct 24.3 % (39.0-52.0) L 09/26/23 06:07
Plt Count 323 10^3/uL (130-400) 09/26/23 06:07
Sodium 131 mmol/L (135-145) L 09/26/23 06:07
Potassium 4.4 mmol/L (3.5-5.1) 09/26/23 06:07
Chloride 100 mmol/L (98-107) 09/26/23 06:07
Carbon Dioxide 25 mmol/L (22-30) 09/26/23 06:07
BUN 18 mg/dl (9-20) 09/26/23 06:07
Creatinine 0.6 mg/dL (0.7-1.3) L 09/26/23 06:07
eGFR > 60.00 09/26/23 06:07
Glucose 110 mg/dl (70-99) H 09/26/23 06:07
Calcium 8.2 mg/dl (8.4-10.2) L 09/26/23 06:07
Albumin 2.4 g/dl (3.5-5.0) L 09/26/23 06:07
Physical Exam
-
Vital Signs:
Vital Signs
Temp Pulse Resp BP Pulse Ox
97.5 F 70 16 87/59 96
09/26/23 11:30 09/26/23 11:30 09/26/23 11:30 09/26/23 11:30 09/26/23 11:37
Cardiovascular:: Regular rate and rhythm
Respiratory:: Bilateral: Coarse
Lung Excursion:: Normal
Abdomen:: Nontender and Soft
Bowel Sounds:: Normal
Extremity Edema:: +1: Bilateral:
[place] Catheter: No
[2023-09-26 13:04] LABS: Hematocrit 28.2 % (39.0-52.0); Hemoglobin 9.5 g/dL (13.0-18.0); Mean Corp Hgb Conc. 33.7 g/dL (33.0-37.0); Mean Corpuscular Hgb 32.1 pg (27.0-31.0); Mean Corpuscular Volume 95.3 fL (80.0-94.0); Mean Platelet Volume 8.6 fL (7.4-10.4); Platelet Count 368 10^3/uL (130-400); Red Blood Cell Count 2.96 10^6/uL (4.70-6.10); Red Cell Dist. Width 25.4 % (11.5-14.5); White Blood Cell Count 18.9 10^3/uL (4.8-10.8)
[2023-09-26 13:36] LABS: Absolute Neutrophils -Man Diff 13.4 10^3/uL (1.4-6.5); Band Neutrophils 8 % (0-3); Eosinophils 8 % (0-6); Lymphocytes 7 % (20-51); Metamyelocytes 3 % (-); Monocytes 11 % (2-9); Segmented Neutrophils 63 % (42-75)
[2023-09-26 13:39] LABS: Normal RBC Morphology Yes; Platelets Checked Yes
[2023-09-26 13:40] LABS: Total Cells Counted 100
--- NOTE | 2023-09-26 14:28 | W.PN.HOSP.TC ---
Today's Communication/Plan
-
cards input
cont midodrine
monitor VSS
PT/OT
Assessment / Plan
Assessment / Plan
#Leukocytosis likely MDS flair
#Klebsiella pneumoniae UTI concern for bacteremia
- was given cipro x2 weeks 09/13-09/26 will cont
he had 1 neg blood culture on 09/14/23, - Babesia smear negative
- recheck blood culture
- follow cbc
- wbc trending down.
#Recurrent Weakness /syncope 2/2 to hypotension and bradycardia
-started on midodrine 5mg TID.
- PT/OT consult
- Orthostatic vitals negative
-random cortisol tsh with free t4
- ct head No acute intracranial abnormality.
- HR in low 40s at times. Will ask cards for input. Not on AV alejandro chad.
#Acute on Chronic Hyponatremia
NA 124 < 127 09/23/23
-was given 1 liter NSS will hold further Iv fluids
- fluid restrict 40 oz
- follow bmp. Na improved to 131.
- nephro
#Polyuria
BPh hx
I/O
Strict urine output documentation
- specific gravity is nml
- hold Flomax
#Acute on cHronic Anemia 2/2 to MDS
#Myelodysplastic syndrome failed Vidaza/luspatercept
#Trisomy 8 myelodysplasia hx
#hx hemochromatosis
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
- requires frequent blood transfusions when hgb <8.5 per pt and
- Hgb at 9.5 s/p 2u of PRBC so far
# Chronic memory impairment
- pt short term forgetfull , will refuse things per then forgets
#Lumbar spine stenosis
#RA
#neuropathy/lower ext muscle cramps
-cont home prn gabapentin, ibuprofen, oxycodone, tylenol
dvt proph
-sq lovenox
DNR
PT/OT -
Anticipated Discharge: > 48 hours
Subjective/Interval History
-
Date of Service: September 26, 2023
Pt with severe bradycardia overnight
feeling better after blood transfusion
Objective Data
-
Labs:
Laboratory Results
09/26/23 09/26/23 09/26/23
02:37 06:07 12:53
WBC 24.0 H 21.7 H 18.9 H
Hgb 8.0 L 8.1 L 9.5 L
Hct 24.2 L 24.3 L 28.2 L
Plt Count 344 323 368
Sodium 131 L 131 L
Potassium 4.6 4.4
Chloride 100 100
Carbon Dioxide 25 25
BUN 18 18
Creatinine 0.7 0.6 L
Glucose 109 H 110 H
Calcium 8.2 L 8.2 L
Total Bilirubin 0.5
AST 19
ALT 14
Alkaline Phosphatase 112
Vital Signs:
Vital Signs
Temp Pulse Resp BP Pulse Ox
97.5 F 69 16 108/63 96
09/26/23 11:30 09/26/23 14:11 09/26/23 11:30 09/26/23 14:11 09/26/23 11:37
I&O
09/25/23 09/26/23 09/27/23
06:59 06:59 06:59
Intake Total 1340 / 1340 250 / 250
Output Total 450 / 450
Balance 890 / 890 250 / 250
Physical Exam
-
General: Well Developed and No Apparent Distress
HEENT: Normocephalic, Atraumatic and Moist Mucous Membranes
Respiratory: Clear to Auscultation
Cardiac: Regular Rhythm and S1/S2; Negative Murmur, Rub or Gallop
GI: Soft, Nontender, Nondistended and Normal Bowel Sounds; Negative Organomegaly
Rectal: Deferred by Provider
Musculoskeletal: No Clubbing, No Cyanosis and No Edema
Skin: Negative Rash
Neuro: Awake and Nonfocal/Grossly Intact
Psych: Calm
Data Reviewed
-
Total Time Spent with Patient (in minutes): 55
[2023-09-26] MEDS: LOVENOX 40 MG SC (17:09)
[2023-09-26] MEDS: FOLVITE 1 MG PO (21:05)
[2023-09-26] MEDS: FIBERCON 625 MG PO (21:05)
[2023-09-27] VITALS (9 sets, daily range): BP systolic 93–126; BP diastolic 69–77; PULSE 83–102; BMI 27.6
[2023-09-27] MEDS: NAPROSYN 250 MG PO (00:34)
[2023-09-27 06:44] LABS: Hematocrit 26.1 % (39.0-52.0); Hemoglobin 8.8 g/dL (13.0-18.0); Mean Corp Hgb Conc. 33.7 g/dL (33.0-37.0); Mean Corpuscular Volume 94.9 fL (80.0-94.0); Mean Platelet Volume 8.6 fL (7.4-10.4); Platelet Count 326 10^3/uL (130-400); Red Blood Cell Count 2.75 10^6/uL (4.70-6.10); Red Cell Dist. Width 25.2 % (11.5-14.5); White Blood Cell Count 10.8 10^3/uL (4.8-10.8)
[2023-09-27 07:08] LABS: Blood Urea Nitrogen 20 mg/dl (9-20); Calcium 8.2 mg/dl (8.4-10.2); Carbon Dioxide 25 mmol/L (22-30); Chloride 99 mmol/L (98-107); Estimated Creatinine Clearance 120 ml/min; Glucose 112 mg/dl (70-99); Potassium 4.5 mmol/L (3.5-5.1); Sodium 129 mmol/L (135-145); eGFR > 60.00
--- NOTE | 2023-09-27 07:43 | W.PN.HOSP.TC ---
Addendum entered and electronically signed by Mike Bravo MD 09/27/23 12:08:
Discussed case with patient's spouse over the phone in complete details. Patient with multiple recent hospitalization. Spouse wants additional time to get things arranged. Spouse does not want patient to go to rehab however she wants his
hemoglobin to be stable for 24 hours posttransfusion and is requesting assistance from case management for home VNA and therapy. Case management aware.
Original Note:
Today's Communication/Plan
-
monitor on tele
trend bp
CM for placement
trend hgb
transfuse <8.5
cards recs
Assessment / Plan
Assessment / Plan
#Leukocytosis likely MDS flair
#Klebsiella pneumoniae UTI concern for bacteremia
- was given cipro x2 weeks 09/13-09/26 Last day today.
he had 1 neg blood culture on 09/14/23, - Babesia smear negative
- recheck blood culture negative so far
- follow cbc
- wbc trended down.
#Recurrent Weakness /syncope 2/2 to hypotension and bradycardia and ?symptomatic anemia
-started on midodrine 5mg TID.
- PT/OT consult-reval tomm
- Orthostatic vitals negative
-random cortisol tsh with free t4
- ct head No acute intracranial abnormality.
- HR in low 40s at times. Will ask cards for input. Not on AV alejandro chad.
-d/w with cards-no indication for PACER.
#Acute on Chronic Hyponatremia
NA 124 < 127 09/23/23
-was given 1 liter NSS will hold further Iv fluids
- fluid restrict 40 oz
- follow bmp. Na downtrended to 129
- nephro
#Polyuria
BPh hx
I/O
Strict urine output documentation
- specific gravity is nml
- hold Flomax
#Acute on cHronic Anemia 2/2 to MDS
#Myelodysplastic syndrome failed Vidaza/luspatercept
#Trisomy 8 myelodysplasia hx
#hx hemochromatosis
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
- requires frequent blood transfusions when hgb <8.5 per pt and
- Hgb dropped 8.8. Repeat and transfuse per Onc recs.
# Chronic memory impairment
-
#Lumbar spine stenosis
#RA
#neuropathy/lower ext muscle cramps
-cont home prn gabapentin, ibuprofen, oxycodone, tylenol
dvt proph
-sq lovenox
DNR
PT/OT -
Anticipated Discharge: Within 24 hours
Subjective/Interval History
-
Date of Service: September 27, 2023
Pt worried about drop in hgb
starting to feel better
Objective Data
-
Labs:
Laboratory Results
09/27/23
05:29
WBC 10.8
Hgb 8.8 L
Hct 26.1 L
Plt Count 326
Sodium 129 L
Potassium 4.5
Chloride 99
Carbon Dioxide 25
BUN 20
Creatinine 0.6 L
Glucose 112 H
Calcium 8.2 L
Vital Signs:
Vital Signs
Temp Pulse Resp BP Pulse Ox
98.1 F 73 18 115/77 100
09/27/23 03:00 09/27/23 03:00 09/27/23 03:00 09/27/23 03:00 09/27/23 03:00
I&O
09/26/23 09/27/23 09/28/23
06:59 06:59 06:59
Intake Total 1340 / 1340 1210 / 1210
Output Total 450 / 450 830 / 830
Balance 890 / 890 380 / 380
Physical Exam
-
General: Well Developed and No Apparent Distress
HEENT: Normocephalic, Atraumatic and Moist Mucous Membranes
Respiratory: Clear to Auscultation
Cardiac: Regular Rhythm and S1/S2; Negative Murmur, Rub or Gallop
GI: Soft, Nontender, Nondistended and Normal Bowel Sounds; Negative Organomegaly
Rectal: Deferred by Provider
Musculoskeletal: No Clubbing, No Cyanosis and No Edema
Skin: Negative Rash
Neuro: Awake and Nonfocal/Grossly Intact
Psych: Calm
[2023-09-27 08:04] LABS: Absolute Neutrophils -Man Diff 7.7 10^3/uL (1.4-6.5); Band Neutrophils 6 % (0-3); Eosinophils 6 % (0-6); Lymphocytes 8 % (20-51); Metamyelocytes 2 % (-); Monocytes 10 % (2-9); Myelocytes 2 % (-); Segmented Neutrophils 66 % (42-75)
[2023-09-27 08:05] LABS: Anisocytosis 1+; Hypochromasia 1+; Macrocytosis Slight; Normal RBC Morphology No; Platelets Checked Yes; Polychromasia Slight; Total Cells Counted 100
[2023-09-27] MEDS: VITAMIN B-12 1000 MCG PO (08:58)
[2023-09-27] MEDS: ProAmatine 5 MG PO ×3 (08:58→17:29)
[2023-09-27] MEDS: MAGNESIUM OXIDE 500 MG PO (08:58)
[2023-09-27] MEDS: CIPRO 500 MG PO ×2 (08:58→20:16)
[2023-09-27] MEDS: VITAMIN D3 (cholecalciferol) 25 MCG PO (08:58)
--- NOTE | 2023-09-27 09:34 | CON.CAR ---
Consultation
Consultation Request
Date/Time Consultation Requested: 09/26/2023 15: 00
Date/Time Consultation Performed: 09/27/2023 8: 00
Requesting Provider: Lawrence
Performing Provider: Lionel
Reason for Consultation: Bradycardia, syncope
Medical History
-
Chief Complaint: Weakness
History of Present Illness:
Alberto has a history of myelodysplasia on chemotherapy, anemia, hemochromatosis, BPH, chronic hyponatremia, orthostatic hypotension, rheumatoid arthritis, mild intermittent asthma, lumbar spinal stenosis. He presented with episode of weakness and
near syncope for approximately 20 seconds as his helped him to the floor. He denies chest pain shortness of breath or palpitations. He is felt to have orthostasis which may have been worsened by anemia. Cardiology was consulted for
bradycardia. Patient feels well at present
Past Medical History
Past Medical History: Other (See HPI, also has chronic hyponatremia, chronic knee pain, lumbar spinal stenosis)
Past Surgical History: Appendectomy (2018) and Orthopedic (Left femur repair)
Social History
Tobacco: Non-Smoker
Alcohol: None
Drug: None
Personal:
Living: With Family
Employment: Retired
Family History
Family History: Reviewed & Not Pertinent
Allergies / Home Medications
Allergy/AdvReac Type Severity Reaction Status Date / Time
Penicillins Allergy Rash; Verified 09/20/23 10:02
tolerates
cephalosporins
Sulfa (Sulfonamide Allergy Rash Verified 09/20/23 10:02
Antibiotics)
�Medication �Instructions �Recorded �Confirmed �Type
folic acid 1 mg tablet 1 mg PO HS Supplement 02/11/23 09/25/23 History
calcium polycarbophil 625 mg 625 mg PO HS Gastrointestinal Issue 08/13/23 09/25/23 History
tablet (FiberCon)
cholecalciferol (vitamin D3) 25 25 mcg PO DAILY Supplement ##0 08/28/23 09/25/23 History
mcg (1,000 unit) tablet (Vitamin
D3)
cyanocobalamin (vitamin B-12) 1,000 mcg PO DAILY Supplement ##0 08/28/23 09/25/23 History
1,000 mcg tablet
magnesium oxide 400 mg PO DAILY Supplement ##0 08/28/23 09/25/23 History
gabapentin 100 mg capsule 100 mg PO BIDPRN PRN nerve pains 09/14/23 09/25/23 History
ciprofloxacin HCl 500 mg tablet 500 mg PO BID #21 tabs 09/17/23 09/25/23 Rx
tamsulosin 0.4 mg capsule 0.4 mg PO HS 30 days #30 caps 09/17/23 09/25/23 Rx
oxycodone 5 mg tablet 5 mg PO HSPRN PRN severe 09/20/23 09/25/23 History
breakthrough pain
midodrine 5 mg tablet 5 mg PO TID@0800,1300,1800 30 days 09/22/23 09/25/23 Rx
#90 tabs
naproxen sodium 220 mg tablet 220 mg PO BIDPRN PRN mild pain 09/25/23 09/25/23 History
(Aleve)
Review of Systems
-
History Source: Patient
All other systems: Negative unless noted
Constitutional: No Symptoms
EENT: No Symptoms
Respiratory: No Symptoms
Cardiac: Syncope (Near syncope for approximately 20 seconds)
Abdomen/GI: No Symptoms
: No Symptoms
Musculoskeletal: No Symptoms
Skin: No Symptoms
Neurological: Weakness
Endocrine: No Symptoms
Hematologic/Lymphatic: Other (Worsening anemia on admission)
Physical Exam
Vital Signs
Temp Pulse Resp BP Pulse Ox
98.1 F 72 14 115/73 97
09/27/23 07:20 09/27/23 08:58 09/27/23 07:20 09/27/23 08:58 09/27/23 07:20
Lab Results
09/27/23 05:29
09/27/23 05:29
Troponin I < 0.012 ng/ml 09/25/23 07:54
General: Well developed, well nourished in NAD.
Neck: Supple, no JVD, HJR, carotids +2 B/L, no bruits bilaterally.
Heart: Non displaced PMI, RRR, no murmurs, No S3, S4, no rubs.
Lungs: Clear to auscultation bilaterally, no wheeze, rhonchi, rubs bilaterally,
normal expiratory phase.
Abdomen: Normal bowel sounds, soft, non-tender, non-distended.
Extremities: No clubbing, cyanosis or edema bilaterally.
Neuro: Grossly nonfocal, awake, alert and oriented x3.
Impression / Plan
-
Impression:
Near syncope
Chronic orthostatic hypotension
Bradycardia
Frequent PACs
History of myelodysplasia
Chronic anemia
History of homozygous hereditary hemochromatosis
History of mild intermittent asthma
History of rheumatoid arthritis
History of chronic anemia
History of chronic memory impairment
Echocardiogram 09/21/2023: Ejection fraction 50 to 55%
Plan:
Patient presents with near syncope. This was felt to be due to orthostasis which was likely worsened by anemia
Reviewed telemetry which reveals episodes of bradycardia which were not symptomatic. There were no significant pauses and some of pauses were in the setting of PACs.
Complexes are narrow and there is no indication for pacer implantation
I do not think any further workup is needed as near syncopal episode could be explained by orthostasis and anemia
If he had worsening symptoms could consider monitoring
Stable cardiology status for admission
Discussed with primary service
Data Reviewed
-
EKG: Tracing Personally Visualized and interpreted
Medical Tests (Nuc Med, Echo etc): Report Reviewed by me
Labs: Labs Reviewed by me
Old Records: Reviewed
[2023-09-27] MEDS: NEURONTIN 100 MG PO ×3 (09:37→20:16)
--- NOTE | 2023-09-27 11:07 | W.PN.ONC2 ---
Today's Communication / Plan
-
- ordered 1 additional unit pRBCs
- apprec nephrology recs regarding Na
- ok for d/c after transfusion for heme standpoint.
Impression
Impression
- MDS with refractory anemia
- weakness/syncope
- chronic hyponatremia
- orthostatic hypotension
- urinary tract infection
- leukocytosis
Plan
Plan
- -re-admission with weakness, syncope after discharge 09/22 after admission for UTI. He has several reasons to have weakness/syncope including anemia (per pt, symptoms develop when < 8.5), mild worsening of hyponatremia (124 on this admit),
orthostatic hypotension.
- I also feel new/persistent infection should be ruled out with higher white count on this admission compared to discharge as leukocytosis is not a symptom/lab finding of his MDS. Pt with T spike to 102.7 overnight 09/24 however afebrile since. Pt
denies specific infectious symptoms. BCx neg x 48 hours, still only on cipro for UTI. WBC normal today.
- nephrology following. Na up to 131 yesterday, mild downtrend to 129 today. considering role for salt tabs on discharge.
- s/p 2 units prBCs. repeat CBC 9.5 yesterday, now 8.8 h/dl. Will given another unit now as commonly transfuse for < 8.5 g/dl which I suspect he will be in next 24 hours.
- stable for d/c from heme standpoint after transfusion with ongoing outpt lab monitoring and prn transfusions. He will get labs for our office next on or thu.
Subjective/Objective
Chief Complaint
pancytopenia, symptomatic anemia
Subjective
pt notes feeling more fatigued today compared to yesterday. Denies fevers,chills, SOB. Hgb post transfusion was up to 9.5 g/dl, down to 8.8 g/dl today. WBC down trended now in normal range. BCx NTD.
Vital Signs:
Vital Signs
Temp Pulse Resp BP Pulse Ox
98.1 F 72 14 115/73 97
09/27/23 07:20 09/27/23 08:58 09/27/23 07:20 09/27/23 08:58 09/27/23 07:20
Lab Results:
Laboratory Data
WBC 10.8 10^3/uL (4.8-10.8) 09/27/23 05:29
Hgb 8.8 g/dL (13.0-18.0) L 09/27/23 05:29
Plt Count 326 10^3/uL (130-400) 09/27/23 05:29
eGFR > 60.00 09/27/23 05:29
Physical Exam
HEENT: No Jaundice
Pulmonary: Clear
Extremities: No Edema
Neuro: Non Focal
Review of Systems
Review of Systems
Constitutional: Reports Fatigue; Denies Fever
Respiratory: Denies Dyspnea or Cough
Cardiovascular: Denies Chest Pain
Neurological: Denies Headache
Orders
Orders
Orders From Last 24 Hours
09/26/23 12:53
Complete Blood Count/With Diff Urgent
Manual Differential Urgent
09/27/23 11:06
* Blood Bank Products Routine
--- NOTE | 2023-09-27 11:45 | W.PN.NEPH.PH ---
Today's Communication / Plan
-
- salt tabs
- d/c
Assessment/Plan
-
Assessment
Orthostasis
Lactic acidosis
Hyponatremia acute on chronic
Hemochromatosis
MDS
Lumbar spinal stenosis
Plan
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
s/p HTS on 09/24. Na up from 124 --> 130, stable at 129 now
monitor sodium off fluids
place on FR at 48oz/day
initiate on salt tabs today
sodium low since 2022 -- okay to tolerate Na from 126+
okay for d/c with follow up labs in 1 week for sodium.
-
-
Date of Service: September 27, 2023
CC / HPI / ROS
-
Chief Complaint:
hyponatremia
History of Present Illness:
Na 124 --> 129
Review of Systems:
feeling much better s/p blood transfusions
Labs
-
Labs:
WBC 10.8 10^3/uL (4.8-10.8) 09/27/23 05:29
RBC 2.75 10^6/uL (4.70-6.10) L 09/27/23 05:29
Hgb 8.8 g/dL (13.0-18.0) L 09/27/23 05:29
Hct 26.1 % (39.0-52.0) L 09/27/23 05:29
Plt Count 326 10^3/uL (130-400) 09/27/23 05:29
Sodium 129 mmol/L (135-145) L 09/27/23 05:29
Potassium 4.5 mmol/L (3.5-5.1) 09/27/23 05:29
Chloride 99 mmol/L (98-107) 09/27/23 05:29
Carbon Dioxide 25 mmol/L (22-30) 09/27/23 05:29
BUN 20 mg/dl (9-20) 09/27/23 05:29
Creatinine 0.6 mg/dL (0.7-1.3) L 09/27/23 05:29
eGFR > 60.00 09/27/23 05:29
Glucose 112 mg/dl (70-99) H 09/27/23 05:29
Calcium 8.2 mg/dl (8.4-10.2) L 09/27/23 05:29
Albumin 2.4 g/dl (3.5-5.0) L 09/26/23 06:07
Physical Exam
-
Vital Signs:
Vital Signs
Temp Pulse Resp BP Pulse Ox
98.1 F 72 14 115/73 97
09/27/23 07:20 09/27/23 08:58 09/27/23 07:20 09/27/23 08:58 09/27/23 07:20
Cardiovascular:: Regular rate and rhythm
Respiratory:: Bilateral: CTA
Lung Excursion:: Normal
Abdomen:: Nontender and Soft
Bowel Sounds:: Normal
Extremity Edema:: None: Bilateral:
Aldridge Catheter: No
--- NOTE | 2023-09-27 12:24 | CM ---
CM spoke with spouse to discuss discharge planning on phone, .
Spouse explains that preference is to bring patient home. 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 CM offered choice of home care agency. Preference is for [place]. Spouse upset that pt has been contacted
to schedule in the past, would like to stress that she is the point of contact for scheduling home care visits. She explains he is forgetful, and will decline without her knowledge.
CM sent referral to [facility] via [employer]. Clearly wrote on referral spouse is to be contacted with her phone #. Also left a VM at [facility] [phone] explaining that spouse is requesting she be called to schedule any home care visits.
Discharge dispo home with spouse and [facility]. Spouse to transport.
[2023-09-27] MEDS: SODIUM CHLORIDE 1 GRAM PO ×2 (12:59→20:16)
[2023-09-27] MEDS: LOVENOX 40 MG SC (17:30)
[2023-09-27] MEDS: FIBERCON 625 MG PO (20:16)
[2023-09-27] MEDS: FOLVITE 1 MG PO (20:16)
[2023-09-28 03:25] VITALS: BP 128/78
[2023-09-28 05:11] VITALS: BMI 27.5
[2023-09-28 06:13] LABS: Hematocrit 29.7 % (39.0-52.0); Hemoglobin 10.3 g/dL (13.0-18.0); Mean Corp Hgb Conc. 34.7 g/dL (33.0-37.0); Mean Corpuscular Volume 95.2 fL (80.0-94.0); Mean Platelet Volume 8.6 fL (7.4-10.4); Platelet Count 314 10^3/uL (130-400); Red Blood Cell Count 3.12 10^6/uL (4.70-6.10); Red Cell Dist. Width 24.9 % (11.5-14.5); White Blood Cell Count 9.7 10^3/uL (4.8-10.8)
[2023-09-28 06:24] LABS: Blood Urea Nitrogen 17 mg/dl (9-20); Calcium 8.3 mg/dl (8.4-10.2); Carbon Dioxide 23 mmol/L (22-30); Chloride 97 mmol/L (98-107); Estimated Creatinine Clearance 120 ml/min; Glucose 113 mg/dl (70-99); Potassium 4.5 mmol/L (3.5-5.1); Sodium 128 mmol/L (135-145); eGFR > 60.00
[2023-09-28 07:25] VITALS: BP 122/76
[2023-09-28 07:54] LABS: Band Neutrophils 1 % (0-3); Eosinophils 5 % (0-6); Lymphocytes 15 % (20-51); Metamyelocytes 3 % (-); Monocytes 11 % (2-9); Myelocytes 4 % (-); Normal RBC Morphology Yes; Platelets Checked Yes; Segmented Neutrophils 61 % (42-75); Total Cells Counted 100
--- NOTE | 2023-09-28 08:03 | W.PN.HOSP.TC ---
Addendum entered and electronically signed by Escobar Bray MD 09/30/23 18:16:
'Stage 1 pressure injury present on admission sacrum'
Original Note:
Today's Communication/Plan
-
dc to home
Assessment / Plan
Assessment / Plan
#Leukocytosis likely MDS flair
#Klebsiella pneumoniae UTI concern for bacteremia
- was given cipro x2 weeks 09/13-09/26. Received 5 doses in hospital, last dose 09/26 20:16
he had 1 neg blood culture on 09/14/23, - Babesia smear negative, Blood cx 09/24 nGTD
- wbc trended down. 18.9-->10.8-->9.7
#Recurrent Weakness /syncope 2/2 to hypotension and bradycardia and ?symptomatic anemia
-started on midodrine 5mg TID.
- PT/OT consult, input appreciated
- Orthostatic vitals negative
-random cortisol 24.6, tsh 1.88
- ct head No acute intracranial abnormality.
- HR in low 40s at times. Not on AV alejandro chad.
-d/w with cards-no indication for PACER. Input noted and appreciated
#Acute on Chronic Hyponatremia
NA 124 < 127 09/23/23
-was given 1 liter NSS will hold further Iv fluids
- fluid restrict 40 oz
- follow bmp. Na downtrended to 129-->128
- nephro
#Polyuria
BPh hx
I/O
Strict urine output documentation
- specific gravity is nml
- resume Flomax on dc
#Acute on cHronic Anemia 2/2 to MDS
#Myelodysplastic syndrome failed Vidaza/luspatercept
#Trisomy 8 myelodysplasia hx
#hx hemochromatosis
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
- requires frequent blood transfusions when hgb <8.5 per pt and
- Hgb dropped 8.8. Repeat and transfuse per Onc recs.-->10.3
# Chronic memory impairment
-
#Lumbar spine stenosis
#RA
#neuropathy/lower ext muscle cramps
-cont home prn gabapentin, ibuprofen, oxycodone, tylenol
dvt proph
-sq lovenox
DNR
reviewed with by phone, extensive discussion
will dc now
More than 30 minutes spent in discharge including
Final examination of the patient
Summarizing hospital stay
Instructions for continuing care to all relevant caregivers
Preparation of discharge records, prescriptions, and referral forms
Total time spent (in minutes): 45
Anticipated Discharge: Today
Subjective/Interval History
-
Date of Service: September 28, 2023
Feels well and is anxiously awaiting dc
Objective Data
-
Labs:
Laboratory Results
09/28/23
05:04
WBC 9.7
Hgb 10.3 L
Hct 29.7 L
Plt Count 314
Sodium 128 L
Potassium 4.5
Chloride 97 L
Carbon Dioxide 23
BUN 17
Creatinine 0.5 L
Glucose 113 H
Calcium 8.3 L
Vital Signs:
Vital Signs
Temp Pulse Resp BP Pulse Ox
98.2 F 67 16 128/78 99
09/28/23 03:25 09/28/23 03:25 09/28/23 03:25 09/28/23 03:25 09/28/23 03:25
I&O
09/27/23 09/28/23 09/29/23
06:59 06:59 06:59
Intake Total 1210 / 1210 1930 / 1930
Output Total 830 / 830 1905 / 1905
Balance 380 / 380
Review of Systems
-
History Source: Patient and Coordinated Provider
Constitutional: Reports Fever (104.1 on admission, remains afebrile )
EENT: Reports No Symptoms Reported
Respiratory: Reports No Symptoms
Cardiac: Reports No Symptoms
Abdomen/GI: Reports No Symptoms
Physical Exam
-
General: Well Developed and No Apparent Distress
HEENT: Normocephalic, Atraumatic and Moist Mucous Membranes
Respiratory: Clear to Auscultation
Cardiac: Regular Rhythm and S1/S2; Negative Murmur, Rub, Gallop or Bradycardic (not bradycardic)
GI: Soft, Nontender, Nondistended and Normal Bowel Sounds; Negative Organomegaly
Rectal: Deferred by Provider
Musculoskeletal: No Clubbing, No Cyanosis and No Edema
Skin: Negative Rash
Neuro: Awake and Nonfocal/Grossly Intact
Psych: Calm
--- NOTE | 2023-09-28 08:31 | W.DS.TRANS ---
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
-
Discharge Instructions:
Discharge Diagnosis/Procedures MDS flare up
Symptomatic anemia status post blood transfusion
Recurrent weakness and syncope likely secondary
to hypotension bradycardia and symptomatic
anemia
Acute on chronic hyponatremia
Diet Regular,Restrict fluids to 48 oz
Activity With assistance,As tolerated,With Walker
Driving Restrictions No driving
Bathing Restrictions None
Blood Work Repeat CBC and BMP, UA in 1 week with primary
doctor
Other Services VN,PT
Instructions:
Stand-Alone Forms:
Changes to Home Medications: Yes
Discharge Medications:
DC Medications w/original date entered in [employer]
folic acid 1 mg tablet 1 mg PO HS Supplement 02/11/23
calcium polycarbophil 625 mg tablet (FiberCon) 625 mg PO HS Gastrointestinal Issue 08/13/23
cholecalciferol (vitamin D3) 25 mcg (1,000 unit) tablet (Vitamin D3) 25 mcg PO DAILY Supplement ##0 08/28/23
cyanocobalamin (vitamin B-12) 1,000 mcg tablet 1,000 mcg PO DAILY Supplement ##0 08/28/23
magnesium oxide 400 mg PO DAILY Supplement ##0 08/28/23
gabapentin 100 mg capsule 100 mg PO BIDPRN PRN nerve pains 09/14/23
tamsulosin 0.4 mg capsule 0.4 mg PO HS 30 days #30 caps 09/17/23
oxycodone 5 mg tablet 5 mg PO HSPRN PRN severe breakthrough pain 09/20/23
midodrine 5 mg tablet 5 mg PO TID@0800,1300,1800 30 days #90 tabs 09/22/23
naproxen sodium 220 mg tablet (Aleve) 220 mg PO BIDPRN PRN mild pain 09/25/23
sennosides 8.6 mg-docusate sodium 50 mg tablet (Stool Softener-Laxative) 1 tab PO BIDPRN PRN constipation #0 tabs 09/28/23
sodium chloride 1,000 mg soluble tablet 1,000 mg PO BID Electrolyte Repletion #60 tabs 09/28/23
Home Medication Changes
stop Cipro
start NaCl tablets
Pending Results: Yes
Additional Pending Results:
repeat blood cultures are negative to date, but not yet full 72 hrs
[2023-09-28] MEDS: MAGNESIUM OXIDE 500 MG PO (09:20)
[2023-09-28] MEDS: SODIUM CHLORIDE 1 GRAM PO (09:20)
[2023-09-28] MEDS: VITAMIN B-12 1000 MCG PO (09:20)
[2023-09-28] MEDS: ProAmatine 5 MG PO (09:20)
[2023-09-28] MEDS: VITAMIN D3 (cholecalciferol) 25 MCG PO (09:20)
--- NOTE | 2023-09-28 09:32 | CM ---
Addendum entered by June Ramírez RN 09/28/23 10:55:
Reviewed the chart notes and spoke with the patient and spouse at bedside. The patient is being discharged to home today with [facility].
Plan: Discharge to home with [facility]. Patient's spouse will provide transportation home.
Original Note:
IMM reviewed and placed on chart.
--- NOTE | 2023-09-29 09:40 | PN.CDI ---
CDI
- -
CDI:
Physician Documentation Request
Admit Date: 09/25/23 13:21
Dear Doctor Asa,
Patient admitted with hyponatremia.
09/24-09/27 Nursing Documentation: 'Stage 1 pressure injury present on admission sacrum'
Physician documentation of the type and location of wounds is required for compliant documentation. Based on the above clinical findings and your assessment, please provide the following in your progress note:
1. Location of the ulcer/wound, including laterality.
2. Type (etiology) of ulcer/wound:
- Diabetic ulcer
- Arterial (ischemic) ulcer
- Traumatic wound
- Venous stasis ulcer
- Pressure (decubitus) ulcer
- Non-healing surgical wound
- Other
- Unable to determine
3. For a non-pressure ulcer, please indicate the depth/severity:
- Limited to the breakdown of skin
- With fat layer exposed
- With necrosis of muscle
- With necrosis of bone
- Other
- Unable to determine
4. If a pressure ulcer, please also include the stage* of the ulcer:
- Stage 1 - Skin intact, non-blanchable redness
- Stage 2 - Partial thickness loss of dermis, includes intact or open blister
- Stage 3 - Full thickness tissue not including bone, tendon or muscle
- Stage 4 - Full thickness tissue loss, including exposed bone, tendon or muscle
- Unstageable - Full thickness loss in which the base of the ulcer is covered by slough (yellow, soto, vera, green or brown) and/or eschar (soto, brown or black) in the wound bed.
- Unable to determine
Use of terms such as suspected, likely, concern for, or probable (associated with a specific diagnosis that is being evaluated, monitored, or treated as if it exists) are acceptable and can be coded in the inpatient setting, when documented at the
time of discharge.
Thank you,
Yennifer Bell RN, BSN
CDI Specialist
Available via [employer] text
Please use your independent medical judgment in providing your response.
*Source: National Pressure Ulcer Advisory Panel (NPUAP)
== END 2023-09-28 11:10 | disposition home health service (06) | DRG 812 ==
LOC: 2 NORTH 13:21
PROVIDERS: Clinical Nurse Specialist Family Health; Hospitalist; Nurse Practitioner Gerontology; ADMITTING PHYSICIAN Internal Medicine; ATTENDING PHYSICIAN Internal Medicine; CONSULT PHYSICIAN Internal Medicine Cardiovascular Disease; CONSULT PHYSICIAN Internal Medicine Hematology & Oncology; CONSULT PHYSICIAN Student in an Organized Health Care Education/Training Program; EMERGENCY PHYSICIAN Emergency Medicine; FAMILY PHYSICIAN Family Medicine
DX: D46.9 Myelodysplastic syndrome, unspecified (principal); E22.2 Syndrome of inappropriate secretion of antidiuretic hormone; E87.20 Acidosis, unspecified; N39.0 Urinary tract infection, site not specified; D46.4 Refractory anemia, unspecified; I95.1 Orthostatic hypotension; E86.0 Dehydration; L89.151 Pressure ulcer of sacral region, stage 1
CPT/HCPCS: 36430; 70450; 80048; 80053; 81003; 81015; 82533; 83605; 83690; 83930; 83935; 84300; 84443; 84484; 85025; 85027; 86850; 86900; 86901; 86920; 87040; 93005; 96360; 97116; 97162; 97166; 97530; 99285; P9016

== ENCOUNTER → 2023-09-29 13:37 | Outpatient (REF) | payer MEDICARE, BC, SELFPAY ==
[2023-09-29 15:40] LABS: Hematocrit 34.4 % (39.0-52.0); Hemoglobin 11.6 g/dL (13.0-18.0); Mean Corp Hgb Conc. 33.7 g/dL (33.0-37.0); Mean Corpuscular Hgb 32.4 pg (27.0-31.0); Mean Corpuscular Volume 96.1 fL (80.0-94.0); Mean Platelet Volume 8.9 fL (7.4-10.4); Platelet Count 328 10^3/uL (130-400); Red Blood Cell Count 3.58 10^6/uL (4.70-6.10); Red Cell Dist. Width 23.9 % (11.5-14.5); White Blood Cell Count 9.8 10^3/uL (4.8-10.8)
[2023-09-29 16:03] LABS: Absolute Neutrophils -Man Diff 4.2 10^3/uL (1.4-6.5); Anisocytosis 1+; Atypical Lymphocytes 2 %; Band Neutrophils 7 % (0-3); Eosinophils 9 % (0-6); Lymphocytes 13 % (20-51); Metamyelocytes 4 % (-); Monocytes 19 % (2-9); Myelocytes 10 % (-); Normal RBC Morphology No; Platelets Checked Yes; Segmented Neutrophils 36 % (42-75)
[2023-09-29 16:04] LABS: Macrocytosis 1+; Total Cells Counted 100
== END ==
LOC: OIDL 13:37
PROVIDERS: ATTENDING PHYSICIAN Internal Medicine Hematology & Oncology
DX: E83.110 Hereditary hemochromatosis (principal)
CPT/HCPCS: 85025

== ENCOUNTER 2023-10-01 18:05 | Inpatient (IN) | payer MEDICARE, BC, SELFPAY ==
[2023-10-01] VITALS (11 sets, daily range): BP systolic 99–155; BP diastolic 59–102; BMI 28.5; BMI 27.6
--- NOTE | 2023-10-01 13:35 | ED.GENMED ---
History of Present Illness
<Staci Terrazas PA-C - Last Filed: 10/01/23 20:25>
General
Chief Complaint: Weakness
Source: patient
Exam Limitations: none
Time Seen by Provider: 10/01/23 13:34
Nursing documentation reviewed up to this point in time: agreed with
History of Present Illness
History of Present Illness:
73-year-old male with a past medical history of diverticulitis, myelodysplastic syndrome, hemochromatosis presenting emergency department today with concerns of weakness. Patient follows with Dr. Torres for hematologic oncology. Patient reports
that he has pain in his legs when he walks and overall feels weak and fatigued. Patient reports that he is scheduled to have a blood transfusion tomorrow but he felt too weak today and had to be assisted from his car. Patient states that he
receives blood transfusions even with a normal hemoglobin. Patient denies chest pain, shortness of breath, abdominal pain. Of note, patient does note that he has been coughing a lot recently. Patient denies any feelings of fevers or chills.
Patient states that he is currently not under treatment for his myelodysplastic syndrome because he states that they will frequently stop and start treatment. Of note, patient was recently discharged from the hospital on 09/27 for symptomatic
hyponatremia and also recently hospitalized for urosepsis.
Past History
<Staci Terrazas PA-C - Last Filed: 10/01/23 20:25>
Past History
ED Past Medical History: Cancer (MDS) and Other (Hemochromatosis, rheumatoid arthritis, mild intermittent asthma)
ED Past Surgical History: Appendectomy
Social History
Tobacco: Non-smoker
Alcohol: None
Drug: None
Personal:
Living: with family
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
Family History
Family History: Other (Noncontributory)
Review of Systems
<Staci Terrazas PA-C - Last Filed: 10/01/23 20:25>
Review of Systems
All Other Systems: ROS reviewed and negative except as documented in HPI and ROS
Phy Exam
<Staci Terrazas PA-C - Last Filed: 10/01/23 20:25>
Physical Exam
Physical Exam:
General: Patient is chronically ill appearing and in no acute distress; non-toxic
Skin: Patient has scattered areas of ecchymosis on his bilateral upper extremities
Head: Normocephalic, atraumatic
Eyes: Sclera non-icteric. EOMs intact.
Cardiac: Regular rate and rhythm, no murmur
Peripheral Vascular: Mild lower extremity edema bilaterally, 2+ dorsalis pedis pulses
Pulm: Normal respiratory effort, no wheezes, rales, rhonchi
Abdomen: No abdominal tenderness to palpation
Neuro: CN II-XII intact, no focal neurologic deficits.
Psychiatric: Appropriate mood and affect.
Course
<Staci Terrazas PA-C - Last Filed: 10/01/23 20:25>
Orders/Labs/Results
Orders:
Orders
10/01/23 13:47
IV Insert/Care/Rem.- Treatment PRN
10/01/23 14:07
Type+Screen Urgent
Complete Blood Count/With Diff Urgent
Comprehensive Metabolic Panel Urgent
Magnesium Urgent
Manual Differential Urgent
Serum Osmolality Urgent
10/01/23 14:33
0.9% Sodium Chloride 1000 ml [Nss] 1,000 ml IV BOLUS
10/01/23 14:47
CR Chest - 2 Views Urgent
Comment:
Reason For Exam: cough, shortness of breath, weakness
10/01/23 Dinner
Regular
At Your Request: Full Participation
Does patient need a safe tray?: No
10/01/23 15:09
Rectal Temp- Treatment ONCE
10/01/23 15:13
Add On- LAB Urgent
Tests Added?: serum osmolality, urine sodium
10/01/23 15:28
COVID-19 Antigen Urgent
Source: Nasal Swab
Lactic Acid Urgent
Osmolality, Random Urine Urgent
Date Specimen was Collected: 10/01/23
Time Specimen was Collected: 15:18
Urinalysis Reflex To Culture Urgent
Date Specimen was Collected: 10/01/23
Time Specimen was Collected: 15:18
Urine Microscopic Reflex Cult Urgent
Blood Culture Routine
SAMEERA Source: Blood/Venous
Specimen Description:
Blood Culture Urgent
SAMEERA Source: Blood/Venous
Specimen Description:
10/01/23 16:58
ONCOLOGY CONSULT Routine
Consulting Provider: Shantel Lee
Was physician already notified: Yes
10/01/23 17:05
0.9% Sodium Chloride 1000 ml [Nss] 1,000 ml IV BOLUS
10/01/23 17:07
INFECTIOUS DISEASE CONSULT Routine
Consulting Provider: Charlotte Romero
Was physician already notified: Yes
10/01/23 17:09
NEPHROLOGY CONSULT Routine
Consulting Provider: Mariia Pena
Was physician already notified: Yes
10/01/23 17:10
BMP [Basic Metabolic Panel] Q6H
10/01/23 17:14
Admit/Transfer Patient As Directed
Co-Sign Provider:
Level of Care: Inpatient admission
Assign to:: IMU- Intermediate Care
Physician / Group: Hospitalist
Diagnosis: Hyponatremia
Reason for Hospitalization: Weakness
Expected length of stay greater than two midnights?: Yes
ELOS- Estimated Length of Stay in days: 3
I certify the patient meets the requirements for IP care: Yes
10/01/23 17:15
PRN Pain Medication Management As Directed
May give lesser potent ordered pain med per pt: Yes
preference::
Protocol:: Medication orders for pain may be administered in a
manner that supports deferring to patient preference
when the pt is:
-Requesting an ordered lesser potent pain medication.
Least to most potent pain medications are defined as:
acetaminophen < NSAID < tramadol < opioids (morphine,
oxycodone, hydromorphone).
- Requesting a lesser dose of the same medication IF
ORDERED.
- Requesting a less intrusive route of administration
if both routes are prescribed by the provider (PO <
IV).
10/01/23 17:23
Code Status As Directed
Resuscitation Status: Do not resuscitate
Reached after discussion with pt or family/Healthcare POA: Yes
DNR Bracelet Application ONCE
10/01/23 18:00
Cefepime HCl [Maxipime] 2,000 mg IV Q8H
MetroNIDAZOLE 500 MG/100 ML [Flagyl 500 mg] 100 ml IV Q8H
VANCOMYCIN Pharmacy to Dose [VANCOCIN Pharmacy to Dose] 1 each Pharmacy To Prepare [Call Pharmacy To Prepare] 0 ml IV PER PROTOCOL
10/01/23 18:41
Gabapentin [Neurontin] 100 mg PO BIDPRN PRN
10/01/23 19:04
Bisacodyl [Dulcolax] 10 mg RECTAL [id number] PRN
Docusate W/Senna [Senokot-S] 1 tablet PO BIDPRN PRN
Enoxaparin Sodium [Lovenox] 40 mg SC QPM
Midodrine [ProAmatine] 5 mg PO TID@0800,1300,1800
Oxycodone [Roxicodone] 5 mg PO HSPRN PRN
Polyethylene Glycol Powder [Miralax] 17 grams PO DAILYPRN PRN
10/01/23 19:04
Activity As Directed
Activity Level: Out of Bed-Early Mobility
Vital Signs As Directed
Frequency: Per unit guidelines
Weight As Directed
Frequency: Daily
Pulse Ox/spot Check [RESP] Routine
Quantity: 1
DX Deep Vein Thrombosis Video Routine
10/01/23 19:12
Naproxen [Naprosyn] 250 mg PO BIDPRN PRN
10/01/23 20:00
Sodium Chloride 1 gram PO BID
10/01/23 20:05
Urinalysis Reflex To Culture Routine
Date Specimen was Collected: 10/01/23
Time Specimen was Collected: 20:03
10/01/23 22:00
Calcium Polycarbophil [Fibercon] 625 mg PO HS
FOLic ACID [Folvite] 1 mg PO HS
Tamsulosin [Flomax] 0.4 mg PO HS
10/01/23 23:10
BMP [Basic Metabolic Panel] Q6H
10/02/23 05:10
BMP [Basic Metabolic Panel] Q6H
10/02/23 06:00
CBC/With Diff [Complete Blood Count/With Diff] IN AM
10/02/23 08:00
Cholecalciferol (Vitamin D3) [VITAMIN D3 (cholecalciferol)] 25 mcg PO DAILY
Cyanocobalamin [Vitamin B-12] 1,000 mcg PO DAILY
Magnesium Oxide 500 mg PO DAILY
10/02/23 11:10
BMP [Basic Metabolic Panel] Q6H
Abnormal Lab Results
10/01/23 10/01/23
14:07 15:28
WBC 13.8 H 10^3/uL
(4.8-10.8)
RBC 3.20 L 10^6/uL
(4.70-6.10)
Hgb 10.4 L g/dL
(13.0-18.0)
Hct 31.0 L %
(39.0-52.0)
MCV 96.9 H fL
(80.0-94.0)
MCH 32.5 H pg
(27.0-31.0)
RDW 23.4 H %
(11.5-14.5)
Abs Neuts (Manual) 7.1 H 10^3/uL
(1.4-6.5)
Lymphocytes (Manual) 12 L %
(20-51)
Monocytes (Manual) 14 H %
(2-9)
Eosinophils (Manual) 13 H %
(0-6)
Sodium 125 L mmol/L
(135-145)
Chloride 93 L mmol/L
(98-107)
Glucose 144 H mg/dl
(70-99)
Serum Osmolality 271 L mOsm/kg
(275-300)
Alkaline Phosphatase 134 H U/L
(38-126)
Total Protein 6.2 L g/dl
(6.3-8.2)
Albumin 3.0 L g/dl
(3.5-5.0)
Urine Bilirubin 1+ A
(Negative)
Leukocyte Esterase Rfl Trace A
(Negative)
Urine Osmolality 908 H mOsm/kg
(300-900)
10/01/23 14:07
Vital Signs
Initial and Last Documented VS:
Initial Vital Signs
Temp Pulse Resp BP Pulse Ox
100.3 F 84 18 101/59 97
10/01/23 12:48 10/01/23 12:48 10/01/23 12:48 10/01/23 12:48 10/01/23 12:48
Last Documented Vital Signs
Temp Pulse Resp BP Pulse Ox
98.6 F 74 18 122/68 96
10/01/23 19:22 10/01/23 17:45 10/01/23 17:45 10/01/23 17:24 10/01/23 17:45
<Paramjit Song MD - Last Filed: 10/01/23 16:35>
Orders/Labs/Results
Orders:
Orders
10/01/23 13:47
IV Insert/Care/Rem.- Treatment PRN
10/01/23 14:07
Type+Screen Urgent
Complete Blood Count/With Diff Urgent
Comprehensive Metabolic Panel Urgent
Magnesium Urgent
Manual Differential Urgent
Serum Osmolality Urgent
10/01/23 14:33
0.9% Sodium Chloride 1000 ml [Nss] 1,000 ml IV BOLUS
10/01/23 14:47
CR Chest - 2 Views Urgent
Comment:
Reason For Exam: cough, shortness of breath, weakness
10/01/23 Dinner
Regular
At Your Request: Full Participation
Does patient need a safe tray?: No
10/01/23 15:09
Rectal Temp- Treatment ONCE
10/01/23 15:13
Add On- LAB Urgent
Tests Added?: serum osmolality, urine sodium
10/01/23 15:28
COVID-19 Antigen Urgent
Source: Nasal Swab
Lactic Acid Urgent
Osmolality, Random Urine Urgent
Date Specimen was Collected: 10/01/23
Time Specimen was Collected: 15:18
Urinalysis Reflex To Culture Urgent
Date Specimen was Collected: 10/01/23
Time Specimen was Collected: 15:18
Urine Microscopic Reflex Cult Urgent
Blood Culture Routine
SAMEERA Source: Blood/Venous
Specimen Description:
Blood Culture Urgent
SAMEERA Source: Blood/Venous
Specimen Description:
10/01/23 16:58
ONCOLOGY CONSULT Routine
Consulting Provider: Shantel Lee
Was physician already notified: Yes
10/01/23 17:05
0.9% Sodium Chloride 1000 ml [Nss] 1,000 ml IV BOLUS
10/01/23 17:07
INFECTIOUS DISEASE CONSULT Routine
Consulting Provider: Charlotte Romero
Was physician already notified: Yes
10/01/23 17:09
NEPHROLOGY CONSULT Routine
Consulting Provider: Mariia Pena
Was physician already notified: Yes
10/01/23 17:10
BMP [Basic Metabolic Panel] Q6H
10/01/23 17:14
Admit/Transfer Patient As Directed
Co-Sign Provider:
Level of Care: Inpatient admission
Assign to:: IMU- Intermediate Care
Physician / Group: Hospitalist
Diagnosis: Hyponatremia
Reason for Hospitalization: Weakness
Expected length of stay greater than two midnights?: Yes
ELOS- Estimated Length of Stay in days: 3
I certify the patient meets the requirements for IP care: Yes
10/01/23 17:15
PRN Pain Medication Management As Directed
May give lesser potent ordered pain med per pt: Yes
preference::
Protocol:: Medication orders for pain may be administered in a
manner that supports deferring to patient preference
when the pt is:
-Requesting an ordered lesser potent pain medication.
Least to most potent pain medications are defined as:
acetaminophen < NSAID < tramadol < opioids (morphine,
oxycodone, hydromorphone).
- Requesting a lesser dose of the same medication IF
ORDERED.
- Requesting a less intrusive route of administration
if both routes are prescribed by the provider (PO <
IV).
10/01/23 17:23
Code Status As Directed
Resuscitation Status: Do not resuscitate
Reached after discussion with pt or family/Healthcare POA: Yes
DNR Bracelet Application ONCE
10/01/23 18:00
Cefepime HCl [Maxipime] 2,000 mg IV Q8H
MetroNIDAZOLE 500 MG/100 ML [Flagyl 500 mg] 100 ml IV Q8H
VANCOMYCIN Pharmacy to Dose [VANCOCIN Pharmacy to Dose] 1 each Pharmacy To Prepare [Call Pharmacy To Prepare] 0 ml IV PER PROTOCOL
10/01/23 18:41
Gabapentin [Neurontin] 100 mg PO BIDPRN PRN
10/01/23 19:04
Bisacodyl [Dulcolax] 10 mg RECTAL [id number] PRN
Docusate W/Senna [Senokot-S] 1 tablet PO BIDPRN PRN
Enoxaparin Sodium [Lovenox] 40 mg SC QPM
Midodrine [ProAmatine] 5 mg PO TID@0800,1300,1800
Oxycodone [Roxicodone] 5 mg PO HSPRN PRN
Polyethylene Glycol Powder [Miralax] 17 grams PO DAILYPRN PRN
10/01/23 19:04
Activity As Directed
Activity Level: Out of Bed-Early Mobility
Vital Signs As Directed
Frequency: Per unit guidelines
Weight As Directed
Frequency: Daily
Pulse Ox/spot Check [RESP] Routine
Quantity: 1
DX Deep Vein Thrombosis Video Routine
10/01/23 19:12
Naproxen [Naprosyn] 250 mg PO BIDPRN PRN
10/01/23 20:00
Sodium Chloride 1 gram PO BID
10/01/23 20:05
Urinalysis Reflex To Culture Routine
Date Specimen was Collected: 10/01/23
Time Specimen was Collected: 20:03
10/01/23 22:00
Calcium Polycarbophil [Fibercon] 625 mg PO HS
FOLic ACID [Folvite] 1 mg PO HS
Tamsulosin [Flomax] 0.4 mg PO HS
10/01/23 23:10
BMP [Basic Metabolic Panel] Q6H
10/02/23 05:10
BMP [Basic Metabolic Panel] Q6H
10/02/23 06:00
CBC/With Diff [Complete Blood Count/With Diff] IN AM
10/02/23 08:00
Cholecalciferol (Vitamin D3) [VITAMIN D3 (cholecalciferol)] 25 mcg PO DAILY
Cyanocobalamin [Vitamin B-12] 1,000 mcg PO DAILY
Magnesium Oxide 500 mg PO DAILY
10/02/23 11:10
BMP [Basic Metabolic Panel] Q6H
Abnormal Lab Results
10/01/23 10/01/23
14:07 15:28
WBC 13.8 H 10^3/uL
(4.8-10.8)
RBC 3.20 L 10^6/uL
(4.70-6.10)
Hgb 10.4 L g/dL
(13.0-18.0)
Hct 31.0 L %
(39.0-52.0)
MCV 96.9 H fL
(80.0-94.0)
MCH 32.5 H pg
(27.0-31.0)
RDW 23.4 H %
(11.5-14.5)
Abs Neuts (Manual) 7.1 H 10^3/uL
(1.4-6.5)
Lymphocytes (Manual) 12 L %
(20-51)
Monocytes (Manual) 14 H %
(2-9)
Eosinophils (Manual) 13 H %
(0-6)
Sodium 125 L mmol/L
(135-145)
Chloride 93 L mmol/L
(98-107)
Glucose 144 H mg/dl
(70-99)
Serum Osmolality 271 L mOsm/kg
(275-300)
Alkaline Phosphatase 134 H U/L
(38-126)
Total Protein 6.2 L g/dl
(6.3-8.2)
Albumin 3.0 L g/dl
(3.5-5.0)
Urine Bilirubin 1+ A
(Negative)
Leukocyte Esterase Rfl Trace A
(Negative)
Urine Osmolality 908 H mOsm/kg
(300-900)
10/01/23 14:07
Vital Signs
Initial and Last Documented VS:
Initial Vital Signs
Temp Pulse Resp BP Pulse Ox
100.3 F 84 18 101/59 97
10/01/23 12:48 10/01/23 12:48 10/01/23 12:48 10/01/23 12:48 10/01/23 12:48
Last Documented Vital Signs
Temp Pulse Resp BP Pulse Ox
98.6 F 74 18 122/68 96
10/01/23 19:22 10/01/23 17:45 10/01/23 17:45 10/01/23 17:24 10/01/23 17:45
Rachellelt;Staci Terrazas PA-C - Last Filed: 10/01/23 20:25>
MDM/Problems Addressed
Differential Diagnosis Includes:
Differentials include symptomatic hyponatremia, urinary tract infection, pneumonia, persistent anemia, bacteremia
MDM/Problems Addressed:
Weakness, fatigue:
73-year-old male with a past medical history of diverticulitis, myelodysplastic syndrome, hemochromatosis presenting emergency department today with concerns of weakness. Patient follows with Dr. Torres for hematologic oncology. Patient reports
that he has pain in his legs when he walks and overall feels weak and fatigued. Patient reports that he is scheduled to have a blood transfusion tomorrow but he felt too weak today and had to be assisted from his car. On physical exam, he is
chronically ill-appearing, he is scattered areas of ecchymosis to his bilateral extremities. He is slightly hypotensive and does have a low-grade fever. His blood work reveals hyponatremia of 125. Considering patient's symptomatic hyponatremia,
recent hospitalization, recent history of urosepsis, admit for treatment and further evaluation as well as workup for possible bacteremia. Patient referred for admission by hospitalist.
Chronic conditions affecting care:
Myelodysplastic syndrome
Acute Exacerbation and/or Progression of Chronic Illness:
Myelodysplastic syndrome
<Staic Terrazas PA-C - Last Filed: 10/01/23 20:25>
*Critical Care Note
Total Time (30-74mins, 75-104mins- exclusive of procedures): Not Applicable
ED Attending Note
<Staci Terrazas PA-C - Last Filed: 10/01/23 20:25>
-
Portions of this chart may have been created with voice recognition software.� Occasional wrong word or��sound alike� substitutions may have occurred due to the inherent limitations of voice recognition software.
<Paramjit Song MD - Last Filed: 10/01/23 16:35>
ED Attending Note
Patient seen and examined by attending physician: Yes
ED Attending Note:
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 Patient feels as though
he may need blood transfusion. Denies fever or chills. Denies chest pain or shortness of breath. Denies coughing. Denies nausea, vomiting, or diarrhea. Patient states that he has been careful with his fluid intake, since being discharged home,
limiting himself to 32 to 48 ounces of water per day.
Physical Exam
General: no apparent distress, not acutely ill. afebrile. weak appearing
Head: nc/at. eomi
Neck: supple. normal range of motion.
Heart: s1/s2 regular rate and rhythm, no murmur. equal radial pulses.
Lungs: no acute respiratory distress. clear bilaterally
Abdomen: normal bowel sounds. not tender.
Neuro: alert and oriented. no focal neurological deficits
Skin: no rash
Psychiatric: well kept. interactive and cooperative
Extremities: no edema. no calf tenderness.
History and exam concerning for recurrent symptomatic hyponatremia. However, in light low-grade fever along with recent sepsis secondary to UTI, concern for potential bacteremia as well. As such, blood cultures drawn. Patient will be admitted for
further evaluation and treatment. In addition, with multiple, recurrent admission to the hospital, patient may need stay at short-term rehab prior to being discharged home.
Discharge Plan
Departure
Patient Disposition: Admit
Date of Disposition: 10/01/23
Time of Disposition: 16:39
Admit to: Med/Surg
Presentation/result/management discussed w/ accepting MD/DO: Hospitalist
Patient with high blood pressure during this ER visit?: No
Condition: Fair
Discharge Problem:
Hyponatremia, Myelodysplastic syndrome
Interventions
Interventions:
*Risk Screen - Suicide Last Done: 10/01/23 12:48
*General Assessment Last Done: 10/01/23 12:48
*Neglect/Abuse Screening Last Done: 10/01/23 12:48
ED- Fall Risk Assessment Last Done: 10/01/23 14:18
*Nursing Disposition Last Done: 10/01/23 18:58
ED- Cardiac Assessment Last Done: 10/01/23 14:18
ED- Neurological Assessment Last Done: 10/01/23 14:18
ED- Pulmonary Assessment Last Done: 10/01/23 14:18
Discharge Date and Time
Discharge Date/Time: 10/01/23 18:59
[2023-10-01 14:26] LABS: ALT (SGPT) 41 U/L (0-50); AST (SGOT) 36 U/L (17-59); Alkaline Phosphatase 134 U/L (38-126); Blood Urea Nitrogen 20 mg/dl (9-20); Calcium 8.6 mg/dl (8.4-10.2); Carbon Dioxide 26 mmol/L (22-30); Chloride 93 mmol/L (98-107); Glucose 144 mg/dl (70-99); Magnesium 1.8 mg/dl (1.6-2.3); Potassium 5.1 mmol/L (3.5-5.1); Sodium 125 mmol/L (135-145); Total Bilirubin 0.8 mg/dl (0.2-1.3); Total Protein 6.2 g/dl (6.3-8.2); eGFR > 60.00
[2023-10-01] MEDS: NSS 1000 IV (14:40)
[2023-10-01 15:03] LABS: Hemoglobin 10.4 g/dL (13.0-18.0); Mean Corp Hgb Conc. 33.5 g/dL (33.0-37.0); Mean Corpuscular Hgb 32.5 pg (27.0-31.0); Mean Corpuscular Volume 96.9 fL (80.0-94.0); Mean Platelet Volume 8.8 fL (7.4-10.4); Platelet Count 297 10^3/uL (130-400); Red Cell Dist. Width 23.4 % (11.5-14.5); White Blood Cell Count 13.8 10^3/uL (4.8-10.8)
[2023-10-01 15:04] LABS: Anisocytosis 1+; Normal RBC Morphology No; Platelets Checked Yes
[2023-10-01 15:05] LABS: Absolute Neutrophils -Man Diff 7.1 10^3/uL (1.4-6.5); Band Neutrophils 0 % (0-3); Eosinophils 13 % (0-6); Lymphocytes 12 % (20-51); Metamyelocytes 3 % (-); Monocytes 14 % (2-9); Myelocytes 3 % (-); Segmented Neutrophils 52 % (42-75); Total Cells Counted 100
[2023-10-01 15:50] LABS: Urine Albumin Trace (Neg - Trace); Urine Bilirubin 1+ (Negative); Urine Character Clear (Clear); Urine Color Amber; Urine Glucose Negative (Negative); Urine Ketone Negative (Negative); Urine Leukocyte Trace (Negative); Urine Nitrite Negative (Negative); Urine Occult Blood Negative (Negative); Urine Specific Gravity 1.015 (<1.030); Urine Urobilinogen 1+ (Neg - 1+)
[2023-10-01 16:04] LABS: Lactic Acid 1.5 mmol/L (0.7-2.0); Osmolality Urine 908 mOsm/kg (300-900)
[2023-10-01 16:07] LABS: COVID-19 Antigen Negative (Negative)
[2023-10-01 16:11] LABS: Osmolality Serum 271 mOsm/kg (275-300)
[2023-10-01 16:17] LABS: Urine Red Blood Cell 0-2 /HPF (0-2); Urine White Cell 0-2 /HPF (0-5)
--- NOTE | 2023-10-01 17:39 | HPS.HSE ---
Addendum entered and electronically signed by Santos Louise MD 10/01/23 18:11:
73-year-old male who presents with chief complaint of weakness. Patient was seen by a home health aide today who recorded his systolic blood pressure less than 100. She recommended he come to the hospital. He denies any fevers, nausea, vomiting,
diarrhea, abdominal pain, chest pain, shortness of breath, dysuria. He recently completed a 2-week course of antibiotics for urinary tract infection.
99/68, 72, 20, 100.5 F, 97% RA
NAD, awake and alert, appears chronically ill
EOMI/PERRLA, no scleral icterus
RRR, normal S1/S2
CTAB
+BS/soft/NT/ND
CN2-12 intact
2+ B/L LE edema
WBC 13.8, Hb 10.4, plt 297
Na 125, K 5.1, Cr 0.7
lactic acid 1.5
CXR: Subtle basilar opacity may reflect atelectasis or mild pneumonia in the appropriate clinical setting.
CT brain 09/25/23: No acute intracranial abnormality.
SIRS:
-currently no source of infection identified
-Immunocompromised due to myelodysplastic syndrome
-follow BCxs
-start empiric Cefepime/Vanco/Flagyl
-c/s ID
-received 1L NS in ER, will bolus another 1L NS. Will have to monitor Na closely with IVFs
Acute on chronic hypotonic hyponatremia:
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
-with hypotension and SIRS pts needs IVFs at this moment (as above)
-Q6H BMP
-c/s renal
-with weakness and hypontremia of 125, should the Na get much lower pt may require 3% NS
Original Note:
Family Physician
-
Family Physician: Rosalinda Galloway
Chief Complaint
-
Weakness
History of Present Illness
73-year-old male with history of MDS, hemochromatosis, lumbar spinal stenosis, neuropathy, chronic anemia, chronic hyponatremia presented with complains of weakness. He had multiple episodes in the past few months for same reasons. Patient was
recently hospitalized with low hemoglobin and received 3 transfusions. Since discharge, patient reports he felt well but started to notice weakness again for the last couple days. He has difficulty moving his legs and report they feel weak and
there is pain. Patient also reported that another reason for coming to the hospital today was that while visiting nurse checked his blood pressure in the morning it was 97/67. Patient recently completed 2-week course of ciprofloxacin for
asymptomatic urinary tract infection. Previous urine culture showed Klebsiella.
Medical History
Past Medical History
Past Medical History: Reports Asthma
Additional Past Medical History:
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
rheumatoid arthritis, lumbar spinal stenosis, Klebsiella UTI, BPH.
Past Surgical History: Reports Appendectomy
Additional Past Surgical History:
Colonoscopy, left femur fracture repair
Social History
Tobacco: Non-smoker
Drug: None
Personal:
Living: With Family
Employment: Retired
Family History
Family History: Not pertinent
Allergies / Home Medications
Allergies reflects when Allergies were last updated in [facility].
Home Medications with original date entered in [facility]
Allergy/Medication List:
Allergies
Allergy/AdvReac Type Severity Reaction Status Date / Time
Penicillins Allergy Rash; Verified 10/01/23 12:48
tolerates
cephalosporins
Sulfa (Sulfonamide Allergy Rash Verified 10/01/23 12:48
Antibiotics)
Home Medications
folic acid 1 mg tablet 1 mg PO HS Supplement 02/11/23
calcium polycarbophil 625 mg tablet (FiberCon) 625 mg PO HS Gastrointestinal Issue 08/13/23
cholecalciferol (vitamin D3) 25 mcg (1,000 unit) tablet (Vitamin D3) 25 mcg PO DAILY Supplement ##0 08/28/23
cyanocobalamin (vitamin B-12) 1,000 mcg tablet 1,000 mcg PO DAILY Supplement ##0 08/28/23
magnesium oxide 400 mg PO DAILY Supplement ##0 08/28/23
gabapentin 100 mg capsule 100 mg PO BIDPRN PRN nerve pains 09/14/23
tamsulosin 0.4 mg capsule 0.4 mg PO HS 30 days #30 caps 09/17/23
oxycodone 5 mg tablet 5 mg PO HSPRN PRN severe breakthrough pain 09/20/23
midodrine 5 mg tablet 5 mg PO TID@0800,1300,1800 30 days #90 tabs 09/22/23
naproxen sodium 220 mg tablet (Aleve) 220 mg PO BIDPRN PRN mild pain 09/25/23
sennosides 8.6 mg-docusate sodium 50 mg tablet (Stool Softener-Laxative) 1 tab PO BIDPRN PRN constipation #0 tabs 09/28/23
sodium chloride 1,000 mg soluble tablet 1,000 mg PO BID Electrolyte Repletion #60 tabs 09/28/23
Review of Systems
-
History Source: Patient
Constitutional: Reports Fever; Denies Weight Loss or Sleep Disturbance
Respiratory: Denies Cough
Cardiac: Denies Chest Pain
Abdomen/GI: Denies Abdominal Pain
: Denies Dysuria, Frequency or Flank Pain
Musculoskeletal: Denies Joint Pain
Skin: Denies Itching
Neurological: Denies Dizzy
Endocrine: Denies Polyuria
Hematologic/Lymphatic: Denies Bleeding
Psych: Reports Calm
Physical Exam
Vital Signs
Vital Signs
Temp Pulse Resp BP Pulse Ox
100.5 F H 72 20 99/68 97
10/01/23 16:07 10/01/23 16:00 10/01/23 16:00 10/01/23 16:00 10/01/23 15:30
Physical Exam
General: Well Nourished and No Apparent Distress
HEENT: NormoCephalic and Anicteric
Respiratory: Clear
Cardiac: Regular Rhythm
GI: Soft, Non Tender and Non Distended
Musculoskeletal: Other (Pain with lower extremity movements.)
Skin: Warm and Dry
Neuro: Awake, Alert and Oriented
Psych: Calm
Laboratory Results
-
10/01/23 14:07
Laboratory Results
Lactic Acid 1.5 mmol/L (0.7-2.0) 10/01/23 15:28
Total Bilirubin 0.8 mg/dl (0.2-1.3) 10/01/23 14:07
AST 36 U/L (17-59) 10/01/23 14:07
ALT 41 U/L (0-50) 10/01/23 14:07
Alkaline Phosphatase 134 U/L (38-126) H 10/01/23 14:07
Data Reviewed
-
Lab Data: Labs Reviewed by me, Discussed with Physician and Discussed with Patient
Impression/Plan
-
#Generalized weakness
-Likely secondary to symptomatic Hyponatremia vs Dehydration
-Admit to IMU
-Consult nephro
-Follow BMP every 6
-Monitor blood pressure
-IV fluids
- Covid negative
#Acute on Chronic Hyponatremia
- IVF
- continue sodium chloride tablets
#Hx MDS periodically requiring transfusion goal hgb >8.5 outpt
-Hemoglobin 10.4 on day of arrival
#Leukocytosis likely MDS flare
- Low-grade fever
- Consult ID
- Started empiric vanco cefepime and metronidazole
- check BC and UC
#hx hemochromatosis
-Consult onc
transfuse for goal hgb >8.5
#Chronic anemia secondary to MDS
#Trisomy 8 myelodysplasia
# Moderate arthritis
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
#Lumbar spine stenosis
#neuropathy/lower ext muscle cramps
cont home prn gabapentin,oxycodone, tylenol
DVT ppx: Lovenox
Code: DNR
[2023-10-01] MEDS: FLAGYL 500 MG 100 IV (18:47)
[2023-10-01] MEDS: NEURONTIN 100 MG PO (18:54)
--- NOTE | 2023-10-01 19:20 | PHA.VAN.IN ---
Assessment
- Assessment
Renal Function: Appears similar to baseline
Concomitant Antimicrobials: cefepime, metronidazole
Plan
- Plan
Initial / Loading Dose: vanc 2000mg pending administration
Maintenance Regimen: dosing by level for now
Monitoring: random level 10/01 599
Pharmacokinetics Vancomycin I
- -
Patient Age: 73
Patient Sex: Male
Vancomycin Day #: 1
Indication: Bacteremia
Requesting Provider: Dr. Louise
Pertinent Antimicrobial Allergies:
penicillin - rash; tolerates cephalosporins
sulfa - rash
Height / Weight:
Height 6 ft 1 in
Actual Weight 95.2 kg
- Vital Signs / Lab Results
Temp Pulse Resp BP Pulse Ox
100.5 F H 74 18 122/68 96
10/01/23 16:07 10/01/23 17:45 10/01/23 17:45 10/01/23 17:24 10/01/23 17:45
Lab Results - Hematology
10/01/23
14:07
WBC 13.8 H
Band Neutrophils 0 D
Lab Results - Chemistry
10/01/23
14:07
BUN 20
Creatinine 0.7
Albumin 3.0 L
10/01/23
15:28
Lactic Acid 1.5
Lab Results - Urine
10/01/23
15:28
Urine Nitrite (Reflex) Negative
Leukocyte Esterase Rfl Trace A
Urine WBC (Reflex) 0-2
Ur Squamous Epith Cells 3-5
[2023-10-01] MEDS: ProAmatine PO (19:36)
[2023-10-01] MEDS: ROXICODONE 5 MG PO (19:37)
[2023-10-01] MEDS: LOVENOX 40 MG SC (19:37)
[2023-10-01] MEDS: STERILE WATER FOR INJECTION 10 ML IV (19:37)
[2023-10-01] MEDS: MAXIPIME 2000 MG IV (19:38)
[2023-10-01] MEDS: VANCOCIN 540 MG IV (20:01)
[2023-10-01 20:12] LABS: Urine Albumin Negative (Neg - Trace); Urine Bilirubin Negative (Negative); Urine Character Clear (Clear); Urine Color Yellow; Urine Glucose Negative (Negative); Urine Ketone Negative (Negative); Urine Leukocyte Negative (Negative); Urine Nitrite Negative (Negative); Urine Occult Blood Negative (Negative); Urine Urobilinogen Negative (Neg - 1+)
[2023-10-01] MEDS: FIBERCON 625 MG PO (21:23)
[2023-10-01] MEDS: FOLVITE 1 MG PO (21:23)
[2023-10-01] MEDS: FLOMAX 0.4 MG PO (21:23)
[2023-10-01] MEDS: SODIUM CHLORIDE 1 GRAM PO (21:23)
[2023-10-02] VITALS (10 sets, daily range): BP systolic 89–120; BP diastolic 58–70; BMI 27.6
[2023-10-02 00:24] LABS: Blood Urea Nitrogen 15 mg/dl (9-20); Calcium 7.9 mg/dl (8.4-10.2); Carbon Dioxide 24 mmol/L (22-30); Chloride 96 mmol/L (98-107); Estimated Creatinine Clearance 120 ml/min; Glucose 141 mg/dl (70-99); Potassium 4.4 mmol/L (3.5-5.1); Sodium 122 mmol/L (135-145); eGFR > 60.00
[2023-10-02] MEDS: SODIUM CHLORIDE 3% 250 IV ×2 (00:55→23:48)
[2023-10-02] MEDS: FLAGYL 500 MG 100 IV ×2 (01:02→09:01)
[2023-10-02] MEDS: STERILE WATER FOR INJECTION 10 ML IV ×3 (01:02→17:32)
[2023-10-02] MEDS: MAXIPIME 2000 MG IV ×3 (01:02→17:32)
--- NOTE | 2023-10-02 01:19 | PTCARENOTE ---
pt admitted from ED at shift change. pt is AAOx3- SQUAXIN, flat affect. able to make needs known. incontinent of urine at times, able to use urinal sometimes. VSS, RA 96%. left forearm abrasion, new foam applied, foam applied to sacrum, stage 2 noted.
able to take pills with water without issues. BMP drawn per order- Na came back 122. notified covering THERAPIST RRT. orders entered for 3% sodium chloride. new IV placed and bag hung. pt with intense leg spasms which per patient happen at home too. given
PRN meds, pt able to sleep. oriented to new room, call deal within reach, care ongoing.
[2023-10-02 05:07] LABS: Hematocrit 27.7 % (39.0-52.0); Hemoglobin 9.4 g/dL (13.0-18.0); Mean Corp Hgb Conc. 33.9 g/dL (33.0-37.0); Mean Corpuscular Hgb 32.6 pg (27.0-31.0); Mean Corpuscular Volume 96.2 fL (80.0-94.0); Mean Platelet Volume 8.5 fL (7.4-10.4); Platelet Count 276 10^3/uL (130-400); Red Blood Cell Count 2.88 10^6/uL (4.70-6.10); Red Cell Dist. Width 23.2 % (11.5-14.5); White Blood Cell Count 14.2 10^3/uL (4.8-10.8)
[2023-10-02 05:14] LABS: Blood Urea Nitrogen 14 mg/dl (9-20); Calcium 8.1 mg/dl (8.4-10.2); Carbon Dioxide 24 mmol/L (22-30); Chloride 96 mmol/L (98-107); Estimated Creatinine Clearance 120 ml/min; Glucose 104 mg/dl (70-99); Potassium 4.5 mmol/L (3.5-5.1); Sodium 125 mmol/L (135-145); eGFR > 60.00
[2023-10-02 05:16] LABS: Vancomycin Random 11.5 ug/ml
--- NOTE | 2023-10-02 07:22 | W.PN.HOSP.TC ---
Addendum entered and electronically signed by Santos Louise MD 10/02/23 09:10:
I saw and evaluated the patient. I reviewed the resident�s note and agree with findings and plan as documented in the resident�s note.
Denies chest pain, shortness of breath, abdominal pain, cough.
NAD, awake and alert, appears chronically ill
EOMI/PERRLA, no scleral icterus
remains RRR, normal S1/S2
remains CTAB
remains +BS/soft/NT/ND
CN2-12 intact
CXR: Subtle basilar opacity may reflect atelectasis or mild pneumonia in the appropriate clinical setting.
CT brain 09/25/23: No acute intracranial abnormality.
SIRS:
-currently no source of infection identified
-Immunocompromised due to myelodysplastic syndrome
-follow BCxs
-cont empiric Cefepime/Vanco/Flagyl
-c/s ID
-received 2L NS on admission
Acute on chronic hypotonic hyponatremia:
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
-with hypotension and SIRS on admission pt received 2L NS. Na dropped to 122 and pt received 3% NS
-c/s renal
Total time spent on today's encounter was 50 minutes which included time spent in counseling the patient/family regarding diagnosis and treatment plan as listed above, goals of care, and symptom management. Case was discussed with nursing staff,
specialists, and care coordinators/case management. All labs and imaging personally reviewed by me. Remainder the time spent in detailed review of previous records, lab data, imaging, and other medical provider documentation.
Original Note:
Today's Communication/Plan
-
continue abx
pending ID and nephro consult
Assessment / Plan
Assessment / Plan
#Generalized weakness
-Likely secondary to symptomatic Hyponatremia vs Dehydration
-Follow BMP every 6
-Monitor blood pressure
-IV fluids
- Covid negative
# SIRS:( tachycardia, leukocytosis)
- currently no source of infection identified
- afebrile now
- Immunocompromised due to myelodysplastic syndrome
- pendig BCxs
- continue empiric Cefepime/Vanco/Flagyl
- c/s ID
- received 1L NS in ER and another 1L NS on floor.
- Will have to monitor Na closely with IVFs- stable at this time at 125
#Acute on Chronic Hyponatremia
- stable at 125
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
- continue sodium chloride tablets
-pending nephro consult
#Hx MDS periodically requiring transfusion goal hgb >8.5 outpt
-Hemoglobin 10.4 on day of arrival
#Leukocytosis likely MDS flare
- Low-grade fever
- Consult ID
- Started empiric vanco, cefepime and metronidazole
- check BC and UC
#hx hemochromatosis
-Consult onc
transfuse for goal hgb >8.5
#Chronic anemia secondary to MDS
#Trisomy 8 myelodysplasia
# Moderate arthritis
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
#Lumbar spine stenosis
#neuropathy/lower ext muscle cramps
cont home prn gabapentin,oxycodone, tylenol
DVT ppx: Lovenox
Code: DNR
Anticipated Discharge: 24 - 48 hours
Subjective/Interval History
-
Date of Service: October 02, 2023
Objective Data
-
Labs:
Laboratory Results
10/01/23 10/01/23 10/02/23
17:10 23:45 04:47
WBC 14.2 H
Hgb 9.4 L
Hct 27.7 L
Plt Count 276
Sodium Cancelled 122 L 125 L
Potassium Cancelled 4.4 4.5
Chloride Cancelled 96 L 96 L
Carbon Dioxide Cancelled 24 24
BUN Cancelled 15 14
Creatinine Cancelled 0.6 L 0.6 L
Glucose Cancelled 141 H 104 H
Calcium Cancelled 7.9 L 8.1 L
10/02/23
11:10
WBC
Hgb
Hct
Plt Count
Sodium Pending
Potassium Pending
Chloride Pending
Carbon Dioxide Pending
BUN Pending
Creatinine Pending
Glucose Pending
Calcium Pending
Vital Signs:
Vital Signs
Temp Pulse Resp BP Pulse Ox
99.6 F 83 22 119/66 95
10/02/23 04:43 10/02/23 06:00 10/02/23 06:00 10/02/23 06:00 10/02/23 06:00
I&O
10/01/23 10/02/23 10/03/23
06:59 06:59 06:59
Intake Total 640 / 640
Output Total 300 / 300
Balance 340 / 340
Review of Systems
-
History Source: Patient
Constitutional: Reports Fatigue; Denies Fever
Respiratory: Denies Cough
Cardiac: Denies Chest Pain
Abdomen/GI: Denies Abdominal Pain
Musculoskeletal: Denies Joint Pain
Neuro: Denies Dizzy
Endocrine: Denies Polyuria
Physical Exam
-
General: Appears Chronically Ill
HEENT: Normocephalic and Atraumatic
Respiratory: Clear to Auscultation
Cardiac: Regular Rhythm
GI: Soft, Nontender and Nondistended
Musculoskeletal: Edema, Right Lower Extrem and Edema, Left Lower Extrem
Skin: Warm and Dry
Neuro: Awake, Alert and Oriented
Psych: Calm
Data Reviewed
-
Labs: Labs Reviewed by me, Discussed with Physician and Discussed with Patient
--- NOTE | 2023-10-02 08:29 | VNURNOTE ---
Chart reviewed. Patient is current with [facility]. Will follow hospital course. Resumption referral placed in [facility].
[2023-10-02] MEDS: VITAMIN D3 (cholecalciferol) 25 MCG PO (09:01)
[2023-10-02] MEDS: MAGNESIUM OXIDE 500 MG PO (09:01)
[2023-10-02] MEDS: SODIUM CHLORIDE 1 GRAM PO ×2 (09:01→20:21)
[2023-10-02] MEDS: ProAmatine 5 MG PO ×3 (09:01→17:32)
[2023-10-02] MEDS: VITAMIN B-12 1000 MCG PO (09:01)
--- NOTE | 2023-10-02 09:57 | CON.ONC ---
Addendum entered and electronically signed by Pamela Guaman MD 10/02/23 12:54:
Patient seen on rounds, agree w/ A&P as below
Infection w/u ongoing, Na+ correction attempts
Monitor CBC, hold on initiating Inqovi unto PS improves and he sees med onc in office f/u
Would surely benefit from rehab/SNF
Original Note:
Impression
Impression
- MDS with refractory anemia
- chronic hyponatremia
- orthostatic hypotension
Plan
Plan
re-admission with weakness
-monitor for infection
- daily CBC, transfuse for hgb < 8.5 g/dl
-OP follow up with Dr. Torres for Luspatercept
-Would hold initiation of Inqovi until improvement of performance status
- I reviewed importance of improving performance status, currently declining placement at SNF or Rehab. He prefers to be home with home services.
- will continue to follow.
Patient History
History of Present Illness
73 yo M with [facility] with MDS who has multiple readmissions since July 2023 due to fever and weakness represents after discharge 2 days ago with weakness. Pt tells me that he does not want to go to rehab for PT/OT despite recommendations by rehab
services. He denies any new symptoms of infections. He denies any headache or dizziness. His significant other at the bedside tells me that his performance status continues to decline and she is having a hard time taking care of him and she is
worried that he is going to fall. He tells me that his SBP at home has been ~90 and that he has symptoms of orthostasis upon standing.
In brief, he is treated for his MDS with Dr. Torres. He gets CBC weekly with the office and commonly is transfused outpt for hgb < 8.5 g/dl due to symptoms when in low 8 range
Past-Medical/Surgical History
myelodysplastic syndrome
chronic moderate anemia
hemochromatosis
BPH
chronic hyponatremia/SIADH
PSH: Appendectomy 2018
Social , never smoker, denies etoh or recreational drugs, retired
Family: mother colon cancer
Patient Medication
�Medication �Instructions �Recorded �Confirmed �Last Taken �Type
folic acid 1 mg tablet 1 mg PO HS Supplement 02/11/23 10/01/23 09/30/23 History
calcium polycarbophil 625 mg 625 mg PO HS Gastrointestinal Issue 08/13/23 10/01/23 09/30/23 History
tablet (FiberCon)
cholecalciferol (vitamin D3) 25 25 mcg PO DAILY Supplement ##0 08/28/23 10/01/23 10/01/23 History
mcg (1,000 unit) tablet (Vitamin
D3)
cyanocobalamin (vitamin B-12) 1,000 mcg PO DAILY Supplement ##0 08/28/23 10/01/23 10/01/23 History
1,000 mcg tablet
magnesium oxide 400 mg PO HS Supplement ##0 08/28/23 10/01/23 09/30/23 History
gabapentin 100 mg capsule 100 mg PO BIDPRN PRN nerve pains 09/14/23 10/01/23 10/01/23 History
tamsulosin 0.4 mg capsule 0.4 mg PO HS 30 days #30 caps 09/17/23 10/01/23 09/30/23 Rx
oxycodone 5 mg tablet 5 mg PO HSPRN PRN severe 09/20/23 10/01/23 09/30/23 History
breakthrough pain
naproxen sodium 220 mg tablet 220 mg PO BIDPRN PRN mild pain 09/25/23 10/01/23 10/01/23 History
(Aleve)
sodium chloride 1,000 mg soluble 1,000 mg PO BID Electrolyte 09/28/23 10/01/23 10/01/23 Rx
tablet Repletion #60 tabs
midodrine 5 mg tablet 5 mg PO BID Blood Pressure 10/01/23 10/01/23 10/01/23 History
Active Medications
Generic Name Dose Route Start Last Admin
Trade Name Freq PRN Reason Stop Dose Admin
Bisacodyl 10 mg 10/01/23 19:04
Bisacodyl 10 Mg Rectal Suppository RECTAL 10/29/23 19:03
[id number] PRN
constipation
Calcium Polycarbophil 625 mg 10/01/23 22:00 10/01/23 21:23
Calcium Polycarbophil 625 Mg Tablet PO 10/29/23 21:59 625 mg
HS JOE Administration
Cefepime HCl 2,000 mg 10/01/23 18:00 10/02/23 09:02
Cefepime Hcl 2,000 Mg/12.5 Ml Vial IV 2,000 mg
Q8H JOE Administration
Cholecalciferol 25 mcg 10/02/23 08:00 10/02/23 09:01
Cholecalciferol (Vitamin D3) 25 Mcg Tablet (1,000 Units) PO 10/30/23 07:59 25 mcg
DAILY JOE Administration
Cyanocobalamin 1,000 mcg 10/02/23 08:00 10/02/23 09:01
Cyanocobalamin 1,000 Mcg Tablet PO 10/30/23 07:59 1,000 mcg
DAILY JOE Administration
Enoxaparin Sodium 40 mg 10/01/23 19:04 10/01/23 19:37
Enoxaparin Sodium 40 Mg/0.4 Ml Syringe SC 10/29/23 19:03 40 mg
QPM JOE Administration
Folic Acid 1 mg 10/01/23 22:00 10/01/23 21:23
Folic Acid 1 Mg Tablet PO 10/29/23 21:59 1 mg
HS JOE Administration
Gabapentin 100 mg 10/01/23 18:41 10/01/23 18:54
Gabapentin 100 Mg Capsule PO 10/29/23 18:40 100 mg
BIDPRN PRN Administration
nerve pains
Vancomycin HCl 1 each/ Device 0 mls @ 0 mls/hr 10/01/23 18:00
IV
PER PROTOCOL JOE
Protocol
As Directed
Metronidazole 100 mls @ 100 mls/hr 10/01/23 18:00 10/02/23 09:01
Flagyl 500 Mg IV 100 mls
Q8H JOE Administration
Magnesium Oxide 500 mg 10/02/23 08:00 10/02/23 09:01
Magnesium Oxide 500 Mg Tablet PO 10/30/23 07:59 500 mg
DAILY JOE Administration
Midodrine 5 mg 10/01/23 19:04 10/02/23 09:01
Midodrine 5 Mg Tablet PO 10/29/23 19:03 5 mg
TID@0800,1300,1800 JOE Administration
Naproxen 250 mg 10/01/23 19:12
Naproxen 250 Mg Tablet PO 10/29/23 19:11
BIDPRN PRN
mild pain
Oxycodone HCl 5 mg 10/01/23 19:04 10/01/23 19:37
Oxycodone 5 Mg Regular Release Tablet PO 10/15/23 19:03 5 mg
HSPRN PRN Administration
severe breakthrough pain
Polyethylene Glycol 17 grams 10/01/23 19:04
Polyethylene Glycol Powder 17 Grams Packet PO 10/29/23 19:03
DAILYPRN PRN
constipation
Senna/Docusate Sodium 1 tablet 10/01/23 19:04
Docusate W/Senna (Sepideh-Colace) Tablet PO 10/29/23 19:03
BIDPRN PRN
constipation
Sodium Chloride 1 gram 10/01/23 20:00 10/02/23 09:01
Sodium Chloride 1 Gram Tablet PO 10/29/23 19:59 1 gram
BID JOE Administration
Sodium Chloride 0 flush 10/02/23 01:00
Sodium Chloride 0.9% (Flush) Syringe IV 10/30/23 00:59
PER PROTOCOL JOE
Sterile Water 10 ml 10/01/23 18:00 10/02/23 09:02
Sterile Water For Injection 10 Ml Vial IV 10/29/23 17:59 10 ml
Q8H JOE Administration
Tamsulosin HCl 0.4 mg 10/01/23 22:00 10/01/23 21:23
Tamsulosin 0.4 Mg Capsule PO 10/29/23 21:59 0.4 mg
HS JOE Administration
Review of Systems
-
Review of systems notable for subjective, otherwise negative
Physical Exam
-
General: No Apparent Distress and Comfortable
HEENT: Moist Mucous Membranes
Cardiology: S1 and S2
Pulmonary: Clear
GI: Soft
Extremities: Negative Phlebitic Signs or Edema
Neurology: Non Focal
Skin: Warm
Psych: Calm
Labs
Lab Results
WBC 14.2 10^3/uL (4.8-10.8) H 10/02/23 04:47
RBC 2.88 10^6/uL (4.70-6.10) L 10/02/23 04:47
Hgb 9.4 g/dL (13.0-18.0) L 10/02/23 04:47
Hct 27.7 % (39.0-52.0) L 10/02/23 04:47
MCV 96.2 fL (80.0-94.0) H 10/02/23 04:47
MCH 32.6 pg (27.0-31.0) H 10/02/23 04:47
MCHC 33.9 g/dL (33.0-37.0) 10/02/23 04:47
RDW 23.2 % (11.5-14.5) H 10/02/23 04:47
Plt Count 276 10^3/uL (130-400) 10/02/23 04:47
MPV 8.5 fL (7.4-10.4) 10/02/23 04:47
Creatinine 0.6 mg/dL (0.7-1.3) L 10/02/23 04:47
Vital Signs
Vital Signs
Temp Pulse Resp BP Pulse Ox
98.6 F 89 26 110/70 95
10/02/23 07:51 10/02/23 08:00 10/02/23 08:00 10/02/23 08:00 10/02/23 06:00
[2023-10-02] MEDS: NEURONTIN 100 MG PO ×2 (10:01→18:43)
--- NOTE | 2023-10-02 10:15 | CON.ID ---
Consultation
-
Date/Time Consultation Requested: October 01, 2023
Date/Time Consultation Performed: October 02, 2023
Requesting Provider: Dr. Santos Louise
Performing Provider: Dr. Charlotte Romero
Reason for Consultation: MDS, fever
Chief Complaint / Past History
Chief Complaint
Weakness
History of Present Illness
History obtained from the patient, his and from review of medical records. Mr Whitmore is a 72 year old with history of MDS, transfusion dependent anemia was on vidaza/luspatercept discontinued several weeks ago due to no response, RA, hereditary
hemochromatosis who presented to the ER today for profound weakness. This is his sixth hospitalization in 3.5 months for weakness. Previous infectious disease workup negative. He was last hospitalized in September 24 to to September 27 for syncope and
weakness. He felt improved after pRBC transfusion. Yesterday, home health aide noted pt was weak and SBP in 90's. He was sent to the ED. T= 100.5, WBC 13.8. COVID neg. He is currently on Cefepime/metronidazole/Vancomycin. Patient denies
headache, rhinorrhea, sinus congestion, or sore throat. Has mild cough.No shortness of breath. No nausea or vomiting, abdominal pain or diarrhea. No dysuria or flank pain. He always has weak urinary stream from BPH. + joint pains. No rash. He
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 + chickens, cows, goats on the property but his (not him) manages the animals. No known tick exposure that he is aware of. He does not use insect repellent. No travel out of
state or country. No ill contacts. He is currently off MDS therapy.
Past History
Additional Past Medical History:
Myelodysplastic syndrome failed Vidaza/luspatercept
Trisomy 8 myelodysplasia
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
Acute on chronic macrocytic anemia
Homozygous hereditary hemochromatosis
hx phlebotomy via [facility]
Chronic hyponatremia (baseline Na ~130)
Chronic knee pain
BPH
Asthma
RA
MRSA screen positive
Additional Past Surgical History:
Appendectomy 2018
Colonoscopy 2018
Allergy History:
Penicillins Allergy (Verified 10/01/23 12:48)
Rash; tolerates cephalosporins
Sulfa (Sulfonamide Antibiotics) Allergy (Verified 10/01/23 12:48)
Rash
Medications Reviewed: Yes
Current Antibiotics:
Vancomycin
Cefepime
metronidazole
Social History
Tobacco: Non-Smoker
Alcohol: None
Drug: None
Personal:
Living: With Family
Family History
Family History: Not Pertinent
Review of Systems
Review of Systems
General: Fever and Change in Appetite; Negative Chills
HEENT: Negative Stiff Neck, Sinus Problems, Headache or Pharyngitis
Cardiovascular: Negative Chest Pain, Dyspnea or Edema
Respiratory: Cough; Negative Dyspnea or Sputum Production
Gasteroenterology: Negative Nausea or Vomiting
Genital / Urological: Negative Dysuria or Flank Pain
Endocrine: Weakness
Musculoskeletal: Negative Joint Pain
Skin / Hair / Nails: Negative Rash
Neurological: Negative Headache or Dizziness
All systems: All other systems were reviewed and were negative
Vital Signs
Temp Pulse Resp BP Pulse Ox
98.6 F 89 26 110/70 95
10/02/23 07:51 10/02/23 08:00 10/02/23 08:00 10/02/23 08:00 10/02/23 06:00
Selected Entries
10/01/23
16:07
Temp 100.5 F H
Physical Exam
Physical Exam
Constitutional: No Acute Distress and Comfortable
Head: Other (No frontal or maxillary sinus tenderness)
Eyes: No Conjunctival Hemorrhage and Sclera Anicteric
Cardiovascular: Regular Rate and S1/S2
Pulmonary: Coarse (left base)
Gastrointestinal: Soft, Non Tender, Non Distended and Normal Bowel Sounds
Extremities: Negative Edema
Neurological: AO x 3
Lab / Diagnostic Study Results
10/02/23 04:47
Total Counted 100 10/01/23 14:07
Abs Neuts (Manual) 7.1 10^3/uL (1.4-6.5) H 10/01/23 14:07
Segmented Neutrophils 52 % (42-75) 10/01/23 14:07
Band Neutrophils 0 % (0-3) D 10/01/23 14:07
Lymphocytes (Manual) 12 % (20-51) L 10/01/23 14:07
Eosinophils (Manual) 13 % (0-6) H 10/01/23 14:07
Lactic Acid 1.5 mmol/L (0.7-2.0) 10/01/23 15:28
Ur Squamous Epith Cells 3-5 /LPF (Few) 10/01/23 15:28
Microbiology Results
Micro:
10/01/23 15:28 Blood Culture - Pending
Blood/Venous
10/01/23 15:28 Blood Culture - Pending
Blood/Venous
10/01/23 CXR: Subtle basilar opacity may reflect atelectasis or mild pneumonia in the appropriate clinical setting.
Assessment / Plan
MDS, transfusion-dependent anemia without response to Vidaza/luspatercept, discontinued
# Probable LLL PNA
# Low grade fever
# Leukocytosis
# Hyponatremia
-UA neg, COVID neg
- Check urine legionella and strep pneumo antigens.
- DC Vanco/metronidazole.
-Continue cefepime for now.
-Add po doxycycline for atypical coverage.
-Follow bcx, temps, wbc.
# Multiple admissions for weakness
- Suspect due to underlying MDS, refractory anemia
#Additional Past Medical History:
Myelodysplastic syndrome failed Vidaza/luspatercept
Trisomy 8 myelodysplasia
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
Acute on chronic macrocytic anemia
Homozygous hereditary hemochromatosis
hx phlebotomy via [facility]
Chronic hyponatremia (baseline Na ~130)
Chronic knee pain
BPH
Asthma
RA
MRSA screen positive
Additional Past Surgical History:
Appendectomy 2018
Colonoscopy 2018
[2023-10-02] MEDS: SENOKOT-S 1 TABLET PO (12:10)
[2023-10-02] MEDS: NAPROSYN 250 MG PO (12:11)
[2023-10-02] MEDS: MIRALAX 17 GRAMS PO (12:11)
--- NOTE | 2023-10-02 12:37 | PTCARENOTE ---
OOB to chair mod assist . Skin hot, dry. Temp 101.4 oral. D/w Dr. Vincent, ok to give prn Naprosyn 1st and recheck temp in an hour, Tylenol if needed.
Ox3, depressed affect- was here insistent on him going to rehab. SR ARSENIO on tele.
No BM since Thursday- PRN Miralax and Senna given. Condom cath #25 intact now. Stage 2 buttock- dressing soiled will replace.
Only oob x10 min and he insisted on getting himself back in bed. Bed alarm now on.
[2023-10-02 12:42] LABS: Blood Urea Nitrogen 13 mg/dl (9-20); Calcium 8.3 mg/dl (8.4-10.2); Carbon Dioxide 25 mmol/L (22-30); Chloride 94 mmol/L (98-107); Estimated Creatinine Clearance 120 ml/min; Glucose 134 mg/dl (70-99); Potassium 4.3 mmol/L (3.5-5.1); Sodium 125 mmol/L (135-145); eGFR > 60.00
--- NOTE | 2023-10-02 13:01 | W.CON.NEPH ---
Consultation
-
Date/Time Consultation Requested: 10/01/23 1709
Date/Time Consultation Performed: 10/02/23 1300
Requesting Provider: Leonor Barney
Performing Provider: Ana Sepulveda
Reason for Consultation: Hyponatremia
Medical History
-
Chief Complaint: gen weakness
History of Present Illness:
This is a 73-year-old gentleman who has hemochromatosis and MDS now with significant anemia transfusion dependant treated by hematology as outpatient, neuropathy, hemochromatosis, chr hyponatremia 126-130 . He had recent admit 09/19-09/22 for sepsis
Klebsiella UTI treated with Cipro until September 26 per I/d. He had another admit on 09/25 for weakness and syncope, required PRBC, Na was low at 124, received HTS and sodium improved to 128-129 at d/c on 09/27 sent with salt tabs. He now presents on
09/30 with weakness, low BP, noted fever and sodium sammy at 122. He received NS 2lit and HTS over night with sodium improving to 125. He was treated with abx for suspected UTI recently too. T max today 101.4.Offers little cough, no cp or sob.
loose BM just now. No diarrhea. No n/v. Leg pain mainly when he walks so uses gabapentin, ibuprofen and oxy. NO dizziness.
Past Medical History
Hemochromatosis, lumbar spinal stenosis, neuropathy, anemia, hyponatremia, BPH
Appendectomy, trisomy 8 myelodysplasia, MDS
Past Medical History: Other
Past Surgical History: Other (Appendectomy 2018 Colonoscopy 2018 Allergy History: )
Social History
Tobacco: Non-Smoker
Alcohol: None
Drug: None
Personal:
Living: With Family
Family History
Family History: Not Pertinent
Allergies / Home Medications
Allergy/AdvReac Type Severity Reaction Status Date / Time
Penicillins Allergy Rash; Verified 10/01/23 12:48
tolerates
cephalosporins
Sulfa (Sulfonamide Allergy Rash Verified 10/01/23 12:48
Antibiotics)
�Medication �Instructions �Recorded �Confirmed �Type
folic acid 1 mg tablet 1 mg PO HS Supplement 02/11/23 10/01/23 History
calcium polycarbophil 625 mg 625 mg PO HS Gastrointestinal Issue 08/13/23 10/01/23 History
tablet (FiberCon)
cholecalciferol (vitamin D3) 25 25 mcg PO DAILY Supplement ##0 08/28/23 10/01/23 History
mcg (1,000 unit) tablet (Vitamin
D3)
cyanocobalamin (vitamin B-12) 1,000 mcg PO DAILY Supplement ##0 08/28/23 10/01/23 History
1,000 mcg tablet
magnesium oxide 400 mg PO HS Supplement ##0 08/28/23 10/01/23 History
gabapentin 100 mg capsule 100 mg PO BIDPRN PRN nerve pains 09/14/23 10/01/23 History
tamsulosin 0.4 mg capsule 0.4 mg PO HS 30 days #30 caps 09/17/23 10/01/23 Rx
oxycodone 5 mg tablet 5 mg PO HSPRN PRN severe 09/20/23 10/01/23 History
breakthrough pain
naproxen sodium 220 mg tablet 220 mg PO BIDPRN PRN mild pain 09/25/23 10/01/23 History
(Aleve)
sodium chloride 1,000 mg soluble 1,000 mg PO BID Electrolyte 09/28/23 10/01/23 Rx
tablet Repletion #60 tabs
midodrine 5 mg tablet 5 mg PO BID Blood Pressure 10/01/23 10/01/23 History
Review of Systems
-
All complete 12 point ROS have been inquired and found negative other than stated in HPI
Physical Exam
Vital Signs
Vital Signs
Temp Pulse Resp BP Pulse Ox
101.4 F H 86 21 118/65 99
10/02/23 12:07 10/02/23 10:00 10/02/23 10:00 10/02/23 10:00 10/02/23 08:00
Lab Results
WBC 14.2 10^3/uL (4.8-10.8) H 10/02/23 04:47
RBC 2.88 10^6/uL (4.70-6.10) L 10/02/23 04:47
Hgb 9.4 g/dL (13.0-18.0) L 10/02/23 04:47
Hct 27.7 % (39.0-52.0) L 10/02/23 04:47
Plt Count 276 10^3/uL (130-400) 10/02/23 04:47
Sodium 125 mmol/L (135-145) L 10/02/23 11:11
Potassium 4.3 mmol/L (3.5-5.1) 10/02/23 11:11
Chloride 94 mmol/L (98-107) L 10/02/23 11:11
Carbon Dioxide 25 mmol/L (22-30) 10/02/23 11:11
BUN 13 mg/dl (9-20) 10/02/23 11:11
Creatinine 0.6 mg/dL (0.7-1.3) L 10/02/23 11:11
eGFR > 60.00 10/02/23 11:11
Glucose 134 mg/dl (70-99) H 10/02/23 11:11
Calcium 8.3 mg/dl (8.4-10.2) L 10/02/23 11:11
Albumin 3.0 g/dl (3.5-5.0) L 10/01/23 14:07
CXR:
IMPRESSION:
Subtle basilar opacity may reflect atelectasis or mild pneumonia in the appropriate clinical setting.
Physical Exam
General: Awake, Alert, Oriented, AOx3, No Distress and Nontoxic
HEENT: EOMI and Anicteric
Respiratory: Clear, Normal Excursion, Nonlabored Respirations and Other (decreased)
Cardiac: S1/S2 and Regular Rate/Rhythm
Breast: Deferred by me
Abdomen: Soft, Nontender and Nondistended
Musculoskeletal: No Cyanosis and No Edema
Skin: No Rash
Neuro: Nonfocal/Grossly Intact
Psych: Mood/afflect pleasant, Insight/judgement good and Appropriate
Data Reviewed
-
Labs: Labs Reviewed by me, Discussed with Nurse and Discussed with Patient
Assessment/Plan
-
Assessment:
Generalized weakness
Acute on Chronic Hyponatremia
Hx MDS periodically requiring transfusion goal hgb >8.5 outpt
Leukocytosis likely MDS flare
hx hemochromatosis
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
Trisomy 8 myelodysplasia
Moderate arthritis
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
Lumbar spine stenosis
neuropathy/lower ext muscle cramps
Orthostasis
Plan:
A/w weakness and sodium sammy at 122
Acute on chr hyponatremia- U osmo 908 high suggesting high SIADH state from pain possibly
cont FR 40ounces/day and likely restart HTS
may use samsca later but caution with prior orthostaics
cont slat tabs
BP are stable on midodrine, TSH and cortisol were normal on 09/24
abx per ID
labs later today
d/w pt and nursing
--- NOTE | 2023-10-02 14:01 | PTCARENOTE ---
Addendum entered by Elizabeth Paredes RN 10/02/23 14:04:
Recheck temp was 99. Incont of large soft BM. Report given to [facility] [place].
Original Note:
BP 89/60 no symptoms- scheduled midodrine given.
--- NOTE | 2023-10-02 14:53 | CM ---
Patient who is readmitted with SIRS, hyponatremia. PT/OT Evals pending.
Met with patient who resides with his in a 2 story house with 1 JANELLE.
The patient states he was home for 2 days since his recent hospital discharge, and on the first day he felt well and by the second day he was weak requiring assistance with ADLs from his .
Patient states he was ambulating with his RW and 'collapsed' due to weakness, and would have fallen to the floor except that his was able to assist him from falling---> info relayed to Taras Louise & Melisa.
DME RW, w/c, shower chair
[facility] - [facility] with [facility]
SNF - none
PCP - Rosalinda Galloway
Pharmacy - [facility]
Spoke with patient's Carlyn; she would like the patient to go to SNF for rehab at d/c. says patient has declined SNF on the past few admissions. Agree to discuss again with patient/ after seen by PT/OT.
Plan follow up with patient/ after PT/OT Evals.
--- NOTE | 2023-10-02 15:09 | PTCARENOTE ---
Received patient from IMU. Pt AAOX3. Pox: 95% RA. Patient denies pain/SOB. Bed alarm on. Call deal within reach. Plan of care ongoing.
[2023-10-02] MEDS: LOVENOX 40 MG SC (17:32)
[2023-10-02] MEDS: TYLENOL 650 MG PO (18:04)
[2023-10-02] MEDS: VIBRAMYCIN 100 MG PO (20:22)
[2023-10-02] MEDS: ANTIFUNGAL CLEAR 1 APPLIC TOPICAL (20:23)
[2023-10-02] MEDS: FIBERCON 625 MG PO (21:34)
[2023-10-02] MEDS: FOLVITE 1 MG PO (21:34)
[2023-10-02] MEDS: FLOMAX 0.4 MG PO (21:34)
[2023-10-03] MEDS: MAXIPIME 2000 MG IV ×3 (01:09→17:07)
[2023-10-03] MEDS: STERILE WATER FOR INJECTION 10 ML IV ×3 (01:10→17:04)
[2023-10-03 03:27] VITALS: BP 129/69
[2023-10-03 07:15] VITALS: BP 105/65
--- NOTE | 2023-10-03 07:26 | W.PN.HOSP.TC ---
Today's Communication/Plan
-
see bold
Assessment / Plan
Assessment / Plan
Gen: NAD, AAOx3.
Eyes: EOMI, PERRLA, no scleral icterus.
Neck: supple.
CV: RRR, +S1/S2, no m/r/g.
Resp: CTAB, no rales, wheezes, or rhonchi.
Abd: +BS, soft, NT, ND
Skin: No rashes. Trace B/L LE edema
Neuro: CN 2-12 intact, non-focal.
Psych: Normal mood and affect.
10/01/23 15:28 Blood/Venous Blood Culture - Preliminary
No Growth in 24 hours- Final report to follow
10/01/23 15:28 Blood/Venous Blood Culture - Preliminary
No Growth in 24 hours- Final report to follow
10/02/23 11:11 Urine Legionella Urinary Antigen - Final
Negative for Legionella pneumophila Serogroup 1 antigen.
A negative result does not rule out the possiblity of
Legionella infection due to other serogroups or species of
Legionella. Clinical correlation is recommended.
10/02/23 11:11 Urine Streptococcus pneumoniae Antigen (M - Final
Negative for Streptococcus pneumoniae antigen.
A negative result does not exclude infection with
Streptococcus pneumoniae. Clinical correlation is
recommended.
CXR: Subtle basilar opacity may reflect atelectasis or mild pneumonia in the appropriate clinical setting.
CT brain 09/25/23: No acute intracranial abnormality.
SIRS:
-currently no definitive source of infection identified. Possibly LLL PNA.
-febrile again 10/02/23, leukocytosis worsening
-Immunocompromised due to myelodysplastic syndrome
-BCxs NGTD
-COVID NEG
-Legionella/strep UAg NEG
-tick-bourne illness serologies pending
-cont empiric Cefepime/Doxy as per ID
-received 2L NS on admission, on midodrine for chronic hypotension
Acute on chronic hypotonic hyponatremia:
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
-with hypotension and SIRS on admission pt received 2L NS. Na dropped to 122 and pt received 3% NS
-renal following
-cont salt tabs
Other problems:
Generalized weakness, possibly due to symptomatic hyponatremia
MDS: Chronic anemia due to MDS, as outpt pt transfused for Hb < 8.5 l
Hemochromatosis
Trisomy 8 myelodysplasia
Arthritis
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
Lumbar spine stenosis
LE neuropathy
DNR/Lovenox
Anticipated Discharge: 24 - 48 hours
Subjective/Interval History
-
Date of Service: October 03, 2023
No new complaints. Denies CP/SOB. Denies lightheadedeness.
Objective Data
-
Labs:
Laboratory Results
10/03/23
06:48
WBC Pending
Hgb Pending
Hct Pending
Plt Count Pending
Sodium Pending
Potassium Pending
Chloride Pending
Carbon Dioxide Pending
BUN Pending
Creatinine Pending
Glucose Pending
Calcium Pending
Vital Signs:
Vital Signs
Temp Pulse Resp BP Pulse Ox
97.8 F 78 16 105/65 96
10/03/23 07:15 10/03/23 07:15 10/03/23 07:15 10/03/23 07:15 10/03/23 07:15
I&O
10/02/23 10/03/23 10/04/23
06:59 06:59 06:59
Intake Total 640 / 640 790 / 790
Output Total 300 / 300 760 / 760
Balance 340 / 340 30 / 30
[2023-10-03 07:33] LABS: Hematocrit 27.3 % (39.0-52.0); Hemoglobin 9.3 g/dL (13.0-18.0); Mean Corp Hgb Conc. 34.1 g/dL (33.0-37.0); Mean Corpuscular Hgb 31.7 pg (27.0-31.0); Mean Corpuscular Volume 93.2 fL (80.0-94.0); Mean Platelet Volume 8.6 fL (7.4-10.4); Platelet Count 312 10^3/uL (130-400); Red Blood Cell Count 2.93 10^6/uL (4.70-6.10); Red Cell Dist. Width 23.5 % (11.5-14.5); White Blood Cell Count 24.6 10^3/uL (4.8-10.8)
[2023-10-03 07:53] LABS: Blood Urea Nitrogen 13 mg/dl (9-20); Calcium 8.3 mg/dl (8.4-10.2); Carbon Dioxide 22 mmol/L (22-30); Chloride 98 mmol/L (98-107); Estimated Creatinine Clearance 120 ml/min; Glucose 102 mg/dl (70-99); Potassium 3.9 mmol/L (3.5-5.1); Sodium 125 mmol/L (135-145); eGFR > 60.00
[2023-10-03 08:28] LABS: Absolute Neutrophils -Man Diff 19.9 10^3/uL (1.4-6.5); Band Neutrophils 18 % (0-3); Eosinophils 7 % (0-6); Lymphocytes 2 % (20-51); Metamyelocytes 7 % (-); Monocytes 3 % (2-9); Platelets Checked Yes; Segmented Neutrophils 63 % (42-75)
[2023-10-03 08:29] LABS: Anisocytosis 1+; Hypochromasia 1+; Normal RBC Morphology No; Polychromasia Slight; Total Cells Counted 100
[2023-10-03] MEDS: VITAMIN B-12 1000 MCG PO (09:05)
[2023-10-03] MEDS: ProAmatine 5 MG PO ×2 (09:05→12:22)
[2023-10-03] MEDS: NEURONTIN 100 MG PO ×2 (09:05→19:35)
[2023-10-03] MEDS: SODIUM CHLORIDE 1 GRAM PO ×2 (09:05→19:36)
[2023-10-03] MEDS: VIBRAMYCIN 100 MG PO ×2 (09:05→19:35)
[2023-10-03] MEDS: MAGNESIUM OXIDE 500 MG PO (09:05)
[2023-10-03] MEDS: VITAMIN D3 (cholecalciferol) 25 MCG PO (09:06)
[2023-10-03] MEDS: TYLENOL 650 MG PO ×2 (09:06→19:35)
[2023-10-03] MEDS: ANTIFUNGAL CLEAR 1 APPLIC TOPICAL ×2 (09:08→19:36)
--- NOTE | 2023-10-03 10:16 | CM ---
CM reviewed medical records. Patient pending PT evaluation for continued discharge planning efforts. CM will continue to follow.
--- NOTE | 2023-10-03 12:00 | W.PN.ID1 ---
Date of Service
Date of Service: October 03, 2023
Today's Communication
-Continue cefepime and doxycycline
Assessment / Plan
MDS, transfusion-dependent anemia without response to Vidaza/luspatercept, discontinued
# Probable LLL PNA
# Low grade fever
# Leukocytosis
# Hyponatremia
- urine legionella and strep pneumo antigens both neg
- babesia smear in progress, ehrlichia abs sent
- IgG sent by oncology - will follow up
-Continue cefepime and doxycycline
-Follow bcx, temps, wbc.
# Multiple admissions for weakness
- Suspect due to underlying MDS, refractory anemia
#Additional Past Medical History:
Myelodysplastic syndrome failed Vidaza/luspatercept
Trisomy 8 myelodysplasia
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
Acute on chronic macrocytic anemia
Homozygous hereditary hemochromatosis
hx phlebotomy via [facility]
Chronic hyponatremia (baseline Na ~130)
Chronic knee pain
BPH
Asthma
RA
MRSA screen positive
Additional Past Surgical History:
Appendectomy 2018
Colonoscopy 2018
Chief Complaint
-: Fever
Subjective / Review of Systems
fever curve may be improving
bp stable on [employer] midodrine
progression of leukocytosis noted - not on steroids
hgb stable
L shift is noted
cr 0.4
Na 12 persistent - has chronic hyponatremia
babesia smear penidng
legionella/strep pneumo urine ags neg
blood cultures no growth to date
complains of malaise, actively coughing during my exam - nonproductive
Vital Signs / Physical Exam
Vital Signs
Vital Signs
Temp Pulse Resp BP Pulse Ox
97.8 F 78 16 105/65 96
10/03/23 07:15 10/03/23 07:15 10/03/23 07:15 10/03/23 07:15 10/03/23 07:15
Physical Exam
Constitutional: No Acute Distress
Cardiovascular: Regular Rate and S1/S2; Negative Murmur or Rub
Pulmonary: Clear, Symmetric and Other (coughing); Negative Wheezes or Rales
Gastrointestinal: Soft, Non Tender, Non Distended and Normal Bowel Sounds
Skin: Warm and Dry; Negative Rash or Jaundice
Objective Data
Lab Data
Lab Results
10/03/23 06:48
10/03/23 06:48
Estimated Creat Clear 120 ml/min 10/03/23 06:48
Lactic Acid 1.5 mmol/L (0.7-2.0) 10/01/23 15:28
Total Bilirubin 0.8 mg/dl (0.2-1.3) 10/01/23 14:07
AST 36 U/L (17-59) 10/01/23 14:07
ALT 41 U/L (0-50) 10/01/23 14:07
Alkaline Phosphatase 134 U/L (38-126) H 10/01/23 14:07
Most recent labs reviewed.
Micro Results:
10/03/23 11:38 Blood Parasites Smear - Pending
Blood/Venous
10/01/23 15:28 Blood Culture - Preliminary
Blood/Venous No Growth in 24 hours- Final report to follow
10/01/23 15:28 Blood Culture - Preliminary
Blood/Venous No Growth in 24 hours- Final report to follow
10/02/23 11:11 Legionella Urinary Antigen - Final
Urine Negative for Legionella pneumophila Serogroup 1 antigen.
A negative result does not rule out the possiblity of
Legionella infection due to other serogroups or species of
Legionella. Clinical correlation is recommended.
Streptococcus pneumoniae Antigen (M - Final
Negative for Streptococcus pneumoniae antigen.
A negative result does not exclude infection with
Streptococcus pneumoniae. Clinical correlation is
recommended.
10/01/23 CXR: Subtle basilar opacity may reflect atelectasis or mild pneumonia in the appropriate clinical setting.
[2023-10-03 12:18] VITALS: BP 96/59; PULSE 66; O2SAT 96
[2023-10-03 12:22] VITALS: BP 96/59; PULSE 66; O2SAT 97
--- NOTE | 2023-10-03 13:32 | W.PN.NEPH.PH ---
Addendum entered and electronically signed by Ana Gordillo MD 10/03/23 13:37:
minimize NSAIDS as they can limit free water excretion
Original Note:
Today's Communication / Plan
-
low dose samsca
Assessment/Plan
-
Assessment:
Generalized weakness
Acute on Chronic Hyponatremia
Hx MDS periodically requiring transfusion goal hgb >8.5 outpt
Leukocytosis likely MDS flare
hx hemochromatosis
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
Trisomy 8 myelodysplasia
Moderate arthritis
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
Lumbar spine stenosis
neuropathy/lower ext muscle cramps
Orthostasis
Plan:
A/w weakness and sodium sammy at 122
Acute on chr hyponatremia- U osmo 908 high suggesting high SIADH state from pain possibly
cont FR 40ounces/day, sodium no improvement post 3% saline
will try low dose samsca today
cont slat tabs
BP are soft on midodrine-increase to 10mg, TSH and cortisol were normal on 09/24
abx per ID
d/w pt, and nursing
pt debating rehab , prefer to go home
-
-
Date of Service: October 03, 2023
CC / HPI / ROS
-
Chief Complaint:
hyponatremia
History of Present Illness:
Bp soft but stable
no fever today, hb stable 9.3
sodium no change 125 despite HTS
Review of Systems:
no cp o sob
PT recommends SNF
no n/v
Labs
-
Labs:
WBC 24.6 10^3/uL (4.8-10.8) H 10/03/23 06:48
RBC 2.93 10^6/uL (4.70-6.10) L 10/03/23 06:48
Hgb 9.3 g/dL (13.0-18.0) L 10/03/23 06:48
Hct 27.3 % (39.0-52.0) L 10/03/23 06:48
Plt Count 312 10^3/uL (130-400) 10/03/23 06:48
Sodium 125 mmol/L (135-145) L 10/03/23 06:48
Potassium 3.9 mmol/L (3.5-5.1) 10/03/23 06:48
Chloride 98 mmol/L (98-107) 10/03/23 06:48
Carbon Dioxide 22 mmol/L (22-30) 10/03/23 06:48
BUN 13 mg/dl (9-20) 10/03/23 06:48
Creatinine 0.4 mg/dL (0.7-1.3) L 10/03/23 06:48
eGFR > 60.00 10/03/23 06:48
Glucose 102 mg/dl (70-99) H 10/03/23 06:48
Calcium 8.3 mg/dl (8.4-10.2) L 10/03/23 06:48
Albumin 3.0 g/dl (3.5-5.0) L 10/01/23 14:07
Physical Exam
-
Vital Signs:
Vital Signs
Temp Pulse Resp BP Pulse Ox
97.8 F 78 16 105/65 96
10/03/23 07:15 10/03/23 07:15 10/03/23 07:15 10/03/23 07:15 10/03/23 07:15
Cardiovascular:: Regular rate and rhythm
Respiratory:: Bilateral: CTA
Lung Excursion:: Normal
Abdomen:: Nontender and Soft
Extremity Edema:: None: Bilateral:
[place] Catheter: No
[2023-10-03 15:01] VITALS: BP 106/53
--- NOTE | 2023-10-03 16:43 | CM ---
Addendum entered by Valery Salomon RN 10/04/23 11:00:
Cm spoke with patient's who stated that patient is now agreeable to [facility]. Patient's would prefer facilities in [place] as she has caregiving responsibilities for her grandchildren.
CM sent referrals to [facility].
Patient for chemo appointment on Thursday. CM updated hospitalist. Hospitalist will discuss with oncology plan .
Original Note:
CM left message for patient's to discuss rehab. As per review of previous notes, patient has been reluctant to go to SNF.
[2023-10-03] MEDS: SAMSCA 7.5 MG PO (17:03)
[2023-10-03] MEDS: LOVENOX 40 MG SC (17:03)
[2023-10-03] MEDS: ProAmatine 10 MG PO (17:04)
[2023-10-03] MEDS: FLUSH (NSS) 2 FLUSH IV (17:06)
[2023-10-03] MEDS: FOLVITE 1 MG PO (21:21)
[2023-10-03] MEDS: FLOMAX 0.4 MG PO (21:21)
[2023-10-03] MEDS: FIBERCON 625 MG PO (21:22)
[2023-10-03 23:49] VITALS: BP 114/72
[2023-10-04] MEDS: MAXIPIME 2000 MG IV ×3 (01:40→17:57)
[2023-10-04] MEDS: STERILE WATER FOR INJECTION 10 ML IV ×3 (01:40→17:57)
[2023-10-04 03:45] VITALS: BP 113/69
[2023-10-04] MEDS: ROXICODONE 5 MG PO (03:58)
[2023-10-04 05:36] VITALS: BMI 27.6
[2023-10-04 06:00] VITALS: BMI 27.6
[2023-10-04 07:15] VITALS: BP 109/74
[2023-10-04] MEDS: TYLENOL 650 MG PO ×2 (08:16→21:00)
[2023-10-04] MEDS: NEURONTIN 100 MG PO (08:17)
[2023-10-04] MEDS: ProAmatine 10 MG PO ×3 (08:17→17:57)
[2023-10-04] MEDS: VITAMIN B-12 1000 MCG PO (08:17)
[2023-10-04] MEDS: VIBRAMYCIN 100 MG PO ×2 (08:17→20:53)
[2023-10-04] MEDS: SODIUM CHLORIDE 1 GRAM PO ×2 (08:18→20:53)
[2023-10-04] MEDS: MAGNESIUM OXIDE 500 MG PO (08:18)
[2023-10-04] MEDS: VITAMIN D3 (cholecalciferol) 25 MCG PO (08:18)
[2023-10-04] MEDS: ANTIFUNGAL CLEAR 1 APPLIC TOPICAL ×2 (08:19→20:54)
[2023-10-04 09:12] LABS: Blood Urea Nitrogen 13 mg/dl (9-20); Calcium 8.3 mg/dl (8.4-10.2); Carbon Dioxide 24 mmol/L (22-30); Chloride 102 mmol/L (98-107); Estimated Creatinine Clearance 120 ml/min; Glucose 118 mg/dl (70-99); Potassium 4.1 mmol/L (3.5-5.1); Sodium 130 mmol/L (135-145); eGFR > 60.00
[2023-10-04] MEDS: FLUSH (NSS) 2 FLUSH IV (10:05)
--- NOTE | 2023-10-04 10:15 | W.PN.HOSP.TC ---
Today's Communication/Plan
-
see bold
Assessment / Plan
Assessment / Plan
Gen: NAD, AAOx3.
Eyes: EOMI, PERRLA, no scleral icterus.
Neck: supple.
CV: Remains RRR, +S1/S2, no m/r/g.
Resp: CTAB anteriorly, no rales, wheezes, or rhonchi.
Abd: Remains +BS, soft, NT, ND
Skin: No rashes. Trace B/L LE edema
Neuro: CN 2-12 intact, non-focal.
Psych: Normal mood and affect.
10/01/23 15:28 Blood/Venous Blood Culture - Preliminary
No Growth in 48 hours- Final report to follow
10/01/23 15:28 Blood/Venous Blood Culture - Preliminary
No Growth in 48 hours- Final report to follow
10/03/23 11:38 Blood/Venous Blood Parasites Smear - Preliminary
No blood parasites seen.
10/02/23 11:11 Urine Legionella Urinary Antigen - Final
Negative for Legionella pneumophila Serogroup 1 antigen.
A negative result does not rule out the possiblity of
Legionella infection due to other serogroups or species of
Legionella. Clinical correlation is recommended.
10/02/23 11:11 Urine Streptococcus pneumoniae Antigen (M - Final
Negative for Streptococcus pneumoniae antigen.
A negative result does not exclude infection with
Streptococcus pneumoniae. Clinical correlation is
recommended.
CXR: Subtle basilar opacity may reflect atelectasis or mild pneumonia in the appropriate clinical setting.
CT brain 09/25/23: No acute intracranial abnormality.
SIRS:
-currently no definitive source of infection identified. Possibly LLL PNA.
-Immunocompromised due to myelodysplastic syndrome
-febrile again 10/02/23 at 1207, afebrile since
-leukocytosis worsening, check CBC with diff
-BCxs NGTD
-COVID NEG
-Legionella/strep UAg NEG
-Ehrlichia serologies pending
-cont empiric Cefepime/Doxy as per ID
-received 2L NS on admission, on midodrine for chronic hypotension
Acute on chronic hypotonic hyponatremia:
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
-with hypotension and SIRS on admission pt received 2L NS. Na dropped to 122 and pt received 3% NS.
-renal following
-cont salt tabs
-s/p 7.5mg Samsca on 10/03/23, Na now 130
Other problems:
Generalized weakness, possibly due to symptomatic hyponatremia
MDS: Chronic anemia due to MDS, as outpt pt transfused for Hb < 8.5 l
Hemochromatosis
Trisomy 8 myelodysplasia
Arthritis
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
Lumbar spine stenosis
LE neuropathy
DNR/Lovenox
Anticipated Discharge: 24 - 48 hours
Subjective/Interval History
-
Date of Service: October 04, 2023
Denies chest pain or shortness of breath.
Objective Data
-
Labs:
Laboratory Results
10/04/23
07:28
Sodium 130 L
Potassium 4.1
Chloride 102
Carbon Dioxide 24
BUN 13
Creatinine 0.5 L
Glucose 118 H
Calcium 8.3 L
Vital Signs:
Vital Signs
Temp Pulse Resp BP Pulse Ox
98.0 F 85 18 109/74 96
10/04/23 07:15 10/04/23 07:15 10/04/23 07:15 10/04/23 07:15 10/04/23 07:15
I&O
10/03/23 10/04/23 10/05/23
06:59 06:59 06:59
Intake Total 790 / 790 1300 / 1300
Output Total 760 / 760 2250 / 2250
Balance 30 / 30 -950 / -950
[2023-10-04 11:20] LABS: Hematocrit 25.7 % (39.0-52.0); Hemoglobin 8.8 g/dL (13.0-18.0); Mean Corp Hgb Conc. 34.2 g/dL (33.0-37.0); Mean Corpuscular Volume 93.5 fL (80.0-94.0); Mean Platelet Volume 8.5 fL (7.4-10.4); Platelet Count 315 10^3/uL (130-400); Red Blood Cell Count 2.75 10^6/uL (4.70-6.10); Red Cell Dist. Width 23.6 % (11.5-14.5)
[2023-10-04 11:53] LABS: Absolute Neutrophils -Man Diff 6.2 10^3/uL (1.4-6.5); Band Neutrophils 10 % (0-3); Eosinophils 17 % (0-6); Lymphocytes 12 % (20-51); Metamyelocytes 7 % (-); Monocytes 9 % (2-9); Myelocytes 3 % (-); Segmented Neutrophils 42 % (42-75)
[2023-10-04 11:54] LABS: Anisocytosis 1+; Normal RBC Morphology No; Platelets Checked Yes
[2023-10-04 11:55] LABS: Acanthocytes 1+; Hypochromasia 1+; Polychromasia 1+; Total Cells Counted 100
--- NOTE | 2023-10-04 13:56 | W.PN.NEPH.PH ---
Today's Communication / Plan
-
follow labs with FR and salt tab
Assessment/Plan
-
Assessment:
Generalized weakness
Acute on Chronic Hyponatremia
Hx MDS periodically requiring transfusion goal hgb >8.5 outpt
Leukocytosis likely MDS flare
hx hemochromatosis
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
Trisomy 8 myelodysplasia
Moderate arthritis
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
Lumbar spine stenosis
neuropathy/lower ext muscle cramps
Orthostasis
Plan:
A/w weakness and sodium sammy at 122
Acute on chr hyponatremia- U osmo 908 high suggesting high SIADH state from pain possibly
cont FR 40ounces/day,
sodium better with samsca on 10/02
cont slat tabs
BP are soft on midodrine-increased to 10mg 10/02, TSH and cortisol were normal on 09/24
abx per ID
d/w pt
labs in am
-
-
Date of Service: October 04, 2023
CC / HPI / ROS
-
Chief Complaint:
hyponatremia
History of Present Illness:
Bp soft but stable
no fever today, hb down at 8.8
sodium better at 130 s/p samsca
Review of Systems:
no cp o sob
no n/v
Labs
-
Labs:
WBC 12.0 10^3/uL (4.8-10.8) H 10/04/23 10:39
RBC 2.75 10^6/uL (4.70-6.10) L 10/04/23 10:39
Hgb 8.8 g/dL (13.0-18.0) L 10/04/23 10:39
Hct 25.7 % (39.0-52.0) L 10/04/23 10:39
Plt Count 315 10^3/uL (130-400) 10/04/23 10:39
Sodium 130 mmol/L (135-145) L 10/04/23 07:28
Potassium 4.1 mmol/L (3.5-5.1) 10/04/23 07:28
Chloride 102 mmol/L (98-107) 10/04/23 07:28
Carbon Dioxide 24 mmol/L (22-30) 10/04/23 07:28
BUN 13 mg/dl (9-20) 10/04/23 07:28
Creatinine 0.5 mg/dL (0.7-1.3) L 10/04/23 07:28
eGFR > 60.00 10/04/23 07:28
Glucose 118 mg/dl (70-99) H 10/04/23 07:28
Calcium 8.3 mg/dl (8.4-10.2) L 10/04/23 07:28
Albumin 3.0 g/dl (3.5-5.0) L 10/01/23 14:07
Physical Exam
-
Vital Signs:
Vital Signs
Temp Pulse Resp BP Pulse Ox
98.0 F 85 18 109/74 96
10/04/23 07:15 10/04/23 07:15 10/04/23 07:15 10/04/23 07:15 10/04/23 07:15
Cardiovascular:: Regular rate and rhythm
Respiratory:: Bilateral: CTA
Lung Excursion:: Normal
Abdomen:: Nontender and Soft
Extremity Edema:: None: Bilateral:
Aldridge Catheter: No
[2023-10-04 15:10] VITALS: BP 140/75
[2023-10-04] MEDS: NAPROSYN 250 MG PO (15:19)
[2023-10-04] MEDS: LOVENOX 40 MG SC (17:58)
[2023-10-04 19:20] VITALS: BP 109/66
[2023-10-04] MEDS: MIRALAX 17 GRAMS PO (20:52)
[2023-10-04] MEDS: FIBERCON 625 MG PO (20:55)
[2023-10-04] MEDS: FLOMAX 0.4 MG PO (20:55)
[2023-10-04] MEDS: FOLVITE 1 MG PO (20:55)
[2023-10-04 23:35] VITALS: BP 124/76
[2023-10-04 23:54] LABS: IgG 1262 mg/dl (700-1600)
[2023-10-05] MEDS: MAXIPIME 2000 MG IV ×3 (01:32→17:58)
[2023-10-05] MEDS: STERILE WATER FOR INJECTION 10 ML IV ×3 (01:32→17:58)
[2023-10-05] MEDS: NEURONTIN 100 MG PO ×3 (01:32→21:17)
[2023-10-05 03:24] VITALS: BP 120/74
[2023-10-05 05:22] VITALS: BMI 26.7
[2023-10-05 05:39] LABS: Ehrlichia chaffeensis IgM Ab < 1:16 (< 1:16)
[2023-10-05 07:15] VITALS: BP 112/58
[2023-10-05] MEDS: ProAmatine 10 MG PO ×3 (08:03→17:58)
[2023-10-05] MEDS: TYLENOL 650 MG PO ×3 (08:03→21:17)
[2023-10-05] MEDS: VITAMIN D3 (cholecalciferol) 25 MCG PO (08:04)
[2023-10-05] MEDS: SODIUM CHLORIDE 1 GRAM PO ×2 (08:04→19:49)
[2023-10-05] MEDS: MAGNESIUM OXIDE 500 MG PO (08:04)
[2023-10-05] MEDS: VITAMIN B-12 1000 MCG PO (08:04)
[2023-10-05] MEDS: VIBRAMYCIN 100 MG PO ×2 (08:04→19:49)
[2023-10-05 08:29] LABS: Hematocrit 30.2 % (39.0-52.0); Hemoglobin 10.2 g/dL (13.0-18.0); Mean Corp Hgb Conc. 33.8 g/dL (33.0-37.0); Mean Corpuscular Volume 94.7 fL (80.0-94.0); Platelet Count 382 10^3/uL (130-400); Red Blood Cell Count 3.19 10^6/uL (4.70-6.10); Red Cell Dist. Width 23.6 % (11.5-14.5); White Blood Cell Count 14.2 10^3/uL (4.8-10.8)
[2023-10-05 08:40] LABS: Blood Urea Nitrogen 15 mg/dl (9-20); Calcium 8.4 mg/dl (8.4-10.2); Carbon Dioxide 24 mmol/L (22-30); Chloride 97 mmol/L (98-107); Estimated Creatinine Clearance 120 ml/min; Glucose 124 mg/dl (70-99); Potassium 4.4 mmol/L (3.5-5.1); Sodium 129 mmol/L (135-145); eGFR > 60.00
[2023-10-05 09:01] LABS: Absolute Neutrophils -Man Diff 9.7 10^3/uL (1.4-6.5); Band Neutrophils 4 % (0-3); Eosinophils 7 % (0-6); Lymphocytes 8 % (20-51); Metamyelocytes 2 % (-); Monocytes 10 % (2-9); Myelocytes 4 % (-); Platelets Checked Yes; Segmented Neutrophils 65 % (42-75)
[2023-10-05 09:02] LABS: Anisocytosis 1+; Normal RBC Morphology No
[2023-10-05 09:03] LABS: Total Cells Counted 100
[2023-10-05] MEDS: ANTIFUNGAL CLEAR TOPICAL (09:12)
--- NOTE | 2023-10-05 10:00 | W.PN.NEPH.PH ---
Today's Communication / Plan
-
observe on FR and salt tabs
Assessment/Plan
-
Assessment:
Generalized weakness
Acute on Chronic Hyponatremia
Hx MDS periodically requiring transfusion goal hgb >8.5 outpt
Leukocytosis likely MDS flare
hx hemochromatosis
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
Trisomy 8 myelodysplasia
Moderate arthritis
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
Lumbar spine stenosis
neuropathy/lower ext muscle cramps
Orthostasis
Plan:
A/w weakness and sodium sammy at 122
Acute on chronic hyponatremia- U osmo 908 high suggesting high SIADH state from pain possibly
continue FR 40ounces/day,
sodium better with samsca on 10/02, now at 129
cont salt tabs
BP are soft on midodrine-increased to 10mg 10/02, TSH and cortisol were normal on 09/24
abx per ID
d/w pt
labs in am
-
-
Date of Service: October 05, 2023
CC / HPI / ROS
-
Chief Complaint:
hyponatremia
History of Present Illness:
Bp soft but stable
no fever today, hb down at 10.2
sodium better at 1329 s/p samsca
Review of Systems:
no cp o sob
no n/v
Labs
-
Labs:
WBC 14.2 10^3/uL (4.8-10.8) H 10/05/23 06:54
RBC 3.19 10^6/uL (4.70-6.10) L 10/05/23 06:54
Hgb 10.2 g/dL (13.0-18.0) L 10/05/23 06:54
Hct 30.2 % (39.0-52.0) L 10/05/23 06:54
Plt Count 382 10^3/uL (130-400) D 10/05/23 06:54
Sodium 129 mmol/L (135-145) L 10/05/23 06:54
Potassium 4.4 mmol/L (3.5-5.1) 10/05/23 06:54
Chloride 97 mmol/L (98-107) L 10/05/23 06:54
Carbon Dioxide 24 mmol/L (22-30) 10/05/23 06:54
BUN 15 mg/dl (9-20) 10/05/23 06:54
Creatinine 0.5 mg/dL (0.7-1.3) L 10/05/23 06:54
eGFR > 60.00 10/05/23 06:54
Glucose 124 mg/dl (70-99) H 10/05/23 06:54
Calcium 8.4 mg/dl (8.4-10.2) 10/05/23 06:54
Albumin 3.0 g/dl (3.5-5.0) L 10/01/23 14:07
Physical Exam
-
Vital Signs:
Vital Signs
Temp Pulse Resp BP Pulse Ox
97.7 F 87 16 112/58 97
10/05/23 07:15 10/05/23 07:15 10/05/23 07:15 10/05/23 07:15 10/05/23 07:15
Cardiovascular:: Regular rate and rhythm
Respiratory:: Bilateral: CTA
Lung Excursion:: Normal
Abdomen:: Nontender and Soft
Extremity Edema:: None: Bilateral:
Aldridge Catheter: No
--- NOTE | 2023-10-05 11:27 | W.PN.ID1 ---
Date of Service
Date of Service: October 05, 2023
Today's Communication
Continue abx.
Assessment / Plan
MDS, transfusion-dependent anemia without response to Vidaza/luspatercept, discontinued
# Suspected LLL PNA
# Low grade fever
# Leukocytosis
# Hyponatremia
- urine legionella and strep pneumo antigens both neg
- babesia smear - negative; ehrlichia IgG+/IgM- (old disease)
-Continue cefepime and doxycycline
-Follow bcx, temps, wbc.
# Multiple admissions for weakness
- Suspect due to underlying MDS, refractory anemia
#Additional Past Medical History:
Myelodysplastic syndrome failed Vidaza/luspatercept
Trisomy 8 myelodysplasia
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
Acute on chronic macrocytic anemia
Homozygous hereditary hemochromatosis
hx phlebotomy via [facility]
Chronic hyponatremia (baseline Na ~130)
Chronic knee pain
BPH
Asthma
RA
MRSA screen positive
Additional Past Surgical History:
Appendectomy 2018
Colonoscopy 2018
Chief Complaint
-: Fever
Subjective / Review of Systems
Patient seen and examined. Reports overall feeling well. Slight cough. No fevers.
Vital Signs / Physical Exam
Vital Signs
Vital Signs
Temp Pulse Resp BP Pulse Ox
97.7 F 87 16 112/58 97
10/05/23 07:15 10/05/23 07:15 10/05/23 07:15 10/05/23 07:15 10/05/23 07:15
Physical Exam
Constitutional: No Acute Distress, Comfortable and Non-toxic
Eyes: Sclera Anicteric
Cardiovascular: Regular Rate and S1/S2; Negative S3/S4, Murmur or Rub
Pulmonary: Clear, Symmetric, Non Labored and Other (coughing); Negative Wheezes or Rales
Gastrointestinal: Soft, Non Tender, Non Distended and Normal Bowel Sounds
Skin: Warm and Dry; Negative Rash or Jaundice
Neurological: Awake and Alert
Psychological: Calm
Objective Data
Lab Data
Lab Results
10/05/23 06:54
10/05/23 06:54
Estimated Creat Clear 120 ml/min 10/05/23 06:54
Lactic Acid 1.5 mmol/L (0.7-2.0) 10/01/23 15:28
Total Bilirubin 0.8 mg/dl (0.2-1.3) 10/01/23 14:07
AST 36 U/L (17-59) 10/01/23 14:07
ALT 41 U/L (0-50) 10/01/23 14:07
Alkaline Phosphatase 134 U/L (38-126) H 10/01/23 14:07
Most recent labs reviewed.
Micro Results:
10/01/23 15:28 Blood Culture - Preliminary
Blood/Venous No Growth in 72 hours- Final report to follow
10/01/23 15:28 Blood Culture - Preliminary
Blood/Venous No Growth in 72 hours- Final report to follow
10/03/23 11:38 Blood Parasites Smear - Final
Blood/Venous No blood parasites seen.
10/02/23 11:11 Legionella Urinary Antigen - Final
Urine Negative for Legionella pneumophila Serogroup 1 antigen.
A negative result does not rule out the possiblity of
Legionella infection due to other serogroups or species of
Legionella. Clinical correlation is recommended.
Streptococcus pneumoniae Antigen (M - Final
Negative for Streptococcus pneumoniae antigen.
A negative result does not exclude infection with
Streptococcus pneumoniae. Clinical correlation is
recommended.
10/01/23 CXR: Subtle basilar opacity may reflect atelectasis or mild pneumonia in the appropriate clinical setting.
--- NOTE | 2023-10-05 14:20 | W.PN.ONC2 ---
Today's Communication / Plan
-
Retacrit 40,000 units subcu prior to discharge.
Reblozyl in outpatient setting.
Hold initiation of Inqovi until improvement of performance status, be assessed in the outpatient setting following rehab.
Check quantitative immunoglobulins.
No objection to discharge.
F/U Dr. Torres as outpt, office will call him to schedule.
Impression
Impression
MDS with refractory anemia
Left lower lobe pneumonia
Concomitant CLL
Immunosuppressed state
Subacute SIADH
Orthostatic hypotension
Deconditioning
Hereditary hemochromatosis
Plan
Plan
For anemia in MDS, will give 1 dose of Retacrit 40,000 units subcu prior to discharge.
Plan Reblozyl in outpatient setting but not something that can be started here in the hospital.
Hold initiation of Inqovi until improvement of performance status, be assessed in the outpatient setting following rehab.
Send quantitative immunoglobulins now, if hypogammaglobulinemic this may be contributing to susceptibility to infection.
Case discussed with Dr. Torres who sees him as an outpatient.
No objection to discharge.
Subjective/Objective
Chief Complaint
Med Onc F/U of MDS, CLL
Subjective
Denies complaint other than generalized weakness.
Vital Signs:
Vital Signs
Temp Pulse Resp BP Pulse Ox
97.7 F 87 16 112/58 97
10/05/23 07:15 10/05/23 07:15 10/05/23 07:15 10/05/23 07:15 10/05/23 07:15
Lab Results:
Laboratory Data
WBC 14.2 10^3/uL (4.8-10.8) H 10/05/23 06:54
Hgb 10.2 g/dL (13.0-18.0) L 10/05/23 06:54
Plt Count 382 10^3/uL (130-400) D 10/05/23 06:54
eGFR > 60.00 10/05/23 06:54
Physical Exam
HEENT: Moist Mucous Membranes; No Jaundice
Cardiology: Normal Sinus Rhythm, S1 and S2
Pulmonary: Clear; No Wheezes
GI: Soft and Normal Bowel Sounds
Extremities: No C/C/E
Neuro: Non Focal
Orders
Orders
Orders From Last 24 Hours
10/05/23 13:15
Add On- LAB Routine
10/05/23 13:18
Epoetin Dario-Epbx [Retacrit] 40,000 units SC ONCE ONE
--- NOTE | 2023-10-05 15:10 | CM ---
IV/AB, monitoring labs. Discharge Plan of Care: Therapy recommendation for SNF. Referrals previously forwarded. Await discharge and check for bed availability.
--- NOTE | 2023-10-05 15:12 | W.PN.HOSP.TC ---
Addendum entered and electronically signed by Paramjit Vines MD 10/05/23 21:43:
Attending Addendum-
I saw and evaluated the patient. I reviewed the resident�s note and agree with findings and plan as documented in the resident�s note. Sub: feel improved but still weak. no complaints. Full 12 point ROS reviewed and negative except as documented
Exam: Vitals reviewed in chart GEN- NAD heart RRR lungs LLL rhonchi abd soft LE no edema Plan:
# Sepsis secondary to PNa
-Immunocompromised due to myelodysplastic syndrome
-leukocytosis worsening, check CBC with diff in am
-BCxs NGTD
-COVID NEG
-Legionella/strep UAg NEG
-Ehrlichia serologies pending
-cont Cefepime/Doxy as per ID-day 5
# Acute on chronic hyponatremia:
-SIADH
-with hypotension on admission pt received 2L NS. Na dropped to 122 and pt received 3% NS.
-renal on board
-cont salt tabs
-s/p 7.5mg Samsca on 10/03/23, Na now 129
- repeat in am
Other problems:
Generalized weakness, possibly due to symptomatic hyponatremia
MDS: Chronic anemia due to MDS, as outpt pt transfused for Hb < 8.5 - onc on board- retacrit prior to DC f/u as OP
BPH- cont flomax
Hemochromatosis
Trisomy 8 myelodysplasia
Arthritis
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
Lumbar spine stenosis
LE neuropathy
DNR/Lovenox
Dispo DC to SNF when able
Time spent coordinating care, review of plan of care with resident, personally reviewed records in EMR, med rec, consults, notes, labs, radiology, d/w nursing and onc � 59 mins
Original Note:
Today's Communication/Plan
-
Patient will continue with antibiotic treatment and is currently looking for an assisted living facility. FR 40 ounces/day and salt tabs.
Assessment / Plan
Assessment / Plan
Patient with a history of hemochromatosis and myelodysplastic syndrome was admitted to the hospital on 09/30 due to weakness. Patient was diagnosed with Systemic Inflammatory Response Syndrome (SIRS) with worsening leukocytosis and suspected left
lower lobe pneumonia from an unknown etiology.
CXR: Subtle basilar opacity may reflect atelectasis or mild pneumonia in the appropriate clinical setting.
CT brain 09/25/23: No acute intracranial abnormality.
SIRS:
-No source of infection identified. Possible Left Lower Lobe Pneumonia.
-Immunocompromised due to myelodysplastic syndrome
-Patient was febrile on 10/02/23 at 1207 but has been afebrile since
-CBC w/ diff
-Urine legionella and strep pneumo antigens were both negative, babesia smear and ehrlichia were both negative. Infectious disease advises to continue current antibiotic regimen of cefepime and doxycycline and to follow blood cultures, temperatures
and wbc.
-received 2L of normal saline on admission, and is currently on midodrine for chronic hypotension
-COVID NEG-
Acute on chronic hypotonic hyponatremia:
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
-with hypotension and SIRS on admission pt received 2L NS. Na dropped to 122 and pt received 3% NS.
-renal following
-cont salt tabs
-Patient's Na is 129 currently. 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 Labs will be done in the morning
MDS
- Patient given 1 dose of Retacrit 40,000 units by Oncology. Patient will follow up in the outpatient setting for treatment with Reblozyl.
Hemochromatosis
Trisomy 8 myelodysplasia
Arthritis
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
Lumbar spine stenosis
LE neuropathy
DNR/Lovenox
Anticipated Discharge: 24 - 48 hours
Subjective/Interval History
-
Date of Service: October 05, 2023
Patient has been feeling better, had no adverse events overnight. Mentioned slight muscle pain in his right calf but attributes it to not walking as much.
Objective Data
-
Labs:
Laboratory Results
10/05/23
06:54
WBC 14.2 H
Hgb 10.2 L
Hct 30.2 L
Plt Count 382 D
Sodium 129 L
Potassium 4.4
Chloride 97 L
Carbon Dioxide 24
BUN 15
Creatinine 0.5 L
Glucose 124 H
Calcium 8.4
Vital Signs:
Vital Signs
Temp Pulse Resp BP Pulse Ox
97.7 F 87 16 112/58 97
10/05/23 07:15 10/05/23 07:15 10/05/23 07:15 10/05/23 07:15 10/05/23 07:15
I&O
10/04/23 10/05/23 10/06/23
06:59 06:59 06:59
Intake Total 1300 / 1300 1200 / 1200
Output Total 2250 / 2250 1950 / 1950
Balance -950 / -950 -750 / -750
Review of Systems
-
History Source: Patient
Respiratory: Reports Cough
Cardiac: Denies Chest Pain, Palpitations or Syncope
Abdomen/GI: Denies Abdominal Pain, Vomiting or Diarrhea
Musculoskeletal: Reports Muscle Pain (Right leg ache, patient )
Physical Exam
-
General: Well Developed and No Apparent Distress
Respiratory: Crackles
Cardiac: Regular Rhythm and S1/S2; Negative Murmur
Musculoskeletal: No Clubbing, No Cyanosis and No Edema
Skin: Warm and Dry
Neuro: Awake, Alert, Oriented, AO x 3 and No Motor Deficits
Data Reviewed
-
Diagnostic Radiology: Report Reviewed by me
Medical Tests (Nuc Med, Echo etc): Report Reviewed by me
Labs: Labs Reviewed by me, Discussed with Physician and Discussed with Patient
[2023-10-05 15:15] VITALS: BP 115/67
[2023-10-05] MEDS: RETACRIT 40000 UNITS SC (16:25)
[2023-10-05] MEDS: LOVENOX 40 MG SC (17:59)
[2023-10-05] MEDS: ANTIFUNGAL CLEAR 1 APPLIC TOPICAL (19:49)
[2023-10-05] MEDS: FIBERCON 625 MG PO (21:17)
[2023-10-05] MEDS: FOLVITE 1 MG PO (21:17)
[2023-10-05] MEDS: FLOMAX 0.4 MG PO (21:17)
[2023-10-05 23:09] VITALS: BP 133/74
[2023-10-05 23:50] LABS: IgA 298 mg/dl (70-400); IgG 1532 mg/dl (700-1600); IgM 150 mg/dl (40-230)
[2023-10-06] MEDS: STERILE WATER FOR INJECTION 10 ML IV ×3 (01:48→17:08)
[2023-10-06] MEDS: MAXIPIME 2000 MG IV ×3 (01:48→17:08)
[2023-10-06] MEDS: ROXICODONE 5 MG PO (02:00)
[2023-10-06 05:47] VITALS: BMI 26.6
[2023-10-06 06:57] LABS: Blood Urea Nitrogen 14 mg/dl (9-20); Calcium 8.3 mg/dl (8.4-10.2); Carbon Dioxide 24 mmol/L (22-30); Chloride 97 mmol/L (98-107); Estimated Creatinine Clearance 120 ml/min; Glucose 117 mg/dl (70-99); Potassium 4.6 mmol/L (3.5-5.1); Sodium 127 mmol/L (135-145); eGFR > 60.00
[2023-10-06 07:20] VITALS: BP 121/75
[2023-10-06 07:46] LABS: Hematocrit 28.2 % (39.0-52.0); Hemoglobin 9.5 g/dL (13.0-18.0); Mean Corp Hgb Conc. 33.7 g/dL (33.0-37.0); Mean Corpuscular Hgb 31.6 pg (27.0-31.0); Mean Corpuscular Volume 93.7 fL (80.0-94.0); Mean Platelet Volume 8.9 fL (7.4-10.4); Platelet Count 361 10^3/uL (130-400); Red Blood Cell Count 3.01 10^6/uL (4.70-6.10); Red Cell Dist. Width 23.6 % (11.5-14.5); White Blood Cell Count 12.2 10^3/uL (4.8-10.8)
[2023-10-06 07:47] LABS: Absolute Neutrophils -Man Diff 5.9 10^3/uL (1.4-6.5); Band Neutrophils 3 % (0-3); Lymphocytes 16 % (20-51); Monocytes 15 % (2-9); Segmented Neutrophils 46 % (42-75)
[2023-10-06 07:48] LABS: Anisocytosis 1+; Eosinophils 12 % (0-6); Hypochromasia 1+; Metamyelocytes 3 % (-); Myelocytes 5 % (-); Normal RBC Morphology No; Platelets Checked Yes; Polychromasia Slight; Total Cells Counted 100
[2023-10-06] MEDS: SODIUM CHLORIDE 1 GRAM PO ×2 (08:07→20:31)
[2023-10-06] MEDS: VIBRAMYCIN 100 MG PO ×2 (08:07→20:31)
[2023-10-06] MEDS: MAGNESIUM OXIDE 500 MG PO (08:07)
[2023-10-06] MEDS: ProAmatine 10 MG PO ×3 (08:07→17:08)
[2023-10-06] MEDS: VITAMIN B-12 1000 MCG PO (08:07)
[2023-10-06] MEDS: VITAMIN D3 (cholecalciferol) 25 MCG PO (08:07)
[2023-10-06] MEDS: TYLENOL 650 MG PO ×2 (08:08→15:22)
[2023-10-06] MEDS: ANTIFUNGAL CLEAR TOPICAL (08:09)
[2023-10-06] MEDS: NEURONTIN 100 MG PO ×2 (08:12→17:07)
--- NOTE | 2023-10-06 08:33 | PN.CDI ---
CDI
- -
CDI:
Physician Documentation Request
Admit Date: 10/01/23 18:05
Dear Doctor Zaynab,
Please review the following and provide your response in the progress notes.
Clinical Indicators:
Pt admitted with weakness, sepsis, and pneumonia.
09/30 RN initial assessment documented stage 2 sacral pressure injury POA.
Physician documentation of the type and location of wounds is required for compliant documentation. Based on the above clinical findings and your assessment, please provide the following in your progress note:
Stage 2 sacral pressure injury POA
Other
Use of terms such as suspected, likely, concern for, or probable (associated with a specific diagnosis that is being evaluated, monitored, or treated as if it exists) are acceptable and can be coded in the inpatient setting, when documented at the
time of discharge.
Thank you,
Elle Jon RN, BSN
CDI Specialist
Available via [place] [employer]
Please use your independent medical judgment in providing your response.
*Source: National Pressure Ulcer Advisory Panel (NPUAP)
--- NOTE | 2023-10-06 09:06 | W.PN.ID1 ---
Date of Service
Date of Service: October 06, 2023
Today's Communication
Transition cefuroxime 500mg po bid and doxycycline 100 mg po bid through 10/09/23.
Assessment / Plan
MDS, transfusion-dependent anemia without response to Vidaza/luspatercept, discontinued
# Suspected LLL PNA
# Low grade fever
# Leukocytosis
# Hyponatremia
- urine legionella and strep pneumo antigens both neg
- babesia smear - negative; ehrlichia IgG+/IgM- (old disease)
-Transition cefepime/doxycycline to cefuroxime 500mg po bid and doxycycline 100 mg po bid through 10/09/23.
# Multiple admissions for weakness
- Suspect due to underlying MDS, refractory anemia
#Additional Past Medical History:
Myelodysplastic syndrome failed Vidaza/luspatercept
Trisomy 8 myelodysplasia
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
Acute on chronic macrocytic anemia
Homozygous hereditary hemochromatosis
hx phlebotomy via [facility]
Chronic hyponatremia (baseline Na ~130)
Chronic knee pain
BPH
Asthma
RA
MRSA screen positive
Additional Past Surgical History:
Appendectomy 2018
Colonoscopy 2018
Chief Complaint
-: Fever
Subjective / Review of Systems
Feels improved. No cough. Not as weak. + constipation
Vital Signs / Physical Exam
Vital Signs
Vital Signs
Temp Pulse Resp BP Pulse Ox
97.9 F 71 16 121/75 96
10/06/23 07:20 10/06/23 07:20 10/06/23 07:20 10/06/23 07:20 10/06/23 07:20
Physical Exam
Constitutional: No Acute Distress and Comfortable
Cardiovascular: Regular Rate and S1/S2
Pulmonary: Clear
Gastrointestinal: Soft, Non Tender and Non Distended
Extremities: Negative Edema
Neurological: AO x 3
Objective Data
Lab Data
Lab Results
10/06/23 05:41
10/06/23 05:41
Estimated Creat Clear 120 ml/min 10/06/23 05:41
Lactic Acid 1.5 mmol/L (0.7-2.0) 10/01/23 15:28
Total Bilirubin 0.8 mg/dl (0.2-1.3) 10/01/23 14:07
AST 36 U/L (17-59) 10/01/23 14:07
ALT 41 U/L (0-50) 10/01/23 14:07
Alkaline Phosphatase 134 U/L (38-126) H 10/01/23 14:07
Most recent labs reviewed.
Micro Results:
10/01/23 15:28 Blood Culture - Preliminary
Blood/Venous No Growth in 4 days- Final report to follow
10/01/23 15:28 Blood Culture - Preliminary
Blood/Venous No Growth in 4 days- Final report to follow
10/03/23 11:38 Blood Parasites Smear - Final
Blood/Venous No blood parasites seen.
10/02/23 11:11 Legionella Urinary Antigen - Final
Urine Negative for Legionella pneumophila Serogroup 1 antigen.
A negative result does not rule out the possiblity of
Legionella infection due to other serogroups or species of
Legionella. Clinical correlation is recommended.
Streptococcus pneumoniae Antigen (M - Final
Negative for Streptococcus pneumoniae antigen.
A negative result does not exclude infection with
Streptococcus pneumoniae. Clinical correlation is
recommended.
10/01/23 CXR: Subtle basilar opacity may reflect atelectasis or mild pneumonia in the appropriate clinical setting.
--- NOTE | 2023-10-06 10:58 | W.PN.NEPH.PH ---
Today's Communication / Plan
-
Samsca 7.5 mg today
Follow-up BMP
Assessment/Plan
-
Assessment:
Generalized weakness
Acute on Chronic Hyponatremia
Hx MDS periodically requiring transfusion goal hgb >8.5 outpt
Leukocytosis likely MDS flare
hx hemochromatosis
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
Trisomy 8 myelodysplasia
Moderate arthritis
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
Lumbar spine stenosis
neuropathy/lower ext muscle cramps
Orthostasis
Plan:
A/w weakness and sodium sammy at 122, now at 127 (dropping again)
Acute on chronic hyponatremia- U osmo 908 high suggesting high SIADH state from pain possibly
continue FR 40ounces/day,
We will provide 7.5 mg of Samsca again today
continue salt tabs and will also consider low dose lasix however hypotension may limit the
BP are soft on midodrine-increased to 10mg 10/02, TSH and cortisol were normal on 09/24
abx for pneumonia per ID
d/w pt
labs in am
-
-
Date of Service: October 06, 2023
CC / HPI / ROS
-
Chief Complaint:
hyponatremia
History of Present Illness:
Bp soft but stable despite high-dose midodrine
Remains on antibiotic therapy for pneumonia
sodium dropping to 127
Review of Systems:
no cp o sob
Weights down
no n/v
Labs
-
Labs:
WBC 12.2 10^3/uL (4.8-10.8) H 10/06/23 05:41
RBC 3.01 10^6/uL (4.70-6.10) L 10/06/23 05:41
Hgb 9.5 g/dL (13.0-18.0) L 10/06/23 05:41
Hct 28.2 % (39.0-52.0) L 10/06/23 05:41
Plt Count 361 10^3/uL (130-400) 10/06/23 05:41
Sodium 127 mmol/L (135-145) L 10/06/23 05:41
Potassium 4.6 mmol/L (3.5-5.1) 10/06/23 05:41
Chloride 97 mmol/L (98-107) L 10/06/23 05:41
Carbon Dioxide 24 mmol/L (22-30) 10/06/23 05:41
BUN 14 mg/dl (9-20) 10/06/23 05:41
Creatinine 0.5 mg/dL (0.7-1.3) L 10/06/23 05:41
eGFR > 60.00 10/06/23 05:41
Glucose 117 mg/dl (70-99) H 10/06/23 05:41
Calcium 8.3 mg/dl (8.4-10.2) L 10/06/23 05:41
Albumin 3.0 g/dl (3.5-5.0) L 10/01/23 14:07
Physical Exam
-
Vital Signs:
Vital Signs
Temp Pulse Resp BP Pulse Ox
97.9 F 71 16 121/75 96
10/06/23 07:20 10/06/23 07:20 10/06/23 07:20 10/06/23 07:20 10/06/23 10:00
Cardiovascular:: Regular rate and rhythm
Respiratory:: Bilateral: CTA
Lung Excursion:: Normal
Abdomen:: Nontender and Soft
Extremity Edema:: None: Bilateral:
Aldridge Catheter: No
[2023-10-06] MEDS: SAMSCA 7.5 MG PO (11:27)
[2023-10-06 13:44] VITALS: BP 105/68; PULSE 75
--- NOTE | 2023-10-06 14:26 | CM ---
IV/AB, monitoring BMP. Discharge Plan of Care: [facility]. Referrals previously forwarded.
--- NOTE | 2023-10-06 14:40 | W.PN.ONC ---
Today's Communication / Plan
-
He remains hematologically stable. Remains hyponatremic at 127. Plans as per other services.
Impression
Impression
MDS with refractory anemia
Left lower lobe pneumonia
Concomitant CLL
Immunosuppressed state
Subacute SIADH
Orthostatic hypotension
Deconditioning
Hereditary hemochromatosis
Plan
Plan
For anemia in MDS, will give 1 dose of Retacrit 40,000 units subcu prior to discharge.
Plan Reblozyl in outpatient setting but not something that can be started here in the hospital.
Hold initiation of Inqovi until improvement of performance status, be assessed in the outpatient setting following rehab.
Send quantitative immunoglobulins now, if hypogammaglobulinemic this may be contributing to susceptibility to infection.
Case discussed with Dr. Torres who sees him as an outpatient.
No objection to discharge.
Subjective/Objective
Subjective/Objective
He is feeling reasonably well. He is frustrated at the length of his hospitalization. Physical examination is unchanged.
Vital Signs:
Vital Signs
Temp Pulse Resp BP Pulse Ox
97.9 F 71 16 121/75 96
10/06/23 07:20 10/06/23 07:20 10/06/23 07:20 10/06/23 07:20 10/06/23 10:00
Lab Results:
Laboratory Data
WBC 12.2 10^3/uL (4.8-10.8) H 10/06/23 05:41
Hgb 9.5 g/dL (13.0-18.0) L 10/06/23 05:41
Plt Count 361 10^3/uL (130-400) 10/06/23 05:41
eGFR > 60.00 10/06/23 05:41
[2023-10-06 15:40] VITALS: BP 118/69
--- NOTE | 2023-10-06 16:19 | PTCARENOTE ---
morphine gtt initiated at step 3 as per MD. Family at bedside, patient is comfortable
[2023-10-06] MEDS: LOVENOX 40 MG SC (17:07)
--- NOTE | 2023-10-06 17:23 | W.PN.HOSP.TC ---
Addendum entered and electronically signed by Paramjit Vines MD 10/07/23 00:01:
Attending Addendum-
I saw and evaluated the patient. I reviewed the resident�s note and agree with findings and plan as documented in the resident�s note. Sub: feels improved, 'bought my farm with 52 credit cards' Full 12 point ROS reviewed and negative except as
documented Exam: Vitals reviewed in chart GEN- NAD heart RRR lungs LLL rhonchi abd soft LE no edema Plan:
# Sepsis secondary to PNA
-Immunocompromised due to myelodysplastic syndrome
-leukocytosis improved, check CBC with diff in am
-BCxs NGTD
-COVID NEG
-Legionella/strep UAg NEG
-Ehrlichia serologies pending
-cont Cefepime/Doxy as per ID-day 6
- transition to cefuroxime and doxy on DC
# Acute on chronic hyponatremia:
-SIADH
-with hypotension on admission pt received 2L NS. Na dropped to 122 and pt received 3% NS.
-renal on board
-cont salt tabs
-Samsca on 10/05
- repeat BMP in am
Other problems:
Generalized weakness, possibly due to symptomatic hyponatremia- dc to SNF
MDS: Chronic anemia due to MDS, as outpt pt transfused for Hb < 8.5 - onc on board- retacrit prior to DC f/u as OP
BPH- cont flomax
Hemochromatosis
Trisomy 8 myelodysplasia
Arthritis
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
Lumbar spine stenosis
LE neuropathy
DNR/Lovenox
Dispo DC to SNF when able
Time spent coordinating care, review of plan of care with resident, personally reviewed records in EMR, med rec, consults, notes, labs, radiology, d/w nursing and onc � 52 mins
Original Note:
Today's Communication/Plan
-
Patient will transition to oral antibiotics beginning tomorrow
Assessment / Plan
Assessment / Plan
Patient with a history of hemochromatosis and myelodysplastic syndrome was admitted to the hospital on 09/30 due to weakness. Patient was diagnosed with Systemic Inflammatory Response Syndrome (SIRS) with worsening leukocytosis and suspected left
lower lobe pneumonia from an unknown etiology.
SIRS:
-No source of infection identified. Possible Left Lower Lobe Pneumonia.
-Immunocompromised due to myelodysplastic syndrome
-Patient was febrile on 10/02/23 at 1207 but has been afebrile since
-CBC w/ diff
-Urine legionella and strep pneumo antigens were both negative, babesia smear and ehrlichia were both negative. Infectious disease advises to continue current antibiotic regimen of cefepime and doxycycline and to follow blood cultures, temperatures
and wbc.
-received 2L of normal saline on admission, and is currently on midodrine for chronic hypotension
-COVID NEG-
-ID on board
-Patient will be transitioned to Cefuroxime 500mg po bid and doxycycline 100 mg po bid through 10/09/23 tomorrow as per ID
CXR: Subtle basilar opacity may reflect atelectasis or mild pneumonia in the appropriate clinical setting.
CT brain 09/25/23: No acute intracranial abnormality.
Acute on chronic hypotonic hyponatremia:
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
-with hypotension and SIRS on admission pt received 2L NS. Na dropped to 122 and pt received 3% NS.
-renal following
-cont salt tabs
-Samsca 7.5mg given today
-Follow-up BMP
Suspected Stage 2 sacral pressure injury POA
-Examined patient's sacral area for ulcers, none found
MDS
- Patient given 1 dose of Retacrit 40,000 units by Oncology. Patient will follow up in the outpatient setting for treatment with Reblozyl.
Hemochromatosis
Trisomy 8 myelodysplasia
Arthritis
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
Lumbar spine stenosis
LE neuropathy
DNR/Lovenox
Anticipated Discharge: Within 24 hours
Subjective/Interval History
-
Date of Service: October 06, 2023
Patient has been feeling much better. Had no adverse events over night. Prepared to be discharged to [facility].
Objective Data
-
Labs:
Laboratory Results
10/06/23
05:41
WBC 12.2 H
Hgb 9.5 L
Hct 28.2 L
Plt Count 361
Sodium 127 L
Potassium 4.6
Chloride 97 L
Carbon Dioxide 24
BUN 14
Creatinine 0.5 L
Glucose 117 H
Calcium 8.3 L
Vital Signs:
Vital Signs
Temp Pulse Resp BP Pulse Ox
98.1 F 64 18 118/69 98
10/06/23 15:40 10/06/23 15:40 10/06/23 15:40 10/06/23 15:40 10/06/23 15:40
I&O
10/05/23 10/06/23 10/07/23
06:59 06:59 06:59
Intake Total 1200 / 1200 1919 / 1920
Output Total 1950 / 1949 825 / 825
Balance -750 / -750 1095 / 1095
Review of Systems
-
History Source: Patient
Respiratory: Denies Cough or Wheezing
Cardiac: Denies Chest Pain, Palpitations or Syncope
Abdomen/GI: Denies Abdominal Pain, Nausea or Vomiting
Genitourinary: Denies Dysuria or Frequency
Musculoskeletal: Denies Muscle Pain
Physical Exam
-
General: Well Developed, Well Nourished and No Apparent Distress
Respiratory: Clear to Auscultation
Cardiac: Regular Rhythm and S1/S2
Musculoskeletal: No Clubbing, No Cyanosis and No Edema
Skin: Warm and Dry; Negative Ulcers
Neuro: Awake, Alert, Oriented, AO x 3 and No Motor Deficits
Data Reviewed
-
Medical Tests (Nuc Med, Echo etc): Report Reviewed by me and Discussed with Physician
Labs: Labs Reviewed by me, Discussed with Physician and Discussed with Patient
[2023-10-06] MEDS: ANTIFUNGAL CLEAR 1 APPLIC TOPICAL (20:31)
[2023-10-06] MEDS: FOLVITE 1 MG PO (21:33)
[2023-10-06] MEDS: FLOMAX 0.4 MG PO (21:33)
[2023-10-06] MEDS: FIBERCON 625 MG PO (21:33)
[2023-10-06 23:12] VITALS: BP 125/75
[2023-10-07] MEDS: MAXIPIME 2000 MG IV (02:03)
[2023-10-07] MEDS: STERILE WATER FOR INJECTION 10 ML IV (02:03)
[2023-10-07] MEDS: ROXICODONE 5 MG PO (02:03)
[2023-10-07 04:14] VITALS: BMI 26.8
--- NOTE | 2023-10-07 06:08 | W.PN.ONC2 ---
Today's Communication / Plan
-
Outpt F/U.
Impression
Impression
MDS with refractory anemia
Left lower lobe pneumonia
Concomitant CLL
Immunosuppressed state
Subacute SIADH
Orthostatic hypotension
Deconditioning
Hereditary hemochromatosis
Plan
Plan
For anemia in MDS, he received 1 dose of Retacrit 40,000 units SQ 10/04 prior to discharge.
Plan Reblozyl in outpatient setting but not something that can be started inpatient.
Hold initiation of Inqovi until improvement of performance status, be assessed in the outpatient setting following rehab.
No objection to discharge.
Subjective/Objective
Chief Complaint
ACS Heme Onc
Subjective
C/O dry throat and constipation requesting laxative. No other c/o.
Vital Signs:
Vital Signs
Temp Pulse Resp BP Pulse Ox
98.4 F 72 20 125/75 97
10/06/23 23:12 10/06/23 23:12 10/06/23 23:12 10/06/23 23:12 10/06/23 23:12
Lab Results:
Laboratory Data
WBC 12.2 10^3/uL (4.8-10.8) H 10/06/23 05:41
Hgb 9.5 g/dL (13.0-18.0) L 10/06/23 05:41
Plt Count 361 10^3/uL (130-400) 10/06/23 05:41
eGFR > 60.00 10/06/23 05:41
Physical Exam
HEENT: No Jaundice
Cardiology: S1 and S2
Pulmonary: Clear
GI: Soft
[2023-10-07 07:15] VITALS: BP 104/66
[2023-10-07 07:22] LABS: Blood Urea Nitrogen 14 mg/dl (9-20); Calcium 8.5 mg/dl (8.4-10.2); Carbon Dioxide 25 mmol/L (22-30); Chloride 95 mmol/L (98-107); Estimated Creatinine Clearance 120 ml/min; Glucose 125 mg/dl (70-99); Sodium 127 mmol/L (135-145); eGFR > 60.00
[2023-10-07 07:34] LABS: Hematocrit 29.1 % (39.0-52.0); Hemoglobin 9.8 g/dL (13.0-18.0); Mean Corp Hgb Conc. 33.7 g/dL (33.0-37.0); Mean Corpuscular Hgb 32.1 pg (27.0-31.0); Mean Corpuscular Volume 95.4 fL (80.0-94.0); Platelet Count 404 10^3/uL (130-400); Red Blood Cell Count 3.05 10^6/uL (4.70-6.10); Red Cell Dist. Width 23.7 % (11.5-14.5); White Blood Cell Count 12.6 10^3/uL (4.8-10.8)
[2023-10-07] MEDS: ProAmatine 10 MG PO ×2 (08:40→12:56)
[2023-10-07] MEDS: VITAMIN D3 (cholecalciferol) 25 MCG PO (08:40)
[2023-10-07] MEDS: VITAMIN B-12 1000 MCG PO (08:40)
[2023-10-07] MEDS: MAGNESIUM OXIDE 500 MG PO (08:40)
[2023-10-07] MEDS: VIBRAMYCIN 100 MG PO (08:40)
[2023-10-07] MEDS: SODIUM CHLORIDE 1 GRAM PO (08:40)
[2023-10-07] MEDS: ANTIFUNGAL CLEAR 1 APPLIC TOPICAL (08:42)
[2023-10-07] MEDS: CEFTIN 500 MG PO (09:28)
--- NOTE | 2023-10-07 09:59 | W.PN.HOSP.TC ---
Addendum entered and electronically signed by Paramjit Vines MD 10/07/23 22:36:
Attending Addendum-
I saw and evaluated the patient. I reviewed the resident�s note and agree with findings and plan as documented in the resident�s note. Sub: feels very weak. ready to go to snf. Full 12 point ROS reviewed and negative except as documented Exam:
Vitals reviewed in chart GEN- NAD heart RRR lungs LLL rhonchi abd soft LE no edema Plan:
# Sepsis secondary to PNA
-Immunocompromised due to myelodysplastic syndrome
-leukocytosis improved
-BCxs NGTD
-COVID NEG
-Legionella/strep UAg NEG
- transition to cefuroxime and doxy on DC
# Acute on chronic hyponatremia:
-SIADH
- stable 127
-renal on board
-cont salt tabs
-Samsca on 10/05
Other problems:
Generalized weakness, possibly due to symptomatic hyponatremia- dc to SNF
MDS: Chronic anemia due to MDS, as outpt pt transfused for Hb < 8.5 - onc on board- retacrit 10/04 given
BPH- cont flomax
Hemochromatosis
Trisomy 8 myelodysplasia
Arthritis
Low-volume clonal B-cell population consistent with CLL - chemo after snf
Lumbar spine stenosis
LE neuropathy
DNR/Lovenox
Dispo DC to SNF when able [facility] today
Time spent coordinating care, DC planning, review of DC plan of care with resident, transition of care, review of records, med rec/scripts sent electronically, consults, notes, d/w consultants, nursing, family, accepting julio/rich and SUHAIL7
mins
Original Note:
Today's Communication/Plan
-
Patient to be discharged on oral antibiotics.
Assessment / Plan
Assessment / Plan
Patient with a history of hemochromatosis and myelodysplastic syndrome was admitted to the hospital on 09/30 due to weakness. Patient was diagnosed with Systemic Inflammatory Response Syndrome (SIRS) with worsening leukocytosis and suspected left
lower lobe pneumonia from an unknown etiology.
Sepsis secondary to PNA
-No source of infection identified. Possible Left Lower Lobe Pneumonia.
-Immunocompromised due to myelodysplastic syndrome
-Patient was febrile on 10/02/23 at 1207 but has been afebrile since
-CBC w/ diff
-Urine legionella and strep pneumo antigens were both negative, babesia smear and ehrlichia were both negative. Infectious disease advises to continue current antibiotic regimen of cefepime and doxycycline and to follow blood cultures, temperatures
and wbc.
-received 2L of normal saline on admission, and is currently on midodrine for chronic hypotension
-COVID NEG-
-ID on board
-Patient will be transitioned to Cefuroxime 500mg po bid and doxycycline 100 mg po bid through 10/09/23 tomorrow as per ID
CXR: Subtle basilar opacity may reflect atelectasis or mild pneumonia in the appropriate clinical setting.
CT brain 09/25/23: No acute intracranial abnormality.
Acute on chronic hypotonic hyponatremia:
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
-with hypotension and SIRS on admission pt received 2L NS. Na dropped to 122 and pt received 3% NS.
-renal following
-cont salt tabs
-FR 40 ounces
-Samsca on 10/05 did not increase sodium levels. Follow up with Yarn Weigher after discharge.
-Follow-up BMP 2 days at rehab
Suspected Stage 2 sacral pressure injury POA
-Examined patient's sacral area for ulcers, none found
MDS
- Patient given 1 dose of Retacrit 40,000 units by Oncology. Patient will follow up in the outpatient setting for treatment with Reblozyl.
Hemochromatosis
Trisomy 8 myelodysplasia
Arthritis
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
Lumbar spine stenosis
LE neuropathy
DNR/Lovenox
Anticipated Discharge: Today
Subjective/Interval History
-
Date of Service: October 07, 2023
Patient has been feeling well, no overnight adverse events. Patient is frustrated at not being able to get accommodation at [email or web address].
Objective Data
-
Labs:
Laboratory Results
10/07/23
04:37
WBC 12.6 H
Hgb 9.8 L
Hct 29.1 L
Plt Count 404 H
Sodium 127 L
Potassium 5.0
Chloride 95 L
Carbon Dioxide 25
BUN 14
Creatinine 0.5 L
Glucose 125 H
Calcium 8.5
Vital Signs:
Vital Signs
Temp Pulse Resp BP Pulse Ox
98.4 F 61 16 104/66 96
10/07/23 07:15 10/07/23 08:40 10/07/23 07:15 10/07/23 08:40 10/07/23 08:00
I&O
10/06/23 10/07/23 10/08/23
06:59 06:59 06:59
Intake Total 1920 / 1920 1560 / 1560
Output Total 825 / 825 2225 / 2225
Balance 1095 / 1095 -665 / -665
Review of Systems
-
History Source: Patient
Constitutional: Denies Fever, Fatigue or Sleep Disturbance
Respiratory: Denies Cough, Trouble Breathing or Wheezing
Cardiac: Denies Chest Pain or Palpitations
Abdomen/GI: Denies Nausea, Vomiting or Diarrhea
Musculoskeletal: Denies Muscle Stiffness or Edema
Physical Exam
-
General: Well Developed, Well Nourished and No Apparent Distress
Respiratory: Clear to Auscultation
Cardiac: Regular Rhythm and S1/S2
GI: Nontender and Nondistended
Musculoskeletal: No Clubbing, No Cyanosis and No Edema
Neuro: Awake, Alert, Oriented and AO x 3
Data Reviewed
-
Labs: Labs Reviewed by me, Discussed with Physician and Discussed with Patient
--- NOTE | 2023-10-07 11:59 | CM ---
Patient has been medically cleared for discharge to [facility] for intermediate and rehab services. Transport scheduled for 1:00 PM. Patient, , team and [facility] admissions notified.
NURSE TO NURSE REPORT # [phone]
FAX # [phone]
--- NOTE | 2023-10-07 12:04 | W.PN.NEPH.PH ---
Today's Communication / Plan
-
see plan
Assessment/Plan
-
Assessment:
Generalized weakness
Acute on Chronic Hyponatremia
Hx MDS periodically requiring transfusion goal hgb >8.5 outpt
Leukocytosis likely MDS flare
hx hemochromatosis
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
Trisomy 8 myelodysplasia
Moderate arthritis
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
Lumbar spine stenosis
neuropathy/lower ext muscle cramps
Orthostasis
Plan:
A/w weakness and sodium sammy at 122, now at 127 despite samsca
Acute on chronic hyponatremia- U osmo 908 high suggesting high SIADH state from pain possibly
continue FR 40ounces/day
continue salt tabs and will also consider low dose lasix in future however hypotension may limit
BP are soft on midodrine-increased to 10mg 10/02, TSH and cortisol were normal on 09/24
abx for pneumonia per ID
BMP in 2days at rehab, f/u PCP , baseline sodium 126-130
nephro as needed when pt wishes
d/w pt and primary
ok for d/c
-
-
Date of Service: October 07, 2023
CC / HPI / ROS
-
Chief Complaint:
hyponatremia
History of Present Illness:
Bp soft but stable despite high-dose midodrine
Remains on antibiotic therapy for pneumonia
sodium stable at 127
Review of Systems:
no cp o sob
no dizziness
no n/v
Labs
-
Labs:
WBC 12.6 10^3/uL (4.8-10.8) H 10/07/23 04:37
RBC 3.05 10^6/uL (4.70-6.10) L 10/07/23 04:37
Hgb 9.8 g/dL (13.0-18.0) L 10/07/23 04:37
Hct 29.1 % (39.0-52.0) L 10/07/23 04:37
Plt Count 404 10^3/uL (130-400) H 10/07/23 04:37
Sodium 127 mmol/L (135-145) L 10/07/23 04:37
Potassium 5.0 mmol/L (3.5-5.1) 10/07/23 04:37
Chloride 95 mmol/L (98-107) L 10/07/23 04:37
Carbon Dioxide 25 mmol/L (22-30) 10/07/23 04:37
BUN 14 mg/dl (9-20) 10/07/23 04:37
Creatinine 0.5 mg/dL (0.7-1.3) L 10/07/23 04:37
eGFR > 60.00 10/07/23 04:37
Glucose 125 mg/dl (70-99) H 10/07/23 04:37
Calcium 8.5 mg/dl (8.4-10.2) 10/07/23 04:37
Albumin 3.0 g/dl (3.5-5.0) L 10/01/23 14:07
Physical Exam
-
Vital Signs:
Vital Signs
Temp Pulse Resp BP Pulse Ox
98.4 F 61 16 104/66 96
10/07/23 07:15 10/07/23 08:40 10/07/23 07:15 10/07/23 08:40 10/07/23 08:00
Cardiovascular:: Regular rate and rhythm
Respiratory:: Bilateral: CTA
Lung Excursion:: Normal
Abdomen:: Nontender and Soft
Extremity Edema:: None: Bilateral:
Aldridge Catheter: No
[2023-10-07 12:41] VITALS: BP 97/62
--- NOTE | 2023-10-07 13:50 | W.DCSUMMARY ---
Addendum entered and electronically signed by Paramjit Vines MD 10/07/23 22:37:
Read, reviewed, and agree. See same day progress note for additional details.
Liang Vines MD
Original Note:
Documented by User: Ronna Worthy MD, Resident 10/07/23 16:58
Discharge Summary
Discharge Data
Date of Admission: 10/01/23
Date of Discharge: 10/07/23
-
Pending Results: No
Hospital Course
Patient was admitted to the hospital on 09/30 with a chief complaint of weakness. Patient was seen by a home health aide that day who recorded his systolic blood pressure to be <100. Patient was started on sodium chloride tablets, and empiric
antibiotics. No source of infection was identified and patient was continued on empiric Cefepime/Vanco/Flagyl. Patient was diagnosed with SIADH due to urine and serum Osm. ID and Nephro were consulted at this time.
Probable Left Lower Lobe Pneumonia-
ID kept patient on Cefepime and Doxycycline for suspected pneumonia. Patient's symptoms improved after antibiotics. No known organism was found, patient was transitioned to oral antibiotics cefuroxime 500mg po bid and doxycycline 100 mg po bid
through 10/09/23
SIADH-
Patient was put on FR 40oz and salt tabs were continued. Patient's sodium levels were monitored and low dose Samsca was given on 10/02. The patient's sodium levels improved at this time but remained steadily low after treatment. Another dose of
Samsca was given on 10/05 which did not lead to any improvement of sodium levels. Patient was counseled to seek a accounts specialist after discharge as he refused to follow up with Nephrologists at the hospital.
MDS- Patient remained hemodynamically stable. Received 1 dose of Retacrit 40,000 units subcu prior to discharge and Plan Reblozyl in outpatient setting
Discharge Plan
-
Patient Disposition: Long Term/SNF
Discharge Diagnosis/Procedures: Sepsis secondary to Pneumonia
Acute on Chronic Hyponatremia
Condition: Fair
Additional Diets: Restrict Fluids 40oz
Activity: As tolerated
Driving Restrictions: As prior to admission
Bathing Restrictions: None
Blood Work: CMP in one week
Referrals:
Reggie Torres DO [Active] -
Rosalinda Galloway PA [Family Provider] -
Additional Discharge Medication Instructions: cefuroxime 500mg po bid and doxycycline 100 mg po bid through 10/09/23.
Prescriptions:
New
doxycycline hyclate 100 mg capsule
100 mg PO Q12 3 Days Qty: 6 0RF
cefuroxime axetil 500 mg Tablet
500 mg PO BID Qty: 6 0RF
Continued
folic acid 1 mg tablet
1 mg PO HS
calcium polycarbophil [FiberCon] 625 mg Tablet
625 mg PO HS
cholecalciferol (vitamin D3) [Vitamin D3] 25 mcg (1,000 unit) Tablet
25 mcg PO DAILY Qty: 0
magnesium oxide 400 mg magnesium Tablet
400 mg PO HS Qty: 0
cyanocobalamin (vitamin B-12) 1,000 mcg Tablet
1,000 mcg PO DAILY Qty: 0
gabapentin 100 mg capsule
100 mg PO BIDPRN PRN (Reason: nerve pains)
tamsulosin 0.4 mg Capsule
0.4 mg PO HS 30 Days Qty: 30 0RF
naproxen sodium [Aleve] 220 mg Tablet
220 mg PO BIDPRN PRN (Reason: mild pain)
sodium chloride 1,000 mg Tablet,Soluble
1,000 mg PO BID Qty: 60 2RF
midodrine 5 mg tablet
5 mg PO BID
oxycodone 5 mg tablet
5 mg PO HSPRN PRN (Reason: severe breakthrough pain) Qty: 7 0RF
Discharge Orders:
Discharge Patient (As Directed); Ordered 10/07/23
Ordered By: Ayobami Henry-Odunsi
Discharge Date and Time
Discharge Date/Time: 10/07/23 13:15
Print Language: STATELESS

Documented by User: Paramjit Vines MD 10/07/23 22:32
Discharge Summary
Discharge Data
Date of Admission: 10/01/23
Date of Discharge: 10/07/23
Discharge Plan
-
Patient Disposition: Long Term/SNF
Discharge Diagnosis/Procedures: Sepsis secondary to Pneumonia
Acute on Chronic Hyponatremia
Condition: Fair
Additional Diets: Restrict Fluids 40oz
Activity: As tolerated
Driving Restrictions: As prior to admission
Bathing Restrictions: None
Blood Work: CMP in one week
Referrals:
Reggie Torres DO [Active] -
Rosalinda Galloway PA [Family Provider] -
Additional Discharge Medication Instructions: cefuroxime 500mg po bid and doxycycline 100 mg po bid through 10/09/23.
Prescriptions:
New
doxycycline hyclate 100 mg capsule
100 mg PO Q12 3 Days Qty: 6 0RF
cefuroxime axetil 500 mg Tablet
500 mg PO BID Qty: 6 0RF
Continued
folic acid 1 mg tablet
1 mg PO HS
calcium polycarbophil [FiberCon] 625 mg Tablet
625 mg PO HS
cholecalciferol (vitamin D3) [Vitamin D3] 25 mcg (1,000 unit) Tablet
25 mcg PO DAILY Qty: 0
magnesium oxide 400 mg magnesium Tablet
400 mg PO HS Qty: 0
cyanocobalamin (vitamin B-12) 1,000 mcg Tablet
1,000 mcg PO DAILY Qty: 0
gabapentin 100 mg capsule
100 mg PO BIDPRN PRN (Reason: nerve pains)
tamsulosin 0.4 mg Capsule
0.4 mg PO HS 30 Days Qty: 30 0RF
naproxen sodium [Aleve] 220 mg Tablet
220 mg PO BIDPRN PRN (Reason: mild pain)
sodium chloride 1,000 mg Tablet,Soluble
1,000 mg PO BID Qty: 60 2RF
midodrine 5 mg tablet
5 mg PO BID
oxycodone 5 mg tablet
5 mg PO HSPRN PRN (Reason: severe breakthrough pain) Qty: 7 0RF
Discharge Orders:
Discharge Patient (As Directed); Ordered 10/07/23
Ordered By: Shirley Marquez
Discharge Date and Time
Discharge Date/Time: 10/07/23 13:15
Print Language: STATELESS
== END 2023-10-07 13:15 | DRG 871 ==
LOC: 2 NORTH 18:05
PROVIDERS: Internal Medicine; Internal Medicine Hematology & Oncology; Nurse Practitioner Gerontology; Physician Assistant; Specialist; Student in an Organized Health Care Education/Training Program; ADMITTING PHYSICIAN Internal Medicine; ATTENDING PHYSICIAN Family Medicine; CONSULT PHYSICIAN Internal Medicine Hematology & Oncology; CONSULT PHYSICIAN Internal Medicine Infectious Disease; CONSULT PHYSICIAN Student in an Organized Health Care Education/Training Program; EMERGENCY PHYSICIAN Emergency Medicine; FAMILY PHYSICIAN Physician Assistant Medical
DX: A41.9 Sepsis, unspecified organism (principal); J18.9 Pneumonia, unspecified organism; E22.2 Syndrome of inappropriate secretion of antidiuretic hormone; C91.10 Chronic lymphocytic leukemia of B-cell type not having achieved remission; D84.81 Immunodeficiency due to conditions classified elsewhere; D46.9 Myelodysplastic syndrome, unspecified; D63.8 Anemia in other chronic diseases classified elsewhere; M48.061 Spinal stenosis, lumbar region without neurogenic claudication; E83.110 Hereditary hemochromatosis; Z66 Do not resuscitate
CPT/HCPCS: 71046; 80048; 80053; 80202; 81003; 81015; 82784; 83605; 83735; 83930; 83935; 85025; 85027; 86666; 86850; 86900; 86901; 87015; 87040; 87207; 87449; 87811; 87899; 96360; 97116; 97162; 97166; 99285; Q5106

== ENCOUNTER → 2023-10-13 12:10 | Outpatient (REF) | payer MEDICARE, BC, SELFPAY ==
[2023-10-13 10:24] LABS: % Basophils 0.3 % (0-2); % Eosinophils 1.8 % (0-6); % Immature Granulocytes 15.3 % (0-0.5); % Lymphocytes 8.7 % (20.5-51.1); % Monocytes 14.1 % (1.7-9.3); % Neutrophils 59.8 % (42.2-75.2); Absolute Basophils 0.1 10^3/uL (0-0.2); Absolute Eosinophils 0.3 10^3/uL (0-0.7); Absolute Immature Granulocytes 2.8 10^3/uL (0-0.05); Absolute Lymphocytes 1.6 10^3/uL (1.2-3.4); Absolute Monocytes 2.6 10^3/uL (0.1-0.6); Absolute Neutrophils 11.1 10^3/uL (1.4-6.5); Hematocrit 28.6 % (39.0-52.0); Hemoglobin 9.4 g/dL (13.0-18.0); Mean Corp Hgb Conc. 32.9 g/dL (33.0-37.0); Mean Corpuscular Hgb 32.1 pg (27.0-31.0); Mean Corpuscular Volume 97.6 fL (80.0-94.0); Mean Platelet Volume 8.6 fL (7.4-10.4); Platelet Count 415 10^3/uL (130-400); Red Blood Cell Count 2.93 10^6/uL (4.70-6.10); Red Cell Dist. Width 23.2 % (11.5-14.5); White Blood Cell Count 18.5 10^3/uL (4.8-10.8)
== END ==
LOC: OIDL 12:10
PROVIDERS: ATTENDING PHYSICIAN Internal Medicine Hematology & Oncology
DX: E83.110 Hereditary hemochromatosis (principal)
CPT/HCPCS: 85025

== ENCOUNTER 2023-10-21 08:00 | Emergency (ER) | payer MEDICARE, BC, SELFPAY ==
[2023-10-21 08:03] VITALS: BP 95/65
[2023-10-21 08:35] VITALS: BP 113/72
[2023-10-21 08:35] LABS: INR 1.17; PT 14.9 Sec (11.4-14.6)
[2023-10-21 08:39] LABS: ALT (SGPT) 25 U/L (0-50); AST (SGOT) 27 U/L (17-59); Albumin 3.4 g/dl (3.5-5.0); Alkaline Phosphatase 128 U/L (38-126); Blood Urea Nitrogen 17 mg/dl (9-20); Calcium 9.3 mg/dl (8.4-10.2); Carbon Dioxide 28 mmol/L (22-30); Chloride 91 mmol/L (98-107); Glucose 131 mg/dl (70-99); Sodium 127 mmol/L (135-145); Total Bilirubin 0.7 mg/dl (0.2-1.3); Total Protein 6.9 g/dl (6.3-8.2); eGFR > 60.00
[2023-10-21 08:45] LABS: Hematocrit 27.6 % (39.0-52.0); Hemoglobin 9.3 g/dL (13.0-18.0); Mean Corp Hgb Conc. 33.7 g/dL (33.0-37.0); Mean Corpuscular Hgb 32.4 pg (27.0-31.0); Mean Corpuscular Volume 96.2 fL (80.0-94.0); Mean Platelet Volume 8.7 fL (7.4-10.4); Platelet Count 461 10^3/uL (130-400); Red Blood Cell Count 2.87 10^6/uL (4.70-6.10); Red Cell Dist. Width 22.6 % (11.5-14.5); White Blood Cell Count 11.7 10^3/uL (4.8-10.8)
[2023-10-21 09:00] VITALS: BP 98/73
[2023-10-21 09:02] LABS: Absolute Neutrophils -Man Diff 5.8 10^3/uL (1.4-6.5); Band Neutrophils 10 % (0-3); Eosinophils 3 % (0-6); Lymphocytes 20 % (20-51); Metamyelocytes 3 % (-); Monocytes 16 % (2-9); Myelocytes 8 % (-); Normal RBC Morphology No; Platelets Checked Yes; Segmented Neutrophils 40 % (42-75)
[2023-10-21 09:03] LABS: Anisocytosis 1+; Hypochromasia 1+; Total Cells Counted 100
[2023-10-21 09:10] VITALS: BP 101/70
--- NOTE | 2023-10-21 09:17 | ED.GENMED ---
History of Present Illness
<Sindhu Geronimo PA-C - Last Filed: 10/21/23 17:55>
General
Chief Complaint: Abnormal Lab Value
Source: patient
Exam Limitations: none
Time Seen by Provider: 10/21/23 08:52
Nursing documentation reviewed up to this point in time: agreed with
History of Present Illness
History of Present Illness:
73-year-old male with history of MDS, hemochromatosis, chronic hyponatremia presenting to the emergency department from [facility] for evaluation given low hemoglobin seen on outpatient labs performed yesterday. Patient today reports some
generalized weakness no worse than his baseline. Patient denies any chest pain, or worsening in shortness of breath. Patient denies any dizziness, lightheadedness. No fevers, chills, or cough.
Patient follows with Dr. Torres as his primary oncologist.
Did review patient's lab report from yesterday performed at [facility]. It appears hemoglobin was 8.1.
Past History
<Sindhu Geronimo PA-C - Last Filed: 10/21/23 17:55>
Past History
ED Past Medical History: Cancer (MDS) and Other (Hemochromatosis, rheumatoid arthritis, mild intermittent asthma)
ED Past Surgical History: Appendectomy
Social History
Tobacco: Non-smoker
Alcohol: None
Drug: None
Personal:
Living: with family
Employment: Employed ([employer])
Family History
Family History: Other (Noncontributory)
Review of Systems
<Sindhu Geronimo PA-C - Last Filed: 10/21/23 17:55>
Review of Systems
Allergies reviewed?: Yes
All Other Systems: ROS reviewed and negative except as documented in HPI and ROS
Phy Exam
<Sindhu Geronimo PA-C - Last Filed: 10/21/23 17:55>
Physical Exam
Physical Exam:
Vitals: Patient's vital signs are stable. Afebrile
General: Patient is chronically ill-appearing, no acute distress.
Skin: Warm and dry. Scattered ecchymoses on bilateral upper and lower extremities
Head: Normocephalic, atraumatic
Eyes: Sclera nonicteric. EOMs intact. No nystagmus.
Throat: Protecting airway
Neck: Normal ROM, no cervical spine tenderness, no meningismus. Trachea midline
Cardiac: Regular rate and rhythm, no murmurs.
Pulm: Normal respiratory effort, no wheezes, rales, rhonchi heard on exam.
Abdomen: Abdomen nondistended. No abdominal tenderness.
Extremities: No evidence of cyanosis or edema. Perfusing well
Neuro: AAOx3. Grossly intact. Speech fluid.
Psychiatric: Normal affect.
Course
<Sindhu Geronimo PA-C - Last Filed: 10/21/23 17:55>
Orders/Labs/Results
Orders:
Orders
10/21/23 08:10
Type+Screen Urgent
Complete Blood Count/With Diff Urgent
Comprehensive Metabolic Panel Urgent
Manual Differential Urgent
Prothrombin Time Urgent
Abnormal Lab Results
10/21/23
08:10
WBC 11.7 H 10^3/uL
(4.8-10.8)
RBC 2.87 L 10^6/uL
(4.70-6.10)
Hgb 9.3 L g/dL
(13.0-18.0)
Hct 27.6 L %
(39.0-52.0)
MCV 96.2 H fL
(80.0-94.0)
MCH 32.4 H pg
(27.0-31.0)
RDW 22.6 H %
(11.5-14.5)
Plt Count 461 H 10^3/uL
(130-400)
Segmented Neutrophils 40 L %
(42-75)
Band Neutrophils 10 H %
(0-3)
Monocytes (Manual) 16 H %
(2-9)
PT 14.9 H Sec
(11.4-14.6)
Sodium 127 L mmol/L
(135-145)
Chloride 91 L mmol/L
(98-107)
Creatinine 0.6 L mg/dL
(0.7-1.3)
Glucose 131 H mg/dl
(70-99)
Alkaline Phosphatase 128 H U/L
(38-126)
Albumin 3.4 L g/dl
(3.5-5.0)
10/21/23 08:10
10/21/23 08:10
Vital Signs
Initial and Last Documented VS:
Initial Vital Signs
Temp Pulse Resp BP Pulse Ox
98.5 F 93 17 95/65 98
10/21/23 08:03 10/21/23 08:03 10/21/23 08:03 10/21/23 08:03 10/21/23 08:03
Last Documented Vital Signs
Temp Pulse Resp BP Pulse Ox
98.5 F 71 14 101/70 96
10/21/23 08:03 10/21/23 10:15 10/21/23 10:15 10/21/23 09:10 10/21/23 09:45
<Fracisco Orlando, DO - Last Filed: 10/21/23 10:07>
Orders/Labs/Results
Orders:
Orders
10/21/23 08:10
Type+Screen Urgent
Complete Blood Count/With Diff Urgent
Comprehensive Metabolic Panel Urgent
Manual Differential Urgent
Prothrombin Time Urgent
Abnormal Lab Results
10/21/23
08:10
WBC 11.7 H 10^3/uL
(4.8-10.8)
RBC 2.87 L 10^6/uL
(4.70-6.10)
Hgb 9.3 L g/dL
(13.0-18.0)
Hct 27.6 L %
(39.0-52.0)
MCV 96.2 H fL
(80.0-94.0)
MCH 32.4 H pg
(27.0-31.0)
RDW 22.6 H %
(11.5-14.5)
Plt Count 461 H 10^3/uL
(130-400)
Segmented Neutrophils 40 L %
(42-75)
Band Neutrophils 10 H %
(0-3)
Monocytes (Manual) 16 H %
(2-9)
PT 14.9 H Sec
(11.4-14.6)
Sodium 127 L mmol/L
(135-145)
Chloride 91 L mmol/L
(98-107)
Creatinine 0.6 L mg/dL
(0.7-1.3)
Glucose 131 H mg/dl
(70-99)
Alkaline Phosphatase 128 H U/L
(38-126)
Albumin 3.4 L g/dl
(3.5-5.0)
10/21/23 08:10
10/21/23 08:10
Vital Signs
Initial and Last Documented VS:
Initial Vital Signs
Temp Pulse Resp BP Pulse Ox
98.5 F 93 17 95/65 98
10/21/23 08:03 10/21/23 08:03 10/21/23 08:03 10/21/23 08:03 10/21/23 08:03
Last Documented Vital Signs
Temp Pulse Resp BP Pulse Ox
98.5 F 71 14 101/70 96
10/21/23 08:03 10/21/23 10:15 10/21/23 10:15 10/21/23 09:10 10/21/23 09:45
<Sindhu Geronimo PA-C - Last Filed: 10/21/23 17:55>
MDM/Problems Addressed
Differential Diagnosis Includes:
Not limited to: Acute on chronic anemia, acute on chronic hyponatremia, MDS, dehydration, lower GI bleed, upper GI bleed,
MDM/Problems Addressed:
73-year-old male with history chronic anemia, chronic hyponatremia, MDS presenting from [facility] for concerns of low hemoglobin of 8.1 drawn on outpatient labs yesterday. Patient essentially asymptomatic. Denies any worsening shortness of
breath, fatigue, dizziness/lightheadedness, chest pain, occult bleeding. Patient follows with Dr. Torres outpatient as primary oncologist. Vital signs acceptable. Physical exam as above. Patient is chronically ill-appearing although appears in no
acute distress. Heart regular rate and rhythm. Lungs are clear bilaterally. Abdomen soft and nontender. Neuro exam without any focal deficits. Labs initiated in triage show a hemoglobin of 9.3�which is stable for patient. A very mild
leukocytosis of 11.7 which also appears chronic. Sodium of 127 noted�stable from patient's discharge in the hospital due to chronic hyponatremia. Otherwise no clinically significant abnormalities.
Hemoglobin does not meet transfusion threshold. Did discuss case and labs with patient's oncology team, Dr. Freed who agrees that patient's labs appear stable and sees no indication for transfusion. Did discuss with patient at length regarding
indications for transfusion. Otherwise�patient is asymptomatic. No indication for admission. Patient seen by attending physician. Patient will be discharged back to [facility] with return precautions. Repeat lab work will be performed.
Chronic conditions affecting care:
MDS, chronic anemia, chronic hyponatremia
Acute Exacerbation and/or Progression of Chronic Illness:
Chronic anemia
<Sindhu Geronimo PA-C - Last Filed: 10/21/23 17:55>
*Pulse Oximetry
Patient hypoxic: no
*EKG
Interpreted by ED Provider?: NA
*Manager Perioperative Interpretation
Rate: Manager Perioperative- N/A
*Critical Care Note
Total Time (30-74mins, 75-104mins- exclusive of procedures): Not Applicable
Data Reviewed
Review of Other/Old Records Reveals: Labs (Labs obtained during admission from 09/30- 10/06.) and Records (Data from hospital admission from 09/30-10/06)
ED Attending Note
<Sindhu Geronimo PA-C - Last Filed: 10/21/23 17:55>
-
Portions of this chart may have been created with voice recognition software.� Occasional wrong word or��sound alike� substitutions may have occurred due to the inherent limitations of voice recognition software.
<Fracisco Orlando DO - Last Filed: 10/21/23 10:07>
ED Attending Note
Patient seen and examined by attending physician: Yes
I performed the substantive portion of visit, reviewed & personally made and approve the management plan that is documented in note by myself or CECY.: Yes
Discharge Plan
Departure
Patient Disposition: Home (Routine Discharge)
Date of Disposition: 10/21/23
Time of Disposition: 10:08
Patient with high blood pressure during this ER visit?: No
Condition: Good
Covid-19: Not Applicable
Discharge Problem:
Anemia in chronic illness, Chronic hyponatremia
Prescriptions:
No Action
folic acid 1 mg tablet
1 mg PO HS
calcium polycarbophil [FiberCon] 625 mg Tablet
625 mg PO HS
cholecalciferol (vitamin D3) [Vitamin D3] 25 mcg (1,000 unit) Tablet
25 mcg PO DAILY Qty: 0
magnesium oxide 400 mg magnesium Tablet
400 mg PO HS Qty: 0
cyanocobalamin (vitamin B-12) 1,000 mcg Tablet
1,000 mcg PO DAILY Qty: 0
gabapentin 100 mg capsule
100 mg PO BIDPRN PRN (Reason: nerve pains)
tamsulosin 0.4 mg Capsule
0.4 mg PO HS 30 Days Qty: 30 0RF
naproxen sodium [Aleve] 220 mg Tablet
220 mg PO BIDPRN PRN (Reason: mild pain)
sodium chloride 1,000 mg Tablet,Soluble
1,000 mg PO BID Qty: 60 2RF
midodrine 5 mg tablet
5 mg PO BID
doxycycline hyclate 100 mg capsule
100 mg PO Q12 3 Days Qty: 6 0RF
cefuroxime axetil 500 mg Tablet
500 mg PO BID Qty: 6 0RF
oxycodone 5 mg tablet
5 mg PO HSPRN PRN (Reason: severe breakthrough pain) Qty: 7 0RF
Referrals:
Reggie Torres DO [Active] - Keep scheduled appt
Rosalinda Galloway PA [Family Provider] -
Activity Restrictions/Additional Instructions:
RETURN TO THE EMERGENCY DEPARTMENT WITH ANY FEVERS, CHILLS, SHORTNESS OF BREATH, SIGNIFICANT WEAKNESS, LIGHTHEADEDNESS/DIZZINESS, SIGNS OF SEVERE DEHYDRATION, OR ANY OTHER CONCERNS
-As discussed�your hemoglobin today in the emergency department was 9.3. This was discussed with your oncologist who does not recommend any blood transfusion at this time. All of your other lab work appears stable at this time. You should
continue to monitor your symptoms and lab work closely and return to the emergency department for any acute worsening/new symptoms or changes.
-Follow-up with your primary care and oncology for further evaluation/
Interventions
Interventions:
*Risk Screen - Suicide Last Done: 10/21/23 10:49
*General Assessment Last Done: 10/21/23 10:49
*Neglect/Abuse Screening Last Done: 10/21/23 10:49
*ED COVID-19 Vaccine History Last Done: 10/21/23 10:49
*Nursing Disposition Last Done: 10/21/23 10:50
Discharge Date and Time
Discharge Date/Time: 10/21/23 10:50
Print Language: [id number]
== END 2023-10-21 10:50 | disposition home or self-care (01) ==
LOC: EMR 08:00
PROVIDERS: EMERGENCY PHYSICIAN Emergency Medicine; FAMILY PHYSICIAN Physician Assistant Medical
DX: E87.1 Hypo-osmolality and hyponatremia (principal); J45.20 Mild intermittent asthma, uncomplicated; M06.9 Rheumatoid arthritis, unspecified; Z90.49 Acquired absence of other specified parts of digestive tract
CPT/HCPCS: 99282; 80053; 85025; 85610; 86850; 86900; 86901

== ENCOUNTER → 2023-10-26 16:06 | Outpatient (REF) | payer MEDICARE, BC, SELFPAY ==
[2023-10-26 15:06] LABS: Hematocrit 22.5 % (39.0-52.0); Hemoglobin 7.7 g/dL (13.0-18.0); Mean Corp Hgb Conc. 34.2 g/dL (33.0-37.0); Mean Corpuscular Hgb 31.8 pg (27.0-31.0); Mean Platelet Volume 8.6 fL (7.4-10.4); Platelet Count 470 10^3/uL (130-400); Red Blood Cell Count 2.42 10^6/uL (4.70-6.10); Red Cell Dist. Width 22.9 % (11.5-14.5); White Blood Cell Count 11.4 10^3/uL (4.8-10.8)
[2023-10-26 15:46] LABS: Absolute Neutrophils -Man Diff 8.3 10^3/uL (1.4-6.5); Eosinophils 3 % (0-6); Lymphocytes 16 % (20-51); Metamyelocytes 8 % (-); Monocytes 16 % (2-9); Segmented Neutrophils 57 % (42-75)
[2023-10-26 15:48] LABS: Anisocytosis 1+; Normal RBC Morphology No; Platelets Checked Yes; Total Cells Counted 100
== END ==
LOC: OIDL 16:06
PROVIDERS: ATTENDING PHYSICIAN Nurse Practitioner Adult Health
DX: E83.110 Hereditary hemochromatosis (principal)
CPT/HCPCS: 85025; 86850; 86900; 86901

== ENCOUNTER 2023-11-06 09:35 | Outpatient (RCR) | payer MEDICARE, BC, SELFPAY ==
[2023-10-28 11:19] VITALS: BP 94/59
[2023-10-28 11:46] VITALS: BP 96/60
[2023-10-28 13:38] VITALS: BP 114/64
[2023-10-28 13:39] VITALS: BP 114/64
[2023-10-28 14:01] VITALS: BP 115/63
[2023-10-28] MEDS: TYLENOL 650 MG PO (15:40)
[2023-10-28 16:10] VITALS: BP 125/88
[2023-11-06 10:39] VITALS: BP 99/67
[2023-11-06 11:01] VITALS: BP 117/72
[2023-11-06] MEDS: TYLENOL 650 MG PO (11:05)
[2023-11-06 13:05] VITALS: BP 109/69
== END 2023-11-07 23:59 | disposition home or self-care (01) ==
LOC: OID 09:35
PROVIDERS: ATTENDING PHYSICIAN Internal Medicine Hematology & Oncology; FAMILY PHYSICIAN Family Medicine; PRIMARYCARE PHYSICIAN Internal Medicine
DX: E83.110 Hereditary hemochromatosis (principal); D46.9 Myelodysplastic syndrome, unspecified; D64.9 Anemia, unspecified
CPT/HCPCS: 36415; 36430; 86850; 86900; 86901; 86920; P9016